=== PATIENT | female | born 1950 | race Caucasian/White ===

== ENCOUNTER 2017-06-21 08:05 | Inpatient (IN) | payer MEDICARE ==
[2017-06-21] VITALS (15 sets, daily range): BP systolic 113–186; BP diastolic 58–88; PULSE 77–160; RESP 17–24; TEMP 97.2–97.9; O2SAT 88–100
[~2017-06-21] VITALS: Ht 167.6 cm; Wt 83.3 kg
[~2017-06-21 08:05] MED LIST: CALTTAB2 PO; FISH1000 PO; PROC5TAB PO; TAB-TAB PO; VITA400C70 PO; VITA500T10 PO; [UNRECOGNIZED DRUG - CODE]; [UNRECOGNIZED DRUG - CODE] PO; [UNRECOGNIZED DRUG - CODE] PO
[2017-06-21] MEDS ORDERED: LIDOCAINE HCL 1% 10 ML VIAL SQ ONE (08:06)
[2017-06-21] MEDS ORDERED: SODIUM CHLORIDE 2 ML FLUSH PRN IV FLUSH (08:30)
[2017-06-21] MEDS ORDERED: SODIUM CHLOR 0.9% 1000 ML IV SCH (08:30)
[2017-06-21] MEDS ORDERED: ATOR20TA15 PO (08:32)
[2017-06-21] MEDS ORDERED: OMEG12002 PO (08:32)
[2017-06-21] MEDS ORDERED: GABA300C5 PO (08:32)
[2017-06-21] MEDS ORDERED: GLUC500T4 PO (08:32)
[2017-06-21] MEDS ORDERED: VENTAER INH (08:32)
[2017-06-21] MEDS ORDERED: MIRA3350 PO (08:32)
[2017-06-21] MEDS ORDERED: COQ-50CA2 PO (08:32)
[2017-06-21] MEDS ORDERED: MONT10TA4 PO (08:32)
[2017-06-21] MEDS ORDERED: OXYC1CAP PO (08:32)
[2017-06-21] MEDS ORDERED: MULTTAB67 PO (08:32)
[2017-06-21] MEDS ORDERED: IBUP200C PO (08:32)
[2017-06-21] MEDS ORDERED: VITA250C3 CHEW (08:32)
[2017-06-21] MEDS ORDERED: ALBU0.63 NEB (08:32)
[2017-06-21] MEDS ORDERED: DESO0.0560 TOPICAL (08:32)
[2017-06-21] MEDS ORDERED: CLOB0.055 TOPICAL (08:32)
[2017-06-21] MEDS ORDERED: SODIUM CHLORIDE 2 ML FLUSH BID IV FLUSH SCH (09:00)
[2017-06-21] MEDS ORDERED: MIDAZOLAM HCL 2 MG/2 ML VIAL ONE ×2 (09:32→13:14)
--- NOTE | 2017-06-21 11:04 | RADRPT ---
EXAM DATE/TIME: 06/21/2017 10:43 [facility] COMPARISON: No previous studies available for comparison. INDICATIONS : Post left side lung biopsy; evaluate for pneumothorax. MEDICAL HISTORY : Carcinoma, lung. SURGICAL HISTORY : None. ENCOUNTER: Initial ACUITY: 1 day PAIN SCORE: 3/10 LOCATION: Left chest FINDINGS: There is evidence of a moderate-sized left apical pneumothorax measuring 3.8 cm. Perihilar streakines s is stable. Left upper lung field nodule is also stable. The heart is mildly prominent. CONCLUSION: Moderate-sized left apical pneumothorax measuring 3.8 cm. The findings were called to special procedu res at 11 AM on 06/21/17 for chest tube placement. Damian Don MD on June 21, 2017 at 10:57 Board Certified Radiologist. This report was verified electronically.
[2017-06-21] MEDS: oxyCODONE/ACETAMINOPHEN 5 MG/325 MG TAB PO PRN ×3 (11:07→21:27)
--- NOTE | 2017-06-21 12:46 | RADRPT ---
EXAM DATE/TIME: 06/21/2017 12:25 [facility] COMPARISON: CHEST EXPIRATION ONLY, June 21, 2017, 10:43. INDICATIONS : Post left lung biopsy. MEDICAL HISTORY : Carcinoma, lung. SURGICAL HISTORY : None. ENCOUNTER: Subsequent ACUITY: 1 day PAIN SCORE: 0/10 LOCATION: Bilateral chest FINDINGS: Frontal views of the chest in inspiration and expiration were performed. Enlarging left-sided pneumot horax now measuring 3.9 cm and. CONCLUSION: Enlarging left-sided pneumothorax. Gerard Brown MD on June 21, 2017 at 12:41 Board Certified Radiologist. This report was verified electronically.
--- NOTE | 2017-06-21 13:04 | RADRPT ---
EXAM DATE/TIME: 06/21/2017 09:39 [facility] COMPARISON: No previous studies available for comparison. INDICATIONS : Left lung mass. SEDATION TIME: 30 minutes BIOPSY SITE: Left upper posterior chest. MEDICATION(S): 1.) 4 mg midazolam (Versed) IV 2.) 200 mcg fentanyl (Sublimaze) IV DEVICE(S): 1.) 20 gauge Temno core biopsy needle MEDICAL HISTORY : Carcinoma, lung. Chronic obstructive pulmonary disease. High grade neuroendocrine carcinoma, Eaton-L ambert Syndrome, Esophageal stricture. SURGICAL HISTORY : Tubal ligation. Radiation and chemotherapy for right lung cancer. ENCOUNTER: Initial ACUITY: 1 day PAIN SCORE: 0/10 LOCATION: Left upper chest A total of one core specimen(s) were obtained and sent to the laboratory for pathologic evaluation. PROCEDURE: 1. CT guided lung biopsy. Prior to the procedure informed consent was obtained. Any appropriate prior imaging studies were rev iewed. Using automated exposure control and adjustment of the mA and/or kV according to patient size, radiation dose was kept as low as reasonably achievable to obtain optimal diagnostic quality images. DICOM format image data is available electronically for review and comparison. The site was prepped in a sterile fashion. Full sterile technique was used, including cap, mask, igor rile gloves and gown and a large sterile sheet. Hand hygiene and 2% chlorhexidine and/or betadine/al cohol prep was utilized per protocol for cutaneous antisepsis. The skin and subcutaneous tissues wer e infiltrated with local anesthetic solution. With CT guidance the previously identified target was localized. Biopsy was performed using the presc ribed needle as above. Adequate hemostasis was obtained with compression at the puncture site. Follow-up CT scan reveals a small pneumothorax. Conscious sedation was performed with the prescribed dosages and duration as above in the presence of an independent trained radiology nurse to assist in the monitoring of the patient. EKG and oximetry remained stable throughout the procedure. The patient tolerated the procedure well and there were no complications. The patient was sent to Radiology Outpatient Unit in stable condition. CONCLUSION: Successful CT guided biopsy with small post-biopsy pneumothorax. Damian Don MD on June 21, 2017 at 13:00 Board Certified Radiologist. This report was verified electronically.
[2017-06-21] MEDS ORDERED: fentaNYL CITRATE 250 MCG/5 ML AMP ONE (13:14)
--- NOTE | 2017-06-21 13:33 | PD.RAD ---
Post Procedure Progress Note Pre Procedure Diagnosis: (1) Pneumothorax Post Procedure Diagnosis: (1) Pneumothorax Procedure Date: Jun 21, 2017 Supervising Radiologist: Toan Torres Proceduralist/Assist: RT Osvaldo(R) Anesthesia: Conscious Sedation Plan of Activity Patient to Unit: Nursing Unit Patient Condition: Good See PACS Report for procedural detail/treatment Drainage Procedure Procedure 1 Imaging Guidance: Fluoroscopy Side: Left Procedure Type: Chest Tube Non-Tunneled Marshallese: 10 Drainage: Pleurovac Toan Torres MD Jun 21, 2017 13:33
[2017-06-21] MEDS ORDERED: MAGNESIUM HYDROXIDE SUSP 30 ML CUP PO PRN (14:00)
[2017-06-21] MEDS ORDERED: NALOXONE HCL 0.4 MG/ML AMP IV PUSH PRN (14:00)
[2017-06-21] MEDS ORDERED: SODIUM CHLORIDE 0.9% FLUSH 10 ML FLUSH IV FLUSH PRN (14:00)
--- NOTE | 2017-06-21 14:03 | RADRPT ---
EXAM DATE/TIME: 06/21/2017 13:48 [facility] COMPARISON: CHEST EXPIRATION ONLY, June 21, 2017, 10:43. INDICATIONS : Evaluate for pneumothorax. Status post left chest tube. MEDICAL HISTORY : None. SURGICAL HISTORY : None. ENCOUNTER: Initial ACUITY: 1 day PAIN SCORE: 0/10 LOCATION: Bilateral chest FINDINGS: A small left apical chest tube has been placed. No residual pneumothorax is noted the heart is stable . Bilateral scarring and left upper lobe mass are stable. CONCLUSION: No residual pneumothorax is post placement of small left apical chest tube which is in good position. Damian Don MD on June 21, 2017 at 14:00 Board Certified Radiologist. This report was verified electronically.
--- NOTE | 2017-06-21 14:15 | HHI.HP ---
HPI Service [facility] Hospitalists Primary Care Physician Vidya Barrera Jr, MD Admission Diagnosis Pneumothorax status post lung biopsy Chief Complaint: pneumothorax status post lung biopsy Travel History International Travel<30 Days: No Contact w/Intl Traveler <30 Da: No Traveled to Known Affected Are: No History of Present Illness This is a 67-year-old female patient with past medical history which includes arthritis, COPD, epilepsy as a child not currently on medications, esophageal strictures, hypercholesterolemia, Lambert-Eaton syndrome, opioid dependence, history of tobaccoism quit smoking in 2008, recurrent bronchitis, small cell lung CA treated with chemo and radiation also status post prophylactic whole brain radiation 2008. Patient followed with Dr. Christy in the past now follows with Dr. Damon. Dr. Damon found a suspicion lesion and patient was seen in interventional radiology today for a lung biopsy subsequently had pneumothorax with chest tube placement. We are consulted to admit patient for close monitoring. Patient reports feeling much better now. Offers no complaints at this time. Denies SOB or chest pain. 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 not currently on medications, esophageal strictures, hypercholesterolemia, Lambert-Eaton syndrome, opioid dependence, history of tobaccoism quit smoking in 2008, recurrent bronchitis, small cell lung CA status post prophylactic whole brain radiation 2008 Past Surgical History Carpal tunnel repair right wrist Cervical spinal fusion 2008 Infusion port placement Tendon repair elbow and wrist in the Colonoscopy 2013 CT-guided biopsy mediastinal mass 2009 Right knee surgery 1987 Tubal ligation 1976 Reported Medications Leland 3 1200 mg (Leland-3 Fatty Acids) 684 Mg-1,200 Mg Cap 1 Cap PO DAILY Gabapentin 300 Mg Cap 300 Mg PO TID Desonide Topical (Desonide) 0.05% Cream 1 Applic TOPICAL BID Clobetasol Topical (Clobetasol Propionate) 0.05% Cream 1 Applic TOPICAL BID Albuterol Neb (Albuterol Sulfate) 0.63 Mg/3 Ml Neb 0.63 Mg NEB Q4HR NEB PRN Montelukast (Montelukast Sodium) 10 Mg Tab 10 Mg PO HS Ibuprofen 200 Mg Cap 200 Mg PO Q6H PRN Ventolin Hfa 18 GM Inh (Albuterol Sulfate) 90 Mcg/Act Aer 1 Puff INH Q4H PRN Coq-10 (Coenzyme Q10 (Ubidecarenone)) 50 Mg Cap 100 Cap PO DAILY Atorvastatin (Atorvastatin Calcium) 20 Mg Tab 40 Mg PO HS Glucosamine-Chondroitin 500-400 Mg Tab 1 Tab PO TID Miralax Powder (Polyethylene Glycol 3350 Powder) 17 Gm Powd 17 Gm PO HS Mix and dissolve one measuring cap-ful (17 grams) in water or juice. Vitamin C (Ascorbic Acid) 250 Mg Chew 1,000 Mg CHEW DAILY Multiple Vitamin 1 Tab 1 Tab PO DAILY Oxycodone (Oxycodone HCl) 5 Mg Cap 5 Mg PO HS PRN Allergies: Coded Allergies: latex (Unverified Allergy, Severe, Rash, 06/21/17) Family History Noncontributory Social History Former smoker quit smoking 2008 Physical Exam Vital Signs Vital Signs Date Time Temp Pulse Resp B/P (MAP) Pulse Ox O2 Delivery O2 Flow Rate FiO2 06/21/17 13:45 97.9 89 18 133/74 (93) 100 06/21/17 12:46 87 18 113/79 (90) 100 06/21/17 12:16 84 19 147/74 (98) 99 06/21/17 12:07 20 06/21/17 11:46 85 18 154/78 (103) 98 06/21/17 11:16 82 19 152/84 (106) 99 06/21/17 10:46 97.6 86 17 146/88 (107) 96 06/21/17 08:40 95 Room Air 06/21/17 08:25 97.8 105 20 143/85 (104) 95 Physical Exam GENERAL: This is a well-nourished, well-developed patient, in no apparent distress. SKIN: No rashes, ecchymoses or lesions. Cool and dry. HEAD: Atraumatic. Normocephalic. No temporal or scalp tenderness. EYES: Extraocular motions intact. No scleral icterus. No injection or drainage. CARDIOVASCULAR: Regular rate and rhythm RESPIRATORY: Chest tube in place GASTROINTESTINAL: Abdomen soft, non-tender, nondistended. MUSCULOSKELETAL: Extremities without clubbing, cyanosis, or edema. No joint tenderness, effusion, or edema noted. No calf tenderness. Negative Homans sign bilaterally. NEUROLOGICAL: Awake and alert. No focal deficits identified. Motor and sensory grossly within normal limits. Five out of 5 muscle strength in all muscle groups. Normal speech. Imaging Last Impressions Chest X-Ray 06/21/17 1230 Signed Impressions: Service Date/Time: Wednesday, June 21, 2017 12:25 - CONCLUSION: Enlarging left-sided pneumothorax. Gerard Brown MD Lung Biopsy CT 06/21/17 0000 Signed Impressions: Service Date/Time: Wednesday, June 21, 2017 09:39 - CONCLUSION: Successful CT guided biopsy with small post-biopsy pneumothorax. MD Jonatan Kline VTE Risk Assessment Caprini VTE Risk Assessment: No/Low Risk (score <= 1) Caprini Risk Assessment Model Point Value = 1 Point Value = 2 Point Value = 3 Point Value = 5 Age 41-60 Minor surgery BMI > 25 kg/m2 Swollen legs Varicose veins or History of unexplained or recurrent spontaneous Oral contraceptives or hormone replacement Sepsis (< 1 month) Serious lung disease, including pneumonia (< 1 month) Abnormal pulmonary function Acute myocardial infarction Congestive heart failure (< 1 month) History of inflammatory bowel disease Medical patient at bed rest Age 61-74 Arthroscopic surgery Major open surgery (> 45 min) Laparoscopic surgery (> 45 min) Malignancy Confined to bed (> 72 hours) Immobilizing plaster cast Central venous access Age >= 75 History of VTE Family history of VTE Factor V Leiden Prothrombin [id number] Lupus anticoagulant Anticardiolipin antibodies Elevated serum homocysteine Heparin-induced thrombocytopenia Other congenital or acquired thrombophilia Stroke (< 1 month) Elective arthroplasty Hip, pelvis, or leg fracture Acute spinal cord injury (< 1 month) Prophylaxis Regimen Total Risk Factor Score Risk Level Prophylaxis Regimen 0-1 Low Early ambulation 2 Moderate Order ONE of the following: *Sequential Compression Device (SCD) *Heparin 5000 units SQ BID 3-4 Higher Order ONE of the following medications: *Heparin 5000 units SQ TID *Enoxaparin/Lovenox 40 mg SQ daily (WT < 150 kg, CrCl > 30 mL/min) *Enoxaparin/Lovenox 30 mg SQ daily (WT < 150 kg, CrCl > 10-29 mL/min) *Enoxaparin/Lovenox 30 mg SQ BID (WT < 150 kg, CrCl > 30 mL/min) AND/OR *Sequential Compression Device (SCD) 5 or more Highest Order ONE of the following medications: *Heparin 5000 units SQ TID (Preferred with Epidurals) *Enoxaparin/Lovenox 40 mg SQ daily (WT < 150 kg, CrCl > 30 mL/min) *Enoxaparin/Lovenox 30 mg SQ daily (WT < 150 kg, CrCl > 10-29 mL/min) *Enoxaparin/Lovenox 30 mg SQ BID (WT < 150 kg, CrCl > 30 mL/min) AND *Sequential Compression Device (SCD) Assessment and Plan Problem List: (1) Pneumothorax ICD Codes: J93.9 - Pneumothorax, unspecified Status: Acute Plan: history of small cell lung CA status post prophylactic whole brain radiation 2008. Patient was in interventional radiology today for a lung biopsy subsequently had pneumothorax chest tube placed We are consulted to admit patient for close monitoring. CT to wall suction (2) Small cell lung cancer ICD Codes: C34.90 - Malignant neoplasm of unspecified part of unspecified bronchus or lung Status: Chronic Plan: see above (3) COPD (chronic obstructive pulmonary disease) ICD Codes: J44.9 - Chronic obstructive pulmonary disease, unspecified Status: Acute Plan: Does not appear to be in acute exacerbation Duonebs PRN (4) Hypercholesteremia ICD Codes: E78.00 - Pure hypercholesterolemia, unspecified Status: Chronic Plan: Continue home Atorvastatin Assessment and Plan Patient examined. Assessment and plan formulated with Goldie Ventura PA-C. I agree with the above. Problem Qualifiers (1) Pneumothorax: Qualified Codes: J95.811 - Postprocedural pneumothorax Goldie Ventura Jun 21, 2017 14:15 Elvis Carter DO Jun 23, 2017 21:25
--- NOTE | 2017-06-21 15:52 | RADRPT ---
EXAM DATE/TIME: 06/21/2017 13:25 [facility] COMPARISON: No previous studies available for comparison. INDICATIONS : Patient presents status post lung biopsy in need of left chest tube placement due to pneumothorax. MEDICAL HISTORY : Lung carcinoma SURGICAL HISTORY : n/a ENCOUNTER: Initial ACUITY: 1 day PAIN SCORE: 0/10 LOCATION: N/A FLUORO TIME: 1.30 minutes IMAGE SERIES: 2 SEDATION TIME: 30 minutes MEDICATION(S): 1.) 1.5 mg midazolam (Versed) IV 2.) 75 mcg fentanyl (Sublimaze) IV DEVICE(S): 1.) 10 Danish non-locking catheter 30cm luca PROCEDURE : 1. Fluoroscopically guided chest tube placement. 2. Conscious sedation with continuous EKG and oximetry monitoring. The risks, benefits and alternatives to the procedure were explained and verbal and written consent w as obtained. The site was prepped in sterile fashion. Full sterile technique was used, including ca p, mask, sterile gloves and gown and a large sterile sheet. Hand hygiene and 2% chlorhexidine and/or betadine/alcohol prep was utilized per protocol for cutaneous antisepsis. The skin and subcutaneous tissues were infiltrated with local anesthetic solution. With fluoroscopic guidance the chest was punctured between the first and second interspace and the pr escribed catheter was placed in the lung apex. Wall suction was applied. Post procedure images demon strate satisfactory position of the tube. The catheter was sutured in place and a Percu-Stay was mickey lied. Conscious sedation was performed with the prescribed dosages and duration as above in the presence of an independent trained radiology nurse to assist in the monitoring of the patient. EKG and oximetry remained stable throughout the procedure. The patient tolerated the procedure well and there were n o complications. The patient was sent to post anesthesia recovery in stable condition. CONCLUSION: Uncomplicated chest tube placement as above. Toan Torres MD on June 21, 2017 at 15:49 Board Certified Radiologist. This report was verified electronically.
[2017-06-21] MEDS ORDERED: RESP: ALBUTEROL 2.5 MG/IPRATROPIUM 0.5 MG NEB (PRN) NEB (16:00)
[2017-06-21] MEDS: GABAPENTIN 300 MG CAP PO SCH (17:51)
[2017-06-21] MEDS ORDERED: MENTHOL LOZENGE BUCCAL PRN (18:15)
[2017-06-21] MEDS ORDERED: MENTHOL LOZENGE BUCCAL ONE (18:15)
--- NOTE | 2017-06-21 19:40 | HHI.FPPN ---
Addendum to progress note ADDENDUM Reason for addendum: Additonal documentation Additional information Called to [facility] on pt regarding concern for worsening shortness of breath. Pt had just been admitted and a chest tube was placed. It had been removed and pt had worsening shortness of breath and the team heard a hiss from the lung site. Radiology was made aware as well as ICU for transfer and likely replacement of the chest tube. Transfer to ICU was placed and primary team took over care for further orders. Diony Parker MD R2 Jun 21, 2017 19:40
--- NOTE | 2017-06-21 20:35 | RADRPT ---
EXAM DATE/TIME: 06/21/2017 20:02 [facility] COMPARISON: CHEST EXPIRATION ONLY, June 21, 2017, 13:48. INDICATIONS : Short of breath. MEDICAL HISTORY : Carcinoma, lung. Chronic obstructive pulmonary disease. High grade neuroendocrine carcinoma, Eaton-La mbert Syndrome, Esophageal stricture. SURGICAL HISTORY : Tubal ligation. Radiation and chemotherapy for right lung cancer. ENCOUNTER: Subsequent ACUITY: 1 day PAIN SCORE: 4/10 LOCATION: Bilateral chest FINDINGS: Left chest tube has been pulled out. There is a large pneumothorax with rightward mediastinal shift. Patchy atelectasis right lung. CONCLUSION: Large left pneumothorax with tension. The chest tube has been pulled out. Abel Platt MD on June 21, 2017 at 20:25 Board Certified Radiologist. This report was verified electronically.
[2017-06-21] MEDS: POLYETHYLENE GLYCOL 17 GM PKG PO SCH (21:00)
[2017-06-21] MEDS: SODIUM CHLORIDE 0.9% FLUSH 10 ML FLUSH IV FLUSH SCH (21:00)
[2017-06-21] MEDS: MONTELUKAST SODIUM 10 MG TAB PO SCH (21:12)
[2017-06-21] MEDS: ATORVASTATIN 40 MG TAB PO SCH (21:13)
--- NOTE | 2017-06-21 22:07 | RADRPT ---
EXAM DATE/TIME: 06/21/2017 21:39 [facility] COMPARISON: No previous studies available for comparison. INDICATIONS : Post chest tube placement. MEDICAL HISTORY : None. SURGICAL HISTORY : None. ENCOUNTER: Initial ACUITY: 1 day PAIN SCORE: 0/10 LOCATION: Bilateral chest FINDINGS: A new left chest tube has been placed, projects over the midlung. The pneumothorax is much smaller, n ow [id number] in size. It measures approximately 3.6 cm in maximal thickness at the apex. No t ension.. Under that There is mild left base atelectasis. Mild patchy atelectasis/infiltrate of the right lung and with a small pleural effusion, not significa ntly changed. CONCLUSION: Small to moderate left pneumothorax present, much smaller after chest tube placement. Abel Platt MD on June 21, 2017 at 22:04 Board Certified Radiologist. This report was verified electronically.
--- NOTE | 2017-06-21 22:52 | PD.CONS ---
HPI Service Critical Care Medicine Consult Requested By Primary Care Physician Vidya Barrera Jr, MD History of Present Illness 67-year-old female patient with past medical history of arthritis, COPD, epilepsy as a child not currently on medications, esophageal strictures, hypercholesterolemia, Lambert-Eaton syndrome, opioid dependence, history of tobaccoism quit smoking in 2008, recurrent bronchitis, small cell lung CA treated with chemo and radiation also status post prophylactic whole brain radiation 2008. Patient followed with Dr. Christy in the past now follows with Dr. Damon. Dr. Damon found a suspicion lesion and patient was seen in interventional radiology today for a lung biopsy complicated by pneumothorax with a chest tube placement. Around 6:45 PM the [facility] was called on the patient regarding concern for worsening shortness of breath. The chest tube that was orally placed was removed and the patient had worsening shortness of breath. The patient was transferred to critical care unit and the emergency chest tube was placed immediately with significant improvement of symptoms. Review of Systems ROS Unobtainable due to severe respiratory distress Past Family Social History Allergies: Coded Allergies: latex (Unverified Allergy, Severe, Rash, 06/21/17) Past Medical History arthritis, COPD, epilepsy as a child not currently on medications, esophageal strictures, hypercholesterolemia, Lambert-Eaton syndrome, opioid dependence, history of tobaccoism quit smoking in 2008, recurrent bronchitis, small cell lung CA status post prophylactic whole brain radiation 2008 Past Surgical History Carpal tunnel repair right wrist Cervical spinal fusion 2008 Infusion port placement Tendon repair elbow and wrist in the Colonoscopy 2012 CT-guided biopsy mediastinal mass 2008 Right knee surgery 1986 Tubal ligation 1976 Reported Medications Reported Meds & Active Scripts Active Reported Gill 3 1200 mg (Gill-3 Fatty Acids) 684 Mg-1,200 Mg Cap 1 Cap PO DAILY Gabapentin 300 Mg Cap 300 Mg PO TID Desonide Topical (Desonide) 0.05% Cream 1 Applic TOPICAL BID Clobetasol Topical (Clobetasol Propionate) 0.05% Cream 1 Applic TOPICAL BID Albuterol Neb (Albuterol Sulfate) 0.63 Mg/3 Ml Neb 0.63 Mg NEB Q4HR NEB PRN Montelukast (Montelukast Sodium) 10 Mg Tab 10 Mg PO HS Ibuprofen 200 Mg Cap 200 Mg PO Q6H PRN Ventolin Hfa 18 GM Inh (Albuterol Sulfate) 90 Mcg/Act Aer 1 Puff INH Q4H PRN Coq-10 (Coenzyme Q10 (Ubidecarenone)) 50 Mg Cap 100 Cap PO DAILY Atorvastatin (Atorvastatin Calcium) 20 Mg Tab 40 Mg PO HS Glucosamine-Chondroitin 500-400 Mg Tab 1 Tab PO TID Miralax Powder (Polyethylene Glycol 3350 Powder) 17 Gm Powd 17 Gm PO HS Mix and dissolve one measuring cap-ful (17 grams) in water or juice. Vitamin C (Ascorbic Acid) 250 Mg Chew 1,000 Mg CHEW DAILY Multiple Vitamin 1 Tab 1 Tab PO DAILY Oxycodone (Oxycodone HCl) 5 Mg Cap 5 Mg PO HS PRN Active Ordered Medications Current Medications Medications (Trade) Dose Ordered Sig/Leeann Route PRN Reason Start Time Stop Time Status Last Admin Dose Admin Oxycodone/ Acetaminophen (Percocet 5-325 Mg) 1 tab Q4H PRN PO PAIN SCALE 1 TO 10 06/21/17 10:30 06/21/17 21:27 Sodium Chloride (NS Flush) 2 ml UNSCH PRN IV FLUSH FLUSH AFTER USING IV ACCESS 06/21/17 14:00 Sodium Chloride (NS Flush) 2 ml BID IV FLUSH 06/21/17 21:00 06/21/17 21:00 Acetaminophen (Tylenol) 650 mg Q4H PRN PO TEMP > 100.4 06/21/17 14:00 Ondansetron HCl (Zofran Inj) 4 mg Q6H PRN IVP NAUSEA OR VOMITING 06/21/17 14:00 Naloxone HCl (Narcan Inj) 0.4 mg UNSCH PRN IV PUSH SEE LABEL COMMENTS 06/21/17 14:00 Magnesium Hydroxide (Milk Of Magnreba Liq) 30 ml Q12H PRN PO Mild constipation 06/21/17 14:00 Atorvastatin Calcium (Lipitor) 40 mg HS PO 06/21/17 21:00 06/21/17 21:13 Gabapentin (Neurontin) 300 mg TID PO 06/21/17 18:00 06/21/17 17:51 Montelukast Sodium (Singulair) 10 mg HS PO 06/21/17 21:00 06/21/17 21:12 Polyethylene Glycol (Miralax) 17 gm HS PO 06/21/17 21:00 Albuterol/ Ipratropium (Duoneb Neb) 1 ampule Q4HR NEB PRN NEB SOB/WHEEZING 06/21/17 16:00 Menthol ([place] Melvina) 1 lozenge UNSCH PRN BUCCAL DRY MOUTH/SORE THROAT 06/21/17 18:15 Family History No family history significant for coronary artery disease, CVA, or malignancies Social History Former smoker quit smoking 2008 Physical Exam Vital Signs Vital Signs Date Time Temp Pulse Resp B/P (MAP) Pulse Ox O2 Delivery O2 Flow Rate FiO2 06/21/17 22:00 109 06/21/17 21:00 105 06/21/17 20:00 160 06/21/17 19:20 97 15.00 100 06/21/17 19:10 110 24 186/84 (118) 88 06/21/17 16:00 97.2 77 17 120/58 (78) 98 06/21/17 15:01 96 Nasal Cannula 2.00 06/21/17 14:45 87 19 130/74 (92) 99 06/21/17 14:15 82 19 124/66 (85) 99 06/21/17 13:45 97.9 89 18 133/74 (93) 100 06/21/17 12:46 87 18 113/79 (90) 100 06/21/17 12:16 84 19 147/74 (98) 99 06/21/17 12:07 20 06/21/17 11:46 85 18 154/78 (103) 98 06/21/17 11:16 82 19 152/84 (106) 99 06/21/17 10:46 97.6 86 17 146/88 (107) 96 06/21/17 08:40 95 Room Air 06/21/17 08:25 97.8 105 20 143/85 (104) 95 Physical Exam GENERAL: Well-nourished, well-developed patient. Severe respiratory distress, tachypneic and diaphoretic SKIN: Warm and dry. HEAD: Normocephalic. EYES: No scleral icterus. No injection or drainage. NECK: Supple, trachea midline. No JVD or lymphadenopathy. CARDIOVASCULAR: Regular rate and rhythm without murmurs, gallops, or rubs. RESPIRATORY: Breath sounds diminished on the left side, positive accessory muscle use. GASTROINTESTINAL: Abdomen soft, non-tender, nondistended. MUSCULOSKELETAL: No cyanosis, or edema. BACK: Nontender without obvious deformity. NEURO EXAM: Mental Status: The patient is alert and oriented to person, place, and time Imaging Last 24 hours Impressions Chest X-Ray 06/21/17 1230 Signed Impressions: Service Date/Time: Wednesday, June 21, 2017 12:25 - CONCLUSION: Enlarging left-sided pneumothorax. Gerard Brown MD Lung Biopsy CT 06/21/17 0000 Signed Impressions: Service Date/Time: Wednesday, June 21, 2017 09:39 - CONCLUSION: Successful CT guided biopsy with small post-biopsy pneumothorax. Damian Don MD Chest X-Ray 06/21/17 0000 Signed Impressions: Service Date/Time: Wednesday, June 21, 2017 21:39 - CONCLUSION: Small to moderate left pneumothorax present, much smaller after chest tube placement. Abel Platt MD Chest X-Ray 06/21/17 0000 Signed Impressions: Service Date/Time: Wednesday, June 21, 2017 20:02 - CONCLUSION: Large left pneumothorax with tension. The chest tube has been pulled out. Abel Platt MD Chest X-Ray 06/21/17 0000 Signed Impressions: Service Date/Time: Wednesday, June 21, 2017 13:48 - CONCLUSION: No residual pneumothorax is post placement of small left apical chest tube which is in good position. Damian Don MD Chest X-Ray 06/21/17 0000 Signed Impressions: Service Date/Time: Wednesday, June 21, 2017 10:43 - CONCLUSION: Moderate-sized left apical pneumothorax measuring 3.8 cm. The findings were called to special procedures at 11 AM on 06/21/17 for chest tube placement. Damian Don MD Chest Tube Insertion 06/21/17 0000 Signed Impressions: Service Date/Time: Wednesday, June 21, 2017 13:25 - CONCLUSION: Uncomplicated chest tube placement as above. Toan Torres MD Assessment and Plan Assessment and Plan Tension pneumothorax -Emergent chest tube placement -Continue low wall suction -CXR a.m. -O2 nasal cannula Small cell lung cancer -Management per oncology COPD -No exacerbation -No indication for steroid -DuoNeb scheduled and as needed Hypercholesteremia -Atorvastatin DVT GI prophylaxis -Papito's and SCDs -Lovenox -Regular diet Critical Care: The total critical care time was 35 minutes. Time to perform other separately billable procedures was not included in the critical care time. Abel Barahona MD Jun 21, 2017 10:52 pm
--- NOTE | 2017-06-21 22:52 | PD.PROCEDR ---
Procedure Note Procedure Left-sided chest tube for a large pneumothorax Procedure: CHEST TUBE Indication: Large pneumothorax Performed by: Abel Barahona A time out procedure was performed Initials Consent obtained JV Correct patient JV Correct procedure JV Correct site JV Correct positioning JV Correct supplies JV Patient was positioned, prepped and draped in usual sterile fashion. ccs 1% Lidocaine was used to anesthetize the area. An incision was made and blunt dissection was performed and curved forceps were used to enter the pleural space. A 10 fr chest tube was placed to 15cm. The tube was secured and taped. A chest xray was ordered to evaluate for placement of the chest tube. A pigtail catheter was placed using the seldinger technique. Initial Fluid Removed: 50 Patient tolerated the procedure well and there were no complications. Abel Barahona MD Jun 21, 2017 10:52 pm
[2017-06-22] VITALS (23 sets, daily range): PULSE 73–130; O2SAT 92–98
[2017-06-22] MEDS ORDERED: guaiFENesin E.R. 600 MG TAB PO PRN (00:15)
[2017-06-22] MEDS: ENOXAPARIN SODIUM 40 MG/0.4 ML SYRINGE SQ SCH ×2 (00:39→23:06)
[2017-06-22] MEDS: oxyCODONE/ACETAMINOPHEN 5 MG/325 MG TAB PO PRN ×2 (01:10→21:06)
[2017-06-22] MEDS ORDERED: MORPHINE SULFATE 2 MG/ML SYRINGE ONE (01:51)
[2017-06-22] MEDS ORDERED: LORazepam 2 MG/ML VIAL ONE (01:53)
[2017-06-22] MEDS: HYDROmorphone HCL PF 2 MG/ML VIAL IV PUSH PRN ×3 (02:15→23:05)
--- NOTE | 2017-06-22 02:32 | RADRPT ---
EXAM DATE/TIME: 06/22/2017 01:58 [facility] COMPARISON: CHEST SINGLE AP, June 21, 2017, 21:39. INDICATIONS : Short of breath. Pneumothorax. MEDICAL HISTORY : Carcinoma, lung. Chronic obstructive pulmonary disease. High grade neuroendocrine carcinoma, Eaton-La mbert Syndrome, Esophageal stricture. SURGICAL HISTORY : None. ENCOUNTER: Subsequent ACUITY: 2 days PAIN SCORE: 0/10 LOCATION: Bilateral chest FINDINGS: A single view of the chest demonstrates left apical pneumothorax measuring 2 cm. Bibasilar densities. Left-sided chest tube. Subcutaneous emphysema on the left.. Osseous structures are intact. CONCLUSION: Left-sided pneumothorax measuring 2 cm slightly smaller. Miguel Ochoa MD on June 22, 2017 at 2:30 Board Certified Radiologist. This report was verified electronically.
[2017-06-22] MEDS: ONDANSETRON HCL 4 MG/2 ML VIAL IVP PRN ×2 (06:07→21:07)
[2017-06-22] MEDS ORDERED: CHLORHEXIDINE GLUCONATE 2 % 1 PACK (2 CLOTHS)(extra cloths) TOPICAL PRN (06:15)
--- NOTE | 2017-06-22 06:29 | RADRPT ---
EXAM DATE/TIME: 06/22/2017 05:59 [facility] COMPARISON: CHEST SINGLE AP, June 22, 2017, 1:58. INDICATIONS : Shortness of breath, possible pulmonary disease. MEDICAL HISTORY : None. SURGICAL HISTORY : Needle biopsy ENCOUNTER: Subsequent ACUITY: 2 days PAIN SCORE: 5/10 LOCATION: Left chest FINDINGS: A single view of the chest demonstrates unchanged left apical pneumothorax. Small caliber left-sided chest tube again seen. Subcutaneous edema on the left. Bibasilar densities greater right lung. Cardio megaly. The cardiomediastinal contours are unremarkable. Osseous structures are intact. CONCLUSION: 1. Left-sided chest tube with unchanged left apical pneumothorax. 2. Bibasilar densities, stable. Miguel Ochoa MD on June 22, 2017 at 6:27 Board Certified Radiologist. This report was verified electronically.
[2017-06-22] MEDS ORDERED: LIDOCAINE 1%/EPINEPHrine 1:100,000 SOLN 20 ML VIAL INFIL ONE (07:00)
[2017-06-22] MEDS ORDERED: MIDAZOLAM HCL 5 MG/5 ML VIAL IV PUSH ONE (07:00)
[2017-06-22] MEDS ORDERED: DEXMEDETOMIDINE INJ 1,000 MCG in SODIUM CHLOR 0.9% 250 ML INJ 240 ML IV PRN (07:00)
[2017-06-22] MEDS ORDERED: MIDAZOLAM HCL 5 MG/ML VIAL (1 ML) ONE (07:02)
[2017-06-22] MEDS ORDERED: LIDOCAINE 1%/EPINEPHrine 1:100,000 SOLN 30 ML VIAL INFIL ONE (07:15)
--- NOTE | 2017-06-22 07:52 | HHI.CCPN ---
Subjective Remarks/Hospital Course 67-year-old female patient with past medical history of arthritis, COPD, epilepsy as a child not currently on medications, esophageal strictures, hypercholesterolemia, Lambert-Eaton syndrome, opioid dependence, history of tobaccoism quit smoking in 2008, recurrent bronchitis, small cell lung CA treated with chemo and radiation also status post prophylactic whole brain radiation 2008. Patient followed with Dr. Christy in the past now follows with Dr. Damon. Dr. Damon found a suspicion lesion and patient was seen in interventional radiology today for a lung biopsy complicated by pneumothorax with a chest tube placement. Around 6:45 PM the [facility] was called on the patient regarding concern for worsening shortness of breath. The chest tube that was orally placed was removed and the patient had worsening shortness of breath. The patient was transferred to critical care unit and the emergency chest tube was placed immediately with significant improvement of symptoms. Subjective: 06/22: Afebrile. Patient with complaints of recurrent nausea despite Zofran. Phenergan added to medication regimen. This a.m. while rounding on patient approximately 0640 this a.m. patient noted to have left pigtail chest tube inadvertently pulled out. Patient tachypneic, O2 saturation 97% heart rate 117. Left 28 Swedish chest tube placed, pleuravac placed on 40cm H20, tachypnea resolved. Patient normotensive currently resting comfortably, post chest tube placement. Chest x-ray pending. Objective Vital Signs Date Time Temp Pulse Resp B/P (MAP) Pulse Ox O2 Delivery O2 Flow Rate FiO2 06/22/17 06:00 112 06/22/17 05:32 10 06/22/17 01:12 98 Partial Rebreather 15.00 06/21/17 19:20 100 06/21/17 19:10 186/84 (118) 06/21/17 16:00 97.2 Intake and Output 06/22/17 06/22/17 06/23/17 08:00 16:00 00:00 Output Total 470 ml Balance -470 ml Imaging Last Impressions Chest X-Ray 06/22/17 0600 Signed Impressions: Service Date/Time: May 05:59 - CONCLUSION: 1. Left- sided chest tube with unchanged left apical pneumothorax. 2. Bibasilar densities, stable. Miguel Ochoa MD Lung Biopsy CT 06/21/17 0000 Signed Impressions: Service Date/Time: Wednesday, June 21, 2017 09:39 - CONCLUSION: Successful CT guided biopsy with small post-biopsy pneumothorax. Damian Don MD Chest Tube Insertion 06/21/17 0000 Signed Impressions: Service Date/Time: Wednesday, June 21, 2017 13:25 - CONCLUSION: Uncomplicated chest tube placement as above. Toan Torres MD Last 24 hours Impressions Chest X-Ray 06/21/17 1230 Signed Impressions: Service Date/Time: Wednesday, June 21, 2017 12:25 - CONCLUSION: Enlarging left-sided pneumothorax. Gerard Brown MD Lung Biopsy CT 06/21/17 0000 Signed Impressions: Service Date/Time: Wednesday, June 21, 2017 09:39 - CONCLUSION: Successful CT guided biopsy with small post-biopsy pneumothorax. Damian Don MD Chest X-Ray 06/21/17 0000 Signed Impressions: Service Date/Time: Wednesday, June 21, 2017 21:39 - CONCLUSION: Small to moderate left pneumothorax present, much smaller after chest tube placement. Abel Platt MD Chest X-Ray 06/21/17 0000 Signed Impressions: Service Date/Time: Wednesday, June 21, 2017 20:02 - CONCLUSION: Large left pneumothorax with tension. The chest tube has been pulled out. Abel Platt MD Chest X-Ray 06/21/17 0000 Signed Impressions: Service Date/Time: Wednesday, June 21, 2017 13:48 - CONCLUSION: No residual pneumothorax is post placement of small left apical chest tube which is in good position. Damian Don MD Chest X-Ray 06/21/17 0000 Signed Impressions: Service Date/Time: Wednesday, June 21, 2017 10:43 - CONCLUSION: Moderate-sized left apical pneumothorax measuring 3.8 cm. The findings were called to special procedures at 11 AM on 06/21/17 for chest tube placement. Damian Don MD Chest Tube Insertion 06/21/17 0000 Signed Impressions: Service Date/Time: Wednesday, June 21, 2017 13:25 - CONCLUSION: Uncomplicated chest tube placement as above. Toan Torres MD Procedures 06/21-left pigtail chest tube placement 4/26-left 26 Swedish chest tube placement Objective Remarks GENERAL: Well-nourished, well-developed patient. Moderate respiratory distress , tachypneic . Left chest tube pigtail pulled out lying in bed SKIN: Warm and dry. HEAD: Normocephalic. EYES: No scleral icterus. No injection or drainage. NECK: Supple, trachea midline. No JVD or lymphadenopathy. CARDIOVASCULAR: Regular rate and rhythm without murmurs, gallops, or rubs. RESPIRATORY: Breath sounds diminished on the left side, positive accessory muscle use. GASTROINTESTINAL: Abdomen soft, non-tender, nondistended. MUSCULOSKELETAL: No cyanosis, or edema. BACK: Nontender without obvious deformity. NEURO EXAM: Mental Status: GCS 15 .the patient is alert and oriented to person, place, and time . Movement of extremities 4 Urinary Catheter: Yes Date of Insertion: Jun 22, 2017 A/P Problem List: (1) Pneumothorax ICD Code: J93.9 - Pneumothorax, unspecified Status: Acute (2) Small cell lung cancer ICD Code: C34.90 - Malignant neoplasm of unspecified part of unspecified bronchus or lung Status: Chronic (3) Hypercholesteremia ICD Code: E78.00 - Pure hypercholesterolemia, unspecified Status: Chronic (4) COPD (chronic obstructive pulmonary disease) ICD Code: J44.9 - Chronic obstructive pulmonary disease, unspecified Status: Acute Assessment and Plan Tension pneumothorax -Emergent left pigtail chest tube placement 06/21 -Replacement of left chest tube 28 Swedish on 40 cm H20 06/22 - F/U CXR post placement of 28 Swedish chest tube -O2 nasal cannula Small cell lung cancer -Management per oncology COPD -No exacerbation -No indication for steroid -DuoNeb as needed every 4 hours Hypercholesteremia -Atorvastatin continued DVT GI prophylaxis -Papito's and SCDs -Lovenox -NPO for now , possible intubation Discussed withthe patient and JUNIOR ENGINEER at bedside (Thelma) my billing statement This patient remains critically ill with one or more organ systems which are or may become a threat to life. I have spent in excess of 37 minutes discontinuously in the care and management of this patient. This time is exclusive of procedures, and includes, but is not limited to, evaluation of the patient, review of the medical record, discussions with family, consultants, nursing staff, or respiratory therapy, and documentation in the medical record. Physician Luciana Snider Problem Qualifiers (1) Pneumothorax: Qualified Codes: J95.811 - Postprocedural pneumothorax Luciana Snider MD Jun 22, 2017 07:52
--- NOTE | 2017-06-22 07:56 | PD.PROCEDR ---
Procedure Note Procedure Procedure: Left chest tube placement Indication: Left pneumothorax, status post dislodgment of left pigtail chest tube Details of procedure: Informed consent in medical record. The patient was laid in slight semi- recumbent position. The lateral chest wall was cleaned with ChloraPrep twice. Regional sterile drapes were applied. 1% lidocaine with epinephrine 7 cc was used for local anesthesia and injected into the subcutaneous and deep muscle tissues. A 2 cm skin incision was made with a scalpel blade. A hemostat was used for blunt dissection. The hemostat was entered into the pleural space superior to the rib with release of air. I explored the wound with my finger. A size 28 Bulgarian chest tube was inserted with a Constanza clamp into the pleural cavity and directed toward the apex/anterior to a depth of 16. 0-0 silk was used to close the wound and to secure the chest tube. A sterile Vaseline gauze dressing was applied. The chest tube was connected to a Pleur-evac drainage system. There was noair leak . There was no output from the chest tube. Estimated blood loss: < 3cc Complications: None. Chest x-ray pending. Luciana Snider MD Jun 22, 2017 07:56
[2017-06-22] MEDS ORDERED: PROMETHAZINE HCL SYRUP 6.25 MG/5 ML CUP PO PRN (08:00)
--- NOTE | 2017-06-22 08:20 | RADRPT ---
EXAM DATE/TIME: 06/22/2017 07:32 [facility] COMPARISON: CHEST SINGLE AP, June 22, 2017, 5:59. INDICATIONS : Evaluate chest tube placement MEDICAL HISTORY : Left side pneumothorax SURGICAL HISTORY : Needle biopsy, left side chest tube ENCOUNTER: Subsequent ACUITY: 2 days PAIN SCORE: Non-responsive. LOCATION: chest FINDINGS: A left chest tube has been placed and is in good position. The previously noted left apical pneumotho rax has resolved. There is persistent subcutaneous emphysema with left chest wall. The heart is stabl e. Scarring and infiltrates are stable. CONCLUSION: Resolution of the left apical pneumothorax status post chest tube placement. Persistent subcutaneous emphysema within the left chest wall. Persistent scarring and infiltrates gary aterally. Damian Don MD on June 22, 2017 at 8:10 Board Certified Radiologist. This report was verified electronically.
[2017-06-22 08:22] LABS: BASOPHIL % 0.2 % (0.0-2.0); HEMATOCRIT 42.9 % (35.0-46.0); HEMOGLOBIN 13.9 GM/DL (11.6-15.3); LYMPH % 2.3 % (9.0-44.0); LYMPHOCYTE # 0.3 TH/MM3 (1.0-4.8); MEAN CELL VOLUME 92.5 FL (80.0-100.0); MEAN CORPUSCULAR HEMOGLOBIN 29.9 PG (27.0-34.0); MEAN CORPUSCULAR HGB CONC 32.3 % (32.0-36.0); MEAN PLATELET VOLUME 11.4 FL (7.0-11.0); MONO % 6.8 % (0.0-8.0); MONOCYTE # 0.9 TH/MM3 (0-0.9); NEUT % 90.7 % (16.0-70.0); PLATELET COUNT 146 TH/MM3 (150-450); RED BLOOD COUNT 4.63 MIL/MM3 (4.00-5.30); RED CELL DISTRIBUTION WIDTH 14.4 % (11.6-17.2); WHITE BLOOD COUNT 13.2 TH/MM3 (4.0-11.0)
[2017-06-22 08:32] LABS: BILIRUBIN, URINE NEG (NEG); BLOOD, URINE NEG (NEG); GLUCOSE,URINE NEG (NEG); HYALINE CAST, URINE 2 /lpf (RARE); KETONE, URINE NEG (NEG); MUCUS URINE FEW /lpf (OCC); NITRITE,URINE NEG (NEG); PH, URINE 5.5 (5.0-8.5); SQUAMOUS EPITHELIAL CELL URINE 1 /hpf (0-5); URINE COLOR YELLOW (YELLW/STRAW); URINE LEUKOCYTE ESTERASE NEG (NEG)
[2017-06-22] MEDS: RESP: ALBUTEROL 2.5 MG/IPRATROPIUM 0.5 MG NEB (SCH) NEB ×3 (08:37→20:58)
[2017-06-22 08:59] LABS: ALBUMIN 3.5 GM/DL (3.4-5.0); ALT (GPT) 23 U/L (10-53); AST (GOT) 26 U/L (15-37); BICARBONATE 28.4 MEQ/L (21.0-32.0); BLOOD UREA NITROGEN 25 MG/DL (7-18); CALCIUM 8.9 MG/DL (8.5-10.1); CHLORIDE 103 MEQ/L (98-107); CREATININE 1.36 MG/DL (0.50-1.00); GLOMERULAR FILTRATION RATE 39 ML/MIN (>89); GLUCOSE,RANDOM 135 MG/DL (74-106); MAGNESIUM 2.2 MG/DL (1.5-2.5); PHOSPHORUS 5.6 MG/DL (2.5-4.9); SODIUM (NA) 140 MEQ/L (136-145)
[2017-06-22 09:01] LABS: ALKALINE PHOSPHATASE 73 U/L (45-117); TOTAL BILIRUBIN ADULT 0.4 MG/DL (0.2-1.0); TOTAL PROTEIN 8.1 GM/DL (6.4-8.2)
[2017-06-22] MEDS: SODIUM CHLORIDE 0.9% FLUSH 10 ML FLUSH IV FLUSH SCH ×2 (09:32→21:05)
[2017-06-22] MEDS: GABAPENTIN 300 MG CAP PO SCH ×3 (09:32→18:00)
[2017-06-22] MEDS ORDERED: PHENYLEPHRINE HCL 10 MG/ML VIAL ONE (16:15)
--- NOTE | 2017-06-22 16:19 | EKG ---
Date Performed: 06/21/2017 Time Performed: 14:11:24 PTAGE: 67 years EKG: Sinus rhythm NORMAL ECG NO PREVIOUS TRACING DOCTOR: Francisco Rayo Interpretating Date/Time 06/22/2017 16:15:34
[2017-06-22] MEDS: MONTELUKAST SODIUM 10 MG TAB PO SCH (21:06)
[2017-06-22] MEDS: ATORVASTATIN 40 MG TAB PO SCH (21:07)
[2017-06-22] MEDS: POLYETHYLENE GLYCOL 17 GM PKG PO SCH (21:07)
[2017-06-23] VITALS (23 sets, daily range): BP systolic 104; BP diastolic 56; PULSE 107–119; RESP 18; TEMP 98.6; O2SAT 92–97
[2017-06-23] MEDS: CHLORHEXIDINE GLUCONATE 2 % 1 PACK (2 CLOTHS)(taper/protocol) TOPICAL SCH (04:00)
[2017-06-23] MEDS: RESP: ALBUTEROL 2.5 MG/IPRATROPIUM 0.5 MG NEB (SCH) NEB ×6 (04:18→23:33)
--- NOTE | 2017-06-23 05:46 | RADRPT ---
EXAM DATE/TIME: 06/23/2017 04:14 [facility] COMPARISON: CHEST SINGLE AP, June 22, 2017, 7:32. INDICATIONS : Shortness of breath. MEDICAL HISTORY : Left side pneumothorax. SURGICAL HISTORY : Needle biopsy, left side chest tube. ENCOUNTER: Subsequent ACUITY: 3 days PAIN SCORE: Non-responsive. LOCATION: chest FINDINGS: Left chest drainage tube tip remains projected at the left apex. No evidence of pneumothorax stop st able subcutaneous emphysema about the left upper and lower chest wall. There is persistent infiltrat es in the mid and lower lungs bilaterally, similar in size, but with less consolidation when compared to 06/22/17. CONCLUSION: 1. Left chest drainage tube in place with out pneumothorax. 2. Persistent bilateral mid and lower lung infiltrates, slightly improved. Mahin Boles MD on June 23, 2017 at 5:43 Board Certified Radiologist. This report was verified electronically.
[2017-06-23 05:58] LABS: AUTOMATED NEUTROPHIL # 9.2 TH/MM3 (1.8-7.7); BASOPHIL % 0.4 % (0.0-2.0); HEMOGLOBIN 14.1 GM/DL (11.6-15.3); LYMPH % 2.6 % (9.0-44.0); LYMPHOCYTE # 0.3 TH/MM3 (1.0-4.8); MEAN CELL VOLUME 92.1 FL (80.0-100.0); MEAN CORPUSCULAR HEMOGLOBIN 30.2 PG (27.0-34.0); MEAN CORPUSCULAR HGB CONC 32.8 % (32.0-36.0); MEAN PLATELET VOLUME 11.2 FL (7.0-11.0); MONO % 4.2 % (0.0-8.0); MONOCYTE # 0.4 TH/MM3 (0-0.9); NEUT % 92.8 % (16.0-70.0); PLATELET COUNT 124 TH/MM3 (150-450); RED BLOOD COUNT 4.67 MIL/MM3 (4.00-5.30); RED CELL DISTRIBUTION WIDTH 14.6 % (11.6-17.2); WHITE BLOOD COUNT 9.9 TH/MM3 (4.0-11.0)
[2017-06-23 06:33] LABS: BICARBONATE 26.7 MEQ/L (21.0-32.0); CALCIUM 9.1 MG/DL (8.5-10.1); CREATININE 1.77 MG/DL (0.50-1.00); MAGNESIUM 2.4 MG/DL (1.5-2.5); PHOSPHORUS 6.6 MG/DL (2.5-4.9)
[2017-06-23] MEDS: GABAPENTIN 300 MG CAP PO SCH ×3 (09:00→17:45)
[2017-06-23] MEDS ORDERED: RESP: ALBUTEROL 2.5 MG/IPRATROPIUM 0.5 MG NEB (PRN) NEB (10:15)
--- NOTE | 2017-06-23 10:27 | HHI.CCPN ---
Subjective Remarks/Hospital Course 67-year-old female patient with past medical history of arthritis, COPD, epilepsy as a child not currently on medications, esophageal strictures, hypercholesterolemia, Lambert-Eaton syndrome, opioid dependence, history of tobaccoism quit smoking in 2008, recurrent bronchitis, small cell lung CA treated with chemo and radiation also status post prophylactic whole brain radiation 2008. Patient followed with Dr. Christy in the past now follows with Dr. Damon. Dr. Damon found a suspicion lesion and patient was seen in interventional radiology today for a lung biopsy complicated by pneumothorax with a chest tube placement. Around 6:45 PM the [facility] was called on the patient regarding concern for worsening shortness of breath. The chest tube that was orally placed was removed and the patient had worsening shortness of breath. The patient was transferred to critical care unit and the emergency chest tube was placed immediately with significant improvement of symptoms. Subjective: 06/22: Afebrile. Patient with complaints of recurrent nausea despite Zofran. Phenergan added to medication regimen. This a.m. while rounding on patient approximately 0640 this a.m. patient noted to have left pigtail chest tube inadvertently pulled out. Patient tachypneic, O2 saturation 97% heart rate 117. Left 28 Ecuadorean chest tube placed, pleuravac placed on 40cm H20, tachypnea resolved. Patient normotensive currently resting comfortably, post chest tube placement. Chest x-ray pending. 06/23 Patient is on BIPAP 02/03 with 50% FIO2. Afebrile. Renal function is slightly worse today with Cr:1.77 from 1.36 Objective Vital Signs Date Time Temp Pulse Resp B/P (MAP) Pulse Ox O2 Delivery O2 Flow Rate FiO2 06/23/17 09:08 94 50 06/23/17 09:00 112 06/23/17 08:12 BiPAP 06/22/17 20:58 15.00 06/22/17 05:32 10 06/21/17 19:10 186/84 (118) 06/21/17 16:00 97.2 Intake and Output 06/23/17 06/23/17 06/24/17 08:00 16:00 00:00 Intake Total 0 ml Output Total 200 ml Balance -200 ml Result Diagram: 06/23/17 0432 06/23/17 0432 Other Results Laboratory Tests Test 06/22/17 21:39 06/23/17 04:32 06/23/17 08:44 Blood Gas Puncture Site RT RADIAL LT RADIAL Blood Gas Patient Temperature 98.6 98.6 Blood Gas HCO3 24 mmol/L 25 mmol/L Blood Gas Base Excess -2.2 mmol/L -1.6 mmol/L Blood Gas Oxygen Saturation 91 % 92 % Arterial Blood pH 7.25 7.25 Arterial Blood Partial Pressure CO2 56 mmHg 58 mmHg Arterial Blood Partial Pressure O2 71 mmHg 71 mmHg Arterial Blood Oxygen Content 18.3 Vol % 17.6 Vol % Arterial Blood Carboxyhemoglobin 0.6 % 0.7 % Arterial Blood Methemoglobin 1.3 % 1.4 % Blood Gas Hemoglobin 14.2 G/DL 13.5 G/DL Oxygen Delivery Device Partial Rebreather BiPAP Blood Gas Liter Flow 15 L/M Blood Gas Inspired Oxygen 80 % 50 % White Blood Count 9.9 TH/MM3 Red Blood Count 4.67 MIL/MM3 Hemoglobin 14.1 GM/DL Hematocrit 43.0 % Mean Corpuscular Volume 92.1 FL Mean Corpuscular Hemoglobin 30.2 PG Mean Corpuscular Hemoglobin Concent 32.8 % Red Cell Distribution Width 14.6 % Platelet Count 124 TH/MM3 Mean Platelet Volume 11.2 FL Neutrophils (%) (Auto) 92.8 % Lymphocytes (%) (Auto) 2.6 % Monocytes (%) (Auto) 4.2 % Eosinophils (%) (Auto) 0.0 % Basophils (%) (Auto) 0.4 % Neutrophils # (Auto) 9.2 TH/MM3 Lymphocytes # (Auto) 0.3 TH/MM3 Monocytes # (Auto) 0.4 TH/MM3 Eosinophils # (Auto) 0.0 TH/MM3 Basophils # (Auto) 0.0 TH/MM3 CBC Comment DIFF FINAL Differential Comment Blood Urea Nitrogen 46 MG/DL Creatinine 1.77 MG/DL Random Glucose 140 MG/DL Calcium Level 9.1 MG/DL Phosphorus Level 6.6 MG/DL Magnesium Level 2.4 MG/DL Sodium Level 140 MEQ/L Potassium Level 5.3 MEQ/L Chloride Level 104 MEQ/L Carbon Dioxide Level 26.7 MEQ/L Anion Gap 9 MEQ/L Estimat Glomerular Filtration Rate 29 ML/MIN Blood Gas Ventilator Setting IPAP16/EPAP8/PS8 Imaging Last Impressions Chest X-Ray 06/23/17 0600 Signed Impressions: Service Date/Time: Friday, June 23, 2017 04:14 - CONCLUSION: 1. Left chest drainage tube in place with out pneumothorax. 2. Persistent bilateral mid and lower lung infiltrates, slightly improved. Mahin Boles MD Lung Biopsy CT 06/21/17 0000 Signed Impressions: Service Date/Time: Wednesday, June 21, 2017 09:39 - CONCLUSION: Successful CT guided biopsy with small post-biopsy pneumothorax. Damian Don MD Chest Tube Insertion 06/21/17 0000 Signed Impressions: Service Date/Time: Wednesday, June 21, 2017 13:25 - CONCLUSION: Uncomplicated chest tube placement as above. Toan Torres MD Procedures 06/21-left pigtail chest tube placement 06/22-left 26 Ecuadorean chest tube placement Objective Remarks GENERAL: Well-nourished, well-developed patient lying in bed on BIPAP SKIN: Warm and dry. HEAD: Normocephalic. EYES: No scleral icterus. No injection or drainage. NECK: Supple, trachea midline. No JVD or lymphadenopathy. CARDIOVASCULAR: Regular rate and rhythm without murmurs, gallops, or rubs. RESPIRATORY: Breath sounds diminished on the left side, positive accessory muscle use. GASTROINTESTINAL: Abdomen soft, non-tender, nondistended. MUSCULOSKELETAL: No cyanosis, or edema. BACK: Nontender without obvious deformity. NEURO EXAM: Mental Status: Awake and alert Date of Insertion: Jun 22, 2017 A/P Problem List: (1) Pneumothorax ICD Code: J93.9 - Pneumothorax, unspecified Status: Acute (2) Small cell lung cancer ICD Code: C34.90 - Malignant neoplasm of unspecified part of unspecified bronchus or lung Status: Chronic (3) Hypercholesteremia ICD Code: E78.00 - Pure hypercholesterolemia, unspecified Status: Chronic (4) COPD (chronic obstructive pulmonary disease) ICD Code: J44.9 - Chronic obstructive pulmonary disease, unspecified Status: Acute Assessment and Plan 1)Acute hypoxemic and hypercapnic resp Insuff 2)COPD exac 3)s/p Tension pneumothorax s/p CT guided lung biopsy 4)Small cell lung cancer 5)Hypercholesteremia 6)JODY Plan Neuro: Monitor neuro status and avoid sedatives Pulm: Continue with oxygen keep sats >92% Bronchodilators ( Duoneb), add Pulmicort and IV steroids Continue with NIPPV if there is any worsening in clinical condition will proceed with intubation, s/p Emergent left pigtail chest tube placement 06/21 Replacement of left chest tube 28 Ecuadorean on 40 cm H20 06/[address] in place, b/l infiltrates On Singular 10mg qhs Follow up on Path results CV: Monitor HR and BP keep MAP>65mmHg Check 2D echo to eval LV function : Monitor renal function, electrolytes replacement per protocol Place on NS@75ml/hr. GI: NPO for now till resp status improves ID: Monitor for signs of infections ( Fever, WBC) Place on Zosyn empirically for COPD exac, check sputum cx Check Pneumonia and Legionella urinary Ag Heme: Monitor CBC Endo: Place on SSI for glycemic control DVT GI prophylaxis -Papito's and SCDs/Lovenox -Pepcid Level 3 Problem Qualifiers (1) Pneumothorax: Qualified Codes: J95.811 - Postprocedural pneumothorax Carla Stahl MD Jun 23, 2017 10:27
[2017-06-23] MEDS: SODIUM CHLORIDE 0.9% FLUSH 10 ML FLUSH IV FLUSH SCH ×2 (11:04→19:48)
[2017-06-23] MEDS: SODIUM CHLOR 0.9% 1000 ML INJ 1,000 ML IV SCH ×2 (11:04→23:14)
[2017-06-23] MEDS: methylPREDNISolone SOD SUCC 40 MG/1 ML VIAL IV PUSH SCH ×2 (11:49→21:19)
[2017-06-23] MEDS ORDERED: PIPERACIL-TAZO 4.5 GM PREMIX 100 ML IV SCH (12:00)
[2017-06-23] MEDS: RESP: BUDESONIDE 0.25 MG/2 ML NEB NEB SCH ×2 (13:00→19:55)
[2017-06-23] MEDS: PIPERACIL-TAZO 3.375 GM PREMIX 50 ML IV SCH ×2 (17:45→23:13)
[2017-06-23] MEDS: MONTELUKAST SODIUM 10 MG TAB PO SCH (19:48)
[2017-06-23] MEDS: FAMOTIDINE 20 MG TAB PO SCH (19:48)
[2017-06-23] MEDS: POLYETHYLENE GLYCOL 17 GM PKG PO SCH (19:48)
[2017-06-23] MEDS: ATORVASTATIN 40 MG TAB PO SCH (19:48)
--- NOTE | 2017-06-23 21:15 | RADRPT ---
EXAM DATE/TIME: 06/23/2017 20:56 [facility] COMPARISON: No previous studies available for comparison. INDICATIONS : Shortness of breath. MEDICAL HISTORY : Left side pneumothorax. SURGICAL HISTORY : Needle biopsy, left side chest tube. ENCOUNTER: Subsequent ACUITY: 3 days PAIN SCORE: Non-responsive. LOCATION: chest FINDINGS: Persistent bilateral mid and lower lung consolidation. Left chest tube remains in place. No pneumotho rax seen but there is chest wall emphysema again noted. Heart size stable, upper limits of normal. CONCLUSION: Bilateral infiltrates persist without significant change. Left chest tube remains in place. No pneumo thorax seen. Abel Platt MD on June 23, 2017 at 21:11 Board Certified Radiologist. This report was verified electronically.
[2017-06-23] MEDS: ENOXAPARIN SODIUM 40 MG/0.4 ML SYRINGE SQ SCH (23:14)
[2017-06-23] MEDS: HYDROmorphone HCL PF 2 MG/ML VIAL IV PUSH PRN (23:25)
[2017-06-24] VITALS (26 sets, daily range): BP systolic 111–155; BP diastolic 60–83; PULSE 97–157; RESP 14–56; TEMP 98.8–98.9; O2SAT 90–99
[2017-06-24] MEDS: AMIODARONE INJ 450 MG in SODIUM CHLOR 0.9% (EXCEL) INJ 241 ML IV PRN ×3 (00:12→08:25)
[2017-06-24] MEDS: RESP: ALBUTEROL 2.5 MG/IPRATROPIUM 0.5 MG NEB (SCH) NEB ×7 (03:52→23:54)
[2017-06-24] MEDS: CHLORHEXIDINE GLUCONATE 2 % 1 PACK (2 CLOTHS)(taper/protocol) TOPICAL SCH (04:00)
--- NOTE | 2017-06-24 04:47 | RADRPT ---
EXAM DATE/TIME: 06/24/2017 03:47 [facility] COMPARISON: CHEST SINGLE AP, June 23, 2017, 20:56. INDICATIONS : Shortness of breath, possible pneumothorax. MEDICAL HISTORY : None. SURGICAL HISTORY : Needle biopsy ENCOUNTER: Subsequent ACUITY: 4 - 6 days PAIN SCORE: 6/10 LOCATION: Left chest FINDINGS: Left chest tube tip projects at the upper medial chest, stable from prior. Slight decrease in subcut aneous emphysema about the lateral left chest wall. Increasing infiltrates in the left lateral and l ower lung, with interval development of consolidation with associated loss of delineation of the medi al left hemidiaphragm. Infiltrates in the medial and lower right lung are stable. CONCLUSION: Increasing consolidation left lower lung. Stable infiltrates right lung oh stopped no pneumothorax s een. Mahin Boles MD on June 24, 2017 at 4:43 Board Certified Radiologist. This report was verified electronically.
[2017-06-24] MEDS: PIPERACIL-TAZO 3.375 GM PREMIX 50 ML IV SCH ×3 (05:17→17:59)
[2017-06-24] MEDS: methylPREDNISolone SOD SUCC 40 MG/1 ML VIAL IV PUSH SCH ×3 (05:18→20:19)
[2017-06-24 07:18] LABS: AUTOMATED NEUTROPHIL # 7.6 TH/MM3 (1.8-7.7); HEMATOCRIT 35.7 % (35.0-46.0); HEMOGLOBIN 11.8 GM/DL (11.6-15.3); LYMPH % 1.1 % (9.0-44.0); LYMPHOCYTE # 0.1 TH/MM3 (1.0-4.8); MEAN CELL VOLUME 91.6 FL (80.0-100.0); MEAN CORPUSCULAR HEMOGLOBIN 30.3 PG (27.0-34.0); MEAN CORPUSCULAR HGB CONC 33.1 % (32.0-36.0); MEAN PLATELET VOLUME 11.1 FL (7.0-11.0); MONO % 4.3 % (0.0-8.0); MONOCYTE # 0.3 TH/MM3 (0-0.9); NEUT % 94.6 % (16.0-70.0); PLATELET COUNT 94 TH/MM3 (150-450); RED BLOOD COUNT 3.89 MIL/MM3 (4.00-5.30); RED CELL DISTRIBUTION WIDTH 14.7 % (11.6-17.2); WHITE BLOOD COUNT 8.1 TH/MM3 (4.0-11.0)
[2017-06-24] MEDS: RESP: BUDESONIDE 0.25 MG/2 ML NEB NEB SCH ×3 (07:42→20:24)
[2017-06-24 07:52] LABS: BICARBONATE 25.6 MEQ/L (21.0-32.0); CALCIUM 8.7 MG/DL (8.5-10.1); CREATININE 1.11 MG/DL (0.50-1.00); MAGNESIUM 2.6 MG/DL (1.5-2.5)
[2017-06-24] MEDS: FAMOTIDINE 20 MG TAB PO SCH ×2 (08:25→20:19)
[2017-06-24] MEDS: GABAPENTIN 300 MG CAP PO SCH ×3 (08:25→17:59)
[2017-06-24] MEDS: SODIUM CHLORIDE 0.9% FLUSH 10 ML FLUSH IV FLUSH SCH ×2 (08:32→20:20)
[2017-06-24] MEDS: SODIUM CHLOR 0.9% 1000 ML INJ 1,000 ML IV SCH (12:55)
[2017-06-24] MEDS: HYDROmorphone HCL PF 2 MG/ML VIAL IV PUSH PRN ×2 (14:59→21:08)
--- NOTE | 2017-06-24 16:26 | HHI.CCPN ---
Subjective Remarks/Hospital Course 67-year-old female patient with past medical history of arthritis, COPD, epilepsy as a child not currently on medications, esophageal strictures, hypercholesterolemia, Lambert-Eaton syndrome, opioid dependence, history of tobaccoism quit smoking in 2008, recurrent bronchitis, small cell lung CA treated with chemo and radiation also status post prophylactic whole brain radiation 2008. Patient followed with Dr. Christy in the past now follows with Dr. Damon. Dr. Damon found a suspicion lesion and patient was seen in interventional radiology today for a lung biopsy complicated by pneumothorax with a chest tube placement. Around 6:45 PM the [facility] was called on the patient regarding concern for worsening shortness of breath. The chest tube that was orally placed was removed and the patient had worsening shortness of breath. The patient was transferred to critical care unit and the emergency chest tube was placed immediately with significant improvement of symptoms. Subjective: 06/22: Afebrile. Patient with complaints of recurrent nausea despite Zofran. Phenergan added to medication regimen. This a.m. while rounding on patient approximately 0640 this a.m. patient noted to have left pigtail chest tube inadvertently pulled out. Patient tachypneic, O2 saturation 97% heart rate 117. Left 28 Botswanan chest tube placed, pleuravac placed on 40cm H20, tachypnea resolved. Patient normotensive currently resting comfortably, post chest tube placement. Chest x-ray pending. 06/23 Patient is on BIPAP 02/03 with 50% FIO2. Afebrile. Renal function is slightly worse today with Cr:1.77 from 1.36 06/24: Remains on partial rebreather. No air leak noted in chest tube. Suction decreased to -20 cm water pressure with underwater seal. Objective Vital Signs Date Time Temp Pulse Resp B/P (MAP) Pulse Ox O2 Delivery O2 Flow Rate FiO2 06/24/17 14:18 126 06/24/17 13:15 31 140/83 (102) 95 06/24/17 07:46 Partial Rebreather 06/24/17 04:00 98.9 06/24/17 03:53 60 06/23/17 19:52 15.00 Intake and Output 06/24/17 06/24/17 06/25/17 08:00 16:00 00:00 Intake Total 800 ml Output Total 570 ml Balance 230 ml Result Diagram: 06/24/17 0640 06/24/17 0640 Imaging Last Impressions Chest X-Ray 06/23/17 0600 Signed Impressions: Service Date/Time: Friday, June 23, 2017 04:14 - CONCLUSION: 1. Left chest drainage tube in place with out pneumothorax. 2. Persistent bilateral mid and lower lung infiltrates, slightly improved. Mahin Boles MD Lung Biopsy CT 06/21/17 0000 Signed Impressions: Service Date/Time: Wednesday, June 21, 2017 09:39 - CONCLUSION: Successful CT guided biopsy with small post-biopsy pneumothorax. Damian Don MD Chest Tube Insertion 06/21/17 0000 Signed Impressions: Service Date/Time: Wednesday, June 21, 2017 13:25 - CONCLUSION: Uncomplicated chest tube placement as above. Toan Torres MD Procedures 06/21-left pigtail chest tube placement 06/22-left 26 Botswanan chest tube placement Objective Remarks GENERAL: Well-nourished, well-developed patient lying in bed on BIPAP SKIN: Warm and dry. HEAD: Normocephalic. EYES: No scleral icterus. No injection or drainage. NECK: Supple, trachea midline. No JVD or lymphadenopathy. CARDIOVASCULAR: Regular rate and rhythm without murmurs, gallops, or rubs. RESPIRATORY: Breath sounds diminished on the left side, positive accessory muscle use. Left-sided chest tube with no air leak noted. -20 cm water pressure now with plan to respond to water seal only with no suction later today. GASTROINTESTINAL: Abdomen soft, non-tender, nondistended. MUSCULOSKELETAL: No cyanosis, or edema. BACK: Nontender without obvious deformity. NEURO EXAM: Mental Status: Awake and alert Date of Insertion: Jun 22, 2017 A/P Problem List: (1) Pneumothorax ICD Code: J93.9 - Pneumothorax, unspecified Status: Acute (2) Small cell lung cancer ICD Code: C34.90 - Malignant neoplasm of unspecified part of unspecified bronchus or lung Status: Chronic (3) Hypercholesteremia ICD Code: E78.00 - Pure hypercholesterolemia, unspecified Status: Chronic (4) COPD (chronic obstructive pulmonary disease) ICD Code: J44.9 - Chronic obstructive pulmonary disease, unspecified Status: Acute Assessment and Plan 1)Acute hypoxemic and hypercapnic resp Insuff 2)COPD exac 3)s/p Tension pneumothorax s/p CT guided lung biopsy 4)Small cell lung cancer 5)Hypercholesteremia 6)JODY Plan Neuro: Monitor neuro status and avoid sedatives Pulm: Continue with oxygen keep sats >92% Bronchodilators ( Duoneb), add Pulmicort and IV steroids Continue with NIPPV as needed, if there is any worsening in clinical condition will proceed with intubation, s/p Emergent left pigtail chest tube placement 06/21 Replacement of left chest tube 28 Botswanan on 40 cm H20 06/[address], b/l infiltrates On Singular 10mg qhs Follow up on Path results CV: Monitor HR and BP keep MAP>65mmHg Check 2D echo to eval LV function : Monitor renal function, electrolytes replacement per protocol Place on NS@75ml/hr. GI: Advance to soft mechanical diet. ID: Monitor for signs of infections ( Fever, WBC) Place on Zosyn empirically for COPD exac, check sputum cx Check Pneumonia and Legionella urinary Ag Heme: Monitor CBC Endo: Place on SSI for glycemic control DVT GI prophylaxis -Papito's and SCDs/Lovenox -Pepcid Level 3 Problem Qualifiers (1) Pneumothorax: Qualified Codes: J95.811 - Postprocedural pneumothorax Arvin Stone MD Jun 24, 2017 16:26
[2017-06-24] MEDS: MONTELUKAST SODIUM 10 MG TAB PO SCH (20:19)
[2017-06-24] MEDS: ATORVASTATIN 40 MG TAB PO SCH (20:20)
[2017-06-24] MEDS: POLYETHYLENE GLYCOL 17 GM PKG PO SCH (20:20)
[2017-06-24] MEDS ORDERED: METOPROLOL TARTRATE 50 MG TAB PO ONE (21:00)
[2017-06-25] VITALS (20 sets, daily range): BP systolic 104–162; BP diastolic 61–93; PULSE 95–118; RESP 5–40; TEMP 97.6–98.4; O2SAT 88–97
[2017-06-25] MEDS: PIPERACIL-TAZO 3.375 GM PREMIX 50 ML IV SCH ×5 (00:18→22:38)
[2017-06-25] MEDS: ENOXAPARIN SODIUM 40 MG/0.4 ML SYRINGE SQ SCH ×2 (00:18→22:38)
[2017-06-25] MEDS: RESP: ALBUTEROL 2.5 MG/IPRATROPIUM 0.5 MG NEB (SCH) NEB ×6 (03:28→23:53)
[2017-06-25] MEDS: CHLORHEXIDINE GLUCONATE 2 % 1 PACK (2 CLOTHS)(taper/protocol) TOPICAL SCH (04:00)
[2017-06-25] MEDS: METOPROLOL TARTRATE 50 MG TAB PO SCH ×3 (05:41→20:07)
[2017-06-25] MEDS: methylPREDNISolone SOD SUCC 40 MG/1 ML VIAL IV PUSH SCH ×3 (05:41→20:07)
[2017-06-25] MEDS: RESP: BUDESONIDE 0.25 MG/2 ML NEB NEB SCH ×2 (07:38→20:10)
--- NOTE | 2017-06-25 08:03 | RADRPT ---
EXAM DATE/TIME: 06/25/2017 07:46 [facility] COMPARISON: No previous studies available for comparison. INDICATIONS : Shortness of breath. MEDICAL HISTORY : None. SURGICAL HISTORY : None. ENCOUNTER: Subsequent ACUITY: 4 - 6 days PAIN SCORE: Non-responsive. LOCATION: Bilateral chest FINDINGS: Left-sided chest tube again seen without pneumothorax. There are diffuse bilateral parenchymal infilt rates increased in prominence from the previous study in the right lower lobe and right upper lobe. E KG leads overlie the chest. Cardiomegaly. CONCLUSION: Worsening appearance of the chest. Augusto Guthrie MD on June 25, 2017 at 7:59 Board Certified Radiologist. This report was verified electronically.
[2017-06-25] MEDS: GABAPENTIN 300 MG CAP PO SCH ×3 (09:00→18:00)
[2017-06-25] MEDS: SODIUM CHLORIDE 0.9% FLUSH 10 ML FLUSH IV FLUSH SCH ×2 (09:00→20:04)
[2017-06-25] MEDS: FAMOTIDINE 20 MG TAB PO SCH ×2 (09:00→20:04)
[2017-06-25] MEDS: HYDROmorphone HCL PF 2 MG/ML VIAL IV PUSH PRN (10:08)
[2017-06-25] MEDS: SODIUM CHLOR 0.9% 1000 ML INJ 1,000 ML IV SCH (10:55)
[2017-06-25] MEDS ORDERED: FUROSEMIDE 40 MG/4 ML VIAL IV PUSH ONE (11:45)
[2017-06-25] MEDS ORDERED: HALOPERIDOL LACTATE 5 MG/ML AMP IV PUSH ONE (11:45)
--- NOTE | 2017-06-25 12:15 | HHI.CCPN ---
Subjective Remarks/Hospital Course 67-year-old female patient with past medical history of arthritis, COPD, epilepsy as a child not currently on medications, esophageal strictures, hypercholesterolemia, Lambert-Eaton syndrome, opioid dependence, history of tobaccoism quit smoking in 2008, recurrent bronchitis, small cell lung CA treated with chemo and radiation also status post prophylactic whole brain radiation 2008. Patient followed with Dr. Christy in the past now follows with Dr. Damon. Dr. Damon found a suspicion lesion and patient was seen in interventional radiology today for a lung biopsy complicated by pneumothorax with a chest tube placement. Around 6:45 PM the [facility] was called on the patient regarding concern for worsening shortness of breath. The chest tube that was orally placed was removed and the patient had worsening shortness of breath. The patient was transferred to critical care unit and the emergency chest tube was placed immediately with significant improvement of symptoms. Subjective: 06/22: Afebrile. Patient with complaints of recurrent nausea despite Zofran. Phenergan added to medication regimen. This a.m. while rounding on patient approximately 0640 this a.m. patient noted to have left pigtail chest tube inadvertently pulled out. Patient tachypneic, O2 saturation 97% heart rate 117. Left 28 Lao chest tube placed, pleuravac placed on 40cm H20, tachypnea resolved. Patient normotensive currently resting comfortably, post chest tube placement. Chest x-ray pending. 06/23 Patient is on BIPAP 02/03 with 50% FIO2. Afebrile. Renal function is slightly worse today with Cr:1.77 from 1.36 06/24: Remains on partial rebreather. No air leak noted in chest tube. Suction decreased to -20 cm water pressure with underwater seal. 06/25: Worsening respiratory failure, currently on CPAP, adjustments made, FiO2 currently 0.60 with a PaO2 of 87. Serial ABGs being performed. stat chest x- ray performed early this a.m. showing worsening infiltrates. IV fluids discontinued, Lasix 40 mg x1 dose given. The patient continues to have altered mental status, and agitation. Concern for ICU delirium, ammonia level pending. Haldol 1 mg IV 1 dose given. Extensive discussion/family conference performed this a.m.. Family is aware that patient is at high risk for possible intubation. Objective Vital Signs Date Time Temp Pulse Resp B/P (MAP) Pulse Ox O2 Delivery O2 Flow Rate FiO2 06/25/17 10:00 98 06/25/17 08:00 97.6 28 153/76 (101) 96 06/25/17 07:40 70 06/25/17 04:55 BiPAP 06/23/17 19:52 15.00 Intake and Output 06/25/17 06/25/17 06/25/17 07:59 15:59 23:59 Output Total 350 ml Balance -350 ml Result Diagram: 06/24/17 0640 06/24/17 0640 Other Results Laboratory Tests Test 06/24/17 16:40 06/25/17 07:25 06/25/17 08:45 Blood Gas Puncture Site RT RADIAL RT RADIAL RT RADIAL Blood Gas Patient Temperature 98.6 98.6 98.6 Blood Gas HCO3 25 mmol/L (22-26) 24 mmol/L (22-26) 24 mmol/L (22-26) Blood Gas Base Excess -0.9 mmol/L (-2-2) -2.0 mmol/L (-2-2) -2.4 mmol/L (-2-2) Blood Gas Oxygen Saturation 95 % (90-100) 86 % (90-100) 97 % (90-100) Arterial Blood pH 7.29 (7.380-7.420) 7.26 (7.380-7.420) 7.26 (7.380-7.420) Arterial Blood Partial Pressure CO2 53 mmHg (38-42) 55 mmHg (38-42) 55 mmHg (38-42) Arterial Blood Partial Pressure O2 96 mmHg (61-120) 56 mmHg (61-120) 120 mmHg (61-120) Arterial Blood Oxygen Content 16.5 Vol % (12.0-20.0) 14.7 Vol % (12.0-20.0) 16.7 Vol % (12.0-20.0) Arterial Blood Carboxyhemoglobin 0.5 % (0-4) 0.7 % (0-4) 0.5 % (0-4) Arterial Blood Methemoglobin 1.1 % (0-2) 1.2 % (0-2) 1.2 % (0-2) Blood Gas Hemoglobin 12.2 G/DL (12.0-16.0) 12.1 G/DL (12.0-16.0) 12.2 G/DL (12.0-16.0) Oxygen Delivery Device PRM BIPAP 6EPAP/16IPAP BIPAP 20IPAP/6EPAP Blood Gas Liter Flow 12 L/M Blood Gas Inspired Oxygen 60 % 60 % Imaging Last Impressions Chest X-Ray 06/23/17 0600 Signed Impressions: Service Date/Time: Friday, June 23, 2017 04:14 - CONCLUSION: 1. Left chest drainage tube in place with out pneumothorax. 2. Persistent bilateral mid and lower lung infiltrates, slightly improved. Mahin Boles MD Lung Biopsy CT 06/21/17 0000 Signed Impressions: Service Date/Time: Wednesday, June 21, 2017 09:39 - CONCLUSION: Successful CT guided biopsy with small post-biopsy pneumothorax. Damian Don MD Chest Tube Insertion 06/21/17 0000 Signed Impressions: Service Date/Time: Wednesday, June 21, 2017 13:25 - CONCLUSION: Uncomplicated chest tube placement as above. Toan Torres MD Procedures 06/21-left pigtail chest tube placement 06/22-left 26 Lao chest tube placement Objective Remarks GENERAL: Well-nourished, well-developed patient lying in bed on BIPAP, agitated pulling at things noncommunicative SKIN: Warm and dry. HEAD: Normocephalic. EYES: No scleral icterus. No injection or drainage. NECK: Supple, trachea midline. No JVD or lymphadenopathy. CARDIOVASCULAR: Regular rate and rhythm without murmurs, gallops, or rubs. RESPIRATORY: Breath sounds diminished on the left side, positive accessory muscle use. Left-sided chest tube , leak 2+. -20 cm water pressure now with plan to respond to water seal only with no suction later today. GASTROINTESTINAL: Abdomen soft, non-tender, nondistended. MUSCULOSKELETAL: No cyanosis, or edema. BACK: Nontender without obvious deformity. NEURO EXAM: Mental Status: Confused , noncommunicative . Moving extremities 4 spontaneously . Attempting to get out of bed . Intermittent somnolence. Webb insert reason: ICU Pt Getting Diuretics Date of Insertion: Jun 22, 2017 A/P Problem List: (1) Pneumothorax ICD Code: J93.9 - Pneumothorax, unspecified Status: Acute (2) Small cell lung cancer ICD Code: C34.90 - Malignant neoplasm of unspecified part of unspecified bronchus or lung Status: Chronic (3) Hypercholesteremia ICD Code: E78.00 - Pure hypercholesterolemia, unspecified Status: Chronic (4) COPD (chronic obstructive pulmonary disease) ICD Code: J44.9 - Chronic obstructive pulmonary disease, unspecified Status: Acute Assessment and Plan 1)Acute hypoxemic and hypercapnic resp Insuff 2)COPD exac 3)s/p Tension pneumothorax s/p CT guided lung biopsy 4)Small cell lung cancer 5)Hypercholesteremia 6)JODY 7) acute encephalopathy-metabolic versus ICU delirium 8) Lambert Eaton -diagnosed 2008 Plan Neuro: Monitor neuro status and avoid sedatives Maintain sleep hygiene Obtain ammonia level Currently patient agitated noncommunicative, pulling on lines-Haldol 1 mg IV 1 dose Pulm: Continue with oxygen keep sats >92% Bronchodilators ( Duoneb), add Pulmicort and IV steroids Continue with NIPPV as needed, if there is any worsening in clinical condition will proceed with intubation, s/p Emergent left pigtail chest tube placement 06/21 Replacement of left chest tube 28 Lao on 40 cm H20 06/22 06/25 CXR -bilateral infiltrates worsening On Singular 10mg qhs Follow up on Path results 06/25 pulmonology consulted Pending Legionella strep pneumo and influenza results CV: Monitor HR and BP keep MAP>65mmHg F/U 2D echo to eval LV function : Monitor renal function, electrolytes replacement per protocol Discontinued, saline at 40 cc/hour. Start PPN at 42 cc/hr GI: N.p.o. except meds-patient at risk for intubation Bowel regimen ID: Monitor for signs of infections ( Fever, WBC) Place on Zosyn empirically for COPD exac, check sputum cx F/U results Pneumonia and Legionella urinary Ag, Influenza Heme: Monitor CBC Consult [id number] diagnosed with Lambpiper Eaton in 2008 Endo: Place on SSI for glycemic control Msk: Muscle weakness-progressive PT/OT evaluation and treat-patient has Lambert Eaton Daily functional maintenance DVT GI prophylaxis -Papito's and SCDs/Lovenox -Pepcid Level 3 Dispo: Intensive discussion/family conference with Mr. Arzola, and the patient's 2 sons. Medical status update provided. Patient is at risk for intubation. At this time family requests patient be intubated awaiting pathology results of lung mass. Discussed with them the possibility of tracheostomy as well as possible PEG placement in the future, if the patient has failure to wean. She has multiple comorbidities to include Lambert Eaton, lung mass, pulmonary infiltrates, possible infectious process, family made aware. At this time aggressive measures to be continued, patient continues to have respiratory decompensation plan for intubation. All questions answered. Physician Luciana Snider Problem Qualifiers (1) Pneumothorax: Qualified Codes: J95.811 - Postprocedural pneumothorax Luciana Snider MD Jun 25, 2017 12:15
[2017-06-25 12:56] LABS: BICARBONATE 23.8 MEQ/L (21.0-32.0); CALCIUM 8.5 MG/DL (8.5-10.1); CREATININE 1.8 MG/DL (0.50-1.00)
[2017-06-25] MEDS: METOPROLOL TARTRATE 5 MG/5 ML VIAL IV PUSH PRN ×2 (16:38→21:54)
--- NOTE | 2017-06-25 17:13 | MB ---
cc: Ida Cao MD DATE: 06/25/2017 CHIEF COMPLAINT: 1. History of small cell lung cancer. 2. Suspicious lesion status post biopsy. 3. Respiratory distress. HISTORY OF PRESENT ILLNESS: Ms. Arzola is a 67-year-old lady. She has a history of arthritis, COPD, hyperlipidemia, Lambert-Eaton syndrome, and tobacco abuse. She has a history of limited stage small cell lung cancer, which was diagnosed in 04/2008. She initially presented with a right subhilar mass with associated mediastinal lymphadenopathy. She underwent treatment with concurrent chemotherapy and radiation therapy with cisplatin and etoposide. She received a total of 6 cycles of chemotherapy and then underwent prophylactic whole brain radiation therapy upon conclusion of chemoradiation therapy to the chest. She received her treatment under the direction of Dr. Christy and she is now following with Dr. Augustina Damon. Dr. Damon noted a suspicious lesion on her chest and she was seen in interventional radiology today for a lung biopsy. Her biopsy was complicated by a pneumothorax with chest tube placement. She is currently in the intensive care unit with respiratory distress on CPAP. She has altered mental status and agitation. The majority of the interview and information was obtained from chart review as the patient is unable to converse due to CPAP mask as well as encephalopathy. PAST MEDICAL HISTORY: 1. Arthritis. 2. Chronic obstructive pulmonary disease. 3. Epilepsy as a child. 4. Hyperlipidemia. 5. Lambert-Eaton syndrome. 6. Tobacco abuse, quit smoking in 2008. 7. Small cell lung cancer, status post concurrent chemoradiation therapy and PCI. PAST SURGICAL HISTORY: 1. Carpal tunnel repair. 2. Cervical spinal fusion. 3. Tendon repair below the wrist in the . 4. CT-guided biopsy of mediastinal mass in 2008. FAMILY HISTORY: Unable to obtain due to the patient's mental status. REVIEW OF SYSTEMS: Unable to obtain due to the patient's mental status. HOME MEDICATIONS: Unable to obtain due to the patient's mental status. CURRENT HOSPITAL MEDICATIONS: 1. Include DuoNeb. 2. Atorvastatin. 3. Budesonide. 4. Lovenox. 5. Gabapentin. 6. Melatonin. 7. Solu-Medrol. 8. Metoprolol. 9. Multivitamin. 10. Zosyn. ROS: as above in HPI, all other ROS negative. IMAGING STUDIES: With CT-guided lung biopsy, which was a successful biopsy. Chest x-ray from 06/25/2017 with worsening appearance. Pathology report results from biopsy are pending. LABORATORY STUDIES: With white blood cell count 8.1; hemoglobin 11.8; platelet count is 94,000 with a differential with a low absolute lymphocyte count at 0.1. Hemoglobin at baseline is approximately 12. Platelet count at baseline appears to be approximately 100,000. Platelet count today is 94,000. Sputum is presumptive negative for a strep pneumo and legionella. PHYSICAL EXAMINATION: VITAL SIGNS: Temperature 98.3, pulse 98, respiratory rate 28, blood pressure 135/87. GENERAL: Elderly lady, in no distress. HEENT: Head is normocephalic, atraumatic. NECK: Supple. No lymphadenopathy. HEART: Tachycardic. LUNGS: With CPAP in place. ABDOMEN: Protuberant. EXTREMITIES: With no edema. NEUROLOGIC: Grossly nonfocal. PSYCHIATRIC: Agitation. ASSESSMENT AND PLAN: 1. History of small cell lung cancer, status post definitive treatment in 2008. 2. Suspicious lesion status post CT-guided biopsy with pathology results pending. 3. Thrombocytopenia. The patient's platelet count is currently at baseline. 4. Respiratory failure, on CPAP. The patient is being followed closely by the intensive team. Inpatient oncology team will continue to follow. MD VLAD Bone/FARHAN , 04:02 PM , 05:12 PM JERRELL
[2017-06-25] MEDS ORDERED: FAT EMULSION 20% INJ 250 ML (@10 mls/hr) IV SCH (20:00)
[2017-06-25] MEDS ORDERED: CLINIMIX E 4.25/5 1000 mL- </= 42 mls/hr IV SCH ×3 (20:00)
[2017-06-25] MEDS ORDERED: HYDROmorphone HCL PF 0.5 MG/0.5 ML SYRINGE IV PUSH ONE (20:00)
[2017-06-25] MEDS ORDERED: ACETAMINOPHEN 1000 MG/100 ML 100 ML IV ONE (20:00)
[2017-06-25] MEDS ORDERED: PILL SPLITTER OTHER PRN (20:00)
[2017-06-25] MEDS: POLYETHYLENE GLYCOL 17 GM PKG PO SCH (20:04)
[2017-06-25] MEDS: ATORVASTATIN 40 MG TAB PO SCH (20:04)
[2017-06-25] MEDS: MONTELUKAST SODIUM 10 MG TAB PO SCH (20:04)
[2017-06-26] VITALS (18 sets, daily range): BP systolic 94–140; BP diastolic 52–80; PULSE 69–118; RESP 14–23; TEMP 95.2–98.3; O2SAT 93–100
[2017-06-26] MEDS: METOPROLOL TARTRATE 5 MG/5 ML VIAL IV PUSH PRN (00:06)
[2017-06-26] MEDS ORDERED: HALOPERIDOL LACTATE 5 MG/ML AMP IV SCH (01:15)
[2017-06-26] MEDS ORDERED: HYDROmorphone HCL PF 0.5 MG/0.5 ML SYRINGE IV PUSH PRN (02:00)
[2017-06-26] MEDS ORDERED: DEXMEDETOMIDINE HCL 200 MCG/2 ML VIAL IV PUSH ONE (03:00)
[2017-06-26] MEDS: DEXMEDETOMIDINE INJ 200 MCG in SODIUM CHLORIDE 0.9% INJ 50 ML IV PRN ×7 (03:04→22:30)
[2017-06-26] MEDS: RESP: ALBUTEROL 2.5 MG/IPRATROPIUM 0.5 MG NEB (SCH) NEB ×5 (03:12→21:12)
[2017-06-26] MEDS: PIPERACIL-TAZO 3.375 GM PREMIX 50 ML IV SCH ×3 (03:40→17:45)
[2017-06-26] MEDS: CHLORHEXIDINE GLUCONATE 2 % 1 PACK (2 CLOTHS)(taper/protocol) TOPICAL SCH (03:41)
[2017-06-26] MEDS: methylPREDNISolone SOD SUCC 40 MG/1 ML VIAL IV PUSH SCH ×3 (03:41→21:57)
[2017-06-26] MEDS: METOPROLOL TARTRATE 50 MG TAB PO SCH ×3 (03:41→21:57)
--- NOTE | 2017-06-26 04:27 | RADRPT ---
EXAM DATE/TIME: 06/26/2017 03:19 [facility] COMPARISON: CHEST SINGLE AP, June 25, 2017, 7:46. INDICATIONS : Shortness of breath, possible pulmonary disease. MEDICAL HISTORY : None. SURGICAL HISTORY : Needle biopsy ENCOUNTER: Subsequent ACUITY: 1 week PAIN SCORE: Non-responsive. LOCATION: Bilateral chest FINDINGS: A single view of the chest demonstrates the lungs to be symmetrically aerated with improving aeration in both lungs, especially in the left base. Persistent right basilar consolidation/effusion but impr oving aeration in the upper lung natarajan. Left-sided thoracostomy tube without pneumothorax. Heart siz e is normal. Osseous structures are intact with anterior fixation of lower cervical spine. CONCLUSION: 1. Left-sided thoracostomy tube without pneumothorax. 2. Improving aeration in both lung bases, particularly on the left. Persistent right basilar consolid ation/effusion. Gerard Brown MD on June 26, 2017 at 4:23 Board Certified Radiologist. This report was verified electronically.
[2017-06-26 08:12] LABS: BICARBONATE 26.8 MEQ/L (21.0-32.0); CALCIUM 8.5 MG/DL (8.5-10.1); CREATININE 2.29 MG/DL (0.50-1.00); MAGNESIUM 2.9 MG/DL (1.5-2.5)
[2017-06-26 08:12] LABS: AUTOMATED NEUTROPHIL # 8.6 TH/MM3 (1.8-7.7); HEMATOCRIT 32.5 % (35.0-46.0); HEMOGLOBIN 10.8 GM/DL (11.6-15.3); LYMPH % 1.4 % (9.0-44.0); LYMPHOCYTE # 0.1 TH/MM3 (1.0-4.8); MEAN CELL VOLUME 90.5 FL (80.0-100.0); MEAN CORPUSCULAR HEMOGLOBIN 30.1 PG (27.0-34.0); MEAN CORPUSCULAR HGB CONC 33.2 % (32.0-36.0); MEAN PLATELET VOLUME 11.2 FL (7.0-11.0); MONO % 4.9 % (0.0-8.0); MONOCYTE # 0.4 TH/MM3 (0-0.9); NEUT % 93.7 % (16.0-70.0); PLATELET COUNT 87 TH/MM3 (150-450); RED BLOOD COUNT 3.59 MIL/MM3 (4.00-5.30); RED CELL DISTRIBUTION WIDTH 14.3 % (11.6-17.2); WHITE BLOOD COUNT 9.1 TH/MM3 (4.0-11.0)
[2017-06-26 08:15] LABS: PHOSPHORUS 2.4 MG/DL (2.5-4.9)
[2017-06-26] MEDS ORDERED: DEXTROSE 50% IN WATER 50 ML VIAL(D50) IV PUSH PRN (08:45)
[2017-06-26] MEDS ORDERED: GLUCAGON 1 MG/ML VIAL OTHER PRN (08:45)
--- NOTE | 2017-06-26 08:59 | HHI.CCPN ---
Subjective Remarks/Hospital Course 67-year-old female patient with past medical history of arthritis, COPD, epilepsy as a child not currently on medications, esophageal strictures, hypercholesterolemia, Lambert-Eaton syndrome, opioid dependence, history of tobaccoism quit smoking in 2008, recurrent bronchitis, small cell lung CA treated with chemo and radiation also status post prophylactic whole brain radiation 2008. Patient followed with Dr. Christy in the past now follows with Dr. Damon. Dr. Damon found a suspicion lesion and patient was seen in interventional radiology today for a lung biopsy complicated by pneumothorax with a chest tube placement. Around 6:45 PM the [facility] was called on the patient regarding concern for worsening shortness of breath. The chest tube that was orally placed was removed and the patient had worsening shortness of breath. The patient was transferred to critical care unit and the emergency chest tube was placed immediately with significant improvement of symptoms. Subjective: 06/22: Afebrile. Patient with complaints of recurrent nausea despite Zofran. Phenergan added to medication regimen. This a.m. while rounding on patient approximately 0640 this a.m. patient noted to have left pigtail chest tube inadvertently pulled out. Patient tachypneic, O2 saturation 97% heart rate 117. Left 28 [place] chest tube placed, pleuravac placed on 40cm H20, tachypnea resolved. Patient normotensive currently resting comfortably, post chest tube placement. Chest x-ray pending. 06/23 Patient is on BIPAP 12/8 with 50% FIO2. Afebrile. Renal function is slightly worse today with Cr:1.77 from 1.36 06/24: Remains on partial rebreather. No air leak noted in chest tube. Suction decreased to -20 cm water pressure with underwater seal. 06/25: Worsening respiratory failure, currently on CPAP, adjustments made, FiO2 currently 0.60 with a PaO2 of 87. Serial ABGs being performed. stat chest x- ray performed early this a.m. showing worsening infiltrates. IV fluids discontinued, Lasix 40 mg x1 dose given. The patient continues to have altered mental status, and agitation. Concern for ICU delirium, ammonia level pending. Haldol 1 mg IV 1 dose given. Extensive discussion/family conference performed this a.m.. Family is aware that patient is at high risk for possible intubation. 06/26 Patient is on BIPAP 18/6 with FIO2 55% placed on Precedex drip for agitation. Objective Vital Signs Date Time Temp Pulse Resp B/P (MAP) Pulse Ox O2 Delivery O2 Flow Rate FiO2 06/26/17 08:00 98.3 77 14 121/67 (85) 98 06/26/17 03:11 55 06/25/17 04:55 BiPAP 06/23/17 19:52 15.00 Intake and Output 06/26/17 06/26/17 06/27/17 08:00 16:00 00:00 Intake Total 102 ml Output Total 620 ml Balance -518 ml Result Diagram: 06/26/17 0508 06/26/17 0502 Other Results Laboratory Tests Test 06/25/17 08:45 06/25/17 12:04 06/26/17 05:02 06/26/17 05:08 Blood Gas Puncture Site RT RADIAL Blood Gas Patient Temperature 98.6 Blood Gas HCO3 24 mmol/L Blood Gas Base Excess -2.4 mmol/L Blood Gas Oxygen Saturation 97 % Arterial Blood pH 7.26 Arterial Blood Partial Pressure CO2 55 mmHg Arterial Blood Partial Pressure O2 120 mmHg Arterial Blood Oxygen Content 16.7 Vol % Arterial Blood Carboxyhemoglobin 0.5 % Arterial Blood Methemoglobin 1.2 % Blood Gas Hemoglobin 12.2 G/DL Oxygen Delivery Device BIPAP 20IPAP/6EPAP Blood Gas Inspired Oxygen 60 % Blood Urea Nitrogen 61 MG/DL 82 MG/DL Creatinine 1.80 MG/DL 2.29 MG/DL Random Glucose 171 MG/DL 209 MG/DL Calcium Level 8.5 MG/DL 8.5 MG/DL Sodium Level 144 MEQ/L 146 MEQ/L Potassium Level 4.1 MEQ/L 3.2 MEQ/L Chloride Level 109 MEQ/L 108 MEQ/L Carbon Dioxide Level 23.8 MEQ/L 26.8 MEQ/L Anion Gap 11 MEQ/L 11 MEQ/L Estimat Glomerular Filtration Rate 28 ML/MIN 21 ML/MIN Ammonia 37 MCMOL/L Phosphorus Level 2.4 MG/DL Magnesium Level 2.9 MG/DL White Blood Count 9.1 TH/MM3 Red Blood Count 3.59 MIL/MM3 Hemoglobin 10.8 GM/DL Hematocrit 32.5 % Mean Corpuscular Volume 90.5 FL Mean Corpuscular Hemoglobin 30.1 PG Mean Corpuscular Hemoglobin Concent 33.2 % Red Cell Distribution Width 14.3 % Platelet Count 87 TH/MM3 Mean Platelet Volume 11.2 FL Neutrophils (%) (Auto) 93.7 % Lymphocytes (%) (Auto) 1.4 % Monocytes (%) (Auto) 4.9 % Eosinophils (%) (Auto) 0.0 % Basophils (%) (Auto) 0.0 % Neutrophils # (Auto) 8.6 TH/MM3 Lymphocytes # (Auto) 0.1 TH/MM3 Monocytes # (Auto) 0.4 TH/MM3 Eosinophils # (Auto) 0.0 TH/MM3 Basophils # (Auto) 0.0 TH/MM3 CBC Comment AUTO DIFF Imaging Last Impressions Chest X-Ray 06/26/17 0600 Signed Impressions: Service Date/Time: Monday, June 26, 2017 03:19 - CONCLUSION: 1. Left-sided thoracostomy tube without pneumothorax. 2. Improving aeration in both lung bases, particularly on the left. Persistent right basilar consolidation/effusion. Gerard Brown MD Lung Biopsy CT 06/21/17 0000 Signed Impressions: Service Date/Time: Wednesday, June 21, 2017 09:39 - CONCLUSION: Successful CT guided biopsy with small post-biopsy pneumothorax. Damian Don MD Chest Tube Insertion 06/21/17 0000 Signed Impressions: Service Date/Time: Wednesday, June 21, 2017 13:25 - CONCLUSION: Uncomplicated chest tube placement as above. Toan Torres MD Procedures 06/21-left pigtail chest tube placement 06/22-left 26 [place] chest tube placement Objective Remarks GENERAL: Well-nourished, well-developed patient lying in bed on BIPAP, agitated pulling at things noncommunicative SKIN: Warm and dry. HEAD: Normocephalic. EYES: No scleral icterus. No injection or drainage. NECK: Supple, trachea midline. No JVD or lymphadenopathy. CARDIOVASCULAR: Regular rate and rhythm without murmurs, gallops, or rubs. RESPIRATORY: Breath sounds diminished on the left side, positive accessory muscle use. Left-sided chest tube , leak 2+. -20 cm water pressure now with plan to respond to water seal only with no suction later today. GASTROINTESTINAL: Abdomen soft, non-tender, nondistended. MUSCULOSKELETAL: No cyanosis, or edema. BACK: Nontender without obvious deformity. NEURO EXAM: Mental Status: Confused , noncommunicative . Moving extremities 4 spontaneously . Attempting to get out of bed . Intermittent somnolence. Date of Insertion: Jun 22, 2017 A/P Problem List: (1) Pneumothorax ICD Code: J93.9 - Pneumothorax, unspecified Status: Acute (2) Small cell lung cancer ICD Code: C34.90 - Malignant neoplasm of unspecified part of unspecified bronchus or lung Status: Chronic (3) Hypercholesteremia ICD Code: E78.00 - Pure hypercholesterolemia, unspecified Status: Chronic (4) COPD (chronic obstructive pulmonary disease) ICD Code: J44.9 - Chronic obstructive pulmonary disease, unspecified Status: Acute Assessment and Plan 1)Acute hypoxemic and hypercapnic resp Insuff 2)COPD exac 3)s/p Tension pneumothorax s/p CT guided lung biopsy 4)Small cell lung cancer 5)Hypercholesteremia 6)JODY 7) acute encephalopathy-metabolic versus ICU delirium 8) Lambert Eaton -diagnosed 2008 Plan Neuro: Monitor neuro status and avoid sedatives Maintain sleep hygiene Ammonia level 37 Started on Precedex drip overnight for agitation Check CT brain and EEG, neuro eval. Pulm: Continue with oxygen keep sats >92% Bronchodilators ( Duoneb. Pulmicort) Continue with NIPPV as needed, check ABG Decrease solumederol 40mg Q12 s/p Emergent left pigtail chest tube placement 06/21 Replacement of left chest tube 28 [place] on 40 cm H20 06/22 CXR today , CT in place improving aeration b/l, right basilar consolidation. On Singular 10mg qhs Path results showed squamous cell ca 06/25 pulmonology consulted- Dr. Wilkerson Legionella strep pneumo Ag negative CV: Monitor HR and BP keep MAP>65mmHg For 2D echo to eval LV function On Lopressor 50mg Q8 : Monitor renal function, electrolytes replacement as needed. Avoid nephrotoxins Renal function worse today with Cr: 2.29 from 1.80 Increase NS@84ml/hr, d/c PPN, start tube feeds ( Nepro) via NGT Check Renal US , Renal eval. GI: d/c PPN, start tube feeds ( Nepro) via NGT Bowel regimen ID: Monitor for signs of infections ( Fever, WBC) On Zosyn empirically for COPD exac, check sputum cx Pneumonia and Legionella urinary Ag negative Heme: Monitor CBC, hold Lovenox, check Hep PLT ab heme-onc is following -patient diagnosed with Lambpiper Eaton in 2008 Endo: Place on SSI for glycemic control Msk: Muscle weakness-progressive PT/OT evaluation and treat-patient has Lambert Eaton Daily functional maintenance DVT GI prophylaxis -Papito's and SCDs/ hold Lovenox -Pepcid Level 3 Problem Qualifiers (1) Pneumothorax: Qualified Codes: J95.811 - Postprocedural pneumothorax Carla Stahl MD Jun 26, 2017 08:59
--- NOTE | 2017-06-26 09:21 | MB ---
cc: Lakhwinder Wilkerson MD DATE: 06/24/2017 REQUESTING PHYSICIAN: Dr. Luciana Snider. REASON FOR CONSULTATION: Pulmonary management. HISTORY OF PRESENT ILLNESS: Ms. Arzola is a 67-year-old female with history of small cell carcinoma of the lung, status post chemotherapy and radiation treatment done in 2008. The patient was being followed by Dr. Christy originally, now with Dr. Augustina Damon. The patient was found to have left lung suspicious density. She underwent CT-guided biopsy. She developed a left pneumothorax. She had a chest catheter placed. The patient pulled out the chest catheter and had a worsening of the pneumothorax and had a large-bore chest tube placed. Currently, the patient is on BiPAP. She gets agitated. She was given Haldol and she is sleepy now. PAST MEDICAL HISTORY: History of small cell carcinoma of the lung, status post chemotherapy and radiation treatment; COPD, history of epilepsy at younger age, hypercholesteremia, esophageal stricture. MEDICATIONS: She is taking multivitamin, melatonin, Haldol, metoprolol p.r.n., famotidine 10 mg twice a day, Zosyn IV, Solu-Medrol 60 mg q. 8 hours, albuterol and Atrovent nebulizer treatment, Lipitor 40 mg a day, MiraLax 17 gram at nighttime, Neurontin 300 mg 3 times a day. ALLERGIES: SHE IS ALLERGIC TO LATEX. SOCIAL HISTORY: She is . History of smoking in the past. FAMILY HISTORY: She has grown children who live out of [facility]. REVIEW OF SYSTEMS: Cannot assess. PHYSICAL EXAMINATION: GENERAL: Elderly female, lethargic. She had a dose of Haldol. VITAL SIGNS: Blood pressure 135/87, heart rate 102, respiration 18, temperature 98.3. HEENT: Pupils are equal and reactive to light. Oral mucosa normal. NECK: JVP not raised. CHEST: She has left chest tube in place, no air leak. CARDIOVASCULAR: S1, S2 normal. ABDOMEN: Soft, nondistended. Bowel sounds are present. EXTREMITIES: No edema. IMPRESSION: 1. Left pneumothorax after lung biopsy. She has large-bore chest tube, no air leak. 2. Worsening left lung infiltrate. 3. Small pleural effusion. 4. H/O small cell carcinoma of the lung, status post chemotherapy and radiation treatment. 5. New cancer in the left lung. 6. History of nicotine. 7. History of chronic obstructive pulmonary disease. PLAN: We will maintain the chest tube to suction. Tomorrow, repeat a chest x-ray. If there is no pneumo we will clamp her chest tube. She is currently on BiPAP 20/50%. We will decrease the FiO2 and maintain her on the BiPAP. If she gets worse, she will need to be intubated. Oncologist consulted. Continue antibiotic, IV Solu-Medrol and aerosol treatments. Further treatment will depend on the course in the hospital. Thank you, Dr. Luciana Snider for this consult. Lakhwinder Wilkerson MD ADA/TL/ , 03:17 PM , 04:29 PM MTDColt
[2017-06-26] MEDS: INSULIN NovoLIN REGULAR SUPPLEMENTAL SCALE SQ SCH ×4 (09:46→22:00)
[2017-06-26] MEDS: FAMOTIDINE 20 MG TAB PO SCH ×2 (09:46→21:57)
[2017-06-26] MEDS: POTASSIUM CHLOR 20 MEQ PREMIX 100 ML IV SCH ×2 (09:47→11:41)
[2017-06-26] MEDS ORDERED: GABAPENTIN 300 MG CAP PO SCH (10:00)
[2017-06-26] MEDS: RESP: BUDESONIDE 0.25 MG/2 ML NEB NEB SCH ×2 (10:02→21:12)
[2017-06-26] MEDS: SODIUM CHLORIDE 0.9% FLUSH 10 ML FLUSH IV FLUSH SCH ×2 (11:41→21:57)
[2017-06-26] MEDS: SODIUM CHLOR 0.9% 1000 ML INJ 1,000 ML IV SCH (11:42)
[2017-06-26 12:15] LABS: INTERNATIONAL NORMALIZED RATIO 1.4 RATIO; PROTHROMBIN TIME - PATIENT 14.5 SEC (9.8-11.6)
--- NOTE | 2017-06-26 14:06 | RADRPT ---
EXAM DATE/TIME: 06/26/2017 13:35 [facility] COMPARISON: No previous studies available for comparison. INDICATIONS : Altered mental status. RADIATION DOSE: 38.26 CTDIvol (mGy) MEDICAL HISTORY : Carcinoma, lung. SURGICAL HISTORY : Tubal ligation. ENCOUNTER: Initial ACUITY: 1 day PAIN SCALE: Non-responsive LOCATION: cranial TECHNIQUE: Multiple contiguous axial images were obtained of the head. Using automated exposure control and adj ustment of the mA and/or kV according to patient size, radiation dose was kept as low as reasonably a chievable to obtain optimal diagnostic quality images. DICOM format image data is available electro nically for review and comparison. FINDINGS: CEREBRUM: There is mild generalized atrophy. Ventricles are normal in size. There is mild periventricular white matter low attenuation. No evidence of midline shift, mass lesion, hemorrhage or acute infarction. No extra-axial fluid collections are seen. POSTERIOR FOSSA: The cerebellum and brainstem demonstrate no acute finding. The 4th ventricle is midline. The cerebe llopontine angle is unremarkable. EXTRACRANIAL: Visualized sinuses are clear. SKULL: The calvaria is intact. No evidence of skull fracture. CONCLUSION: 1. No acute intracranial abnormality is identified. 2. Chronic findings include mild generalized atrophy and chronic periventricular white matter ischemi c change. Abel Diaz MD on June 26, 2017 at 14:01 Board Certified Radiologist. This report was verified electronically.
--- NOTE | 2017-06-26 14:31 | RADRPT ---
EXAM DATE/TIME: 06/26/2017 11:51 [facility] COMPARISON: No previous studies available for comparison. CT ABDOMEN AND PELVIS W/ CONTRAST, August 19, 2013 INDICATIONS : Abnormal labs. MEDICAL HISTORY : Arthritis. Lung cancer. SURGICAL HISTORY : Tubal ligation. Right knee arthroscopic sx. Neck surgery. ENCOUNTER: Initial ACUITY: 1 day PAIN SCORE: Nonresponsive. LOCATION: Bilateral flank MEASUREMENTS: RIGHT KIDNEY: 10.6 x 5.2 x 4.6 cm LEFT KIDNEY: 10.5 x 5.9 x 5.4 cm FINDINGS: RIGHT KIDNEY: Renal cortex is normal in thickness with slight increase in echotexture. No hydron ephrosis, stone, or mass. LEFT KIDNEY: Renal cortex is normal in thickness with slight increase in echotexture. No hydrone phrosis, stone, or mass. BLADDER: Within normal limits given the degree of distension. CONCLUSION: 1. Slightly increased renal cortical echogenicity which may reflect medical renal disease. 2. No evidence for obstructive uropathy. Sung Crawford MD on June 26, 2017 at 14:27 Board Certified Radiologist. This report was verified electronically.
--- NOTE | 2017-06-26 15:09 | MB ---
cc: Toan Shaw MD DATE: 06/26/2017 HISTORY OF PRESENT ILLNESS: A 67-year-old right-handed woman with history of lung cancer in 2010. Recently found another mass and she had it biopsied and evidently had a pneumothorax from that. Was admitted to the hospital and I am asked to see her for mental status change. She has been moving all extremities, but nonverbal, not particularly following commands. Now on Precedex so hard to say. She does have a history of COPD. Prior to admission she was independent up walking. No memory problems, according to the son. She has not been seen by neurology before. She does have a history of hyperlipidemia and Lambert-Eaton syndrome, tobacco use, arthritis, status post chemo and radiation for the lung cancer [address] Christy and now follows with Dr. Damon with recent suspicious lesion in her chest. She had a chest tube placed. She was agitated afterwards. PAST MEDICAL HISTORY: As above, also carpal tunnel repair, cervical spine fusion. SOCIAL HISTORY: Nonsmoker or drinker, currently lives with her . FAMILY HISTORY: Negative for cancer, seizure, stroke. MEDICATIONS: She has been on Lovenox recently, gabapentin 300 q. 24 hours, Dilaudid p.r.n., she got Haldol 5 mg at 1 o'clock this morning, melatonin. She is on the Precedex, Pepcid, Lopressor, piperacillin, Solu-Medrol 60 q. 8 hours, Lipitor, Mucinex, MiraLax. She was on gabapentin, but that has been discontinued. Percocet. PHYSICAL EXAMINATION: VITAL SIGNS: Afebrile, 122/71, 19, 78. NECK: There were no carotid bruits. HEART: Regular rate and rhythm. I do not detect a murmur. Respiratory rate is up a bit. She is on a facemask 100%. NEUROLOGIC: Pupils are equal. She is on Precedex. Nonresponsive, flaccid throughout. No ankle clonus. Toes are mute. Areflexic. Neck is supple. LABORATORY DATA: CBC: White count is 9.1, hematocrit is normal, platelet count is 87,000, down from 146 several days ago. She had a UA that was negative. Basic metabolic profile, creatinine is 2.29, it had been 1.14, BUN is 82, had been 41. Ammonia level 37. TSH normal. LFTs were normal. Coags were normal. ABG initially 7.25, 56, 71. Lowest PaO2 yesterday was 56. Chest x-ray shows chest tube, improving pneumothorax. CT was read as negative today. Review of those films, does appear to be normal. IMPRESSION: Change in mental status. We should check an MRI of the brain and EEG, some additional blood work. I would recommend holding any Haldol, any other sedating meds at this time. The steroids could also be causing some agitation, if not needed, they could be discontinued by the med team. I note, her renal function is worsening and renal could be consulted, although I defer to the med team on that. MD SAMEER Lozano/ROSHAN , 02:42 PM , 03:08 PM
[2017-06-26] MEDS: SENNOSIDES SYRUP 8.8 MG/5 ML CUP PO SCH (16:02)
[2017-06-26] MEDS: DOCUSATE SODIUM 100 MG/10 ML UDC PO SCH ×2 (16:02→21:57)
--- NOTE | 2017-06-26 17:44 | HHI.PR ---
Subjective Remarks 67 YOWF with AMS,Resp Failure,SSLC Has Left PTX Chest tube to suction No air leak CT brain no ac abnormality On PRB Objective Vital Signs Vital Signs Date Time Temp Pulse Resp B/P (MAP) Pulse Ox O2 Delivery O2 Flow Rate FiO2 06/26/17 16:00 95.3 70 20 140/80 (100) 98 06/26/17 16:00 98 Partial Non-Rebreather 15.00 65 06/26/17 16:00 70 06/26/17 14:00 80 06/26/17 12:00 78 06/26/17 12:00 95.9 78 19 122/71 (88) 99 06/26/17 11:52 96 50 06/26/17 11:35 97 Bi-Pap 60 06/26/17 11:31 93 Venturi Mask 6.00 40 06/26/17 11:30 79 Venturi Mask 6.00 40 06/26/17 11:20 90 Nasal Cannula 6.00 06/26/17 10:03 99 45 06/26/17 10:00 84 06/26/17 08:00 98.3 77 14 121/67 (85) 98 06/26/17 08:00 76 06/26/17 06:00 80 06/26/17 04:00 83 06/26/17 04:00 98.1 81 15 94/52 (66) 100 06/26/17 03:11 99 55 06/26/17 02:00 118 06/26/17 00:00 99 06/26/17 00:00 98.2 110 23 129/67 (87) 06/25/17 23:52 96 55 06/25/17 22:00 101 06/25/17 20:07 95 55 06/25/17 20:00 98.4 118 40 147/74 (98) 89 06/25/17 20:00 96 06/25/17 18:00 98 I/O 06/25/17 06/25/17 06/25/17 06/26/17 06/26/17 06/26/17 07:00 15:00 23:00 07:00 15:00 23:00 Intake Total 100 ml 102 ml 1756 ml 52 ml Output Total 350 ml 2260 ml 620 ml Balance -350 ml -2160 ml -518 ml 1756 ml 52 ml IV Total 100 ml 102 ml 1756 ml 52 ml Output Urine Total 200 ml 2200 ml 550 ml Chest Tube Drainage Total 150 ml 60 ml 70 ml # Bowel Movements 0 0 Result Diagram: 06/26/17 0508 06/26/17 0502 Objective Remarks GENERAL: Elderly female, poorly responsive SKIN: Warm and dry. HEAD: Normocephalic. EYES: No scleral icterus. No injection or drainage. NECK: Supple, trachea midline. No JVD or lymphadenopathy. CARDIOVASCULAR: Regular rate and rhythm without murmurs, gallops, or rubs. RESPIRATORY: Breath sounds equal bilaterally. No accessory muscle use. GASTROINTESTINAL: Abdomen soft, non-tender, nondistended. MUSCULOSKELETAL: No cyanosis, or edema. BACK: Nontender without obvious deformity. No CVA tenderness. A/P Assessment and Plan IMPRESSION: 1. Left pneumothorax after lung biopsy. She has large-bore chest tube, no air leak. 2. Worsening left lung infiltrate. 3. Small pleural effusion. 4. H/O small cell carcinoma of the lung, status post chemotherapy and radiation treatment. 5. New cancer in the left lung. 6. History of nicotine. 7. History of chronic obstructive pulmonary disease. PLAN: Cont PRB, keep sat >90% CPAP prn Chest tube to suction Cont Abx Precedex for sedation. Lakhwinder Wilkerson MD Jun 26, 2017 17:44
--- NOTE | 2017-06-26 19:20 | MG ---
cc: Toan Shaw MD TEST NUMBER: [id number] On Precedex. Pneumothorax. Lung mass. Dilaudid. Diffuse 4-5 Hz rhythms are noted to 60 microvolts. No hemisphere asymmetry is noted. No epileptiform or seizure activity is seen. Hyperventilation is not performed. Photic stimulation was performed without significant posterior driving. IMPRESSION: Diffuse slowing consistent with medication effect, but no focal abnormality was noted. No seizure activity was seen. MD SAMEER Lozano/ADÁN , 07:10 PM , 07:19 PM
[2017-06-26] MEDS ORDERED: FAT EMULSION 20% INJ 250 ML (@10 mls/hr) IV SCH (20:00)
--- NOTE | 2017-06-26 20:12 | PD.CONS ---
[facility] Service Nephrology Consult Requested By Favio Reason for Consult Acute Renal Failure Primary Care Physician Vidya Barrera Jr, MD History of Present Illness THis is a 67 y/o female who came in for planned biopsy of new suspicious lung lesion. She has a hx of lung cancer form 2008, was treated in entirely with 6 rounds of chemotherapy. At the end of 2016 her creatinine was less than one. This admission it was 1.1, increased gradually and is 2.2 today. She is making urine, is mildly hypokalemic, which has been replaced. The patient is mostly obtunded, her son and are at the bedside and provide most of the history. She unfortunately had a pneumothorax develop post biopsy, had a chest tube placed and later the patient dislodged it inadvertently. We were consulted to assist with renal management. She is a full code. (Nina Gaines) Review of Systems ROS Limitations: Clinical Condition, Unresponsive (Nina Gaines) Past Family Social History Allergies: Coded Allergies: latex (Unverified Allergy, Severe, Rash, 06/21/17) Past Medical History arthritis COPD esophageal strictures hypercholesterolemia Lambert-Eaton syndrome opioid dependence history of tobaccoism quit smoking in 2008 recurrent bronchitis small cell lung CA status post prophylactic whole brain radiation 2009 epilepsy as a child not currently on medications Past Surgical History Carpal tunnel repair right wrist Cervical spinal fusion 2009 Infusion port placement Tendon repair elbow and wrist in the Colonoscopy 2013 CT-guided biopsy mediastinal mass 2009 Right knee surgery 1986 Tubal ligation 1976 Reported Medications Armour 3 1200 mg (Armour-3 Fatty Acids) 684 Mg-1,200 Mg Cap 1 Cap PO DAILY Gabapentin 300 Mg Cap 300 Mg PO TID Desonide Topical (Desonide) 0.05% Cream 1 Applic TOPICAL BID Clobetasol Topical (Clobetasol Propionate) 0.05% Cream 1 Applic TOPICAL BID Albuterol Neb (Albuterol Sulfate) 0.63 Mg/3 Ml Neb 0.63 Mg NEB Q4HR NEB PRN Montelukast (Montelukast Sodium) 10 Mg Tab 10 Mg PO HS Ibuprofen 200 Mg Cap 200 Mg PO Q6H PRN Ventolin Hfa 18 GM Inh (Albuterol Sulfate) 90 Mcg/Act Aer 1 Puff INH Q4H PRN Coq-10 (Coenzyme Q10 (Ubidecarenone)) 50 Mg Cap 100 Cap PO DAILY Atorvastatin (Atorvastatin Calcium) 20 Mg Tab 40 Mg PO HS Glucosamine-Chondroitin 500-400 Mg Tab 1 Tab PO TID Miralax Powder (Polyethylene Glycol 3350 Powder) 17 Gm Powd 17 Gm PO HS Mix and dissolve one measuring cap-ful (17 grams) in water or juice. Vitamin C (Ascorbic Acid) 250 Mg Chew 1,000 Mg CHEW DAILY Multiple Vitamin 1 Tab 1 Tab PO DAILY Oxycodone (Oxycodone HCl) 5 Mg Cap 5 Mg PO HS PRN Active Ordered Medications Current Medications Medications (Trade) Dose Ordered Sig/Leeann Route Start Time Stop Time Status Last Admin (NS Flush) 2 ml UNSCH PRN IV FLUSH 06/21/17 14:00 (NS Flush) 2 ml BID IV FLUSH 06/21/17 21:00 06/26/17 11:41 (Tylenol) 650 mg Q4H PRN PO 06/21/17 14:00 (Zofran Inj) 4 mg Q6H PRN IVP 06/21/17 14:00 06/22/17 21:07 (Narcan Inj) 0.4 mg UNSCH PRN IV PUSH 06/21/17 14:00 (Milk Of Magnesia Liq) 30 ml Q12H PRN PO 06/21/17 14:00 (Lipitor) 40 mg HS PO 06/21/17 21:00 06/24/17 20:20 (Singulair) 10 mg HS PO 06/21/17 21:00 06/24/17 20:19 (Miralax) 17 gm HS PO 06/21/17 21:00 06/24/17 20:20 ([place] Melvina) 1 lozenge UNSCH PRN BUCCAL 06/21/17 18:15 (Mucinex Er) 600 mg Q12H PRN PO 06/22/17 00:15 06/22/17 00:39 Miscellaneous Information Patient in critical care unit? Ass... Q361D .XX 06/22/17 06:15 (Chlorhexidine 2% Cloth) 3 pack DAILY@04 TOPICAL 06/23/17 04:00 06/27/17 04:01 06/26/17 03:41 (Chlorhexidine 2% Cloth) 3 pack UNSCH PRN TOPICAL 06/22/17 06:15 06/27/17 06:05 (Duoneb Neb) 1 ampule Q2HR NEB PRN NEB 06/23/17 10:15 (Duoneb Neb) 1 ampule Q4HR NEB NEB 06/23/17 12:00 06/26/17 16:42 Sodium Chloride 1,000 ml @ 84 mls/hr [id number] IV 06/23/17 10:15 06/26/17 11:42 (Pulmicort Respule Neb) 0.25 mg Q12HR NEB NEB 06/23/17 13:00 06/26/17 10:02 (Pepcid) 10 mg BID PO 06/23/17 21:00 06/26/17 09:46 Piperacillin Sod/ Tazobactam Sod 50 ml @ 100 mls/hr Q6H IV 06/23/17 18:00 06/26/17 17:45 Amiodarone HCl 450 mg/Sodium Chloride 250 ml @ 33.33 mls/ hr Q7H31M PRN IV 06/23/17 20:56 Future Hold 06/24/17 08:25 (Lopressor) 50 mg Q8HR PO 06/25/17 06:00 06/26/17 14:13 (Lopressor Inj) 5 mg Q2H PRN IV PUSH 06/24/17 21:15 06/26/17 00:06 (Melatonin) 5 mg HS PRN PO 06/25/17 21:00 Acetaminophen 100 ml @ 400 mls/hr Q6H PRN IV 06/26/17 02:00 (Pill Splitter) 1 ea UNSCH PRN OTHER 06/25/17 20:00 Dexmedetomidine HCl 200 mcg/ Sodium Chloride 52 ml @ 4.87 mls/hr TITRATE PRN IV 06/26/17 03:00 06/26/17 17:45 (D50w (Vial) Inj) 50 ml UNSCH PRN IV PUSH 06/26/17 08:45 (Glucagon Inj) 1 mg UNSCH PRN OTHER 06/26/17 08:45 (NovoLIN R SUPPLEMENTAL SCALE) 1 Q4H SQ 06/26/17 10:00 06/26/17 17:54 (Colace Liq) 100 mg Q12HR PO 06/26/17 14:30 06/26/17 16:02 (Senna Liq) 8.8 mg DAILY PO 06/26/17 14:30 06/26/17 16:02 (SoluMEDROL INJ) 40 mg Q12HR IV PUSH 06/26/17 21:00 Family History Non contributory Social History , lives with Her son is local She was ambulatory No smoking Full code (Nina Gaines) Physical Exam Vital Signs Vital Signs Date Time Temp Pulse Resp B/P (MAP) Pulse Ox O2 Delivery O2 Flow Rate FiO2 06/26/17 18:00 74 06/26/17 17:30 95.2 06/26/17 16:00 95.3 70 20 140/80 (100) 98 06/26/17 16:00 98 Partial Non-Rebreather 15.00 65 06/26/17 16:00 70 06/26/17 14:00 80 06/26/17 12:00 78 06/26/17 12:00 95.9 78 19 122/71 (88) 99 06/26/17 11:52 96 50 06/26/17 11:35 97 Bi-Pap 60 06/26/17 11:31 93 Venturi Mask 6.00 40 06/26/17 11:30 79 Venturi Mask 6.00 40 06/26/17 11:20 90 Nasal Cannula 6.00 06/26/17 10:03 99 45 06/26/17 10:00 84 06/26/17 08:00 98.3 77 14 121/67 (85) 98 06/26/17 08:00 76 06/26/17 06:00 80 06/26/17 04:00 83 06/26/17 04:00 98.1 81 15 94/52 (66) 100 06/26/17 03:11 99 55 06/26/17 02:00 118 06/26/17 00:00 99 06/26/17 00:00 98.2 110 23 129/67 (87) 06/25/17 23:52 96 55 06/25/17 22:00 101 06/25/17 20:07 95 55 06/25/17 20:00 98.4 118 40 147/74 (98) 89 06/25/17 20:00 96 Physical Exam GENERAL: Well-nourished, well-developed eldely patient. Lying in bed, unresponsive. SKIN: Warm and dry. HEAD: Normocephalic. EYES: No scleral icterus. No injection or drainage. NECK: Supple, trachea midline. No JVD or lymphadenopathy. CARDIOVASCULAR: Regular rate and rhythm without murmurs, gallops, or rubs. Chest tube on right. RESPIRATORY: Breath sounds diminished on the left side, positive accessory muscle use. GASTROINTESTINAL: Abdomen soft, non-tender, nondistended. Webb in place MUSCULOSKELETAL: No cyanosis, or edema. BACK: Nontender without obvious deformity. NEURO EXAM: Mental Status: withdrawals to pain. On sedation Laboratory Laboratory Tests Test 06/26/17 05:02 06/26/17 05:08 06/26/17 09:38 06/26/17 11:40 Blood Urea Nitrogen 82 Creatinine 2.29 Random Glucose 209 Calcium Level 8.5 Phosphorus Level 2.4 Magnesium Level 2.9 Sodium Level 146 Potassium Level 3.2 Chloride Level 108 Carbon Dioxide Level 26.8 Anion Gap 11 Estimat Glomerular Filtration Rate 21 White Blood Count 9.1 Red Blood Count 3.59 Hemoglobin 10.8 Hematocrit 32.5 Mean Corpuscular Volume 90.5 Mean Corpuscular Hemoglobin 30.1 Mean Corpuscular Hemoglobin Concent 33.2 Red Cell Distribution Width 14.3 Platelet Count 87 Mean Platelet Volume 11.2 Neutrophils (%) (Auto) 93.7 Lymphocytes (%) (Auto) 1.4 Monocytes (%) (Auto) 4.9 Eosinophils (%) (Auto) 0.0 Basophils (%) (Auto) 0.0 Neutrophils # (Auto) 8.6 Lymphocytes # (Auto) 0.1 Monocytes # (Auto) 0.4 Eosinophils # (Auto) 0.0 Basophils # (Auto) 0.0 CBC Comment AUTO DIFF Differential Comment AUTO DIFF CONFIRMED Platelet Estimate LOW Platelet Morphology Comment ENLARGED Red Cell Morphology Comment NORMAL Blood Gas Puncture Site LT RADIAL Blood Gas Patient Temperature 98.6 Blood Gas HCO3 26 Blood Gas Base Excess 2.4 Blood Gas Oxygen Saturation 96 Arterial Blood pH 7.43 Arterial Blood Partial Pressure CO2 40 Arterial Blood Partial Pressure O2 108 Arterial Blood Oxygen Content 15.2 Arterial Blood Carboxyhemoglobin 0.8 Arterial Blood Methemoglobin 1.2 Blood Gas Hemoglobin 11.1 Oxygen Delivery Device BiPAP Blood Gas Ventilator Setting [id number] Blood Gas Inspired Oxygen 45 Prothrombin Time 14.5 Prothromb Time International Ratio 1.4 Thyroid Stimulating Hormone 3rd Gen 0.748 Date/Time Source Procedure Growth Status 06/25/17 11:00 Urine Catheterized Urine Legionella Antigen - Final PRESUMPTIVE NEGATIVE FOR LEGIONELLA P... Complete 06/25/17 11:00 Urine Catheterized Urine Streptococcus pneumoniae Antigen (M - Final PRESUMPTIVE NEGATIVE FOR STREPTOCOCCU... Complete (Nina Gaines) Result Diagram: 06/26/17 0508 06/26/17 0502 Imaging Last 72 hours Impressions Chest X-Ray 06/26/17 0600 Signed Impressions: Service Date/Time: Monday, June 26, 2017 03:19 - CONCLUSION: 1. Left-sided thoracostomy tube without pneumothorax. 2. Improving aeration in both lung bases, particularly on the left. Persistent right basilar consolidation/effusion. Gerard Brown MD Renal Ultrasound 06/26/17 0000 Signed Impressions: Service Date/Time: Monday, June 26, 2017 11:51 - CONCLUSION: 1. Slightly increased renal cortical echogenicity which may reflect medical renal disease. 2. No evidence for obstructive uropathy. Sung Crawford MD Head CT 06/26/17 0000 Signed Impressions: Service Date/Time: Monday, June 26, 2017 13:35 - CONCLUSION: 1. No acute intracranial abnormality is identified. 2. Chronic findings include mild generalized atrophy and chronic periventricular white matter ischemic change. Abel Diaz MD Chest X-Ray 06/25/17 0000 Signed Impressions: Service Date/Time: Sunday, June 25, 2017 07:46 - CONCLUSION: Worsening appearance of the chest. Augusto Guthrie MD Chest X-Ray 06/24/17 0000 Signed Impressions: Service Date/Time: Saturday, June 24, 2017 03:47 - CONCLUSION: Increasing consolidation left lower lung. Stable infiltrates right lung oh stopped no pneumothorax seen. Mahin Boles MD (Nina Gaines) Assessment and Plan Problem List: (1) Acute renal failure ICD Codes: N17.9 - Acute kidney failure, unspecified Plan: Her creatinine was less than one in 2016 Etiology of renal failure is unclear. She may have been hypotensive during biopsy or during subsequent pneumothorax. Her renal function continues to decline, may have suffered ATN She has a Webb catheter, is non oliguric Renal US suggesting medica renal disease, no obstruction Hypernatremic, is NPO, start free water with tube feeding; Replace potassium Repeat labs tomorrow UA showing microalbuminuria, quantify Avoid nephrotoxic agents (2) Small cell lung cancer ICD Codes: C34.90 - Malignant neoplasm of unspecified part of unspecified bronchus or lung Status: Chronic Plan: s/p treatment with 6 cycles of chemo and radiation had biopsy of new suspicious lesion, results pending had complication of pneumothorax post procedure appreciate further recommendations (3) Pneumothorax ICD Codes: J93.9 - Pneumothorax, unspecified Status: Acute Plan: Has had multiple chest tubes Pulmonary and CCM managing (4) Altered mental state ICD Codes: R41.82 - Altered mental status, unspecified Plan: Multiple etiologies including hypoxia, infection, and Renal failure Neurology following, EEG ordered Monitor neuro status (Nina Gaines) Problem List: (1) Acute renal failure ICD Codes: N17.9 - Acute kidney failure, unspecified Plan: Her creatinine was less than one in 2016 Etiology of renal failure is unclear. She may have been hypotensive during biopsy or during subsequent pneumothorax. Her renal function continues to decline, may have suffered ATN She has a Webb catheter, is non oliguric Renal US suggesting medica renal disease, no obstruction Hypernatremic, is NPO, start free water with tube feeding; Replace potassium Repeat labs tomorrow UA showing microalbuminuria, quantify Avoid nephrotoxic agents (2) Small cell lung cancer ICD Codes: C34.90 - Malignant neoplasm of unspecified part of unspecified bronchus or lung Status: Chronic Plan: s/p treatment with 6 cycles of chemo and radiation had biopsy of new suspicious lesion, results pending had complication of pneumothorax post procedure appreciate further recommendations (3) Pneumothorax ICD Codes: J93.9 - Pneumothorax, unspecified Status: Acute Plan: Has had multiple chest tubes Pulmonary and CCM managing (4) Altered mental state ICD Codes: R41.82 - Altered mental status, unspecified Plan: Multiple etiologies including hypoxia, infection, and Renal failure Neurology following, EEG ordered Monitor neuro status Assessment and Plan patient was seen and examined on 06/26/17. Agree with above assessment and plan. Discussed with patient's son. Continue to monitor urine output and renal function. Non oliguric. (Tobi Lin MD) Problem Qualifiers (1) Pneumothorax: Qualified Codes: J95.811 - Postprocedural pneumothorax Nina Gaines [facility] Jun 26, 2017 20:12 Tobi Lin MD June 27, 2017 11:36
--- NOTE | 2017-06-26 21:43 | RADRPT ---
EXAM DATE/TIME: 06/26/2017 20:21 [place] COMPARISON: No previous studies available for comparison. INDICATIONS : CVA. MEDICAL HISTORY : Carcinoma, lung. SURGICAL HISTORY : Tubal ligation. Knee sx, AVM sx. ENCOUNTER: Initial ACUITY: 1 day PAIN SCORE: Nonresponsive. LOCATION: Bilateral cranial TECHNIQUE: Multiplanar, multisequence MRI of the brain was performed without contrast. FINDINGS: CEREBRUM: The ventricles are normal for age. No evidence of midline shift, mass lesion, hemorrhage or acute in farction. No extraaxial fluid collections are seen. The pituitary gland and suprasellar cistern are normal in configuration. WHITE MATTER: No significant signal abnormalities are seen in the white matter. POSTERIOR FOSSA: The cerebellum and brainstem are intact. The 4th ventricle is midline. The cerebellopontine angle is unremarkable. The cerebellar tonsils are normal in position. DIFFUSION IMAGING: No focal areas of restricted diffusion are seen. No evidence of acute infarction. EXTRACRANIAL: The visualized portions of the orbits and paranasal sinuses are unremarkable. CONCLUSION: 1. No acute findings. Exam degraded by motion artifact. Kemal Luna MD on June 26, 2017 at 21:37 Board Certified Radiologist. This report was verified electronically.
[2017-06-26] MEDS: POLYETHYLENE GLYCOL 17 GM PKG PO SCH (21:57)
[2017-06-26] MEDS: ATORVASTATIN 40 MG TAB PO SCH (21:57)
[2017-06-26] MEDS: FREE WATER NG SCH (21:58)
[2017-06-26] MEDS: MONTELUKAST SODIUM 10 MG TAB PO SCH (21:59)
[2017-06-27] VITALS (27 sets, daily range): BP systolic 111–145; BP diastolic 55–87; PULSE 70–97; RESP 0–30; TEMP 97.7–98.6; O2SAT 93–100
[2017-06-27] MEDS: RESP: ALBUTEROL 2.5 MG/IPRATROPIUM 0.5 MG NEB (SCH) NEB ×3 (00:18→08:47)
[2017-06-27] MEDS: PIPERACIL-TAZO 3.375 GM PREMIX 50 ML IV SCH ×4 (00:35→18:48)
[2017-06-27] MEDS: DEXMEDETOMIDINE INJ 200 MCG in SODIUM CHLORIDE 0.9% INJ 50 ML IV PRN ×3 (00:35→03:41)
[2017-06-27] MEDS: FREE WATER NG SCH ×4 (00:36→18:00)
[2017-06-27] MEDS ORDERED: ENOXAPARIN SODIUM 30 MG/0.3 ML SYRINGE SQ SCH ×2 (01:00)
[2017-06-27] MEDS: INSULIN NovoLIN REGULAR SUPPLEMENTAL SCALE SQ SCH ×6 (02:00→21:53)
[2017-06-27] MEDS: CHLORHEXIDINE GLUCONATE 2 % 1 PACK (2 CLOTHS)(taper/protocol) TOPICAL SCH (03:41)
[2017-06-27] MEDS ORDERED: DEXMEDETOMIDINE INJ 400 MCG in SODIUM CHLORIDE 0.9% INJ 100 ML IV PRN (04:00)
[2017-06-27] MEDS: METOPROLOL TARTRATE 50 MG TAB PO SCH ×3 (05:39→21:53)
--- NOTE | 2017-06-27 07:31 | HHI.CCPN ---
Subjective Remarks/Hospital Course 67-year-old female patient with past medical history of arthritis, COPD, epilepsy as a child not currently on medications, esophageal strictures, hypercholesterolemia, Lambert-Eaton syndrome, opioid dependence, history of tobaccoism quit smoking in 2008, recurrent bronchitis, small cell lung CA treated with chemo and radiation also status post prophylactic whole brain radiation 2008. Patient followed with Dr. Christy in the past now follows with Dr. Damon. Dr. Damon found a suspicion lesion and patient was seen in interventional radiology today for a lung biopsy complicated by pneumothorax with a chest tube placement. Around 6:45 PM the [facility] was called on the patient regarding concern for worsening shortness of breath. The chest tube that was orally placed was removed and the patient had worsening shortness of breath. The patient was transferred to critical care unit and the emergency chest tube was placed immediately with significant improvement of symptoms. Subjective: 06/22: Afebrile. Patient with complaints of recurrent nausea despite Zofran. Phenergan added to medication regimen. This a.m. while rounding on patient approximately 0640 this a.m. patient noted to have left pigtail chest tube inadvertently pulled out. Patient tachypneic, O2 saturation 97% heart rate 117. Left 28 Mosotho chest tube placed, pleuravac placed on 40cm H20, tachypnea resolved. Patient normotensive currently resting comfortably, post chest tube placement. Chest x-ray pending. 06/23 Patient is on BIPAP 12/8 with 50% FIO2. Afebrile. Renal function is slightly worse today with Cr:1.77 from 1.36 06/24: Remains on partial rebreather. No air leak noted in chest tube. Suction decreased to -20 cm water pressure with underwater seal. 06/25: Worsening respiratory failure, currently on CPAP, adjustments made, FiO2 currently 0.60 with a PaO2 of 87. Serial ABGs being performed. stat chest x- ray performed early this a.m. showing worsening infiltrates. IV fluids discontinued, Lasix 40 mg x1 dose given. The patient continues to have altered mental status, and agitation. Concern for ICU delirium, ammonia level pending. Haldol 1 mg IV 1 dose given. Extensive discussion/family conference performed this a.m.. Family is aware that patient is at high risk for possible intubation. 06/26 Patient is on BIPAP 18/6 with FIO2 55% placed on Precedex drip for agitation. 06/27 Patient is maxed out on Precedex for agitation. MRI and CT brain yesterday showed no acute findings. Objective Vital Signs Date Time Temp Pulse Resp B/P (MAP) Pulse Ox O2 Delivery O2 Flow Rate FiO2 06/27/17 06:00 93 06/27/17 04:00 97.7 16 115/59 (77) 98 06/27/17 02:15 50 06/26/17 21:14 Partial Rebreather 15.00 Intake and Output 06/27/17 06/27/17 06/28/17 08:00 16:00 00:00 Intake Total 817 ml Output Total 580 ml Balance 237 ml Result Diagram: 06/26/17 0508 06/26/17 1953 Other Results Laboratory Tests Test 06/26/17 09:38 06/26/17 11:40 06/26/17 19:53 Blood Gas Puncture Site LT RADIAL Blood Gas Patient Temperature 98.6 Blood Gas HCO3 26 mmol/L Blood Gas Base Excess 2.4 mmol/L Blood Gas Oxygen Saturation 96 % Arterial Blood pH 7.43 Arterial Blood Partial Pressure CO2 40 mmHg Arterial Blood Partial Pressure O2 108 mmHg Arterial Blood Oxygen Content 15.2 Vol % Arterial Blood Carboxyhemoglobin 0.8 % Arterial Blood Methemoglobin 1.2 % Blood Gas Hemoglobin 11.1 G/DL Oxygen Delivery Device BiPAP Blood Gas Ventilator Setting [id number] Blood Gas Inspired Oxygen 45 % Prothrombin Time 14.5 SEC Prothromb Time International Ratio 1.4 RATIO Thyroid Stimulating Hormone 3rd Gen 0.748 uIU/ML Potassium Level 3.5 MEQ/L Vitamin B12 Level GREATER THAN 2000 PG/ML Imaging Last Impressions Chest X-Ray 06/26/17 0600 Signed Impressions: Service Date/Time: Monday, June 26, 2017 03:19 - CONCLUSION: 1. Left-sided thoracostomy tube without pneumothorax. 2. Improving aeration in both lung bases, particularly on the left. Persistent right basilar consolidation/effusion. Gerard Brown MD Renal Ultrasound 06/26/17 0000 Signed Impressions: Service Date/Time: Monday, June 26, 2017 11:51 - CONCLUSION: 1. Slightly increased renal cortical echogenicity which may reflect medical renal disease. 2. No evidence for obstructive uropathy. Sung Crawford MD Head CT 06/26/17 Signed Impressions: Service Date/Time: Monday, June 26, 2017 13:35 - CONCLUSION: 1. No acute intracranial abnormality is identified. 2. Chronic findings include mild generalized atrophy and chronic periventricular white matter ischemic change. Abel Diaz MD Brain MRI 06/26/17 Signed Impressions: Service Date/Time: Monday, June 26, 2017 20:21 - CONCLUSION: 1. No acute findings. Exam degraded by motion artifact. Kemal Luna MD Lung Biopsy CT 06/21/17 Signed Impressions: Service Date/Time: Wednesday, June 21, 2017 09:39 - CONCLUSION: Successful CT guided biopsy with small post-biopsy pneumothorax. Damian Don MD Chest Tube Insertion 06/21/17 Signed Impressions: Service Date/Time: Wednesday, June 21, 2017 13:25 - CONCLUSION: Uncomplicated chest tube placement as above. Toan Torres MD Procedures 06/21-left pigtail chest tube placement 06/22-left 26 Mosotho chest tube placement Objective Remarks GENERAL: Well-nourished, well-developed patient lying in bed on BIPAP, agitated pulling at things noncommunicative SKIN: Warm and dry. HEAD: Normocephalic. EYES: No scleral icterus. No injection or drainage. NECK: Supple, trachea midline. No JVD or lymphadenopathy. CARDIOVASCULAR: Regular rate and rhythm without murmurs, gallops, or rubs. RESPIRATORY: Breath sounds diminished on the left side, positive accessory muscle use. Left-sided chest tube , leak 2+. -20 cm water pressure now with plan to respond to water seal only with no suction later today. GASTROINTESTINAL: Abdomen soft, non-tender, nondistended. MUSCULOSKELETAL: No cyanosis, or edema. BACK: Nontender without obvious deformity. NEURO EXAM: Mental Status: Confused , noncommunicative . Moving extremities 4 spontaneously . Attempting to get out of bed . Intermittent somnolence. Date of Insertion: Jun 22, 2017 A/P Problem List: (1) Pneumothorax ICD Code: J93.9 - Pneumothorax, unspecified Status: Acute (2) Small cell lung cancer ICD Code: C34.90 - Malignant neoplasm of unspecified part of unspecified bronchus or lung Status: Chronic (3) Hypercholesteremia ICD Code: E78.00 - Pure hypercholesterolemia, unspecified Status: Chronic (4) COPD (chronic obstructive pulmonary disease) ICD Code: J44.9 - Chronic obstructive pulmonary disease, unspecified Status: Acute Assessment and Plan 1)Acute hypoxemic and hypercapnic resp Insuff 2)COPD exac 3)s/p Tension pneumothorax s/p CT guided lung biopsy 4)Lung cancer 5)Hypercholesteremia 6)JODY 7) Encephalopathy-metabolic versus ICU delirium 8) Lambert Eaton -diagnosed 2008 Plan Neuro: Monitor neuro status and avoid sedatives Maintain sleep hygiene Ammonia level 37 on Precedex drip for agitation MRI brain and CT chest - no acute findings EEG: Diffuse slowing, no focal abnormalities, no seizure activity. Pulm: Continue with oxygen keep sats >92% Bronchodilators ( Duoneb. Pulmicort) Continue with NIPPV as needed, Solumederol 40mg Q12 s/p Emergent left pigtail chest tube placement 06/21 Replacement of left chest tube 28 Mosotho on 40 cm H20 06/22 CXR 06/[address] improving aeration b/l, right basilar consolidation. On Singular 10mg qhs Path results showed squamous cell ca 06/25 pulmonology is following- Dr. Wilkerson Legionella strep pneumo Ag negative CXR today showed extensive sub Q emphysema will get CT chest for further evaluation. Discussed with Dr. Bienvenido Galdamez CV: Monitor HR and BP keep MAP>65mmHg. Check Lactic acid For 2D echo to eval LV function On Lopressor 50mg Q8 : Monitor renal function, electrolytes replacement as needed. Avoid nephrotoxins Free water 300ml Q6 monitor BMP, place on 1/2NS@84ml/hr Renal US: No hydro, renal is following GI: tube feeds ( Nepro) via NGT with goal rate 40ml/hr Bowel regimen ID: Monitor for signs of infections ( Fever, WBC) On Zosyn empirically for COPD exac, check sputum cx Pneumonia and Legionella urinary Ag negative Heme: Monitor CBC, Lovenox held for worsening thrombocytopenia, follow up on Hep PLT ab heme-onc is following -patient diagnosed with Lambert Eaton in 2008 Endo: on SSI for glycemic control. TSH:0.74 Msk: Muscle weakness-progressive PT/OT evaluation and treat-patient has Lambert Eaton Daily functional maintenance DVT GI prophylaxis -Papito's and SCDs/ Lovenox on hold -Pepcid Consult palliative care to asses with goals of care Level 3 Problem Qualifiers (1) Pneumothorax: Qualified Codes: J95.811 - Postprocedural pneumothorax Carla Stahl MD June 27, 2017 07:31
--- NOTE | 2017-06-27 07:37 | HHI.PR ---
Objective Vital Signs Date Time Temp Pulse Resp B/P (MAP) Pulse Ox O2 Delivery O2 Flow Rate FiO2 06/27/17 06:00 93 06/27/17 04:00 97.7 84 16 115/59 (77) 98 06/27/17 04:00 84 06/27/17 02:15 96 50 06/27/17 02:01 80 06/27/17 02:00 79 06/27/17 01:00 76 06/27/17 01:00 96.8 76 16 144/80 (101) 95 06/27/17 00:30 96 50 06/27/17 00:00 96.3 70 15 140/76 (97) 100 06/27/17 00:00 70 06/26/17 22:00 79 06/26/17 22:00 79 16 98 06/26/17 21:14 96 Partial Rebreather 15.00 06/26/17 20:00 95.5 69 15 131/71 (91) 100 06/26/17 20:00 69 06/26/17 18:00 74 06/26/17 17:30 95.2 06/26/17 16:00 95.3 70 20 140/80 (100) 98 06/26/17 16:00 98 Partial Non-Rebreather 15.00 65 06/26/17 16:00 70 06/26/17 14:00 80 06/26/17 12:00 78 06/26/17 12:00 95.9 78 19 122/71 (88) 99 06/26/17 11:52 96 50 06/26/17 11:35 97 Bi-Pap 60 06/26/17 11:31 93 Venturi Mask 6.00 40 06/26/17 11:30 79 Venturi Mask 6.00 40 06/26/17 11:20 90 Nasal Cannula 6.00 06/26/17 10:03 99 45 06/26/17 10:00 84 06/26/17 08:00 98.3 77 14 121/67 (85) 98 06/26/17 08:00 76 I/O 06/26/17 06/26/17 06/26/17 06/27/17 06/27/17 06/27/17 07:00 15:00 23:00 07:00 15:00 23:00 Intake Total 102 ml 1756 ml 320 ml 817 ml Output Total 620 ml 400 ml 580 ml Balance -518 ml 1756 ml -80 ml 237 ml Intake Oral 0 ml IV Total 102 ml 1756 ml 104 ml 204 ml Tube Feeding 96 ml 313 ml Other 120 ml 300 ml Output Urine Total 550 ml 300 ml 500 ml Stool Total 0 ml Chest Tube Drainage Total 70 ml 100 ml 80 ml # Bowel Movements 0 0 Result Diagram: 06/26/17 0508 06/26/17 1953 Objective Remarks on precedex moves all 4 Assessment and Plan Assessment and Plan imp mri eeg labs all nl dc precedex she should awaken Toan Saleh MD June 27, 2017 07:37
[2017-06-27 07:48] LABS: AUTOMATED NEUTROPHIL # 14.1 TH/MM3 (1.8-7.7); BASOPHIL % 0.3 % (0.0-2.0); HEMATOCRIT 36.4 % (35.0-46.0); LYMPH % 0.4 % (9.0-44.0); LYMPHOCYTE # 0.1 TH/MM3 (1.0-4.8); MEAN CELL VOLUME 89.5 FL (80.0-100.0); MEAN CORPUSCULAR HEMOGLOBIN 29.5 PG (27.0-34.0); MEAN PLATELET VOLUME 11.1 FL (7.0-11.0); MONO % 3.6 % (0.0-8.0); MONOCYTE # 0.5 TH/MM3 (0-0.9); NEUT % 95.7 % (16.0-70.0); PLATELET COUNT 97 TH/MM3 (150-450); RED BLOOD COUNT 4.06 MIL/MM3 (4.00-5.30); RED CELL DISTRIBUTION WIDTH 14.7 % (11.6-17.2); WHITE BLOOD COUNT 14.7 TH/MM3 (4.0-11.0)
[2017-06-27 08:08] LABS: BICARBONATE 24.6 MEQ/L (21.0-32.0); CALCIUM 8.6 MG/DL (8.5-10.1); CREATININE 1.93 MG/DL (0.50-1.00); PHOSPHORUS 2.5 MG/DL (2.5-4.9)
[2017-06-27] MEDS: RESP: BUDESONIDE 0.25 MG/2 ML NEB NEB SCH ×2 (08:46→20:45)
[2017-06-27 09:08] LABS: KERATOCYTES OCC (NORMAL); OVALOCYTES 1+ (NORMAL)
[2017-06-27] MEDS: ACETAMINOPHEN 1000 MG/100 ML 100 ML IV PRN ×2 (09:16→19:53)
[2017-06-27] MEDS: DOCUSATE SODIUM 100 MG/10 ML UDC PO SCH ×2 (09:24→19:54)
[2017-06-27] MEDS: SENNOSIDES SYRUP 8.8 MG/5 ML CUP PO SCH (09:24)
[2017-06-27] MEDS: FAMOTIDINE 20 MG TAB PO SCH ×2 (09:24→19:54)
[2017-06-27] MEDS: methylPREDNISolone SOD SUCC 40 MG/1 ML VIAL IV PUSH SCH ×2 (09:32→19:54)
[2017-06-27] MEDS: SODIUM CHLOR 0.45% 1000 ML INJ 1,000 ML IV SCH (09:32)
[2017-06-27] MEDS: SODIUM CHLORIDE 0.9% FLUSH 10 ML FLUSH IV FLUSH SCH ×2 (09:32→19:54)
--- NOTE | 2017-06-27 09:59 | HHI.NPPN ---
Subjective Interval History She is on Precedex. Still agitated, restless. Renal function has improved slightly. Non oliguric but urine output may have slowed. (Nina Gaines) Review of Systems General General Remarks unable to obtain (Nina Gaines) Objective Data Data Vital Signs Date Time Temp Pulse Resp B/P (MAP) Pulse Ox O2 Delivery O2 Flow Rate FiO2 06/27/17 08:47 98 Partial Rebreather 15.00 06/27/17 06:00 93 06/27/17 04:00 97.7 84 16 115/59 (77) 98 06/27/17 04:00 84 06/27/17 02:15 96 50 06/27/17 02:01 80 06/27/17 02:00 79 06/27/17 01:00 76 06/27/17 01:00 96.8 76 16 144/80 (101) 95 06/27/17 00:30 96 50 06/27/17 00:00 96.3 70 15 140/76 (97) 100 06/27/17 00:00 70 06/26/17 22:00 79 06/26/17 22:00 79 16 98 06/26/17 21:14 96 Partial Rebreather 15.00 06/26/17 20:00 95.5 69 15 131/71 (91) 100 06/26/17 20:00 69 06/26/17 18:00 74 06/26/17 17:30 95.2 06/26/17 16:00 95.3 70 20 140/80 (100) 98 06/26/17 16:00 98 Partial Non-Rebreather 15.00 65 06/26/17 16:00 70 06/26/17 14:00 80 06/26/17 12:00 78 06/26/17 12:00 95.9 78 19 122/71 (88) 99 06/26/17 11:52 96 50 06/26/17 11:35 97 Bi-Pap 60 06/26/17 11:31 93 Venturi Mask 6.00 40 06/26/17 11:30 79 Venturi Mask 6.00 40 06/26/17 11:20 90 Nasal Cannula 6.00 06/26/17 10:03 99 45 06/26/17 10:00 84 (Nina Gaines) -: 06/27/17 0707 06/27/17 0707 Imaging Last 72 hours Impressions Chest X-Ray 06/26/17 0600 Signed Impressions: Service Date/Time: Monday, June 26, 2017 03:19 - CONCLUSION: 1. Left-sided thoracostomy tube without pneumothorax. 2. Improving aeration in both lung bases, particularly on the left. Persistent right basilar consolidation/effusion. Gerard Brown MD Renal Ultrasound 06/26/17 0000 Signed Impressions: Service Date/Time: Monday, June 26, 2017 11:51 - CONCLUSION: 1. Slightly increased renal cortical echogenicity which may reflect medical renal disease. 2. No evidence for obstructive uropathy. Sung Crawford MD Head CT 06/26/17 0000 Signed Impressions: Service Date/Time: Monday, June 26, 2017 13:35 - CONCLUSION: 1. No acute intracranial abnormality is identified. 2. Chronic findings include mild generalized atrophy and chronic periventricular white matter ischemic change. Abel Diaz MD Brain MRI 06/26/17 0000 Signed Impressions: Service Date/Time: Monday, June 26, 2017 20:21 - CONCLUSION: 1. No acute findings. Exam degraded by motion artifact. Kemal Luna MD Chest X-Ray 06/25/17 0000 Signed Impressions: Service Date/Time: Sunday, June 25, 2017 07:46 - CONCLUSION: Worsening appearance of the chest. Augusto Guthrie MD Tubes & Lines: [facility] Tubes & Lines Comment chest tube (Nina Gaines) Physical Exam General Appearance: Well Developed, Comfortable, Anxious Appearance Remarks restless, on NRB. (Nina Gaines) Throat Throat Exam: Oral Mucosa [place] & Moist (Nina Gaines) Pulmonary Resp Exam: Crackles, Rhonchi, Sputum, Labored Resp Remarks chest tube L (Nina Gaines) Cardiology CV Exam: Regular, Normal Sinus Rhythm (Nina Gaines) Gastrointestinal/Abdomen GI Exam: Non-Tender, Bowel Sounds Present (Nina Gaines) Musculoskeletal MS Exam: Joints Intact, Normal Tone, Unable to Ambulate (Nina Gaines) Integumentary Skin Exam: Warm, Dry, Intact (Nina Gaines) Extremeties Extremities Exam: No Edema, Pedal Pulses Palpable (Nina Gaines) Neurologic Neuro Exam: Moving All Extremities (Nina Gaines) Psychiatric Psych Remarks unable to obtain (Nina Gaines) Assessment/Plan Assessment Summary: JODY/Acute Renal Failure Electrolyte Assessment: Hypernatremia, Hypokalemia Problem List: (1) Acute renal failure ICD Codes: N17.9 - Acute kidney failure, unspecified Plan: Her creatinine was less than one in 2016. Most likely suffered ATN. Her renal function improved slightly, is currently non oliguric Renal US negative Hypernatremic, on free water with tube feeding, IVF started (1/2 NS) K was replaced Avoid nephrotoxic agents Follow labs (2) Pneumothorax ICD Codes: J93.9 - Pneumothorax, unspecified Status: Acute Plan: Has a chest tube currently Pulmonary and [facility] managing (3) Small cell lung cancer ICD Codes: C34.90 - Malignant neoplasm of unspecified part of unspecified bronchus or lung Status: Chronic Plan: s/p treatment with 6 cycles of chemo and radiation had biopsy of new suspicious lesion, results pending had complication of pneumothorax post procedure appreciate further recommendations (4) Altered mental state ICD Codes: R41.82 - Altered mental status, unspecified Plan: Multiple etiologies including hypoxia, infection, and Renal failure Neurology following, EEG negative. Suggesting stopping precedex but she is very agitated and may inadvertently dislodge lines Monitor neuro status (5) Sepsis ICD Codes: A41.9 - Sepsis, unspecified organism Plan: Lactic acid elevated. Continue antibiotics (Zosyn) Lung sounds coarse, CXR reviewed. (Nina Gaines) Plan patient was seen and examined. Agree with above. Renal function has improved, monitor urine output and renal function. (Tobi Lin MD) Problem Qualifiers (1) Pneumothorax: Qualified Codes: J95.811 - Postprocedural pneumothorax Nina Gaines June 27, 2017 09:59 Tobi Lin MD June 28, 2017 21:23
--- NOTE | 2017-06-27 10:54 | RADRPT ---
EXAM DATE/TIME: 06/27/2017 10:10 [place] COMPARISON: CHEST SINGLE AP, June 23, 2017, 20:56. CHEST SINGLE AP, June 26, 2017, 3:19. INDICATIONS : Short of breath MEDICAL HISTORY : Carcinoma, lung. CVA SURGICAL HISTORY : None. ENCOUNTER: Subsequent ACUITY: 4 - 6 days PAIN SCORE: Non-responsive. LOCATION: Bilateral chest FINDINGS: Interval placement of gastric tube with side-port at the level of the hemidiaphragm. Left chest drai nage tube stable in position. There's been a significant increase in the amount of subcutaneous emph ysema along the left chest wall extending into the supraclavicular region persistent irregular areas of consolidation right upper and right lower lobe with loss of delineation of the entire right hemidi aphragm. No definite evidence of pneumothorax in the left hemithorax. CONCLUSION: 1. Significant increased amount subcutaneous emphysema about the left chest wall and supraclavicular region. No definite evidence of pneumothorax. 2. Persistent consolidation right lower lung and ill-defined opacities in the right upper lung. Mahin Boles MD on June 27, 2017 at 10:51 Board Certified Radiologist. This report was verified electronically.
--- NOTE | 2017-06-27 11:24 | PD.CONS ---
Consult Service Palliative Care . Consult Requested By Dr. Lopez . Primary Care Physician Vidya Barrera Jr, MD . Reason for Consultation a. To assist with evaluation and management of symptoms including: dyspnea, agitation b. To assist medical decision maker(s) with: better understanding of current medical conditions; weighing benefits/burdens of medical treatment options; making medical treatment decisions. . HPI History of Present Illness Ms. Galdamez is a 67 year old female with a known history of small cell lung cancer status post concurrent chemoradiation therapy with prophylactic whole brain radiation 2008, Henri-Eaton syndrome, hyperlipidemia, COPD, arthritis, pharyngeal strictures, recurrent bronchitis and a history of opioid dependency. Ms. Galdamez was diagnosed with small cell lung cancer in April, after presenting with a right subhilar mass and associated mediastinal lymphadenopathy. Patient underwent concurrent chemoradiation therapy with cisplatin and etoposide. She received a total of 6 cycles of chemotherapy and then underwent prophylactic whole brain radiation therapy after completing chemoradiation therapy to the chest. Patient had a lung biopsy on 06/21/2017 for a suspicious lesion on her chest which was complicated by a pneumothorax and subsequent chest tube placement. Patient was admitted for close monitoring and then had to be transferred to the ICU after a Halicat was called due to worsening respiratory distress. The chest tube that had been placed earlier was removed and a new chest tube was emergently placed with significant improvement in respiratory status. The following morning, the patient was noted to have left pigtail chest tube inadvertently pulled out. Patient was initially tachypneic and tachycardic, but this resolved after the chest tube was again placed. Follow-up chest x-ray showed worsening appearance of the chest with diffuse bilateral parenchymal infiltrates increased in prominence from the previous study and the right lower lobe and right upper lobe; cardiomegaly. Patient having worsening respiratory failure on 06/25/17 requiring CPAP. CXR showed worsening infiltrates. IVF were discontinued and the patient received 40 mg furosemide 1. Patient having altered mental status and agitation concerning for ICU delirium versus metabolic encephalopathy-received Haldol 1 mg IV 1 dose. Patient was placed on Precedex drip for agitation. =Ammonia level of 37 =MRI of the brain and CT of the head showed no acute findings. =EEG showed diffuse slowing, no focal abnormalities, no seizure activity. Labwork and imaging reviewed 06/27/2017: = WBC: 14.7, hemoglobin 12.0, hematocrit 36.4, platelets 97, neutrophils 95.7% = Sodium: 147, potassium 3.7, chloride 113, carbon dioxide 24.6, glucose 204, calcium 8.6, phosphorus 2.5 = BUN: 75, creatinine 1.93, GFR 26 = Lactic acid 2.1 = Urine culture presumptive negative for Strep pneumo and Legionella = Pathology from lung biopsy significant for invasive poorly differentiated squamous cell carcinoma Pulmonology, nephrology and oncology were consulted for recommendations. Palliative Care was consulted to assist with symptom management and to discuss with the family the benefits and burdens of her current illnesses and the options regarding future care. . Function/Cognitive Trajectory Patient was diagnosed with small cell lung cancer in 2009 status post concurrent chemoradiation therapy and prophylactic whole brain radiation. She was also diagnosed with Henri-Eaton syndrome around that time. Family reports other than fatigue and cough the patient had been completely functional and independent with all ADLs prior to this hospitalization. . Review of Systems ROS Limitations: Clinical Condition, Intubated, Altered Mental Status, Other ( ROS obtained through review of medical notes and family/staff report.) Constitutional: COMPLAINS OF: Fatigue, Generalized weakness Respiratory: COMPLAINS OF: Cough, Shortness of breath Hematologic/Lymphatics: COMPLAINS OF: Bruising Psychiatric: COMPLAINS OF: Agitation Past Family Social History Coded Allergies: latex (Unverified Allergy, Severe, Rash, 06/21/17) Past Medical History Small cell lung cancer status post concurrent chemoradiation therapy and PCI Lambert-Eaton syndrome Hyperlipidemia COPD Arthritis Epilepsy as a child - not on medications currently Pharyngeal structures History of opioid dependency . Past Surgical History Carpal tunnel repair right wrist Cervical spinal fusion 2008 Infusion port placement Tendon repair elbow and wrist in the Colonoscopy 2012 CT-guided biopsy mediastinal mass 2009 Right knee surgery 1986 Tubal ligation 1976 . Reported Medications Clarence 3 1200 mg (Clarence-3 Fatty Acids) 684 Mg-1,200 Mg Cap 1 Cap PO DAILY Gabapentin 300 Mg Cap 300 Mg PO TID Desonide Topical (Desonide) 0.05% Cream 1 Applic TOPICAL BID Clobetasol Topical (Clobetasol Propionate) 0.05% Cream 1 Applic TOPICAL BID Albuterol Neb (Albuterol Sulfate) 0.63 Mg/3 Ml Neb 0.63 Mg NEB Q4HR NEB PRN Montelukast (Montelukast Sodium) 10 Mg Tab 10 Mg PO HS Ibuprofen 200 Mg Cap 200 Mg PO Q6H PRN Ventolin Hfa 18 GM Inh (Albuterol Sulfate) 90 Mcg/Act Aer 1 Puff INH Q4H PRN Coq-10 (Coenzyme Q10 (Ubidecarenone)) 50 Mg Cap 100 Cap PO DAILY Atorvastatin (Atorvastatin Calcium) 20 Mg Tab 40 Mg PO HS Glucosamine-Chondroitin 500-400 Mg Tab 1 Tab PO TID Miralax Powder (Polyethylene Glycol 3350 Powder) 17 Gm Powd 17 Gm PO HS Mix and dissolve one measuring cap-ful (17 grams) in water or juice. Vitamin C (Ascorbic Acid) 250 Mg Chew 1,000 Mg CHEW DAILY Multiple Vitamin 1 Tab 1 Tab PO DAILY . Current Medications Medications (Trade) Dose Ordered Sig/Leeann Route Start Time Stop Time Status Last Admin (NS Flush) 2 ml UNSCH PRN IV FLUSH 06/21/17 14:00 (NS Flush) 2 ml BID IV FLUSH 06/21/17 21:00 06/27/17 09:32 (Tylenol) 650 mg Q4H PRN PO 06/21/17 14:00 (Zofran Inj) 4 mg Q6H PRN IVP 06/21/17 14:00 06/22/17 21:07 (Narcan Inj) 0.4 mg UNSCH PRN IV PUSH 06/21/17 14:00 (Milk Of Magnesia Liq) 30 ml Q12H PRN PO 06/21/17 14:00 (Lipitor) 40 mg HS PO 06/21/17 21:00 06/26/17 21:57 (Singulair) 10 mg HS PO 06/21/17 21:00 06/26/17 21:59 (Miralax) 17 gm HS PO 06/21/17 21:00 06/26/17 21:57 (Surprise Melvina) 1 lozenge UNSCH PRN BUCCAL 06/21/17 18:15 (Mucinex Er) 600 mg Q12H PRN PO 06/22/17 00:15 06/22/17 00:39 Miscellaneous Information Patient in critical care unit? Ass... [id number] .XX 06/22/17 06:15 (Duoneb Neb) 1 ampule Q2HR NEB PRN NEB 06/23/17 10:15 (Duoneb Neb) 1 ampule Q4HR NEB NEB 06/23/17 12:00 06/27/17 08:47 (Pulmicort Respule Neb) 0.25 mg Q12HR NEB NEB 06/23/17 13:00 06/27/17 08:46 (Pepcid) 10 mg BID PO 06/23/17 21:00 06/27/17 09:24 Piperacillin Sod/ Tazobactam Sod 50 ml @ 100 mls/hr Q6H IV 06/23/17 18:00 06/27/17 05:39 Amiodarone HCl 450 mg/Sodium Chloride 250 ml @ 33.33 mls/ hr Q7H31M PRN IV 06/23/17 20:56 Future Hold 06/24/17 08:25 (Lopressor) 50 mg Q8HR PO 06/25/17 06:00 06/27/17 05:39 (Lopressor Inj) 5 mg Q2H PRN IV PUSH 06/24/17 21:15 06/26/17 00:06 (Melatonin) 5 mg HS PRN PO 06/25/17 21:00 Acetaminophen 100 ml @ 400 mls/hr Q6H PRN IV 06/26/17 02:00 06/27/17 09:16 (Pill Splitter) 1 ea UNSCH PRN OTHER 06/25/17 20:00 (D50w (Vial) Inj) 50 ml UNSCH PRN IV PUSH 06/26/17 08:45 (Glucagon Inj) 1 mg UNSCH PRN OTHER 06/26/17 08:45 (NovoLIN R SUPPLEMENTAL SCALE) 1 Q4H SQ 06/26/17 10:00 06/27/17 05:40 (Colace Liq) 100 mg Q12HR PO 06/26/17 14:30 06/27/17 09:24 (Senna Liq) 8.8 mg DAILY PO 06/26/17 14:30 06/27/17 09:24 (SoluMEDROL INJ) 40 mg Q12HR IV PUSH 06/26/17 21:00 06/27/17 09:32 (Free Water) VOLUME: 300 ML Q6HR NG 06/26/17 20:15 06/27/17 05:40 Dexmedetomidine HCl 400 mcg/ Sodium Chloride 104 ml @ 4.87 mls/hr TITRATE PRN IV 06/27/17 04:00 06/27/17 05:09 Sodium Chloride 1,000 ml @ 84 mls/hr [id number] IV 06/27/17 09:00 06/27/17 09:32 . Family History Family history is not significant for cancer . Substance Use Tobacco: Former smoker, quit around 2008 Alcohol: None known Prescription med abuse: None known Illicits: None known . Psychosocial History Patient is originally from [place]. She stated her when she was 18 years old but later to someone else. She and her first had 2 sons (Prieto and Fernando). Prieto lives in [place]; Fernando is a nurse and lives in [place]. The patient has been to her current , Leoncio, for approximately 12 years. . Spiritual/Cultural Factors Yazidism aidan . Living Will: Never completed Health Care Surrogate: Never completed Durable Power of Airframe Technician: Never completed Documented care wishes: No documented care wishes have been completed. . Today's verbally stated goals: Given clinical condition, patient is unable to participate in establishing medical treatment goals. . Family/friends goals: Patient's and 2 adult sons verbalize aggressive goals up to the point of cardiopulmonary resuscitation. They are agreeable to intubating the patient if her respiratory status deteriorates. However they state they do not want compressions, ACLS medications or cardioversion if the patient goes into cardiopulmonary arrest. . Ethical and Legal Issues Per [place] statutes, in the absence of written advanced directives healthcare proxy decision making would fall to the patient's . However, patient's and 2 children have decided to make decisions together. . Physical Exam Vital Signs Date Time Temp Pulse Resp B/P (MAP) Pulse Ox O2 Delivery O2 Flow Rate FiO2 06/27/17 08:47 98 Partial Rebreather 15.00 06/27/17 06:00 93 06/27/17 04:00 97.7 84 16 115/59 (77) 98 06/27/17 04:00 84 06/27/17 02:15 96 50 06/27/17 02:01 80 06/27/17 02:00 79 06/27/17 01:00 76 06/27/17 01:00 96.8 76 16 144/80 (101) 95 06/27/17 00:30 96 50 06/27/17 00:00 96.3 70 15 140/76 (97) 100 06/27/17 00:00 70 06/26/17 22:00 79 06/26/17 22:00 79 16 98 06/26/17 21:14 96 Partial Rebreather 15.00 06/26/17 20:00 95.5 69 15 131/71 (91) 100 06/26/17 20:00 69 06/26/17 18:00 74 06/26/17 17:30 95.2 06/26/17 16:00 95.3 70 20 140/80 (100) 98 06/26/17 16:00 98 Partial Non-Rebreather 15.00 65 06/26/17 16:00 70 06/26/17 14:00 80 06/26/17 12:00 78 06/26/17 12:00 95.9 78 19 122/71 (88) 99 06/26/17 11:52 96 50 06/26/17 11:35 97 Bi-Pap 60 06/26/17 11:31 93 Venturi Mask 6.00 40 06/26/17 11:30 79 Venturi Mask 6.00 40 06/26/17 11:20 90 Nasal Cannula 6.00 . Exam CONSTITUTIONAL/GENERAL: This is an adequately nourished patient, in no apparent distress. TUBES/LINES/DRAINS: PIV, nonrebreather, OGT, chest tube, Webb catheter, soft restraints SKIN: No jaundice, rashes, or lesions. Ecchymoses on upper extremities. No wounds seen anteriorly. Skin temperature appropriate. Not diaphoretic. HEAD: Atraumatic. Normocephalic. EYES: Pupils equal and round and reactive. Extraocular motions intact. No scleral icterus. No injection or drainage. Fundi not examined. ENT: Unable to assess hearing given clinical condition. Nose without bleeding or purulent drainage. NECK: Trachea midline. Supple, nontender. No palpable thyroid enlargement or nodularity. CARDIOVASCULAR: Regular rate and rhythm without murmurs, gallops, or rubs. No JVD. Peripheral pulses symmetric. RESPIRATORY/CHEST: Respirations intermittently labored. Coarse rhonchi; inspiratory and expiratory wheezing. GASTROINTESTINAL: Abdomen soft, non-tender, nondistended. No guarding. Bowel sounds present. GENITOURINARY: Without palpable bladder distension. Webb catheter in place. MUSCULOSKELETAL: Extremities without clubbing, cyanosis, or edema. No mottling or clubbing. LYMPHATICS: No palpable cervical or supraclavicular adenopathy. NEUROLOGICAL: Sedated on Precedex. Unable to respond to questions or follow questions. PSYCHIATRIC: Intermittently agitated on sedation. No apparent hallucinations or other psychotic thought process. . Diagnostic Tests Laboratory Laboratory Tests Test 06/24/17 16:40 06/25/17 07:25 06/25/17 08:45 06/25/17 12:04 Blood Gas Puncture Site RT RADIAL RT RADIAL RT RADIAL Blood Gas Patient Temperature 98.6 98.6 98.6 Blood Gas HCO3 25 mmol/L (22-26) 24 mmol/L (22-26) 24 mmol/L (22-26) Blood Gas Base Excess -0.9 mmol/L (-2-2) -2.0 mmol/L (-2-2) -2.4 mmol/L (-2-2) Blood Gas Oxygen Saturation 95 % (90-100) 86 % (90-100) 97 % (90-100) Arterial Blood pH 7.29 (7.380-7.420) 7.26 (7.380-7.420) 7.26 (7.380-7.420) Arterial Blood Partial Pressure CO2 53 mmHg (38-42) 55 mmHg (38-42) 55 mmHg (38-42) Arterial Blood Partial Pressure O2 96 mmHg (61-120) 56 mmHg (61-120) 120 mmHg (61-120) Arterial Blood Oxygen Content 16.5 Vol % (12.0-20.0) 14.7 Vol % (12.0-20.0) 16.7 Vol % (12.0-20.0) Arterial Blood Carboxyhemoglobin 0.5 % (0-4) 0.7 % (0-4) 0.5 % (0-4) Arterial Blood Methemoglobin 1.1 % (0-2) 1.2 % (0-2) 1.2 % (0-2) Blood Gas Hemoglobin 12.2 G/DL (12.0-16.0) 12.1 G/DL (12.0-16.0) 12.2 G/DL (12.0-16.0) Oxygen Delivery Device PRM BIPAP 6EPAP/16IPAP BIPAP 20IPAP/6EPAP Blood Gas Liter Flow 12 L/M Blood Gas Inspired Oxygen 60 % 60 % Blood Urea Nitrogen 61 MG/DL (7-18) Creatinine 1.80 MG/DL (0.50-1.00) Random Glucose 171 MG/DL (74-106) Calcium Level 8.5 MG/DL (8.5-10.1) Sodium Level 144 MEQ/L (136-145) Potassium Level 4.1 MEQ/L (3.5-5.1) Chloride Level 109 MEQ/L (98-107) Carbon Dioxide Level 23.8 MEQ/L (21.0-32.0) Anion Gap 11 MEQ/L (5-15) Estimat Glomerular Filtration Rate 28 ML/MIN (>89) Ammonia 37 MCMOL/L (11-32) Test 06/26/17 05:02 06/26/17 05:08 06/26/17 09:38 06/26/17 11:40 Blood Urea Nitrogen 82 MG/DL (7-18) Creatinine 2.29 MG/DL (0.50-1.00) Random Glucose 209 MG/DL (74-106) Calcium Level 8.5 MG/DL (8.5-10.1) Phosphorus Level 2.4 MG/DL (2.5-4.9) Magnesium Level 2.9 MG/DL (1.5-2.5) Sodium Level 146 MEQ/L (136-145) Potassium Level 3.2 MEQ/L (3.5-5.1) Chloride Level 108 MEQ/L (98-107) Carbon Dioxide Level 26.8 MEQ/L (21.0-32.0) Anion Gap 11 MEQ/L (5-15) Estimat Glomerular Filtration Rate 21 ML/MIN (>89) White Blood Count 9.1 TH/MM3 (4.0-11.0) Red Blood Count 3.59 MIL/MM3 (4.00-5.30) Hemoglobin 10.8 GM/DL (11.6-15.3) Hematocrit 32.5 % (35.0-46.0) Mean Corpuscular Volume 90.5 FL (80.0-100.0) Mean Corpuscular Hemoglobin 30.1 PG (27.0-34.0) Mean Corpuscular Hemoglobin Concent 33.2 % (32.0-36.0) Red Cell Distribution Width 14.3 % (11.6-17.2) Platelet Count 87 TH/MM3 (150-450) Mean Platelet Volume 11.2 FL (7.0-11.0) Neutrophils (%) (Auto) 93.7 % (16.0-70.0) Lymphocytes (%) (Auto) 1.4 % (9.0-44.0) Monocytes (%) (Auto) 4.9 % (0.0-8.0) Eosinophils (%) (Auto) 0.0 % (0.0-4.0) Basophils (%) (Auto) 0.0 % (0.0-2.0) Neutrophils # (Auto) 8.6 TH/MM3 (1.8-7.7) Lymphocytes # (Auto) 0.1 TH/MM3 (1.0-4.8) Monocytes # (Auto) 0.4 TH/MM3 (0-0.9) Eosinophils # (Auto) 0.0 TH/MM3 (0-0.4) Basophils # (Auto) 0.0 TH/MM3 (0-0.2) CBC Comment AUTO DIFF Differential Comment AUTO DIFF CONFIRMED Platelet Estimate LOW (NORMAL) Platelet Morphology Comment ENLARGED (NORMAL) Red Cell Morphology Comment NORMAL (NORMAL) Blood Gas Puncture Site LT RADIAL Blood Gas Patient Temperature 98.6 Blood Gas HCO3 26 mmol/L (22-26) Blood Gas Base Excess 2.4 mmol/L (-2-2) Blood Gas Oxygen Saturation 96 % (90-100) Arterial Blood pH 7.43 (7.380-7.420) Arterial Blood Partial Pressure CO2 40 mmHg (38-42) Arterial Blood Partial Pressure O2 108 mmHg (61-120) Arterial Blood Oxygen Content 15.2 Vol % (12.0-20.0) Arterial Blood Carboxyhemoglobin 0.8 % (0-4) Arterial Blood Methemoglobin 1.2 % (0-2) Blood Gas Hemoglobin 11.1 G/DL (12.0-16.0) Oxygen Delivery Device BiPAP Blood Gas Ventilator Setting [id number] Blood Gas Inspired Oxygen 45 % Prothrombin Time 14.5 SEC (9.8-11.6) Prothromb Time International Ratio 1.4 RATIO Thyroid Stimulating Hormone 3rd Gen 0.748 uIU/ML (0.358-3.740) Test 06/26/17 19:53 06/27/17 07:07 5/1/18 09:10 Potassium Level 3.5 MEQ/L (3.5-5.1) 3.7 MEQ/L (3.5-5.1) Vitamin B12 Level GREATER THAN 2000 PG/ML White Blood Count 14.7 TH/MM3 (4.0-11.0) Red Blood Count 4.06 MIL/MM3 (4.00-5.30) Hemoglobin 12.0 GM/DL (11.6-15.3) Hematocrit 36.4 % (35.0-46.0) Mean Corpuscular Volume 89.5 FL (80.0-100.0) Mean Corpuscular Hemoglobin 29.5 PG (27.0-34.0) Mean Corpuscular Hemoglobin Concent 33.0 % (32.0-36.0) Red Cell Distribution Width 14.7 % (11.6-17.2) Platelet Count 97 TH/MM3 (150-450) Mean Platelet Volume 11.1 FL (7.0-11.0) Neutrophils (%) (Auto) 95.7 % (16.0-70.0) Lymphocytes (%) (Auto) 0.4 % (9.0-44.0) Monocytes (%) (Auto) 3.6 % (0.0-8.0) Eosinophils (%) (Auto) 0.0 % (0.0-4.0) Basophils (%) (Auto) 0.3 % (0.0-2.0) Neutrophils # (Auto) 14.1 TH/MM3 (1.8-7.7) Lymphocytes # (Auto) 0.1 TH/MM3 (1.0-4.8) Monocytes # (Auto) 0.5 TH/MM3 (0-0.9) Eosinophils # (Auto) 0.0 TH/MM3 (0-0.4) Basophils # (Auto) 0.0 TH/MM3 (0-0.2) CBC Comment AUTO DIFF Differential Comment AUTO DIFF CONFIRMED Platelet Estimate LOW (NORMAL) Platelet Morphology Comment ENLARGED (NORMAL) Ovalocytes 1+ (NORMAL) Keratocytes OCC (NORMAL) Blood Urea Nitrogen 75 MG/DL (7-18) Creatinine 1.93 MG/DL (0.50-1.00) Random Glucose 204 MG/DL (74-106) Calcium Level 8.6 MG/DL (8.5-10.1) Phosphorus Level 2.5 MG/DL (2.5-4.9) Sodium Level 147 MEQ/L (136-145) Chloride Level 113 MEQ/L (98-107) Carbon Dioxide Level 24.6 MEQ/L (21.0-32.0) Anion Gap 9 MEQ/L (5-15) Estimat Glomerular Filtration Rate 26 ML/MIN (>89) Lactic Acid Level 2.1 mmol/L (0.4-2.0) . Result Diagram: 06/27/17 0707 06/27/17 0707 Microbiology Microbiology Date/Time Source Procedure Growth Status 06/25/17 11:00 Urine Catheterized Urine Legionella Antigen - Final PRESUMPTIVE NEGATIVE FOR LEGIONELLA P... Complete 06/25/17 11:00 Urine Catheterized Urine Streptococcus pneumoniae Antigen (M - Final PRESUMPTIVE NEGATIVE FOR STREPTOCOCCU... Complete . Imaging Last 72 hours Impressions Chest X-Ray 06/27/17 0000 Signed Impressions: Service Date/Time: Tuesday, June 27, 2017 10:10 - CONCLUSION: 1. Significant increased amount subcutaneous emphysema about the left chest wall and supraclavicular region. No definite evidence of pneumothorax. 2. Persistent consolidation right lower lung and ill-defined opacities in the right upper lung. Mahin Boles MD Chest X-Ray 06/26/17 0600 Signed Impressions: Service Date/Time: Monday, June 26, 2017 03:19 - CONCLUSION: 1. Left-sided thoracostomy tube without pneumothorax. 2. Improving aeration in both lung bases, particularly on the left. Persistent right basilar consolidation/effusion. Gerard Brown MD Renal Ultrasound 06/26/17 0000 Signed Impressions: Service Date/Time: Monday, June 26, 2017 11:51 - CONCLUSION: 1. Slightly increased renal cortical echogenicity which may reflect medical renal disease. 2. No evidence for obstructive uropathy. Sung Crawford MD Head CT 06/26/17 0000 Signed Impressions: Service Date/Time: Monday, June 26, 2017 13:35 - CONCLUSION: 1. No acute intracranial abnormality is identified. 2. Chronic findings include mild generalized atrophy and chronic periventricular white matter ischemic change. Abel Daiz MD Brain MRI 06/26/17 0000 Signed Impressions: Service Date/Time: Monday, June 26, 2017 20:21 - CONCLUSION: 1. No acute findings. Exam degraded by motion artifact. Kemal Luna MD Chest X-Ray 06/25/17 0000 Signed Impressions: Service Date/Time: Sunday, June 25, 2017 07:46 - CONCLUSION: Worsening appearance of the chest. Augusto Guthrie MD . Procedures 06/21/2017: Left-sided chest tube placement 06/22/2017: Left-sided chest tube replaced . Patient/Family Conference Present at Family Conference: Met with patient's and 2 adult sons at bedside as well as privately in a family conference room. . Family Conference Location: Bedside, Consult Room Issues Discussed: * Palliative care role, purpose, approach * Additional medical, psychosocial, and spiritual history * Patients general health, functional status, and cognitive changes in the months leading up to the current hospitalization * Patient/family understanding of the current medical problems * Patient/family understanding of prognosis * Patients goals of care as best understood from advance directives and/or conversations and/or values * Current medical treatment options and benefits/burdens of those options * Likely scenarios comparing ongoing aggressive care with a transition to comfort measures only * Questions answered to the best of my ability * Palliative care contact information provided . Assessment and Plan Disease Oriented Problem List: (1) Pneumothorax (2) Small cell lung cancer (3) COPD (chronic obstructive pulmonary disease) (4) Hypercholesteremia (5) Pneumothorax (6) Acute renal failure Symptom Scale: (1) Dyspnea (2) Agitation Pertinent Non-Medical Issues Psychosocial: Patient is originally from [place]. She stated her when she was 18 years old but later to someone else. She and her first had 2 sons (Prieto and Fernando). Prieto lives in [place]; Fernanod is a nurse and lives in [place]. The patient has been to her current , Leoncio, for approximately 12 years. Spiritual: Yazidism aidan Legal: Per [place] statutes, in the absence of written advanced directives healthcare proxy decision making would fall to the patient's . However, patient's and 2 children have decided to make decisions together. Ethical issues impacting care: No known ethical issues impacting care at this time. . Important Contacts Leoncio Galdamez, spouse: [phone] Fernando, son: [phone] Prieto: son: [phone] . Prognosis Patient is a 67 yo old female with metastatic squamous cell carcinoma of the lung status post lung biopsy with subsequent pneumothorax and chest tube placement; now intubated secondary to worsening respiratory failure and agitation. If the patient survives this hospitalization, she will be high risk for ongoing complications and further decline. . Code Status: Alternative Code Plan * ALTERNATE CODE-intubation only * Decision making: Per [place] statutes, in the absence of written advanced directives healthcare proxy decision making would fall to the patient's . Patient's has appears to have limited insight related to his 's medical conditions, and the patient's and 2 children have decided to make decisions together. * Discussed current medical treatment goals with stonemason helper (Dr. Lopez), oncology (Dr. Cao) and RN (Merry) * Palliative care met with the patient's at bedside and again privately in a family conference room. We discussed patient past medical history as well as the current hospital course. Pathology from lung biopsy showing invasive poorly differentiated squamous cell carcinoma. Given patient's critical condition, it is unclear if the patient will be considered a candidate for further aggressive interventions. Aggressive versus comfort focus goals were introduced; the process of cardiopulmonary resuscitation was discussed in detail. The family is agreeable to intubation for a short period of time should the patient's respiratory status deteriorate, however they would not want compressions, ACLS medications or cardioversion in the event of cardiopulmonary arrest. CODE STATUS changed to ALTERNATE CODE-intubation only. * Requested and received medical records from Dr. Damon; copies placed in patient's paper chart. * Palliative care contact information was provided to the patient's family * Symptom management: == Dyspnea: Patient with a known history of small cell lung cancer status post concurrent chemoradiation therapy with prophylactic whole brain radiation 2008. Patient had a lung biopsy on 06/21/2017 for a suspicious lesion on her chest which was complicated by a pneumothorax and subsequent chest tube placement. Pathology significant for invasive poorly differentiated squamous cell carcinoma. == Agitation: Multifactoral. Patient having altered mental status and agitation concerning for ICU delirium versus metabolic encephalopathy versus hypoxemia. Received Haldol 1 mg IV 1 dose. Patient was placed on Precedex drip for agitation. Ammonia level of 37; MRI of the brain and CT of the head showed no acute findings; EEG showed diffuse slowing, no focal abnormalities, no seizure activity. * Palliative care will continue to follow this patient throughout her hospitalization to build rapport, assist with symptom management and goal clarification. . Thank you for the opportunity to participate in the care of Ms. Galdamez. . Attestation To help prompt me to consider important information that might be impacting today's encounter and assessment, information from prior notes written by myself or my colleagues may have been "brought forward" into today's note. My signature on this note, however, is an attestation that I personally performed the exam, history, and/or decision-making noted today, and, unless otherwise indicated, the interactions with patient, family, and staff as well as the review of records all occurred today. I also attest that the listed assessment and stated plan reflect my best clinical judgment today based on the combination of historical information, prior notes, and today's exam/ interactions. When time spent is documented, it refers only to time spent today by the signer, or if indicated, combined time spent today by collaborating physician/nurse practitioner. . Nay Croft June 27, 2017 11:24
[2017-06-27] MEDS: DEXMEDETOMIDINE INJ 1,000 MCG in SODIUM CHLOR 0.9% 250 ML INJ 240 ML IV PRN ×2 (11:49→18:50)
[2017-06-27] MEDS ORDERED: HALOPERIDOL LACTATE 5 MG/ML AMP IV PUSH ONE (13:15)
--- NOTE | 2017-06-27 14:30 | RADRPT ---
EXAM DATE/TIME: 06/27/2017 13:40 [facility] COMPARISON: CHEST SINGLE AP, June 27, 2017, 10:10. INDICATIONS : Abnormal chest x-ray. Sub Q emphesema. RADIATION DOSE: 8.07 CTDIvol (mGy) MEDICAL HISTORY : Carcinoma, lung. SURGICAL HISTORY : Tubal ligation. ENCOUNTER: Initial ACUITY: 1 day PAIN SCALE: Non-responsive LOCATION: chest TECHNIQUE: Volumetric scanning of the chest was performed. Using automated exposure control and adjustment of t he mA and/or kV according to patient size, radiation dose was kept as low as reasonably achievable to obtain optimal diagnostic quality images. DICOM format image data is available electronically for r eview and comparison. Follow-up recommendations for detected pulmonary nodules are based at a minimum on nodule size and pa tient risk factors according to Fleischner Society Guidelines. FINDINGS: Chest x-ray demonstrated a significant increase in subcutaneous emphysema about the left chest wall. There is a large bore left chest tube with the tip posteriorly in the upper chest. There is a tiny pneumothorax in the anterior medial left lung which measures 9 mm in size and a small amount of pneum othorax adjacent to the apex of the heart.. in the medial left upper lung, there is a spiculated mass like density measuring 1.8 cm.. Segmental infiltrates without consolidation are present in the left upper lobe and in the posterior segments of the left lower lobe. In the right chest, there is consolidation and volume loss in the right upper lung and right lower lo be presumably related to prior treatment for lung carcinoma. There is a large right pleural effusion which measures up to 4.4 cm in dimension. There is sclerotic destruction of the posterior right chest and 6th rib, possibly related to prior ra diation. There is a moderate amount of subcutaneous emphysema about the right chest wall inferiorly which appears to be a new finding compared to chest x-ray earlier today. CONCLUSION: 1. There is a subcentimeter left apical pneumothorax and a small amount of extrapleural gas adjacent to the apex of the heart. 2. 1.8 cm spiculated mass in the medial left upper lung without air bronchograms suspicious for a con tralateral metastatic recurrence of cancer. 3. Large right pleural effusion. 4. Extensive left-sided subcutaneous emphysema similar to prior chest x-ray and interval development of moderate subcutaneous emphysema about the right lateral chest wall. Mahin Boles MD on June 27, 2017 at 14:21 Board Certified Radiologist. This report was verified electronically.
[2017-06-27] MEDS ORDERED: LORazepam 2 MG/ML VIAL ONE (15:41)
--- NOTE | 2017-06-27 16:39 | PD.RAD ---
Post Procedure Progress Note Pre Procedure Diagnosis: (1) Pneumothorax Post Procedure Diagnosis: (1) Pneumothorax Procedure Date: June 27, 2017 Supervising Radiologist: Sung Crawford Proceduralist/Assist: Rahul Polo, RT(R), Jamila Cunha RT(R) Anesthesia: Conscious Sedation Plan of Activity Patient to Unit: Critical Care Patient Condition: Good See PACS Report for procedural detail/treatment Sung Crawford MD June 27, 2017 16:39
--- NOTE | 2017-06-27 17:03 | RADRPT ---
EXAM DATE/TIME: 06/27/2017 16:08 [facility] COMPARISON: CHEST TUBE PLACEMENT, LEFT, June 21, 2017, 13:25. INDICATIONS : History of pneumothorax with worsening serpiginous emphysema despite chest tube in place. The current chest tube is in the major fissure. Plan is for chest tube manipulation or replacement. MEDICAL HISTORY : Carcinoma, lung Arthritis COPD Epilepsy Esophageal strictures Hypercholesterolemia Lambert-Eaton syndrome Opiod dependence Tobacco use Recurrent bronchitis SURGICAL HISTORY : Carpal tunnel repair C-spine fusion Port placement Tendon repair elbow and wrist Biopsy mediastinal mast Right knee surgery Tuba ligation ENCOUNTER: Initial ACUITY: 1 week PAIN SCORE: 0/10 LOCATION: N/A FLUORO TIME: 8.3 minutes IMAGE SERIES: 2 SEDATION TIME: 30 minutes MEDICATION(S): 1.) 2 mg lorazepam (Ativan) IV DEVICE(S): 1.) non-locking catheter 24 Fr Expel MPD Non-Locking PROCEDURE : 1. Fluoroscopically guided chest tube placement. 2. Conscious sedation with continuous EKG and oximetry monitoring. The risks, benefits and alternatives to the procedure were explained and verbal and written consent w as obtained. The site was prepped in sterile fashion. Full sterile technique was used, including ca p, mask, sterile gloves and gown and a large sterile sheet. Hand hygiene and 2% chlorhexidine and/or betadine/alcohol prep was utilized per protocol for cutaneous antisepsis. The skin and subcutaneous tissues were infiltrated with local anesthetic solution. Existing chest tube was accessed with a Glidewire following multiple manipulations could not be repos itioned. Therefore, the immediate cephalad intercostal space was punctured with a 18 gauge sheath nee dle and a guidewire was advanced into the apex. Next, a 24 [place] chest tube was advanced over-the-wi re placed in the apex. Wall suction was applied. The old chest tube was then removed. Post procedure images demonstrate satisfactory position of the tube. The catheter was sutured in place and a Percu- Stay was applied. Conscious sedation was performed with the prescribed dosages and duration as above in the presence of an independent trained radiology nurse to assist in the monitoring of the patient. EKG and oximetry remained stable throughout the procedure. The patient tolerated the procedure well and there were n o complications. The patient was sent to post anesthesia recovery in stable condition. CONCLUSION: Uncomplicated chest tube placement as above. Sung Crawford MD on June 27, 2017 at 16:59 Board Certified Radiologist. This report was verified electronically.
--- NOTE | 2017-06-27 17:41 | RADRPT ---
EXAM DATE/TIME: 06/27/2017 17:10 [facility] COMPARISON: CHEST SINGLE AP, June 27, 2017, 10:10. CHEST SINGLE AP, June 23, 2017, 20:56 . CHEST EXPIRATION ONLY, June 21, 2017, 13:48. INDICATIONS : Post chest tube placement. MEDICAL HISTORY : Carcinoma, lung. CVA SURGICAL HISTORY : None. ENCOUNTER: Subsequent ACUITY: 1 week PAIN SCORE: 0/10 LOCATION: Bilateral chest FINDINGS: Stable NGT with tip beyond the GE junction. Interval replacement of the left sided chest tube for a n ew large bore left apical chest tube. Chest tube appears well-positioned without significant residual pneumothorax. Improved left chest wall emphysema, likely postprocedural. Diffuse interstitial and ai rspace opacities throughout the left lung and right lower lung zone. Cardiomediastinal are stable. Re mainder of the exam is unchanged. CONCLUSION: 1. New left apical chest tube in good position without significant residual pneumothorax. Improved valverde bcutaneous chest wall emphysema. 2. Worsening diffuse interstitial and airspace opacities in the left lung. Sung Crawford MD on June 27, 2017 at 17:36 Board Certified Radiologist. This report was verified electronically.
[2017-06-27] MEDS: POLYETHYLENE GLYCOL 17 GM PKG PO SCH (19:53)
[2017-06-27] MEDS: ATORVASTATIN 40 MG TAB PO SCH (19:54)
[2017-06-27] MEDS: MONTELUKAST SODIUM 10 MG TAB PO SCH (19:54)
--- NOTE | 2017-06-27 20:11 | HHI.PR ---
Subjective Remarks 67 YOWF with AMS,Resp Failure,SSLC Has Left PTX CT brain no ac abnormality On PRB Chest tube got pulled out IR placed chest cathetor had Ativan, sleeping. Objective Vital Signs Vital Signs Date Time Temp Pulse Resp B/P (MAP) Pulse Ox O2 Delivery O2 Flow Rate FiO2 06/27/17 18:00 74 06/27/17 18:00 98.0 74 28 121/56 (77) 98 06/27/17 17:00 98.4 77 29 114/63 (80) 96 06/27/17 17:00 77 06/27/17 16:54 75 06/27/17 16:54 75 15 123/58 (79) 99 06/27/17 15:29 85 06/27/17 15:29 98.0 85 25 142/67 (92) 97 06/27/17 15:00 86 06/27/17 15:00 98.6 86 29 128/60 (82) 94 06/27/17 14:29 95 06/27/17 14:29 98.4 95 27 135/78 (97) 96 06/27/17 14:00 98.4 84 30 130/70 (90) 96 06/27/17 14:00 84 06/27/17 13:42 82 06/27/17 13:42 98.2 82 27 122/87 (99) 97 06/27/17 13:00 97.9 88 29 131/65 (87) 95 06/27/17 13:00 88 06/27/17 12:00 98.0 80 0 111/55 (73) 96 06/27/17 12:00 80 06/27/17 11:00 83 06/27/17 11:00 98.2 83 16 121/57 (78) 95 06/27/17 10:00 98.6 93 28 122/60 (80) 93 06/27/17 10:00 93 06/27/17 09:00 98.8 97 25 145/67 (93) 96 06/27/17 09:00 97 06/27/17 08:47 98 Partial Rebreather 15.00 06/27/17 08:00 98.4 84 28 129/61 (83) 96 06/27/17 08:00 84 06/27/17 07:00 98.0 84 29 119/60 (79) 96 06/27/17 07:00 84 06/27/17 06:00 93 06/27/17 04:00 97.7 84 16 115/59 (77) 98 06/27/17 04:00 84 06/27/17 02:15 96 50 06/27/17 02:01 80 06/27/17 02:00 79 06/27/17 01:00 76 06/27/17 01:00 96.8 76 16 144/80 (101) 95 06/27/17 00:30 96 50 06/27/17 00:00 96.3 70 15 140/76 (97) 100 06/27/17 00:00 70 06/26/17 22:00 79 06/26/17 22:00 79 16 98 06/26/17 21:14 96 Partial Rebreather 15.00 I/O 06/26/17 06/26/17 06/26/17 06/27/17 06/27/17 06/27/17 07:00 15:00 23:00 07:00 15:00 23:00 Intake Total 102 ml 1756 ml 320 ml 817 ml Output Total 620 ml 400 ml 580 ml Balance -518 ml 1756 ml -80 ml 237 ml Intake Oral 0 ml IV Total 102 ml 1756 ml 104 ml 204 ml Tube Feeding 96 ml 313 ml Other 120 ml 300 ml Output Urine Total 550 ml 300 ml 500 ml Stool Total 0 ml Chest Tube Drainage Total 70 ml 100 ml 80 ml # Bowel Movements 0 0 Result Diagram: 06/27/17 0706/27/17706 Objective Remarks GENERAL: Elderly female, poorly responsive SKIN: Warm and dry. HEAD: Normocephalic. EYES: No scleral icterus. No injection or drainage. NECK: Supple, trachea midline. No JVD or lymphadenopathy. CARDIOVASCULAR: Regular rate and rhythm without murmurs, gallops, or rubs. RESPIRATORY: Breath sounds equal bilaterally. No accessory muscle use. GASTROINTESTINAL: Abdomen soft, non-tender, nondistended. MUSCULOSKELETAL: No cyanosis, or edema. BACK: Nontender without obvious deformity. No CVA tenderness. A/P Assessment and Plan IMPRESSION: 1. Left pneumothorax after lung biopsy. She has large-bore chest tube, no air leak. 2. Worsening left lung infiltrate. 3. Small pleural effusion. 4. H/O small cell carcinoma of the lung, status post chemotherapy and radiation treatment. 5. New cancer in the left lung. 6. History of nicotine. 7. History of chronic obstructive pulmonary disease. PLAN: Cont PRB, keep sat >90% CPAP prn Chest tube to suction Cont Abx Precedex for sedation. Lakhwinder Wilkerson MD June 27, 2017 20:11
[2017-06-28] VITALS (18 sets, daily range): BP systolic 78–155; BP diastolic 47–70; PULSE 67–92; RESP 18–32; TEMP 99.4–99.9; O2SAT 97–100
[2017-06-28] MEDS: PIPERACIL-TAZO 3.375 GM PREMIX 50 ML IV SCH ×5 (00:23→23:27)
[2017-06-28] MEDS: SODIUM CHLOR 0.45% 1000 ML INJ 1,000 ML IV SCH (01:45)
[2017-06-28] MEDS: ACETAMINOPHEN 1000 MG/100 ML 100 ML IV PRN (01:46)
[2017-06-28] MEDS: INSULIN NovoLIN REGULAR SUPPLEMENTAL SCALE SQ SCH ×6 (01:46→21:05)
[2017-06-28] MEDS: DEXMEDETOMIDINE INJ 1,000 MCG in SODIUM CHLOR 0.9% 250 ML INJ 240 ML IV PRN (03:44)
--- NOTE | 2017-06-28 04:07 | RADRPT ---
EXAM DATE/TIME: 06/28/2017 02:44 [facility] COMPARISON: CHEST EXPIRATION ONLY, June 27, 2017, 17:10. INDICATIONS : Rule out pneumothorax. MEDICAL HISTORY : Carcinoma, lung. CVA SURGICAL HISTORY : None. ENCOUNTER: Subsequent ACUITY: 1 week PAIN SCORE: 0/10 LOCATION: Bilateral chest FINDINGS: A single frontal expiratory view of the chest was performed. Lateral half of the left chest is not i ncluded on this exam. Stable position of the large bore [place] loop thoracostomy tube in the left hemit horax the tip near the apex. No pneumothorax. Extensive bilateral airspace disease, left worse than r ight is unchanged. Possible associated right-sided effusion. Heart size is grossly normal. Endotrache al tube enters the stomach and extends off the inferior aspect of the image. Osseous structures are i ntact. Deep tissue emphysematous changes about the left hemithorax. Anterior fixation of the lower ce rvical spine CONCLUSION: 1. No pneumothorax. Stable position of left-sided thoracostomy tube. 2. Stable bilateral airspace disease with probable associated right-sided effusion. Gerard Brown MD on June 28, 2017 at 4:03 Board Certified Radiologist. This report was verified electronically.
[2017-06-28] MEDS: FREE WATER NG SCH ×5 (05:19→23:27)
[2017-06-28] MEDS: METOPROLOL TARTRATE 50 MG TAB PO SCH ×3 (05:19→21:04)
[2017-06-28 06:50] LABS: AUTOMATED NEUTROPHIL # 9.5 TH/MM3 (1.8-7.7); BASOPHIL % 0.3 % (0.0-2.0); HEMATOCRIT 33.9 % (35.0-46.0); HEMOGLOBIN 11.4 GM/DL (11.6-15.3); LYMPH % 0.7 % (9.0-44.0); LYMPHOCYTE # 0.1 TH/MM3 (1.0-4.8); MEAN CELL VOLUME 89.3 FL (80.0-100.0); MEAN CORPUSCULAR HEMOGLOBIN 29.9 PG (27.0-34.0); MEAN CORPUSCULAR HGB CONC 33.5 % (32.0-36.0); MEAN PLATELET VOLUME 11.2 FL (7.0-11.0); MONO % 4.5 % (0.0-8.0); MONOCYTE # 0.5 TH/MM3 (0-0.9); NEUT % 94.5 % (16.0-70.0); PLATELET COUNT 85 TH/MM3 (150-450); RED CELL DISTRIBUTION WIDTH 14.8 % (11.6-17.2)
[2017-06-28 07:12] LABS: BICARBONATE 26.5 MEQ/L (21.0-32.0); CALCIUM 7.9 MG/DL (8.5-10.1); CREATININE 1.68 MG/DL (0.50-1.00)
[2017-06-28] MEDS ORDERED: FUROSEMIDE 40 MG/4 ML VIAL ONE (07:19)
[2017-06-28] MEDS ORDERED: ETOMIDATE 40 MG/20 ML VIAL ONE (07:26)
--- NOTE | 2017-06-28 07:28 | HHI.CCPN ---
Subjective Remarks/Hospital Course 67-year-old female patient with past medical history of arthritis, COPD, epilepsy as a child not currently on medications, esophageal strictures, hypercholesterolemia, Lambert-Eaton syndrome, opioid dependence, history of tobaccoism quit smoking in 2008, recurrent bronchitis, small cell lung CA treated with chemo and radiation also status post prophylactic whole brain radiation 2008. Patient followed with Dr. Christy in the past now follows with Dr. Damon. Dr. Damon found a suspicion lesion and patient was seen in interventional radiology today for a lung biopsy complicated by pneumothorax with a chest tube placement. Around 6:45 PM the [facility] was called on the patient regarding concern for worsening shortness of breath. The chest tube that was orally placed was removed and the patient had worsening shortness of breath. The patient was transferred to critical care unit and the emergency chest tube was placed immediately with significant improvement of symptoms. Subjective: 06/22: Afebrile. Patient with complaints of recurrent nausea despite Zofran. Phenergan added to medication regimen. This a.m. while rounding on patient approximately 0640 this a.m. patient noted to have left pigtail chest tube inadvertently pulled out. Patient tachypneic, O2 saturation 97% heart rate 117. Left 28 [place] chest tube placed, pleuravac placed on 40cm H20, tachypnea resolved. Patient normotensive currently resting comfortably, post chest tube placement. Chest x-ray pending. 06/23 Patient is on BIPAP 12/8 with 50% FIO2. Afebrile. Renal function is slightly worse today with Cr:1.77 from 1.36 06/24: Remains on partial rebreather. No air leak noted in chest tube. Suction decreased to -20 cm water pressure with underwater seal. 06/25: Worsening respiratory failure, currently on CPAP, adjustments made, FiO2 currently 0.60 with a PaO2 of 87. Serial ABGs being performed. stat chest x- ray performed early this a.m. showing worsening infiltrates. IV fluids discontinued, Lasix 40 mg x1 dose given. The patient continues to have altered mental status, and agitation. Concern for ICU delirium, ammonia level pending. Haldol 1 mg IV 1 dose given. Extensive discussion/family conference performed this a.m.. Family is aware that patient is at high risk for possible intubation. 06/26 Patient is on BIPAP 18/6 with FIO2 55% placed on Precedex drip for agitation. 06/27 Patient is maxed out on Precedex for agitation. MRI and CT brain yesterday showed no acute findings. 06/28 Patient was on non rebreather overnight, CXR overnight showed b/l airspace disease, tachypneic she was subsequently intubated and placed on mechanical ventilation. CT chest yesterday showed subQ emphysema, b/l airspace disease, CT was in major fissure and new left sided CT was placed by IR. Objective Vital Signs Date Time Temp Pulse Resp B/P (MAP) Pulse Ox O2 Delivery O2 Flow Rate FiO2 06/28/17 06:00 89 06/28/17 04:42 100 50 06/28/17 04:00 100.0 28 115/57 (76) 06/27/17 20:45 Partial Rebreather 15.00 Intake and Output 06/28/17 06/28/17 06/28/17 07:59 15:59 23:59 Intake Total 2423 ml Output Total 630 ml Balance 1793 ml Result Diagram: 06/28/17 0447 06/28/17 0447 Other Results Laboratory Tests Test 06/27/17 09:10 06/28/17 04:47 Lactic Acid Level 2.1 mmol/L White Blood Count 10.0 TH/MM3 Red Blood Count 3.80 MIL/MM3 Hemoglobin 11.4 GM/DL Hematocrit 33.9 % Mean Corpuscular Volume 89.3 FL Mean Corpuscular Hemoglobin 29.9 PG Mean Corpuscular Hemoglobin Concent 33.5 % Red Cell Distribution Width 14.8 % Platelet Count 85 TH/MM3 Mean Platelet Volume 11.2 FL Neutrophils (%) (Auto) 94.5 % Lymphocytes (%) (Auto) 0.7 % Monocytes (%) (Auto) 4.5 % Eosinophils (%) (Auto) 0.0 % Basophils (%) (Auto) 0.3 % Neutrophils # (Auto) 9.5 TH/MM3 Lymphocytes # (Auto) 0.1 TH/MM3 Monocytes # (Auto) 0.5 TH/MM3 Eosinophils # (Auto) 0.0 TH/MM3 Basophils # (Auto) 0.0 TH/MM3 CBC Comment AUTO DIFF Blood Urea Nitrogen 71 MG/DL Creatinine 1.68 MG/DL Random Glucose 134 MG/DL Calcium Level 7.9 MG/DL Sodium Level 149 MEQ/L Potassium Level 3.9 MEQ/L Chloride Level 115 MEQ/L Carbon Dioxide Level 26.5 MEQ/L Anion Gap 8 MEQ/L Estimat Glomerular Filtration Rate 30 ML/MIN Imaging Last Impressions Chest X-Ray 06/28/17 0000 Signed Impressions: Service Date/Time: Wednesday, June 28, 2017 02:44 - CONCLUSION: 1. No pneumothorax. Stable position of left-sided thoracostomy tube. 2. Stable bilateral airspace disease with probable associated right-sided effusion. Gerard Brown MD Chest Tube Insertion 06/27/17 0000 Signed Impressions: Service Date/Time: Tuesday, June 27, 2017 16:08 - CONCLUSION: Uncomplicated chest tube placement as above. Sung Crawford MD Chest CT 06/27/17 0000 Signed Impressions: Service Date/Time: Tuesday, June 27, 2017 13:40 - CONCLUSION: 1. There is a subcentimeter left apical pneumothorax and a small amount of extrapleural gas adjacent to the apex of the heart. 2. 1.8 cm spiculated mass in the medial left upper lung without air bronchograms suspicious for a contralateral metastatic recurrence of cancer. 3. Large right pleural effusion. 4. Extensive left-sided subcutaneous emphysema similar to prior chest x-ray and interval development of moderate subcutaneous emphysema about the right lateral chest wall. Mahin Boles MD Renal Ultrasound 06/26/17 Signed Impressions: Service Date/Time: Monday, June 26, 2017 11:51 - CONCLUSION: 1. Slightly increased renal cortical echogenicity which may reflect medical renal disease. 2. No evidence for obstructive uropathy. Sung Crawford MD Head CT 06/26/17 0000 Signed Impressions: Service Date/Time: Monday, June 26, 2017 13:35 - CONCLUSION: 1. No acute intracranial abnormality is identified. 2. Chronic findings include mild generalized atrophy and chronic periventricular white matter ischemic change. Abel Diaz MD Brain MRI 06/26/17 0000 Signed Impressions: Service Date/Time: Monday, June 26, 2017 20:21 - CONCLUSION: 1. No acute findings. Exam degraded by motion artifact. Kemal Luna MD Lung Biopsy CT 06/21/17 0000 Signed Impressions: Service Date/Time: Wednesday, June 21, 2017 09:39 - CONCLUSION: Successful CT guided biopsy with small post-biopsy pneumothorax. Damian Don MD Procedures 06/21-left pigtail chest tube placement 06/22-left 26 [place] chest tube placement Objective Remarks GENERAL: Patient is 67 yo intubated SKIN: Warm and dry. HEAD: Normocephalic. EYES: No scleral icterus. No injection or drainage. NECK: Supple, trachea midline. No JVD or lymphadenopathy. Orally intubated CARDIOVASCULAR: Regular rate and rhythm without murmurs, gallops, or rubs. RESPIRATORY: Breath sounds equal bilaterally. Coarse BS, rhonchus GASTROINTESTINAL: Abdomen soft, non-tender, nondistended. MUSCULOSKELETAL: No cyanosis, or edema. Neuro: Sedated, intubated Date of Insertion: Jun 22, 2017 A/P Problem List: (1) Pneumothorax ICD Code: J93.9 - Pneumothorax, unspecified Status: Acute (2) Small cell lung cancer ICD Code: C34.90 - Malignant neoplasm of unspecified part of unspecified bronchus or lung Status: Chronic (3) Hypercholesteremia ICD Code: E78.00 - Pure hypercholesterolemia, unspecified Status: Chronic (4) COPD (chronic obstructive pulmonary disease) ICD Code: J44.9 - Chronic obstructive pulmonary disease, unspecified Status: Acute Assessment and Plan 1)VDRF intubated 06/28 2)COPD exac 3)s/p Tension pneumothorax s/p CT guided lung biopsy 4)Lung cancer 5)Hypercholesteremia 6)JODY 7) Encephalopathy-metabolic versus ICU delirium 8)Hypernatremia 9)Anemia, thrombocytopenia 10) Lambert Eaton -diagnosed 2008 Plan Neuro: Diprivan infusion for sedation and vent synchrony. Monitor neuro status Wean off Precedex drip. Daily sedation vacation when appropriate MRI brain and CT chest - no acute findings EEG: Diffuse slowing, no focal abnormalities, no seizure activity. Neuro is following- Dr. Shaw Pulm: Continue with vent support keep sats >92% Bronchodilators ( Duoneb. Pulmicort) Solumederol 40mg Q12 ICU vent bundle, check CXR and ABG post intubation. s/p Emergent left pigtail chest tube placement 06/21 Replacement of left chest tube 28 [place] on 40 cm H20 06/22 CT chest yesterday showed sub Q emphysema, subcentimeter left apical PTX, CT appeared in major fissure s/p new CT placement by IR 06/27, monitor CT drainage On Singular 10mg qhs Path results showed squamous cell ca 06/25 pulmonology is following- Dr. Wilkerson Legionella strep pneumo Ag negative CV: Monitor HR and BP keep MAP>65mmHg. Check Lactic acid For 2D echo to eval LV function On Lopressor 50mg Q8 : Monitor renal function, electrolytes replacement as needed. Avoid nephrotoxins Free water 300ml Q6, diurese with Lasix 40mg x1, d/c IVF Renal US: No hydro, renal is following Renal function is improving with Cr: 1.68 from 1.93 GI: Change tube feeds ( Glucerna 1.5) via NGT with goal rate 45ml/hr Bowel regimen with colace, Senna, add Reglan. Check KUB abd r/o ileus ID: Monitor for signs of infections ( Fever, WBC) On Zosyn add vanco empirically for COPD exac, check sputum cx, BC x 2 sets Pneumonia and Legionella urinary Ag negative Heme: Monitor CBC, Lovenox held for worsening thrombocytopenia, follow up on Hep PLT ab heme-onc is following -patient diagnosed with Lambert Eaton in 2008 Endo: on SSI for glycemic control. TSH:0.74 Msk: Muscle weakness-progressive PT/OT evaluation and treat-patient has Lambert Eaton Daily functional maintenance DVT GI prophylaxis -Papito's and SCDs/ Lovenox on hold -Pepcid Consult palliative care is following Code status: Alternative code ( intubation only) Level 3 Problem Qualifiers (1) Pneumothorax: Qualified Codes: J95.811 - Postprocedural pneumothorax Carla Stahl MD June 28, 2017 07:27
[2017-06-28] MEDS ORDERED: FUROSEMIDE 40 MG/4 ML VIAL IV PUSH ONE ×2 (07:30→07:45)
[2017-06-28] MEDS ORDERED: Vancomycin Consult Pharmacy 1 EA OTHER SCH (07:30)
[2017-06-28] MEDS ORDERED: VANCOMYCIN INJ 1,000 MG in SODIUM CHLOR 0.9% 250 ML INJ 250 ML IV SCH (07:30)
[2017-06-28] MEDS ORDERED: ETOMIDATE 20 MG/10 ML VIAL IV PUSH ONE (07:30)
[2017-06-28] MEDS ORDERED: PROPOFOL 500 MG/50 ML INJ 50 ML ONE (07:36)
--- NOTE | 2017-06-28 07:55 | HHI.PR ---
Objective Vital Signs Date Time Temp Pulse Resp B/P (MAP) Pulse Ox O2 Delivery O2 Flow Rate FiO2 06/28/17 06:00 89 06/28/17 04:42 100 50 06/28/17 04:00 100.0 80 28 115/57 (76) 100 06/28/17 04:00 82 06/28/17 02:00 79 06/28/17 02:00 100 50 06/28/17 00:00 99.3 82 32 155/70 (98) 97 06/28/17 00:00 83 06/27/17 22:00 80 06/27/17 20:45 99 Partial Rebreather 15.00 06/27/17 20:00 75 06/27/17 20:00 97.5 75 23 122/60 (80) 97 06/27/17 18:00 74 06/27/17 18:00 98.0 74 28 121/56 (77) 98 06/27/17 17:00 98.4 77 29 114/63 (80) 96 06/27/17 17:00 77 06/27/17 16:54 75 06/27/17 16:54 75 15 123/58 (79) 99 06/27/17 15:29 85 06/27/17 15:29 98.0 85 25 142/67 (92) 97 06/27/17 15:00 86 06/27/17 15:00 98.6 86 29 128/60 (82) 94 06/27/17 14:29 95 06/27/17 14:29 98.4 95 27 135/78 (97) 96 06/27/17 14:00 98.4 84 30 130/70 (90) 96 06/27/17 14:00 84 06/27/17 13:42 82 06/27/17 13:42 98.2 82 27 122/87 (99) 97 06/27/17 13:00 97.9 88 29 131/65 (87) 95 06/27/17 13:00 88 06/27/17 12:00 98.0 80 0 111/55 (73) 96 06/27/17 12:00 80 06/27/17 11:00 83 06/27/17 11:00 98.2 83 16 121/57 (78) 95 06/27/17 10:00 98.6 93 28 122/60 (80) 93 5/1/18 10:00 93 06/27/17 09:00 98.8 97 25 145/67 (93) 96 06/27/17 09:00 97 06/27/17 08:47 98 Partial Rebreather 15.00 06/27/17 08:00 98.4 84 28 129/61 (83) 96 06/27/17 08:00 84 I/O 06/27/17 06/27/17 06/27/17 06/28/17 06/28/17 06/28/17 07:00 15:00 23:00 07:00 15:00 23:00 Intake Total 817 ml 150 ml 2423 ml Output Total 580 ml 630 ml Balance 237 ml 150 ml 1793 ml IV Total 204 ml 150 ml 1200 ml Tube Feeding 313 ml 623 ml Other 300 ml 600 ml Output Urine Total 500 ml 500 ml Chest Tube Drainage Total 80 ml 130 ml # Bowel Movements 0 0 Result Diagram: 06/28/17 0447 06/28/17 0447 Objective Remarks on precedex moves all 4 stridor Assessment and Plan Assessment and Plan imp mri eeg labs all nl dc precedex she should awaken fine going on vent now Toan Shaw MD June 28, 2017 07:55
[2017-06-28 08:17] LABS: HEPARIN INDUCED PLATELET AB NEGATIVE (NEGATIVE)
[2017-06-28] MEDS ORDERED: BISACODYL 10 MG SUPP RECTAL ONE (08:30)
[2017-06-28] MEDS ORDERED: RASS Change Order XX ONE (08:30)
[2017-06-28] MEDS ORDERED: DEXMEDETOMIDINE INJ 1,000 MCG in SODIUM CHLOR 0.9% 250 ML INJ 240 ML IV PRN (08:30)
[2017-06-28 08:43] LABS: BANDS 10 % (0-6); CORRECTED NUCLEATED RBC 2 /100 WBC (0-0); LYMPHOCYTES 1 % (9-44); MONOCYTES 4 % (0-8); NEUTROPHIL # MANUAL DIFF 9.4 TH/MM3 (1.8-7.7); NUCLEATED RED BLOOD CELL 2 (0-0); POLYS (SEG NEUTROPHILS) 84 % (16-70)
[2017-06-28] MEDS: RESP: ALBUTEROL 2.5 MG/IPRATROPIUM 0.5 MG NEB (SCH) NEB ×4 (08:56→20:49)
[2017-06-28] MEDS: RESP: BUDESONIDE 0.25 MG/2 ML NEB NEB SCH ×2 (08:56→20:49)
[2017-06-28] MEDS: methylPREDNISolone SOD SUCC 40 MG/1 ML VIAL IV PUSH SCH ×2 (09:16→21:03)
[2017-06-28] MEDS: SODIUM CHLORIDE 0.9% FLUSH 10 ML FLUSH IV FLUSH SCH ×2 (09:18→21:03)
[2017-06-28] MEDS: SENNOSIDES SYRUP 8.8 MG/5 ML CUP PO SCH (09:18)
[2017-06-28] MEDS: FAMOTIDINE 20 MG TAB PO SCH ×2 (09:18→21:04)
[2017-06-28] MEDS: DOCUSATE SODIUM 100 MG/10 ML UDC PO SCH ×2 (09:18→21:00)
--- NOTE | 2017-06-28 09:18 | RADRPT ---
EXAM DATE/TIME: 06/28/2017 08:08 [facility] COMPARISON: CHEST SINGLE AP, June 27, 2017, 10:10. INDICATIONS : Evaluate intubation. MEDICAL HISTORY : Carcinoma, lung. SURGICAL HISTORY : Tubal ligation. ENCOUNTER: Subsequent ACUITY: 4 - 6 days PAIN SCORE: Non-responsive. LOCATION: Bilateral chest FINDINGS: There is a left chest tube in place with no definite pneumothorax. The endotracheal tube appears to b e in good position overlying the tracheal air shadow. There is an NG tube in the stomach. There bruno nue to be bilateral pulmonary infiltrates without significant change. There is stable focal parenchym al consolidation the right lung base along with a small right effusion. The heart size is stable. The bony structures are stable. CONCLUSION: 1. The ET tube is in good position. No pneumothorax. 2. No change in the bilateral pulmonary infiltrates. Cole Hays MD on June 28, 2017 at 9:10 Board Certified Radiologist. This report was verified electronically.
--- NOTE | 2017-06-28 09:20 | RADRPT ---
EXAM DATE/TIME: 06/28/2017 08:12 [facility] COMPARISON: No previous studies available for comparison. INDICATIONS : Evaluate for ileus. MEDICAL HISTORY : Carcinoma, lung. SURGICAL HISTORY : Tubal ligation. ENCOUNTER: Subsequent ACUITY: 1 week PAIN SCORE: Non-responsive. LOCATION: Abdomen FINDINGS: Supine view of the abdomen was performed. The abdominal bowel gas pattern is nonspecific. There is N G tube in the stomach. There are a few non-dilated air-filled loops of small and large bowel. There i s subcutaneous emphysema throughout the soft tissues. The bony structures are grossly intact. There i s no significant dilatation of large or small bowel.. CONCLUSION: 1. Nonspecific bowel gas pattern but no definite evidence of obstruction. 2. NG tube in the stomach. 3. Subcutaneous emphysema throughout the body wall. Cole Hays MD on June 28, 2017 at 9:16 Board Certified Radiologist. This report was verified electronically.
[2017-06-28] MEDS: METOCLOPRAMIDE HCL 10 MG/2 ML VIAL IV PUSH SCH ×3 (09:21→23:27)
[2017-06-28] MEDS: PROPOFOL 1000 MG/100 ML INJ 100 ML IV PRN ×3 (09:24→22:27)
[2017-06-28] MEDS ORDERED: DEXTROSE 5% IN WATE 1000ML INJ 1,000 ML IV SCH (10:30)
[2017-06-28] MEDS ORDERED: VANCOMYCIN INJ 1,500 MG in SODIUM CHLORID 0.9% 500 ML INJ 500 ML IV ONE (11:00)
--- NOTE | 2017-06-28 11:24 | HHI.NPPN ---
Subjective Renal Failure: Acute Interval History She had chest tube replaced yesterday. Intubated, on 100% FiO2. Family at bedside. Renal function improved. (Nina Gaines) Review of Systems General General Remarks unable to obtain (Nina Gaines) Objective Data Data 06/28/17 06/29/17 19:00 07:00 Intake Total 50 ml Balance 50 ml IV Total 50 ml Vital Signs Date Time Temp Pulse Resp B/P (MAP) Pulse Ox O2 Delivery O2 Flow Rate FiO2 06/28/17 08:44 100 100 06/28/17 07:35 100 15.00 06/28/17 06:00 89 06/28/17 04:42 100 50 06/28/17 04:00 100.0 80 28 115/57 (76) 100 06/28/17 04:00 82 06/28/17 02:00 79 06/28/17 02:00 100 50 06/28/17 00:00 99.3 82 32 155/70 (98) 97 06/28/17 00:00 83 06/27/17 22:00 80 06/27/17 20:45 99 Partial Rebreather 15.00 06/27/17 20:00 75 06/27/17 20:00 97.5 75 23 122/60 (80) 97 06/27/17 18:00 74 06/27/17 18:00 98.0 74 28 121/56 (77) 98 06/27/17 17:00 98.4 77 29 114/63 (80) 96 06/27/17 17:00 77 06/27/17 16:54 75 06/27/17 16:54 75 15 123/58 (79) 99 06/27/17 15:29 85 06/27/17 15:29 98.0 85 25 142/67 (92) 97 06/27/17 15:00 86 06/27/17 15:00 98.6 86 29 128/60 (82) 94 06/27/17 14:29 95 06/27/17 14:29 98.4 95 27 135/78 (97) 96 06/27/17 14:00 98.4 84 30 130/70 (90) 96 06/27/17 14:00 84 06/27/17 13:42 82 06/27/17 13:42 98.2 82 27 122/87 (99) 97 06/27/17 13:00 97.9 88 29 131/65 (87) 95 06/27/17 13:00 88 06/27/17 12:00 98.0 80 0 111/55 (73) 96 06/27/17 12:00 80 (Nina Gaines) -: 06/28/17 0447 06/28/17 0447 Imaging Last 72 hours Impressions Chest X-Ray 06/28/17 0000 Signed Impressions: Service Date/Time: Wednesday, June 28, 2017 08:08 - CONCLUSION: 1. The ET tube is in good position. No pneumothorax. 2. No change in the bilateral pulmonary infiltrates. Cole Hays MD Chest X-Ray 06/28/17 0000 Signed Impressions: Service Date/Time: Wednesday, June 28, 2017 02:44 - CONCLUSION: 1. No pneumothorax. Stable position of left-sided thoracostomy tube. 2. Stable bilateral airspace disease with probable associated right-sided effusion. Gerard Brown MD Abdomen X-Ray 06/28/17 Signed Impressions: Service Date/Time: Wednesday, June 28, 2017 08:12 - CONCLUSION: 1. Nonspecific bowel gas pattern but no definite evidence of obstruction. 2. NG tube in the stomach. 3. Subcutaneous emphysema throughout the body wall. Cole Hays MD Chest X-Ray 06/27/17 0000 Signed Impressions: Service Date/Time: Tuesday, June 27, 2017 17:10 - CONCLUSION: 1. New left apical chest tube in good position without significant residual pneumothorax. Improved subcutaneous chest wall emphysema. 2. Worsening diffuse interstitial and airspace opacities in the left lung. Sung Crawford MD Chest X-Ray 06/27/17 0000 Signed Impressions: Service Date/Time: Tuesday, June 27, 2017 10:10 - CONCLUSION: 1. Significant increased amount subcutaneous emphysema about the left chest wall and supraclavicular region. No definite evidence of pneumothorax. 2. Persistent consolidation right lower lung and ill-defined opacities in the right upper lung. Mahin Boles MD Chest Tube Insertion 06/27/17 0000 Signed Impressions: Service Date/Time: Tuesday, June 27, 2017 16:08 - CONCLUSION: Uncomplicated chest tube placement as above. Sung Crawford MD Chest CT 06/27/17 0000 Signed Impressions: Service Date/Time: Tuesday, June 27, 2017 13:40 - CONCLUSION: 1. There is a subcentimeter left apical pneumothorax and a small amount of extrapleural gas adjacent to the apex of the heart. 2. 1.8 cm spiculated mass in the medial left upper lung without air bronchograms suspicious for a contralateral metastatic recurrence of cancer. 3. Large right pleural effusion. 4. Extensive left-sided subcutaneous emphysema similar to prior chest x-ray and interval development of moderate subcutaneous emphysema about the right lateral chest wall. Mahin Boles MD Chest X-Ray 06/26/17 0600 Signed Impressions: Service Date/Time: Monday, June 26, 2017 03:19 - CONCLUSION: 1. Left-sided thoracostomy tube without pneumothorax. 2. Improving aeration in both lung bases, particularly on the left. Persistent right basilar consolidation/effusion. Gerard Brown MD Renal Ultrasound 06/26/17 0000 Signed Impressions: Service Date/Time: Monday, June 26, 2017 11:51 - CONCLUSION: 1. Slightly increased renal cortical echogenicity which may reflect medical renal disease. 2. No evidence for obstructive uropathy. Sung Crawford MD Head CT 06/26/17 0000 Signed Impressions: Service Date/Time: Monday, June 26, 2017 13:35 - CONCLUSION: 1. No acute intracranial abnormality is identified. 2. Chronic findings include mild generalized atrophy and chronic periventricular white matter ischemic change. Abel Diaz MD Brain MRI 06/26/17 0000 Signed Impressions: Service Date/Time: Monday, June 26, 2017 20:21 - CONCLUSION: 1. No acute findings. Exam degraded by motion artifact. Kemal Luna MD Tubes & Lines: [facility] Tubes & Lines Comment chest tube (Nina Gaines) Physical Exam General Appearance: Well Developed, Comfortable, Anxious Appearance Remarks intubated (Nina Gaines) Throat Throat Exam: Oral Mucosa [place] & Moist (Nina Gaines) Pulmonary Resp Exam: Crackles, Rhonchi, Sputum, Labored Resp Remarks chest tube L (Nina Gaines) Cardiology CV Exam: Regular, Normal Sinus Rhythm (Nina Gaines) Gastrointestinal/Abdomen GI Exam: Non-Tender, Bowel Sounds Present (Nina Gaines) Musculoskeletal MS Exam: Joints Intact, Normal Tone, Unable to Ambulate (Nina Gaines) Integumentary Skin Exam: Warm, Dry, Intact (Nina Gaines) Extremeties Extremities Exam: No Edema, Pedal Pulses Palpable (Nina Gaines) Neurologic Neuro Exam: Moving All Extremities (Nina Gaines) Psychiatric Psych Remarks unable to obtain (Nina Gaines) Assessment/Plan Assessment Summary: JODY/Acute Renal Failure Electrolyte Assessment: Hypernatremia, Hypokalemia Problem List: (1) Acute renal failure ICD Codes: N17.9 - Acute kidney failure, unspecified Plan: Her creatinine was less than one in 2016. Most likely suffered ATN. Her renal function has improved. She is non oliguric Given Lasix today Hypernatremic, on free water with tube feeding; Use Diuril if needed for diuresis. Avoid nephrotoxic agents Follow labs (2) Pneumothorax ICD Codes: J93.9 - Pneumothorax, unspecified Status: Acute Plan: Has a chest tube currently (#4 since admission) Pulmonary and CCM managing (3) Small cell lung cancer ICD Codes: C34.90 - Malignant neoplasm of unspecified part of unspecified bronchus or lung Status: Chronic Plan: s/p treatment with 6 cycles of chemo and radiation had biopsy of new suspicious lesion, results pending had complication of pneumothorax post procedure appreciate further recommendations (4) Altered mental state ICD Codes: R41.82 - Altered mental status, unspecified Plan: Multiple etiologies including hypoxia, infection, and Renal failure Neurology evaluated, EEG negative. Now sedated on vent. (5) Sepsis ICD Codes: A41.9 - Sepsis, unspecified organism Plan: Lactic acid elevated. Continue antibiotics (Zosyn) Lung sounds coarse, CXR reviewed. (Nina Gaines) Plan patient was seen and examined. Improvement in renal function. Hypernatremia is noted, use Diuril for diuresis, free water administration. Prognosis is poor. (Tobi Lin MD) Problem Qualifiers (1) Pneumothorax: Qualified Codes: J95.811 - Postprocedural pneumothorax Nina Gaines [facility] June 28, 2017 11:24 Tobi Lin MD June 28, 2017 21:29
--- NOTE | 2017-06-28 14:46 | HHI.HCPN ---
Reason for visit a. To assist with evaluation and management of symptoms including: dyspnea, agitation b. To assist medical decision maker(s) with: better understanding of current medical conditions; weighing benefits/burdens of medical treatment options; making medical treatment decisions. . Subjective/Interval History Follow-up visit for symptom management of dyspnea and agitation as well as clarification of medical treatment goals. Patient was seen in the intensive care unit, room 510. Patient's and 2 adult children were at bedside. CT chest yesterday showed subQ emphysema and bilateral airspace disease; chest tube was in major fissure and new left sided CT was placed by IR. Patient was on a nonrebreather overnight. Patient became tachypneic this morning with worsening agitation and was subsequently intubated and placed on mechanical ventilation. Oxygen saturations stable on 80% FiO2; PEEP 5. T-max 100.8 Blood and sputum cultures sent 06/28/17-results pending. = WBC: 10.0, hemoglobin 11.4, hematocrit 33.9, platelets 85, neutrophils 94.5% = Sodium: 149, potassium 3.9, chloride 115, carbon dioxide 26.5, glucose 134, calcium 7.9 = BUN: 71, creatinine 1.68, GFR 30 CT-guided lung biopsy-pathology significant for squamous cell carcinoma. Patient on propofol for sedation and vent synchrony. MRI brain and CT head-no acute findings. EEG showed diffuse slowing, no focal abnormalities and no seizure activity. Neurology continues to follow. . Family/friend interactions Palliative care spoke with patient family at bedside and in the hallway. Updated provided on patient's clinical condition. Questions answered to the best of my ability. Family understands patient is critically ill; they support decision to intubate for a short time but they would not consent to tracheostomy if the patient is unable to wean off mechanical ventilation. Hospice was introduced. Family wants to give the patient time to improve but state they are open to transitioning to comfort measures when appropriate. . Advance Directives Living Will: Never completed Health Care Surrogate: Never completed Durable Power of [place] Wirer: Never completed Advance Directive Specifics Documented care wishes: No documented care wishes have been completed. . Objective Vital Signs Date Time Temp Pulse Resp B/P (MAP) Pulse Ox O2 Delivery O2 Flow Rate FiO2 06/28/17 12:00 67 06/28/17 12:00 99.7 87 18 118/63 (81) 100 06/28/17 11:00 86 06/28/17 10:00 99.9 84 21 117/61 (79) 100 06/28/17 10:00 84 06/28/17 08:44 100 100 06/28/17 08:00 100.8 79 27 78/47 (57) 100 06/28/17 08:00 79 06/28/17 07:35 100 15.00 06/28/17 06:00 89 06/28/17 04:42 100 50 06/28/17 04:00 100.0 80 28 115/57 (76) 100 06/28/17 04:00 82 06/28/17 02:00 79 06/28/17 02:00 100 50 06/28/17 00:00 99.3 82 32 155/70 (98) 97 06/28/17 00:00 83 06/27/17 22:00 80 06/27/17 20:45 99 Partial Rebreather 15.00 06/27/17 20:00 75 06/27/17 20:00 97.5 75 23 122/60 (80) 97 06/27/17 18:00 74 06/27/17 18:00 98.0 74 28 121/56 (77) 98 06/27/17 17:00 98.4 77 29 114/63 (80) 96 06/27/17 17:00 77 06/27/17 16:54 75 06/27/17 16:54 75 15 123/58 (79) 99 06/27/17 15:29 85 06/27/17 15:29 98.0 85 25 142/67 (92) 97 06/27/17 15:00 86 06/27/17 15:00 98.6 86 29 128/60 (82) 94 06/27/17 14:29 95 06/27/17 14:29 98.4 95 27 135/78 (97) 96 Intake & Output 06/28/17 06/28/17 07:00 19:00 Intake Total 2523 ml 50 ml Output Total 630 ml Balance 1893 ml 50 ml IV Total 1300 ml 50 ml Tube Feeding 623 ml Other 600 ml Output Urine Total 500 ml Chest Tube Drainage Total 130 ml # Bowel Movements 0 . Physical Exam CONSTITUTIONAL/GENERAL: This is an adequately nourished patient, intubated on mechanical ventilation TUBES/LINES/DRAINS: PIV x 2, ETT OGT, chest tube, Webb catheter, soft restraints SKIN: No jaundice, rashes, or lesions. Ecchymoses on upper extremities. No wounds seen anteriorly. Skin temperature appropriate. Not diaphoretic. HEAD: Atraumatic. Normocephalic. EYES: Pupils equal and round and reactive. Extraocular motions intact. No scleral icterus. No injection or drainage. Fundi not examined. ENT: Unable to assess hearing given clinical condition. Nose without bleeding or purulent drainage. NECK: Trachea midline. Supple, nontender. No palpable thyroid enlargement or nodularity. CARDIOVASCULAR: Regular rate and rhythm without murmurs, gallops, or rubs. No JVD. Peripheral pulses symmetric. RESPIRATORY/CHEST: Intubated on mechanical ventilator. Breath sounds diminished in bases bilaterally. Coarse rhonchi; expiratory wheezing. GASTROINTESTINAL: Abdomen soft, non-tender, nondistended. No guarding. Bowel sounds present. GENITOURINARY: Without palpable bladder distension. Webb catheter in place draining straw-colored urine. MUSCULOSKELETAL: Extremities without clubbing, cyanosis, or edema. No mottling or clubbing. LYMPHATICS: No palpable cervical or supraclavicular adenopathy. NEUROLOGICAL: Sedated on propofol. Did respond to questions or follow commands on exam. PSYCHIATRIC: No anxiety/agitation on exam. No apparent hallucinations or other psychotic thought process. . Diagnostic Tests Laboratory Laboratory Tests Test 06/26/17 05:02 06/26/17 05:08 06/26/17 09:38 06/26/17 11:40 Blood Urea Nitrogen 82 MG/DL (7-18) Creatinine 2.29 MG/DL (0.50-1.00) Random Glucose 209 MG/DL (74-106) Calcium Level 8.5 MG/DL (8.5-10.1) Phosphorus Level 2.4 MG/DL (2.5-4.9) Magnesium Level 2.9 MG/DL (1.5-2.5) Sodium Level 146 MEQ/L (136-145) Potassium Level 3.2 MEQ/L (3.5-5.1) Chloride Level 108 MEQ/L (98-107) Carbon Dioxide Level 26.8 MEQ/L (21.0-32.0) Anion Gap 11 MEQ/L (5-15) Estimat Glomerular Filtration Rate 21 ML/MIN (>89) White Blood Count 9.1 TH/MM3 (4.0-11.0) Red Blood Count 3.59 MIL/MM3 (4.00-5.30) Hemoglobin 10.8 GM/DL (11.6-15.3) Hematocrit 32.5 % (35.0-46.0) Mean Corpuscular Volume 90.5 FL (80.0-100.0) Mean Corpuscular Hemoglobin 30.1 PG (27.0-34.0) Mean Corpuscular Hemoglobin Concent 33.2 % (32.0-36.0) Red Cell Distribution Width 14.3 % (11.6-17.2) Platelet Count 87 TH/MM3 (150-450) Mean Platelet Volume 11.2 FL (7.0-11.0) Neutrophils (%) (Auto) 93.7 % (16.0-70.0) Lymphocytes (%) (Auto) 1.4 % (9.0-44.0) Monocytes (%) (Auto) 4.9 % (0.0-8.0) Eosinophils (%) (Auto) 0.0 % (0.0-4.0) Basophils (%) (Auto) 0.0 % (0.0-2.0) Neutrophils # (Auto) 8.6 TH/MM3 (1.8-7.7) Lymphocytes # (Auto) 0.1 TH/MM3 (1.0-4.8) Monocytes # (Auto) 0.4 TH/MM3 (0-0.9) Eosinophils # (Auto) 0.0 TH/MM3 (0-0.4) Basophils # (Auto) 0.0 TH/MM3 (0-0.2) CBC Comment AUTO DIFF Differential Comment AUTO DIFF CONFIRMED Platelet Estimate LOW (NORMAL) Platelet Morphology Comment ENLARGED (NORMAL) Red Cell Morphology Comment NORMAL (NORMAL) Blood Gas Puncture Site LT RADIAL Blood Gas Patient Temperature 98.6 Blood Gas HCO3 26 mmol/L (22-26) Blood Gas Base Excess 2.4 mmol/L (-2-2) Blood Gas Oxygen Saturation 96 % (90-100) Arterial Blood pH 7.43 (7.380-7.420) Arterial Blood Partial Pressure CO2 40 mmHg (38-42) Arterial Blood Partial Pressure O2 108 mmHg (61-120) Arterial Blood Oxygen Content 15.2 Vol % (12.0-20.0) Arterial Blood Carboxyhemoglobin 0.8 % (0-4) Arterial Blood Methemoglobin 1.2 % (0-2) Blood Gas Hemoglobin 11.1 G/DL (12.0-16.0) Oxygen Delivery Device BiPAP Blood Gas Ventilator Setting [id number] Blood Gas Inspired Oxygen 45 % Prothrombin Time 14.5 SEC (9.8-11.6) Prothromb Time International Ratio 1.4 RATIO Thyroid Stimulating Hormone 3rd Gen 0.748 uIU/ML (0.358-3.740) Heparin-Induced Platelet Ab (Miley) NEGATIVE (NEGATIVE) HIPA Patient Optical Density 0.063 O.D. (0.000-0.300) Test 06/26/17 19:53 06/27/17 07:07 06/27/17 09:10 06/28/17 04:47 Potassium Level 3.5 MEQ/L (3.5-5.1) 3.7 MEQ/L (3.5-5.1) 3.9 MEQ/L (3.5-5.1) Vitamin B12 Level GREATER THAN 2000 PG/ML White Blood Count 14.7 TH/MM3 (4.0-11.0) 10.0 TH/MM3 (4.0-11.0) Red Blood Count 4.06 MIL/MM3 (4.00-5.30) 3.80 MIL/MM3 (4.00-5.30) Hemoglobin 12.0 GM/DL (11.6-15.3) 11.4 GM/DL (11.6-15.3) Hematocrit 36.4 % (35.0-46.0) 33.9 % (35.0-46.0) Mean Corpuscular Volume 89.5 FL (80.0-100.0) 89.3 FL (80.0-100.0) Mean Corpuscular Hemoglobin 29.5 PG (27.0-34.0) 29.9 PG (27.0-34.0) Mean Corpuscular Hemoglobin Concent 33.0 % (32.0-36.0) 33.5 % (32.0-36.0) Red Cell Distribution Width 14.7 % (11.6-17.2) 14.8 % (11.6-17.2) Platelet Count 97 TH/MM3 (150-450) 85 TH/MM3 (150-450) Mean Platelet Volume 11.1 FL (7.0-11.0) 11.2 FL (7.0-11.0) Neutrophils (%) (Auto) 95.7 % (16.0-70.0) 94.5 % (16.0-70.0) Lymphocytes (%) (Auto) 0.4 % (9.0-44.0) 0.7 % (9.0-44.0) Monocytes (%) (Auto) 3.6 % (0.0-8.0) 4.5 % (0.0-8.0) Eosinophils (%) (Auto) 0.0 % (0.0-4.0) 0.0 % (0.0-4.0) Basophils (%) (Auto) 0.3 % (0.0-2.0) 0.3 % (0.0-2.0) Neutrophils # (Auto) 14.1 TH/MM3 (1.8-7.7) 9.5 TH/MM3 (1.8-7.7) Lymphocytes # (Auto) 0.1 TH/MM3 (1.0-4.8) 0.1 TH/MM3 (1.0-4.8) Monocytes # (Auto) 0.5 TH/MM3 (0-0.9) 0.5 TH/MM3 (0-0.9) Eosinophils # (Auto) 0.0 TH/MM3 (0-0.4) 0.0 TH/MM3 (0-0.4) Basophils # (Auto) 0.0 TH/MM3 (0-0.2) 0.0 TH/MM3 (0-0.2) CBC Comment AUTO DIFF AUTO DIFF Differential Comment AUTO DIFF CONFIRMED FINAL DIFF MANUAL Platelet Estimate LOW (NORMAL) LOW (NORMAL) Platelet Morphology Comment ENLARGED (NORMAL) NORMAL (NORMAL) Ovalocytes 1+ (NORMAL) Keratocytes OCC (NORMAL) Blood Urea Nitrogen 75 MG/DL (7-18) 71 MG/DL (7-18) Creatinine 1.93 MG/DL (0.50-1.00) 1.68 MG/DL (0.50-1.00) Random Glucose 204 MG/DL (74-106) 134 MG/DL (74-106) Calcium Level 8.6 MG/DL (8.5-10.1) 7.9 MG/DL (8.5-10.1) Phosphorus Level 2.5 MG/DL (2.5-4.9) Sodium Level 147 MEQ/L (136-145) 149 MEQ/L (136-145) Chloride Level 113 MEQ/L (98-107) 115 MEQ/L (98-107) Carbon Dioxide Level 24.6 MEQ/L (21.0-32.0) 26.5 MEQ/L (21.0-32.0) Anion Gap 9 MEQ/L (5-15) 8 MEQ/L (5-15) Estimat Glomerular Filtration Rate 26 ML/MIN (>89) 30 ML/MIN (>89) Lactic Acid Level 2.1 mmol/L (0.4-2.0) Differential Total Cells Counted 100 Neutrophils % (Manual) 84 % (16-70) Band Neutrophils % 10 % (0-6) Lymphocytes % 1 % (9-44) Monocytes % 4 % (0-8) Eosinophils % 1 % (0-4) Neutrophils # (Manual) 9.4 TH/MM3 (1.8-7.7) Nucleated Red Blood Cells 2 /100 WBC (0-0) Red Cell Morphology Comment NORMAL (NORMAL) Test 06/28/17 11:52 Blood Gas Puncture Site RT RADIAL Blood Gas Patient Temperature 98.6 Blood Gas HCO3 29 mmol/L (22-26) Blood Gas Base Excess 5.6 mmol/L (-2-2) Blood Gas Oxygen Saturation 98 % (90-100) Arterial Blood pH 7.47 (7.380-7.420) Arterial Blood Partial Pressure CO2 41 mmHg (38-42) Arterial Blood Partial Pressure O2 383 mmHg (61-120) Arterial Blood Oxygen Content 16.9 Vol % (12.0-20.0) Arterial Blood Carboxyhemoglobin 0.7 % (0-4) Arterial Blood Methemoglobin 1.5 % (0-2) Blood Gas Hemoglobin 11.6 G/DL (12.0-16.0) Oxygen Delivery Device VENTILATOR Blood Gas Ventilator Setting PRVC/AC Blood Gas Inspired Oxygen 100 % . Result Diagram: 06/28/17 0447 06/28/17 0447 Microbiology Microbiology Date/Time Source Procedure Growth Status 06/28/17 12:15 Blood Peripheral Aerobic Blood Culture Pending Received 06/28/17 12:15 Blood Peripheral Anaerobic Blood Culture Pending Received 06/28/17 12:08 Blood Peripheral Aerobic Blood Culture Pending Received 06/28/17 12:08 Blood Peripheral Anaerobic Blood Culture Pending Received 06/28/17 11:40 Sputum Endotracheal Gram Stain Pending Received 06/28/17 11:40 Sputum Endotracheal Sputum Culture Pending Received . Imaging Last 72 hours Impressions Chest X-Ray 06/28/17 0000 Signed Impressions: Service Date/Time: Wednesday, June 28, 2017 08:08 - CONCLUSION: 1. The ET tube is in good position. No pneumothorax. 2. No change in the bilateral pulmonary infiltrates. Cole Hays MD Chest X-Ray 06/28/17 0000 Signed Impressions: Service Date/Time: Wednesday, June 28, 2017 02:44 - CONCLUSION: 1. No pneumothorax. Stable position of left-sided thoracostomy tube. 2. Stable bilateral airspace disease with probable associated right-sided effusion. Gerard Brown MD Abdomen X-Ray 06/28/17 Signed Impressions: Service Date/Time: Wednesday, June 28, 2017 08:12 - CONCLUSION: 1. Nonspecific bowel gas pattern but no definite evidence of obstruction. 2. NG tube in the stomach. 3. Subcutaneous emphysema throughout the body wall. Cole Hays MD Chest X-Ray 06/27/17 Signed Impressions: Service Date/Time: Tuesday, June 27, 2017 17:10 - CONCLUSION: 1. New left apical chest tube in good position without significant residual pneumothorax. Improved subcutaneous chest wall emphysema. 2. Worsening diffuse interstitial and airspace opacities in the left lung. Sung Crawford MD Chest X-Ray 06/27/17 0000 Signed Impressions: Service Date/Time: Tuesday, June 27, 2017 10:10 - CONCLUSION: 1. Significant increased amount subcutaneous emphysema about the left chest wall and supraclavicular region. No definite evidence of pneumothorax. 2. Persistent consolidation right lower lung and ill-defined opacities in the right upper lung. Mahin Boles MD Chest Tube Insertion 06/27/17 0000 Signed Impressions: Service Date/Time: Tuesday, June 27, 2017 16:08 - CONCLUSION: Uncomplicated chest tube placement as above. Sung Crawford MD Chest CT 06/27/17 0000 Signed Impressions: Service Date/Time: Tuesday, June 27, 2017 13:40 - CONCLUSION: 1. There is a subcentimeter left apical pneumothorax and a small amount of extrapleural gas adjacent to the apex of the heart. 2. 1.8 cm spiculated mass in the medial left upper lung without air bronchograms suspicious for a contralateral metastatic recurrence of cancer. 3. Large right pleural effusion. 4. Extensive left-sided subcutaneous emphysema similar to prior chest x-ray and interval development of moderate subcutaneous emphysema about the right lateral chest wall. Mahin Boles MD Chest X-Ray 06/26/17 0600 Signed Impressions: Service Date/Time: Monday, June 26, 2017 03:19 - CONCLUSION: 1. Left-sided thoracostomy tube without pneumothorax. 2. Improving aeration in both lung bases, particularly on the left. Persistent right basilar consolidation/effusion. Gerard Brown MD Renal Ultrasound 06/26/17 0000 Signed Impressions: Service Date/Time: Monday, June 26, 2017 11:51 - CONCLUSION: 1. Slightly increased renal cortical echogenicity which may reflect medical renal disease. 2. No evidence for obstructive uropathy. Sung Crawford MD Head CT 06/26/17 0000 Signed Impressions: Service Date/Time: Monday, June 26, 2017 13:35 - CONCLUSION: 1. No acute intracranial abnormality is identified. 2. Chronic findings include mild generalized atrophy and chronic periventricular white matter ischemic change. Abel Diaz MD Brain MRI 06/26/17 0000 Signed Impressions: Service Date/Time: Monday, June 26, 2017 20:21 - CONCLUSION: 1. No acute findings. Exam degraded by motion artifact. Kemal Luna MD . Procedures 06/21/2017: Left-sided chest tube placement 06/22/2017: Left-sided chest tube replaced 06/27/2017: Left-sided chest tube replaced . Assessment and Plan Disease Oriented Problem List: (1) Pneumothorax (2) Small cell lung cancer (3) COPD (chronic obstructive pulmonary disease) (4) Hypercholesteremia (5) Pneumothorax (6) Acute renal failure Symptom Scale: (1) Dyspnea 0-10 Scale: Unable to quantify (2) Agitation 0-10 Scale: Unable to quantify Pertinent Non-Medical Issues Psychosocial: Patient is originally from [place]. She stated her when she was 18 years old but later to someone else. She and her first had 2 sons (Prieto and Fernando). Prieto lives in [place]; Fernando is a nurse and lives in [place]. The patient has been to her current , Leoncio, for approximately 12 years. Spiritual: Buddhist aidan Legal: Per [place] statutes, in the absence of written advanced directives healthcare proxy decision making would fall to the patient's . However, patient's and 2 children have decided to make decisions together. Ethical issues impacting care: No known ethical issues impacting care at this time. . Important Contacts Leoncio Arzola, spouse: [phone] Fernando, son: [phone] Prieto: son: [phone] . Prognosis Patient is a 67 yo old female with metastatic squamous cell carcinoma of the lung status post lung biopsy with subsequent pneumothorax and chest tube placement; now intubated secondary to worsening respiratory failure and agitation. If the patient survives this hospitalization, she will be high risk for ongoing complications and further decline. . Code Status: Alternative Code Plan * ALTERNATE CODE-intubation only * Decision making: Per [place] statutes, in the absence of written advanced directives healthcare proxy decision making would fall to the patient's . Patient's has appears to have limited insight related to his 's medical conditions, and the patient's and 2 children have decided to make decisions together. * Discussed current medical treatment goals with recreational therapist (Dr. Lopez) and RN (Jovita) * Palliative care spoke with patient family at bedside and in the hallway. Updated provided on patient's clinical condition. Questions answered to the best of my ability. Family understands patient is critically ill; they support decision to intubate for a short time but they would not consent to tracheostomy if the patient is unable to wean off mechanical ventilation. Hospice was introduced. Family wants to give the patient time to improve but state they are open to transitioning to comfort measures when appropriate. * Palliative care contact information including fax number was provided to the patient's family * Symptom management: == Dyspnea: Patient with a known history of small cell lung cancer status post concurrent chemoradiation therapy with prophylactic whole brain radiation 2008. Patient had a lung biopsy on 06/21/2017 for a suspicious lesion on her chest which was complicated by a pneumothorax and subsequent chest tube placement- pathology significant for invasive poorly differentiated squamous cell carcinoma. CT chest yesterday 06/27/2017 showed subQ emphysema and bilateral airspace disease; chest tube was in major fissure and new left sided CT was placed by IR. Patient intubated this morning 06/28/2017 secondary to worsening respiratory status and agitation. == Agitation: Multifactoral. Patient having altered mental status and agitation concerning for ICU delirium versus metabolic encephalopathy versus hypoxemia. Received Haldol 1 mg IV 1 dose. Patient was placed on Precedex drip for agitation. Ammonia level of 37; MRI of the brain and CT of the head showed no acute findings; EEG showed diffuse slowing, no focal abnormalities, no seizure activity. * Palliative care will continue to follow this patient throughout her hospitalization to build rapport, assist with symptom management and goal clarification. . Attestation To help prompt me to consider important information that might be impacting today's encounter and assessment, information from prior notes written by myself or my colleagues may have been "brought forward" into today's note. My signature on this note, however, is an attestation that I personally performed the exam, history, and/or decision-making noted today, and, unless otherwise indicated, the interactions with patient, family, and staff as well as the review of records all occurred today. I also attest that the listed assessment and stated plan reflect my best clinical judgment today based on the combination of historical information, prior notes, and today's exam/ interactions. When time spent is documented, it refers only to time spent today by the signer, or if indicated, combined time spent today by collaborating physician/nurse practitioner. . Nay Croft June 28, 2017 14:46
--- NOTE | 2017-06-28 17:03 | ECHRPT ---
Indication: CHRONIC PULMONARY HEART DIS CONCLUSIONS Normal left ventricular size. EF=35-40%, severe hk ant-ap Mild concentric left ventricular hypertrophy. The left atrial size is mildly dilated. The right atrial size is mildly dilated. Aortic valve sclerosis is present. Mild aortic valve regurgitation. There is trace tricuspid valve regurgitation. The estimated pulmonary arterial pressure is 31 mmHg. A right sided pleural effusion is present. BP: 115 / 59 HR: 84 Rhythm: Sinus MEASUREMENTS (Male / Female) Normal Values Technical Quality:Fair 2D ECHO LV Diastolic Diameter PLAX 4.3 cm 4.2 - 5.9 / 3.9 - 5.3 cm LV Systolic Diameter PLAX 3.1 cm IVS Diastolic Thickness 1.2 cm 0.6 - 1.0 / 0.6 - 0.9 cm LVPW Diastolic Thickness 1.2 cm 0.6 - 1.0 / 0.6 - 0.9 cm LV Relative Wall Thickness 0.6 RV Internal Dim ED PLAX 1.7 cm LVOT Diameter 1.5 cm Aortic Root Diameter 2.9 cm DOPPLER AV Peak Velocity 130.0 cm/s AV Peak Gradient 6.8 mmHg AV Mean Gradient 4.0 mmHg AV Velocity Time Integral 21.3 cm LVOT Peak Velocity 76.7 cm/s LVOT Peak Gradient 2.4 mmHg LVOT Velocity Time Integral 10.7 cm AV Area Cont Eq vti 0.9 cm AV Area Cont Eq pk 1.0 cm TR Peak Velocity 229.0 cm/s TR Peak Gradient 21.0 mmHg Right Atrial Pressure 10.0 mmHg Pulmonary Artery Systolic Pressu 31.0 mmHg Right Ventricular Systolic Press 31.0 mmHg PV Peak Velocity 70.7 cm/s PV Peak Gradient 2.0 mmHg FINDINGS LEFT VENTRICLE Normal left ventricular size. Mild concentric left ventricular hypertrophy. The left ventricular systolic function is normal with an estimated ejection fraction in the range of 60-65%. RIGHT VENTRICLE Normal right ventricular size and systolic function. LEFT ATRIUM The left atrial size is mildly dilated. RIGHT ATRIUM The right atrial size is mildly dilated. ATRIAL SEPTUM The interatrial septum not well visualized. AORTA The aortic root and proximal ascending aorta are not well visualized. MITRAL VALVE Structurally normal mitral valve. No mitral valve stenosis or regurgitation. AORTIC VALVE Aortic valve sclerosis is present. Mild aortic valve regurgitation. TRICUSPID VALVE There is trace tricuspid valve regurgitation. The estimated pulmonary arterial pressure is 31 mmHg. PULMONARY VALVE The pulmonary valve is not well visualized. VESSELS The inferior vena cava is normal in size. PERICARDIUM A right sided pleural effusion is present. Francisco Rayo MD, FACC, [facility] (Electronically Signed) Final Date:28 Jun 2017 17:03
--- NOTE | 2017-06-28 20:27 | HHI.PR ---
Subjective Remarks 67 YOWF with AMS,Resp Failure,SSLC Has Left PTX CT brain no ac abnormality Developed resp failure Intubated, sedated Sons at [facility] Chest tube no air leak Objective Vital Signs Vital Signs Date Time Temp Pulse Resp B/P (MAP) Pulse Ox O2 Delivery O2 Flow Rate FiO2 06/28/17 18:00 91 06/28/17 16:10 99 40 06/28/17 16:00 40 06/28/17 16:00 99.4 85 20 111/59 (76) 99 06/28/17 16:00 85 06/28/17 14:00 92 06/28/17 12:00 67 06/28/17 12:00 80 06/28/17 12:00 99.7 87 18 118/63 (81) 100 06/28/17 11:00 86 06/28/17 10:00 99.9 84 21 117/61 (79) 100 06/28/17 10:00 84 06/28/17 08:44 100 100 06/28/17 08:00 100.8 79 27 78/47 (57) 100 06/28/17 08:00 79 06/28/17 08:00 80 06/28/17 07:35 100 15.00 06/28/17 06:00 89 06/28/17 04:42 100 50 06/28/17 04:00 100.0 80 28 115/57 (76) 100 06/28/17 04:00 82 06/28/17 02:00 79 06/28/17 02:00 100 50 06/28/17 00:00 99.3 82 32 155/70 (98) 97 06/28/17 00:00 83 06/27/17 22:00 80 06/27/17 20:45 99 Partial Rebreather 15.00 I/O 06/27/17 06/27/17 06/27/17 06/28/17 06/28/17 06/28/17 07:00 15:00 23:00 07:00 15:00 23:00 Intake Total 817 ml 150 ml 2423 ml 615 ml 875 ml Output Total 580 ml 630 ml 3385 ml Balance 237 ml 150 ml 1793 ml 615 ml -2510 ml IV Total 204 ml 150 ml 1200 ml 615 ml 50 ml Tube Feeding 313 ml 623 ml 225 ml Other 300 ml 600 ml 600 ml Output Urine Total 500 ml 500 ml 3275 ml Chest Tube Drainage Total 80 ml 130 ml 110 ml # Bowel Movements 0 0 1 Result Diagram: 06/28/1744606/28/17446 Objective Remarks GENERAL: Elderly female, intubated, sedated SKIN: Warm and dry. HEAD: Normocephalic. EYES: No scleral icterus. No injection or drainage. NECK: Supple, trachea midline. No JVD or lymphadenopathy. CARDIOVASCULAR: Regular rate and rhythm without murmurs, gallops, or rubs. RESPIRATORY: Breath sounds equal bilaterally. No accessory muscle use. left chest tube emliy suction GASTROINTESTINAL: Abdomen soft, non-tender, nondistended. MUSCULOSKELETAL: No cyanosis, or edema. BACK: Nontender without obvious deformity. No CVA tenderness. A/P Assessment and Plan IMPRESSION: 1. Left pneumothorax after lung biopsy. She has large-bore chest tube, no air leak. 2. Worsening left lung infiltrate. 3. Small pleural effusion. 4. H/O small cell carcinoma of the lung, status post chemotherapy and radiation treatment. 5. New cancer in the left lung. 6. History of nicotine. 7. History of chronic obstructive pulmonary disease. 8. VDRF PLAN: Vent support Sedation for vent synchrony Chest tube to suction Cont Abx Precedex for sedation. DW Sons at Lakhwinder Wilkerson MD June 28, 2017 20:27
[2017-06-28] MEDS: POLYETHYLENE GLYCOL 17 GM PKG PO SCH (21:00)
[2017-06-28] MEDS: ATORVASTATIN 40 MG TAB PO SCH (21:04)
[2017-06-28] MEDS: MONTELUKAST SODIUM 10 MG TAB PO SCH (21:04)
[2017-06-28] MEDS: ACETAMINOPHEN 325 MG TAB PO PRN (21:04)
[2017-06-29] VITALS (17 sets, daily range): BP systolic 98–130; BP diastolic 54–62; PULSE 66–90; RESP 17–20; TEMP 98.3–99.6; O2SAT 97–100
[2017-06-29] MEDS: RESP: ALBUTEROL 2.5 MG/IPRATROPIUM 0.5 MG NEB (SCH) NEB ×6 (00:31→20:29)
[2017-06-29] MEDS: INSULIN NovoLIN REGULAR SUPPLEMENTAL SCALE SQ SCH ×6 (02:32→20:53)
[2017-06-29] MEDS: PROPOFOL 1000 MG/100 ML INJ 100 ML IV PRN ×4 (03:46→18:48)
[2017-06-29] MEDS: ACETAMINOPHEN 325 MG TAB PO PRN (03:46)
[2017-06-29] MEDS: PIPERACIL-TAZO 3.375 GM PREMIX 50 ML IV SCH ×3 (05:11→17:04)
[2017-06-29] MEDS: FREE WATER NG SCH ×3 (05:11→17:05)
[2017-06-29] MEDS: METOPROLOL TARTRATE 50 MG TAB PO SCH ×3 (05:11→20:52)
[2017-06-29 07:08] LABS: AUTOMATED NEUTROPHIL # 12.4 TH/MM3 (1.8-7.7); BASOPHIL % 0.2 % (0.0-2.0); EOSINOPHIL % 0.1 % (0.0-4.0); HEMATOCRIT 37.1 % (35.0-46.0); HEMOGLOBIN 12.2 GM/DL (11.6-15.3); LYMPH % 1.2 % (9.0-44.0); LYMPHOCYTE # 0.2 TH/MM3 (1.0-4.8); MEAN CELL VOLUME 89.9 FL (80.0-100.0); MEAN CORPUSCULAR HEMOGLOBIN 29.6 PG (27.0-34.0); MEAN CORPUSCULAR HGB CONC 32.9 % (32.0-36.0); MEAN PLATELET VOLUME 11.3 FL (7.0-11.0); MONO % 5.5 % (0.0-8.0); MONOCYTE # 0.7 TH/MM3 (0-0.9); PLATELET COUNT 107 TH/MM3 (150-450); RED BLOOD COUNT 4.13 MIL/MM3 (4.00-5.30); RED CELL DISTRIBUTION WIDTH 15.2 % (11.6-17.2); WHITE BLOOD COUNT 13.3 TH/MM3 (4.0-11.0)
[2017-06-29 07:35] LABS: ALBUMIN 2.2 GM/DL (3.4-5.0); ALKALINE PHOSPHATASE 84 U/L (45-117); ALT (GPT) 541 U/L (10-53); AST (GOT) 172 U/L (15-37); BICARBONATE 30.6 MEQ/L (21.0-32.0); BLOOD UREA NITROGEN 55 MG/DL (7-18); CALCIUM 7.7 MG/DL (8.5-10.1); CHLORIDE 109 MEQ/L (98-107); CREATININE 1.53 MG/DL (0.50-1.00); GLOMERULAR FILTRATION RATE 34 ML/MIN (>89); GLUCOSE,RANDOM 149 MG/DL (74-106); MAGNESIUM 2.6 MG/DL (1.5-2.5); PHOSPHORUS 1.5 MG/DL (2.5-4.9); RANDOM VANCOMYCIN 11.4 COMMENT; SODIUM (NA) 147 MEQ/L (136-145); TOTAL BILIRUBIN ADULT 0.6 MG/DL (0.2-1.0); TOTAL PROTEIN 5.9 GM/DL (6.4-8.2)
--- NOTE | 2017-06-29 07:40 | PD.ONC.PN ---
Subjective Subjective Remarks Intubated and sedated. Objective Data Date Time Temp Pulse Resp B/P (MAP) Pulse Ox O2 Delivery O2 Flow Rate FiO2 06/29/17 06:00 70 06/29/17 04:00 40 06/29/17 04:00 87 06/29/17 04:00 99.6 90 19 123/57 (79) 100 06/29/17 03:30 100 40 06/29/17 02:00 89 06/29/17 00:32 99 40 06/29/17 00:00 40 06/29/17 00:00 81 06/29/17 00:00 99.3 82 20 104/58 (73) 97 06/28/17 22:00 79 06/28/17 20:50 97 40 06/28/17 20:00 92 06/28/17 20:00 99.9 92 20 106/57 (73) 98 06/28/17 20:00 40 06/28/17 18:00 91 06/28/17 16:10 99 40 06/28/17 16:00 40 06/28/17 16:00 99.4 85 20 111/59 (76) 99 06/28/17 16:00 85 06/28/17 14:00 92 06/28/17 12:00 67 06/28/17 12:00 80 06/28/17 12:00 99.7 87 18 118/63 (81) 100 06/28/17 11:00 86 06/28/17 10:00 99.9 84 21 117/61 (79) 100 06/28/17 10:00 84 06/28/17 08:44 100 100 06/28/17 08:00 100.8 79 27 78/47 (57) 100 06/28/17 08:00 79 06/28/17 08:00 80 06/29/17 06/29/17 06/29/17 07:00 15:00 23:00 Intake Total 1271 ml Output Total 925 ml Balance 346 ml Result Diagram: 06/29/17 0431 06/29/17 0431 Laboratory Results Laboratory Tests Test 06/28/17 11:52 06/29/17 04:31 Blood Gas Puncture Site RT RADIAL Blood Gas Patient Temperature 98.6 Blood Gas HCO3 29 mmol/L Blood Gas Base Excess 5.6 mmol/L Blood Gas Oxygen Saturation 98 % Arterial Blood pH 7.47 Arterial Blood Partial Pressure CO2 41 mmHg Arterial Blood Partial Pressure O2 383 mmHg Arterial Blood Oxygen Content 16.9 Vol % Arterial Blood Carboxyhemoglobin 0.7 % Arterial Blood Methemoglobin 1.5 % Blood Gas Hemoglobin 11.6 G/DL Oxygen Delivery Device VENTILATOR Blood Gas Ventilator Setting PRVC/AC Blood Gas Inspired Oxygen 100 % White Blood Count 13.3 TH/MM3 Red Blood Count 4.13 MIL/MM3 Hemoglobin 12.2 GM/DL Hematocrit 37.1 % Mean Corpuscular Volume 89.9 FL Mean Corpuscular Hemoglobin 29.6 PG Mean Corpuscular Hemoglobin Concent 32.9 % Red Cell Distribution Width 15.2 % Platelet Count 107 TH/MM3 Mean Platelet Volume 11.3 FL Neutrophils (%) (Auto) 93.0 % Lymphocytes (%) (Auto) 1.2 % Monocytes (%) (Auto) 5.5 % Eosinophils (%) (Auto) 0.1 % Basophils (%) (Auto) 0.2 % Neutrophils # (Auto) 12.4 TH/MM3 Lymphocytes # (Auto) 0.2 TH/MM3 Monocytes # (Auto) 0.7 TH/MM3 Eosinophils # (Auto) 0.0 TH/MM3 Basophils # (Auto) 0.0 TH/MM3 CBC Comment AUTO DIFF Blood Urea Nitrogen 55 MG/DL Creatinine 1.53 MG/DL Random Glucose 149 MG/DL Total Protein 5.9 GM/DL Albumin 2.2 GM/DL Calcium Level 7.7 MG/DL Phosphorus Level 1.5 MG/DL Magnesium Level 2.6 MG/DL Alkaline Phosphatase 84 U/L Aspartate Amino Transf (AST/SGOT) 172 U/L Alanine Aminotransferase (ALT/SGPT) 541 U/L Total Bilirubin 0.6 MG/DL Sodium Level 147 MEQ/L Potassium Level 4.2 MEQ/L Chloride Level 109 MEQ/L Carbon Dioxide Level 30.6 MEQ/L Anion Gap 7 MEQ/L Estimat Glomerular Filtration Rate 34 ML/MIN Random Vancomycin Level 11.4 COMMENT Culture Results Microbiology Date/Time Source Procedure Growth Status 06/28/17 12:15 Blood Peripheral Aerobic Blood Culture Pending Received 06/28/17 12:15 Blood Peripheral Anaerobic Blood Culture Pending Received 06/28/17 12:08 Blood Peripheral Aerobic Blood Culture Pending Received 06/28/17 12:08 Blood Peripheral Anaerobic Blood Culture Pending Received 06/28/17 11:40 Sputum Endotracheal Gram Stain - Final Resulted 06/28/17 11:40 Sputum Endotracheal Sputum Culture Pending Resulted Administered Medications Medications (Trade) Dose Ordered Sig/Leeann Route PRN Reason Start Time Stop Time Status Last Admin Dose Admin Sodium Chloride (NS Flush) 2 ml BID IV FLUSH 06/21/17 21:00 06/28/17 21:03 Acetaminophen (Tylenol) 650 mg Q4H PRN PO TEMP > 100.4 06/21/17 14:00 06/29/17 03:46 Ondansetron HCl (Zofran Inj) 4 mg Q6H PRN IVP NAUSEA OR VOMITING 06/21/17 14:00 06/22/17 21:07 Atorvastatin Calcium (Lipitor) 40 mg HS PO 06/21/17 21:00 06/28/17 21:04 Montelukast Sodium (Singulair) 10 mg HS PO 06/21/17 21:00 06/28/17 21:04 Polyethylene Glycol (Miralax) 17 gm HS PO 06/21/17 21:00 06/27/17 19:53 Guaifenesin (Mucinex Er) 600 mg Q12H PRN PO COUGH 06/22/17 00:15 06/22/17 00:39 Budesonide (Pulmicort Respule Neb) 0.25 mg Q12HR NEB NEB 06/23/17 13:00 06/28/17 20:49 Famotidine (Pepcid) 10 mg BID PO 06/23/17 21:00 06/28/17 21:04 Piperacillin Sod/ Tazobactam Sod 50 ml @ 100 mls/hr Q6H IV 06/23/17 18:00 06/29/17 05:11 Amiodarone HCl 450 mg/Sodium Chloride 250 ml @ 33.33 mls/ hr Q7H31M PRN IV Per Protocol 06/23/17 20:56 Future Hold 06/24/17 08:25 Metoprolol Tartrate (Lopressor) 50 mg Q8HR PO 06/25/17 06:00 06/29/17 05:11 Metoprolol Tartrate (Lopressor Inj) 5 mg Q2H PRN IV PUSH FOR HR GREATER THAN 130 06/24/17 21:15 06/26/17 00:06 Acetaminophen 100 ml @ 400 mls/hr Q6H PRN IV PAIN 3 TO 5 IF NOT KAL PO 06/26/17 02:00 06/28/17 01:46 Insulin Human Regular (NovoLIN R SUPPLEMENTAL SCALE) 1 Q4H SQ 06/26/17 10:00 06/29/17 05:11 Docusate Sodium (Colace Liq) 100 mg Q12HR PO 06/26/17 14:30 06/28/17 09:18 Sennosides (Senna Liq) 8.8 mg DAILY PO 06/26/17 14:30 06/28/17 09:18 Methylprednisolone Sodium Succinate (SoluMEDROL INJ) 40 mg Q12HR IV PUSH 06/26/17 21:00 06/28/17 21:03 Water (Free Water) VOLUME: 300 ML Q6HR NG 06/26/17 20:15 06/29/17 05:11 Propofol 100 ml @ 2.802 mls/ hr TITRATE PRN IV SEDATION 06/28/17 09:00 06/29/17 03:46 Albuterol/ Ipratropium (Duoneb Neb) 1 ampule Q4HR NEB NEB 06/28/17 08:00 06/29/17 03:30 Metoclopramide HCl (Reglan Inj) 5 mg Q8H IV PUSH 06/28/17 08:00 06/28/17 23:27 Objective Remarks GENERAL: elderly lady in no distress, intubated and sedated SKIN: Warm and dry. HEAD: Normocephalic. EYES: No scleral icterus. No injection or drainage. NECK: Supple LYMPHATIC: No adenopathy. CARDIOVASCULAR: Regular rate and rhythm without murmurs. RESPIRATORY: Breath sounds equal bilaterally. GASTROINTESTINAL: Abdomen soft, protuberent EXTREMITIES: No edema. NEUROLOGICAL: No obvious focal deficit. Assessment/Plan Assessment 1. Newly diagnosed NSCLC, SCC: s/p biopsy. If patient is able to recover from her acute medical illness this would be able to be treated under the direction of her primary oncologist Dr. Damon. 2. History of SCLC s/p chemotherapy and radiation therapy. 3. Critical illness with respiratory failure requiring intubation, ptx after lung biopsy, encephalopathy. Continue supportive care. Ida Cao MD June 29, 2017 07:40
[2017-06-29] MEDS: RESP: BUDESONIDE 0.25 MG/2 ML NEB NEB SCH ×2 (07:44→20:29)
[2017-06-29] MEDS ORDERED: SODIUM PHOSPHATE INJ 30 MMOL in SODIUM CHLOR 0.9% 250 ML INJ 240 ML IV PRN (07:45)
[2017-06-29] MEDS ORDERED: POTASSIUM PHOSPHATE MONOBASIC 500 MG TAB PO/TUBE PRN (07:45)
[2017-06-29] MEDS ORDERED: POTASSIUM CHLOR 40 MEQ PREMIX 100 ML IV PRN ×2 (07:45)
[2017-06-29] MEDS ORDERED: MAGNESIUM OXIDE 400 MG TAB PO PRN (07:45)
[2017-06-29] MEDS ORDERED: POTASSIUM CHLOR 20 MEQ PREMIX 100 ML IV PRN ×2 (07:45)
[2017-06-29] MEDS ORDERED: MAGNESIUM SULFATE INJ 4 GM in SODIUM CHLORIDE 0.9% INJ 92 ML IV PRN (07:45)
[2017-06-29] MEDS ORDERED: POTASSIUM CHLORIDE 25 MEQ EFFERVESCENT TAB PO PRN (07:45)
[2017-06-29] MEDS ORDERED: POTASSIUM PHOSPHATE INJ 30 MMOL in SODIUM CHLOR 0.9% 250 ML INJ 250 ML IV PRN (07:45)
[2017-06-29] MEDS: SODIUM CHLORIDE 0.9% FLUSH 10 ML FLUSH IV FLUSH SCH ×2 (07:50→20:52)
[2017-06-29] MEDS: DOCUSATE SODIUM 100 MG/10 ML UDC PO SCH ×2 (07:51→19:36)
[2017-06-29] MEDS: FAMOTIDINE 20 MG TAB PO SCH ×2 (07:51→20:53)
[2017-06-29] MEDS: METOCLOPRAMIDE HCL 10 MG/2 ML VIAL IV PUSH SCH ×2 (07:51→14:49)
[2017-06-29] MEDS: methylPREDNISolone SOD SUCC 40 MG/1 ML VIAL IV PUSH SCH ×2 (07:51→20:52)
[2017-06-29] MEDS: SENNOSIDES SYRUP 8.8 MG/5 ML CUP PO SCH (07:51)
--- NOTE | 2017-06-29 07:53 | HHI.CCPN ---
Subjective Remarks/Hospital Course 67-year-old female patient with past medical history of arthritis, COPD, epilepsy as a child not currently on medications, esophageal strictures, hypercholesterolemia, Lambert-Eaton syndrome, opioid dependence, history of tobaccoism quit smoking in 2008, recurrent bronchitis, small cell lung CA treated with chemo and radiation also status post prophylactic whole brain radiation 2008. Patient followed with Dr. Christy in the past now follows with Dr. Damon. Dr. Damon found a suspicion lesion and patient was seen in interventional radiology today for a lung biopsy complicated by pneumothorax with a chest tube placement. Around 6:45 PM the [facility] was called on the patient regarding concern for worsening shortness of breath. The chest tube that was orally placed was removed and the patient had worsening shortness of breath. The patient was transferred to critical care unit and the emergency chest tube was placed immediately with significant improvement of symptoms. Subjective: 06/22: Afebrile. Patient with complaints of recurrent nausea despite Zofran. Phenergan added to medication regimen. This a.m. while rounding on patient approximately 0640 this a.m. patient noted to have left pigtail chest tube inadvertently pulled out. Patient tachypneic, O2 saturation 97% heart rate 117. Left 28 Guatemalan chest tube placed, pleuravac placed on 40cm H20, tachypnea resolved. Patient normotensive currently resting comfortably, post chest tube placement. Chest x-ray pending. 06/23 Patient is on BIPAP 12/8 with 50% FIO2. Afebrile. Renal function is slightly worse today with Cr:1.77 from 1.36 06/24: Remains on partial rebreather. No air leak noted in chest tube. Suction decreased to -20 cm water pressure with underwater seal. 06/25: Worsening respiratory failure, currently on CPAP, adjustments made, FiO2 currently 0.60 with a PaO2 of 87. Serial ABGs being performed. stat chest x- ray performed early this a.m. showing worsening infiltrates. IV fluids discontinued, Lasix 40 mg x1 dose given. The patient continues to have altered mental status, and agitation. Concern for ICU delirium, ammonia level pending. Haldol 1 mg IV 1 dose given. Extensive discussion/family conference performed this a.m.. Family is aware that patient is at high risk for possible intubation. 06/26 Patient is on BIPAP 18/6 with FIO2 55% placed on Precedex drip for agitation. 06/27 Patient is maxed out on Precedex for agitation. MRI and CT brain yesterday showed no acute findings. 06/28 Patient was on non rebreather overnight, CXR overnight showed b/l airspace disease, tachypneic she was subsequently intubated and placed on mechanical ventilation. CT chest yesterday showed subQ emphysema, b/l airspace disease, CT was in major fissure and new left sided CT was placed by IR. 06/29 Patient is intubated and sedated with Diprivan. T:99.9 last night. Objective Vital Signs Date Time Temp Pulse Resp B/P (MAP) Pulse Ox O2 Delivery O2 Flow Rate FiO2 06/29/17 06:00 70 06/29/17 04:00 40 06/29/17 04:00 99.6 19 123/57 (79) 100 06/28/17 07:35 15.00 06/27/17 20:45 Partial Rebreather Intake and Output 06/29/17 06/29/17 06/30/17 08:00 16:00 00:00 Intake Total 1221 ml Output Total 925 ml Balance 296 ml Result Diagram: 06/29/17 0431 06/29/17 0431 Other Results Laboratory Tests Test 06/28/17 11:52 06/29/17 04:31 Blood Gas Puncture Site RT RADIAL Blood Gas Patient Temperature 98.6 Blood Gas HCO3 29 mmol/L Blood Gas Base Excess 5.6 mmol/L Blood Gas Oxygen Saturation 98 % Arterial Blood pH 7.47 Arterial Blood Partial Pressure CO2 41 mmHg Arterial Blood Partial Pressure O2 383 mmHg Arterial Blood Oxygen Content 16.9 Vol % Arterial Blood Carboxyhemoglobin 0.7 % Arterial Blood Methemoglobin 1.5 % Blood Gas Hemoglobin 11.6 G/DL Oxygen Delivery Device VENTILATOR Blood Gas Ventilator Setting PRVC/AC Blood Gas Inspired Oxygen 100 % White Blood Count 13.3 TH/MM3 Red Blood Count 4.13 MIL/MM3 Hemoglobin 12.2 GM/DL Hematocrit 37.1 % Mean Corpuscular Volume 89.9 FL Mean Corpuscular Hemoglobin 29.6 PG Mean Corpuscular Hemoglobin Concent 32.9 % Red Cell Distribution Width 15.2 % Platelet Count 107 TH/MM3 Mean Platelet Volume 11.3 FL Neutrophils (%) (Auto) 93.0 % Lymphocytes (%) (Auto) 1.2 % Monocytes (%) (Auto) 5.5 % Eosinophils (%) (Auto) 0.1 % Basophils (%) (Auto) 0.2 % Neutrophils # (Auto) 12.4 TH/MM3 Lymphocytes # (Auto) 0.2 TH/MM3 Monocytes # (Auto) 0.7 TH/MM3 Eosinophils # (Auto) 0.0 TH/MM3 Basophils # (Auto) 0.0 TH/MM3 CBC Comment AUTO DIFF Blood Urea Nitrogen 55 MG/DL Creatinine 1.53 MG/DL Random Glucose 149 MG/DL Total Protein 5.9 GM/DL Albumin 2.2 GM/DL Calcium Level 7.7 MG/DL Phosphorus Level 1.5 MG/DL Magnesium Level 2.6 MG/DL Alkaline Phosphatase 84 U/L Aspartate Amino Transf (AST/SGOT) 172 U/L Alanine Aminotransferase (ALT/SGPT) 541 U/L Total Bilirubin 0.6 MG/DL Sodium Level 147 MEQ/L Potassium Level 4.2 MEQ/L Chloride Level 109 MEQ/L Carbon Dioxide Level 30.6 MEQ/L Anion Gap 7 MEQ/L Estimat Glomerular Filtration Rate 34 ML/MIN Random Vancomycin Level 11.4 COMMENT Imaging Last Impressions Chest X-Ray 06/28/17 0000 Signed Impressions: Service Date/Time: Wednesday, June 28, 2017 08:08 - CONCLUSION: 1. The ET tube is in good position. No pneumothorax. 2. No change in the bilateral pulmonary infiltrates. Cole Hays MD Abdomen X-Ray 06/28/17 Signed Impressions: Service Date/Time: Wednesday, June 28, 2017 08:12 - CONCLUSION: 1. Nonspecific bowel gas pattern but no definite evidence of obstruction. 2. NG tube in the stomach. 3. Subcutaneous emphysema throughout the body wall. Cole Hays MD Chest Tube Insertion 06/27/17 0000 Signed Impressions: Service Date/Time: Tuesday, June 27, 2017 16:08 - CONCLUSION: Uncomplicated chest tube placement as above. Sung Crawford MD Chest CT 06/27/17 0000 Signed Impressions: Service Date/Time: Tuesday, June 27, 2017 13:40 - CONCLUSION: 1. There is a subcentimeter left apical pneumothorax and a small amount of extrapleural gas adjacent to the apex of the heart. 2. 1.8 cm spiculated mass in the medial left upper lung without air bronchograms suspicious for a contralateral metastatic recurrence of cancer. 3. Large right pleural effusion. 4. Extensive left-sided subcutaneous emphysema similar to prior chest x-ray and interval development of moderate subcutaneous emphysema about the right lateral chest wall. Mahin Boles MD Renal Ultrasound 06/26/17 0000 Signed Impressions: Service Date/Time: Monday, June 26, 2017 11:51 - CONCLUSION: 1. Slightly increased renal cortical echogenicity which may reflect medical renal disease. 2. No evidence for obstructive uropathy. Sung Crawford MD Head CT 06/26/17 0000 Signed Impressions: Service Date/Time: Monday, June 26, 2017 13:35 - CONCLUSION: 1. No acute intracranial abnormality is identified. 2. Chronic findings include mild generalized atrophy and chronic periventricular white matter ischemic change. Abel Diaz MD Brain MRI 06/26/17 0000 Signed Impressions: Service Date/Time: Monday, June 26, 2017 20:21 - CONCLUSION: 1. No acute findings. Exam degraded by motion artifact. Kemal Luna MD Lung Biopsy CT 06/21/17 0000 Signed Impressions: Service Date/Time: Wednesday, June 21, 2017 09:39 - CONCLUSION: Successful CT guided biopsy with small post-biopsy pneumothorax. Damian Don MD Procedures 06/21-left pigtail chest tube placement 06/22-left 26 Guatemalan chest tube placement Objective Remarks GENERAL: Patient is 67 yo intubated SKIN: Warm and dry. HEAD: Normocephalic. EYES: No scleral icterus. No injection or drainage. NECK: Supple, trachea midline. No JVD or lymphadenopathy. Orally intubated CARDIOVASCULAR: Regular rate and rhythm without murmurs, gallops, or rubs. RESPIRATORY: Breath sounds equal bilaterally. Coarse BS, rhonchus GASTROINTESTINAL: Abdomen soft, non-tender, nondistended. MUSCULOSKELETAL: No cyanosis, or edema. Neuro: Sedated, intubated Date of Insertion: Jun 22, 2017 A/P Problem List: (1) Pneumothorax ICD Code: J93.9 - Pneumothorax, unspecified Status: Acute (2) Small cell lung cancer ICD Code: C34.90 - Malignant neoplasm of unspecified part of unspecified bronchus or lung Status: Chronic (3) Hypercholesteremia ICD Code: E78.00 - Pure hypercholesterolemia, unspecified Status: Chronic (4) COPD (chronic obstructive pulmonary disease) ICD Code: J44.9 - Chronic obstructive pulmonary disease, unspecified Status: Acute Assessment and Plan 1)VDRF intubated 06/28 2)COPD exac 3)s/p Tension pneumothorax s/p CT guided lung biopsy 4)Lung cancer 5)Hypercholesteremia 6)JODY 7) Encephalopathy-metabolic versus ICU delirium 8)Hypernatremia 9)Anemia, thrombocytopenia 10) Lambert Eaton -diagnosed 2008 11) Elevated LFT's Plan Neuro: Diprivan infusion for sedation and vent synchrony. Monitor neuro status Daily sedation vacation MRI brain and CT chest - no acute findings EEG: Diffuse slowing, no focal abnormalities, no seizure activity. Neuro is following- Dr. Shaw Pulm: Continue with vent support keep sats >92% On PRVC RR 16, TV 450, PEEP:5, IT: 1.0 FIO2: 40% Bronchodilators ( Duoneb. Pulmicort) Solumederol 40mg Q12 ICU vent bundle, check CXR today s/p Emergent left pigtail chest tube placement 06/21 Replacement of left chest tube 28 Guatemalan on 40 cm H20 06/22 CT chest yesterday showed sub Q emphysema, subcentimeter left apical PTX, CT appeared in major fissure s/p new CT placement by IR 06/27, monitor CT drainage On Singular 10mg qhs Path results showed squamous cell ca 06/25 pulmonology is following- Dr. Wilkerson Legionella strep pneumo Ag negative CV: Monitor HR and BP keep MAP>65mmHg. Check Lactic acid echo showed EF 35-40% On Lopressor 50mg Q8 : Monitor renal function, electrolytes replacement as needed. Avoid nephrotoxins Free water 300ml Q6, s/p Lasix 40mg x1 Renal US: No hydro, renal is following Renal function is improving with Cr: 1.53 from 1.68 GI: Monitor LFT's, check US liver, Hepatitis profile. On tube feeds ( Glucerna 1.5) via NGT with goal rate 45ml/hr. ..keep NPO for US Liver Bowel regimen with colace, Senna, add Reglan. KUB abd: No obstruction, non specific bowel gas pattern ID: Monitor for signs of infections ( Fever, WBC) On Zosyn , vanco, follow up on sputum cx, and blood cultures Pneumonia and Legionella urinary Ag negative Heme: Monitor CBC, Lovenox held for thrombocytopenia, Hep PLT ab is negative heme-onc is following -patient diagnosed with Lambpiper Eaton in 2008 Endo: on SSI for glycemic control. TSH:0.74 Msk: Muscle weakness-progressive PT/OT evaluation and treat-patient has Lambert Eaton Daily functional maintenance DVT GI prophylaxis -Papito's and SCDs/ Lovenox on hold -Pepcid Consult palliative care is following Code status: Alternative code ( intubation only) Level 3 Problem Qualifiers (1) Pneumothorax: Qualified Codes: J95.811 - Postprocedural pneumothorax Carla Stahl MD June 29, 2017 07:53
--- NOTE | 2017-06-29 08:26 | RADRPT ---
EXAM DATE/TIME: 06/29/2017 07:59 [facility] COMPARISON: CHEST TUBE PLACEMENT, LEFT, June 27, 2017, 16:08. CHEST SINGLE AP, June 28, 2017, 8:08. INDICATIONS : Evaluate intubation MEDICAL HISTORY : Carcinoma, lung. SURGICAL HISTORY : Tubal ligation. ENCOUNTER: Subsequent ACUITY: 1 week PAIN SCORE: Non-responsive. LOCATION: Bilateral chest FINDINGS: Rotated AP view of the chest demonstrates a normal-sized cardiac silhouette. Endotracheal tube distal tip measures approximately 5.2 cm from the melvin and nasogastric tube course beyond the GE junction . Multiple EKG lines overlie the patient. The left chest tube remains present at the superior aspect of the left hemithorax. Airspace consolidation is present throughout most of the right lung but impro iram at the right lung base. There is left lower lung zone airspace consolidation without significant change. Stable blunting of the right costophrenic sulcus is present and there is left chest wall subc utaneous emphysema that has mildly decreased. CONCLUSION: 1. Endotracheal tube appears to be in appropriate position on this rotated examination with tip measu ring approximately 5.2 cm from the melvin. 2. Stable bilateral airspace consolidation with improvement in the right lung base. There is also a s table small right pleural effusion. 3. The left chest wall subcutaneous emphysema is mildly improved. Abel Diaz MD on June 29, 2017 at 8:21 Board Certified Radiologist. This report was verified electronically.
--- NOTE | 2017-06-29 09:28 | HHI.NPPN ---
Subjective Renal Failure: Acute Interval History She remains intubated. Renal function is slightly better. Sodium also improved somewhat. (Nina Gaines) Review of Systems General General Remarks unable to obtain (Nina Gaines) Objective Data Data Vital Signs Date Time Temp Pulse Resp B/P (MAP) Pulse Ox O2 Delivery O2 Flow Rate FiO2 06/29/17 06:00 70 06/29/17 04:00 40 06/29/17 04:00 87 06/29/17 04:00 99.6 90 19 123/57 (79) 100 06/29/17 03:30 100 40 06/29/17 02:00 89 06/29/17 00:32 99 40 06/29/17 00:00 40 06/29/17 00:00 81 06/29/17 00:00 99.3 82 20 104/58 (73) 97 06/28/17 22:00 79 06/28/17 20:50 97 40 06/28/17 20:00 92 06/28/17 20:00 99.9 92 20 106/57 (73) 98 06/28/17 20:00 40 06/28/17 18:00 91 06/28/17 16:10 99 40 06/28/17 16:00 40 06/28/17 16:00 99.4 85 20 111/59 (76) 99 06/28/17 16:00 85 06/28/17 14:00 92 06/28/17 12:00 67 06/28/17 12:00 80 06/28/17 12:00 99.7 87 18 118/63 (81) 100 06/28/17 11:00 86 06/28/17 10:00 99.9 84 21 117/61 (79) 100 06/28/17 10:00 84 (Nina Gaines) -: 06/29/17 0431 06/29/17 0431 Microbiology 06/28/17 Aerobic Blood Culture, Received Pending 06/28/17 Anaerobic Blood Culture, Received Pending 06/28/17 Aerobic Blood Culture, Received Pending 06/28/17 Anaerobic Blood Culture, Received Pending 06/28/17 Gram Stain - Final, Resulted 06/28/17 Sputum Culture, Resulted Pending Imaging Last 72 hours Impressions Chest X-Ray 06/29/17 Signed Impressions: Service Date/Time: June 07:59 - CONCLUSION: 1. Endotracheal tube appears to be in appropriate position on this rotated examination with tip measuring approximately 5.2 cm from the melvin. 2. Stable bilateral airspace consolidation with improvement in the right lung base. There is also a stable small right pleural effusion. 3. The left chest wall subcutaneous emphysema is mildly improved. Abel Diaz MD Chest X-Ray 06/28/17 Signed Impressions: Service Date/Time: Wednesday, June 28, 2017 08:08 - CONCLUSION: 1. The ET tube is in good position. No pneumothorax. 2. No change in the bilateral pulmonary infiltrates. Cole Hays MD Chest X-Ray 06/28/17 Signed Impressions: Service Date/Time: Wednesday, June 28, 2017 02:44 - CONCLUSION: 1. No pneumothorax. Stable position of left-sided thoracostomy tube. 2. Stable bilateral airspace disease with probable associated right-sided effusion. Gerard Brown MD Abdomen X-Ray 06/28/17 Signed Impressions: Service Date/Time: Wednesday, June 28, 2017 08:12 - CONCLUSION: 1. Nonspecific bowel gas pattern but no definite evidence of obstruction. 2. NG tube in the stomach. 3. Subcutaneous emphysema throughout the body wall. Cole Hays MD Chest X-Ray 06/27/17 Signed Impressions: Service Date/Time: Tuesday, June 27, 2017 17:10 - CONCLUSION: 1. New left apical chest tube in good position without significant residual pneumothorax. Improved subcutaneous chest wall emphysema. 2. Worsening diffuse interstitial and airspace opacities in the left lung. Sung Crawford MD Chest X-Ray 06/27/17 Signed Impressions: Service Date/Time: Tuesday, June 27, 2017 10:10 - CONCLUSION: 1. Significant increased amount subcutaneous emphysema about the left chest wall and supraclavicular region. No definite evidence of pneumothorax. 2. Persistent consolidation right lower lung and ill-defined opacities in the right upper lung. Mahin Boles MD Chest Tube Insertion 06/27/17 Signed Impressions: Service Date/Time: Tuesday, June 27, 2017 16:08 - CONCLUSION: Uncomplicated chest tube placement as above. Sung Crawford MD Chest CT 06/27/17 0000 Signed Impressions: Service Date/Time: Tuesday, June 27, 2017 13:40 - CONCLUSION: 1. There is a subcentimeter left apical pneumothorax and a small amount of extrapleural gas adjacent to the apex of the heart. 2. 1.8 cm spiculated mass in the medial left upper lung without air bronchograms suspicious for a contralateral metastatic recurrence of cancer. 3. Large right pleural effusion. 4. Extensive left-sided subcutaneous emphysema similar to prior chest x-ray and interval development of moderate subcutaneous emphysema about the right lateral chest wall. Mahin Boles MD Tubes & Lines: Webb Tubes & Lines Comment chest tube (Nina Gaines) Physical Exam General Appearance: Well Developed, Comfortable, Pale Appearance Remarks intubated (Nina Gaines) Throat Throat Exam: Oral Mucosa So-Hi & Moist (Nina Gaines) Pulmonary Resp Exam: Crackles, Rhonchi, Sputum, Labored Resp Remarks chest tube L Left sided subQ emphysema (Nina Gaines) Cardiology CV Exam: Regular, Normal Sinus Rhythm (Nina Gaines) Gastrointestinal/Abdomen GI Exam: Non-Tender, Bowel Sounds Present (Nina Gaines) Musculoskeletal MS Exam: Joints Intact, Normal Tone, Unable to Ambulate (Nina Gaines) Integumentary Skin Exam: Warm, Dry, Intact (Nina Gaines) Extremeties Extremities Exam: No Edema, Pedal Pulses Palpable (Nina Gaines) Neurologic Neuro Exam: Moving All Extremities (Nina Gaines) Psychiatric Psych Remarks unable to obtain (Nina Gaines) Assessment/Plan Assessment Summary: JODY/Acute Renal Failure Electrolyte Assessment: Hypernatremia, Hypokalemia Problem List: (1) Acute renal failure ICD Codes: N17.9 - Acute kidney failure, unspecified Plan: Her creatinine was less than one in 2016. Most likely suffered ATN. Her renal function has been improving. She is non oliguric, excellent urine output Continue to monitor renal function Hypernatremia, improving, on free water with tube feeding; (Use Diuril if needed for diuresis) Avoid nephrotoxic agents (2) Pneumothorax ICD Codes: J93.9 - Pneumothorax, unspecified Status: Acute Plan: Has a chest tube currently (#4 since admission) Pulmonary and CCM managing (3) Small cell lung cancer ICD Codes: C34.90 - Malignant neoplasm of unspecified part of unspecified bronchus or lung Status: Chronic Plan: s/p treatment with 6 cycles of chemo and radiation had biopsy of new suspicious lesion, results pending had complication of pneumothorax post procedure appreciate further recommendations (4) Altered mental state ICD Codes: R41.82 - Altered mental status, unspecified Plan: Multiple etiologies including hypoxia, infection, and Renal failure Neurology evaluated, EEG negative. Now sedated on vent. (5) Sepsis ICD Codes: A41.9 - Sepsis, unspecified organism Plan: Lactic acid elevated. Continue antibiotics (Zosyn) Lung sounds coarse, CXR reviewed. Plan We will sign off at this time. Please call us if needed. (Nina Gaines) Plan patient was seen and examined on 06/29/17. Agree with above assessment and plan. (Tobi Lin MD) Problem Qualifiers (1) Pneumothorax: Qualified Codes: J95.811 - Postprocedural pneumothorax Nina Gaines June 29, 2017 09:28 Tobi Lin MD June 30, 2017 15:21
[2017-06-29 14:11] LABS: INTERNATIONAL NORMALIZED RATIO 1.1 RATIO; PROTHROMBIN TIME - PATIENT 11.3 SEC (9.8-11.6)
[2017-06-29] MEDS: VANCOMYCIN INJ 1,500 MG in SODIUM CHLORID 0.9% 500 ML INJ 500 ML IV SCH (14:49)
--- NOTE | 2017-06-29 15:39 | HHI.PR ---
Subjective Remarks 67 YOWF with AMS,Resp Failure,SSLC Has Left PTX CT brain no ac abnormality Developed resp failure Intubated, sedated Sons and at Chest tube no air leak Sedated with Diprivan Objective Vital Signs Vital Signs Date Time Temp Pulse Resp B/P (MAP) Pulse Ox O2 Delivery O2 Flow Rate FiO2 06/29/17 14:55 40 06/29/17 14:00 81 06/29/17 12:00 77 06/29/17 12:00 98.4 78 17 126/62 (83) 100 06/29/17 12:00 40 06/29/17 10:23 100 40 06/29/17 10:00 66 06/29/17 08:00 76 06/29/17 08:00 40 06/29/17 08:00 98.3 76 17 98/54 (69) 100 06/29/17 06:00 70 06/29/17 04:00 40 06/29/17 04:00 87 06/29/17 04:00 99.6 90 19 123/57 (79) 100 06/29/17 03:30 100 40 06/29/17 02:00 89 06/29/17 00:32 99 40 06/29/17 00:00 40 06/29/17 00:00 81 06/29/17 00:00 99.3 82 20 104/58 (73) 97 06/28/17 22:00 79 06/28/17 20:50 97 40 06/28/17 20:00 92 06/28/17 20:00 99.9 92 20 106/57 (73) 98 06/28/17 20:00 40 06/28/17 18:00 91 06/28/17 16:10 99 40 06/28/17 16:00 40 06/28/17 16:00 99.4 85 20 111/59 (76) 99 06/28/17 16:00 85 I/O 06/28/17 06/28/17 06/28/17 06/29/17 06/29/17 06/29/17 07:00 15:00 23:00 07:00 15:00 23:00 Intake Total 2423 ml 615 ml 975 ml 1271 ml Output Total 630 ml 3385 ml 925 ml Balance 1793 ml 615 ml -2410 ml 346 ml IV Total 1200 ml 615 ml 150 ml 200 ml Tube Feeding 623 ml 225 ml 471 ml Other 600 ml 600 ml 600 ml Output Urine Total 500 ml 3275 ml 875 ml Chest Tube Drainage Total 130 ml 110 ml 50 ml # Bowel Movements 0 1 5 Result Diagram: 06/29/1743006/29/17430 Objective Remarks GENERAL: Elderly female, intubated, sedated SKIN: Warm and dry. HEAD: Normocephalic. EYES: No scleral icterus. No injection or drainage. NECK: Supple, trachea midline. No JVD or lymphadenopathy. CARDIOVASCULAR: Regular rate and rhythm without murmurs, gallops, or rubs. RESPIRATORY: Breath sounds equal bilaterally. No accessory muscle use. left chest tube emily suction GASTROINTESTINAL: Abdomen soft, non-tender, nondistended. MUSCULOSKELETAL: No cyanosis, or edema. BACK: Nontender without obvious deformity. No CVA tenderness. A/P Assessment and Plan IMPRESSION: 1. Left pneumothorax after lung biopsy. She has large-bore chest tube, no air leak. 2. Worsening left lung infiltrate. 3. Small pleural effusion. 4. H/O small cell carcinoma of the lung, status post chemotherapy and radiation treatment. 5. New cancer in the left lung. 6. History of nicotine. 7. History of chronic obstructive pulmonary disease. 8. VDRF PLAN: Vent support Sedation for vent synchrony Chest tube to suction Cont Abx Precedex for sedation. DW Sons at BS Will try CPAP LIZZY RN and RT Lakhwinder Wilkerson MD June 29, 2017 15:39
--- NOTE | 2017-06-29 18:03 | RADRPT ---
EXAM DATE/TIME: 06/29/2017 16:37 [facility] COMPARISON: CT THORAX W/O CONTRAST, June 27, 2017, 13:40. INDICATIONS : Increased lab values. MEDICAL HISTORY : Arthritis. Lung cancer. SURGICAL HISTORY : Tubal ligation. Right knee arthroscopic sx. Neck surgery. ENCOUNTER: Subsequent ACUITY: 1 day PAIN SCORE: Nonresponsive. LOCATION: Bilateral upper quadrant MEASUREMENTS: LIVER: 12.8 cm length COMMON DUCT: 5 mm RIGHT KIDNEY: Not visualized. SPLEEN: Not visualized. FINDINGS: Very limited exam due to extensive soft tissue emphysema. LIVER: Normal echotexture without focal lesion or ductal dilatation. Hepatopedal portable flow. COMMON DUCT: No intraluminal mass or stone visualized. GALLBLADDER: Contains no stones, demonstrates no wall thickening or pericholecystic fluid. PANCREAS: The visualized portions are within normal limits. RIGHT KIDNEY: Obscured. SPLEEN: Obscured. CONCLUSION: 1. Very limited exam due to extensive soft tissue emphysema. 2. Grossly normal sonographic appearance of the liver without evidence for biliary obstruction. Sung Crawford MD on June 29, 2017 at 17:58 Board Certified Radiologist. This report was verified electronically.
[2017-06-29] MEDS: POLYETHYLENE GLYCOL 17 GM PKG PO SCH (19:36)
[2017-06-29] MEDS: ATORVASTATIN 40 MG TAB PO SCH (20:52)
[2017-06-29] MEDS: MONTELUKAST SODIUM 10 MG TAB PO SCH (20:52)
[2017-06-30] VITALS (18 sets, daily range): BP systolic 93–122; BP diastolic 50–59; PULSE 75–91; RESP 13–21; TEMP 98.5–100.2; O2SAT 91–100
[2017-06-30] MEDS: METOCLOPRAMIDE HCL 10 MG/2 ML VIAL IV PUSH SCH ×4 (00:02→23:34)
[2017-06-30] MEDS: PIPERACIL-TAZO 3.375 GM PREMIX 50 ML IV SCH ×5 (00:02→23:34)
[2017-06-30] MEDS: PROPOFOL 1000 MG/100 ML INJ 100 ML IV PRN ×5 (00:03→20:18)
[2017-06-30] MEDS: RESP: ALBUTEROL 2.5 MG/IPRATROPIUM 0.5 MG NEB (SCH) NEB ×6 (00:45→20:07)
[2017-06-30] MEDS: INSULIN NovoLIN REGULAR SUPPLEMENTAL SCALE SQ SCH ×6 (01:36→21:38)
[2017-06-30] MEDS: FREE WATER NG SCH ×5 (05:21→23:34)
[2017-06-30] MEDS: METOPROLOL TARTRATE 50 MG TAB PO SCH ×3 (05:21→21:39)
[2017-06-30 05:51] LABS: AUTOMATED NEUTROPHIL # 11.1 TH/MM3 (1.8-7.7); BASOPHIL % 0.1 % (0.0-2.0); HEMATOCRIT 34.5 % (35.0-46.0); HEMOGLOBIN 11.4 GM/DL (11.6-15.3); LYMPH % 1.6 % (9.0-44.0); LYMPHOCYTE # 0.2 TH/MM3 (1.0-4.8); MEAN CORPUSCULAR HEMOGLOBIN 29.3 PG (27.0-34.0); MEAN CORPUSCULAR HGB CONC 32.9 % (32.0-36.0); MEAN PLATELET VOLUME 11.6 FL (7.0-11.0); MONO % 5.8 % (0.0-8.0); MONOCYTE # 0.7 TH/MM3 (0-0.9); NEUT % 92.5 % (16.0-70.0); PLATELET COUNT 98 TH/MM3 (150-450); RED BLOOD COUNT 3.88 MIL/MM3 (4.00-5.30); RED CELL DISTRIBUTION WIDTH 14.8 % (11.6-17.2)
[2017-06-30 06:21] LABS: AST (GOT) 72 U/L (15-37); BICARBONATE 30.1 MEQ/L (21.0-32.0); BLOOD UREA NITROGEN 46 MG/DL (7-18); CALCIUM 7.6 MG/DL (8.5-10.1); CHLORIDE 108 MEQ/L (98-107); CREATININE 1.28 MG/DL (0.50-1.00); GLOMERULAR FILTRATION RATE 41 ML/MIN (>89); GLUCOSE,RANDOM 193 MG/DL (74-106); SODIUM (NA) 147 MEQ/L (136-145)
[2017-06-30 06:23] LABS: ALT (GPT) 333 U/L (10-53)
[2017-06-30 06:25] LABS: ALKALINE PHOSPHATASE 73 U/L (45-117); TOTAL BILIRUBIN ADULT 0.4 MG/DL (0.2-1.0); TOTAL PROTEIN 5.2 GM/DL (6.4-8.2)
[2017-06-30] MEDS: RESP: BUDESONIDE 0.25 MG/2 ML NEB NEB SCH ×2 (07:28→20:07)
[2017-06-30 07:42] LABS: KERATOCYTES OCC (NORMAL); OVALOCYTES 1+ (NORMAL)
--- NOTE | 2017-06-30 07:52 | HHI.CCPN ---
Subjective Remarks/Hospital Course 67-year-old female patient with past medical history of arthritis, COPD, epilepsy as a child not currently on medications, esophageal strictures, hypercholesterolemia, Lambert-Eaton syndrome, opioid dependence, history of tobaccoism quit smoking in 2008, recurrent bronchitis, small cell lung CA treated with chemo and radiation also status post prophylactic whole brain radiation 2008. Patient followed with Dr. Christy in the past now follows with Dr. Damon. Dr. Damon found a suspicion lesion and patient was seen in interventional radiology today for a lung biopsy complicated by pneumothorax with a chest tube placement. Around 6:45 PM the [facility] was called on the patient regarding concern for worsening shortness of breath. The chest tube that was orally placed was removed and the patient had worsening shortness of breath. The patient was transferred to critical care unit and the emergency chest tube was placed immediately with significant improvement of symptoms. Subjective: 06/22: Afebrile. Patient with complaints of recurrent nausea despite Zofran. Phenergan added to medication regimen. This a.m. while rounding on patient approximately 0640 this a.m. patient noted to have left pigtail chest tube inadvertently pulled out. Patient tachypneic, O2 saturation 97% heart rate 117. Left 28 [place] chest tube placed, pleuravac placed on 40cm H20, tachypnea resolved. Patient normotensive currently resting comfortably, post chest tube placement. Chest x-ray pending. 06/23 Patient is on BIPAP 12/8 with 50% FIO2. Afebrile. Renal function is slightly worse today with Cr:1.77 from 1.36 06/24: Remains on partial rebreather. No air leak noted in chest tube. Suction decreased to -20 cm water pressure with underwater seal. 06/25: Worsening respiratory failure, currently on CPAP, adjustments made, FiO2 currently 0.60 with a PaO2 of 87. Serial ABGs being performed. stat chest x- ray performed early this a.m. showing worsening infiltrates. IV fluids discontinued, Lasix 40 mg x1 dose given. The patient continues to have altered mental status, and agitation. Concern for ICU delirium, ammonia level pending. Haldol 1 mg IV 1 dose given. Extensive discussion/family conference performed this a.m.. Family is aware that patient is at high risk for possible intubation. 06/26 Patient is on BIPAP 18/6 with FIO2 55% placed on Precedex drip for agitation. 06/27 Patient is maxed out on Precedex for agitation. MRI and CT brain yesterday showed no acute findings. 06/28 Patient was on non rebreather overnight, CXR overnight showed b/l airspace disease, tachypneic she was subsequently intubated and placed on mechanical ventilation. CT chest yesterday showed subQ emphysema, b/l airspace disease, CT was in major fissure and new left sided CT was placed by IR. 06/29 Patient is intubated and sedated with Diprivan. T:99.9 last night. 06/30 Patient is sedated with Diprivan and intubated. Afebrile. Objective Vital Signs Date Time Temp Pulse Resp B/P (MAP) Pulse Ox O2 Delivery O2 Flow Rate FiO2 06/30/17 07:30 100 40 06/30/17 06:00 83 06/30/17 04:00 98.5 19 105/56 (72) 06/28/17 07:35 15.00 06/27/17 20:45 Partial Rebreather Intake and Output 06/30/17 06/30/17 07/01/17 08:00 16:00 00:00 Intake Total 1286 ml Output Total 570 ml Balance 716 ml Result Diagram: 06/30/17 0449 06/30/17 0449 Other Results Laboratory Tests Test 06/29/17 11:12 06/29/17 12:47 06/30/17 04:49 Phosphorus Level 2.4 MG/DL Hepatitis A IgM Antibody NONREACTIVE Hepatitis B Surface Antigen NONREACTIVE Hepatitis B Core IgM Antibody NONREACTIVE Hepatitis C IgG Antibody NONREACTIVE Haptoglobin 393 MG/DL Prothrombin Time 11.3 SEC Prothromb Time International Ratio 1.1 RATIO Activated Partial Thromboplast Time 22.9 SEC Fibrinogen 361 mg/dL Lactate Dehydrogenase 533 U/L White Blood Count 12.0 TH/MM3 Red Blood Count 3.88 MIL/MM3 Hemoglobin 11.4 GM/DL Hematocrit 34.5 % Mean Corpuscular Volume 89.0 FL Mean Corpuscular Hemoglobin 29.3 PG Mean Corpuscular Hemoglobin Concent 32.9 % Red Cell Distribution Width 14.8 % Platelet Count 98 TH/MM3 Mean Platelet Volume 11.6 FL Neutrophils (%) (Auto) 92.5 % Lymphocytes (%) (Auto) 1.6 % Monocytes (%) (Auto) 5.8 % Eosinophils (%) (Auto) 0.0 % Basophils (%) (Auto) 0.1 % Neutrophils # (Auto) 11.1 TH/MM3 Lymphocytes # (Auto) 0.2 TH/MM3 Monocytes # (Auto) 0.7 TH/MM3 Eosinophils # (Auto) 0.0 TH/MM3 Basophils # (Auto) 0.0 TH/MM3 CBC Comment AUTO DIFF Differential Comment AUTO DIFF CONFIRMED Platelet Estimate LOW Platelet Morphology Comment ENLARGED Ovalocytes 1+ Keratocytes OCC Blood Urea Nitrogen 46 MG/DL Creatinine 1.28 MG/DL Random Glucose 193 MG/DL Total Protein 5.2 GM/DL Albumin 2.0 GM/DL Calcium Level 7.6 MG/DL Alkaline Phosphatase 73 U/L Aspartate Amino Transf (AST/SGOT) 72 U/L Alanine Aminotransferase (ALT/SGPT) 333 U/L Total Bilirubin 0.4 MG/DL Sodium Level 147 MEQ/L Potassium Level 3.9 MEQ/L Chloride Level 108 MEQ/L Carbon Dioxide Level 30.1 MEQ/L Anion Gap 9 MEQ/L Estimat Glomerular Filtration Rate 41 ML/MIN Imaging Last Impressions Liver Ultrasound 06/29/17 Signed Impressions: Service Date/Time: June 16:37 - CONCLUSION: 1. Very limited exam due to extensive soft tissue emphysema. 2. Grossly normal sonographic appearance of the liver without evidence for biliary obstruction. Sung Crawford MD Chest X-Ray 06/29/17 0000 Signed Impressions: Service Date/Time: June 07:59 - CONCLUSION: 1. Endotracheal tube appears to be in appropriate position on this rotated examination with tip measuring approximately 5.2 cm from the melvin. 2. Stable bilateral airspace consolidation with improvement in the right lung base. There is also a stable small right pleural effusion. 3. The left chest wall subcutaneous emphysema is mildly improved. Abel Diaz MD Abdomen X-Ray 06/28/17 0000 Signed Impressions: Service Date/Time: Wednesday, June 28, 2017 08:12 - CONCLUSION: 1. Nonspecific bowel gas pattern but no definite evidence of obstruction. 2. NG tube in the stomach. 3. Subcutaneous emphysema throughout the body wall. Cole Hays MD Chest Tube Insertion 5/1/18 0000 Signed Impressions: Service Date/Time: Tuesday, June 27, 2017 16:08 - CONCLUSION: Uncomplicated chest tube placement as above. Sung Crawford MD Chest CT 06/27/17 Signed Impressions: Service Date/Time: Tuesday, June 27, 2017 13:40 - CONCLUSION: 1. There is a subcentimeter left apical pneumothorax and a small amount of extrapleural gas adjacent to the apex of the heart. 2. 1.8 cm spiculated mass in the medial left upper lung without air bronchograms suspicious for a contralateral metastatic recurrence of cancer. 3. Large right pleural effusion. 4. Extensive left-sided subcutaneous emphysema similar to prior chest x-ray and interval development of moderate subcutaneous emphysema about the right lateral chest wall. Mahin Boles MD Renal Ultrasound 06/26/17 Signed Impressions: Service Date/Time: Monday, June 26, 2017 11:51 - CONCLUSION: 1. Slightly increased renal cortical echogenicity which may reflect medical renal disease. 2. No evidence for obstructive uropathy. Sung Crawford MD Head CT 06/26/17 Signed Impressions: Service Date/Time: Monday, June 26, 2017 13:35 - CONCLUSION: 1. No acute intracranial abnormality is identified. 2. Chronic findings include mild generalized atrophy and chronic periventricular white matter ischemic change. Abel Diaz MD Brain MRI 06/26/17 Signed Impressions: Service Date/Time: Monday, June 26, 2017 20:21 - CONCLUSION: 1. No acute findings. Exam degraded by motion artifact. Kemal Luna MD Lung Biopsy CT 06/21/17 Signed Impressions: Service Date/Time: Wednesday, June 21, 2017 09:39 - CONCLUSION: Successful CT guided biopsy with small post-biopsy pneumothorax. Damian Don MD Procedures 06/21-left pigtail chest tube placement 06/22-left 26 [place] chest tube placement Objective Remarks GENERAL: Patient is 67 yo intubated SKIN: Warm and dry. HEAD: Normocephalic. EYES: No scleral icterus. No injection or drainage. NECK: Supple, trachea midline. No JVD or lymphadenopathy. Orally intubated CARDIOVASCULAR: Regular rate and rhythm without murmurs, gallops, or rubs. RESPIRATORY: Breath sounds equal bilaterally. Coarse BS, rhonchus GASTROINTESTINAL: Abdomen soft, non-tender, nondistended. MUSCULOSKELETAL: No cyanosis, or edema. Neuro: Sedated, intubated Date of Insertion: Jun 22, 2017 A/P Problem List: (1) Pneumothorax ICD Code: J93.9 - Pneumothorax, unspecified Status: Acute (2) Small cell lung cancer ICD Code: C34.90 - Malignant neoplasm of unspecified part of unspecified bronchus or lung Status: Chronic (3) Hypercholesteremia ICD Code: E78.00 - Pure hypercholesterolemia, unspecified Status: Chronic (4) COPD (chronic obstructive pulmonary disease) ICD Code: J44.9 - Chronic obstructive pulmonary disease, unspecified Status: Acute Assessment and Plan 1)VDRF intubated 06/28 2)COPD exac 3)s/p Tension pneumothorax s/p CT guided lung biopsy 4)Lung cancer 5)Hypercholesteremia 6)JODY 7) Encephalopathy-metabolic versus ICU delirium 8)Hypernatremia 9)Anemia, thrombocytopenia 10) Lambert Eaton -diagnosed 2008 11) Elevated LFT's Plan Neuro: Diprivan infusion for sedation and vent synchrony. Monitor neuro status Daily sedation vacation MRI brain and CT chest - no acute findings EEG: Diffuse slowing, no focal abnormalities, no seizure activity. Neuro is following- Dr. Shaw Pulm: Continue with vent support keep sats >92% On PRVC RR 16, TV 450, PEEP:5, IT: 1.0 FIO2: 40% Bronchodilators ( Duoneb. Pulmicort) Solumederol 40mg Q12 ICU vent bundle, check CXR today Start SBT daily as jj. s/p Emergent left pigtail chest tube placement 06/21 Replacement of left chest tube 28 [place] on 40 cm H20 06/22 CT chest yesterday showed sub Q emphysema, subcentimeter left apical PTX, CT appeared in major fissure s/p new CT placement by IR 06/27, monitor CT drainage On Singular 10mg qhs Path results showed squamous cell ca 06/25 pulmonology is following- Dr. Wilkerson Legionella strep pneumo Ag negative CV: Monitor HR and BP keep MAP>65mmHg. echo showed EF 35-40% On Lopressor 50mg Q8, hold Lipitor for elevated LFT's : Monitor renal function, electrolytes replacement as needed. Avoid nephrotoxins Free water 300ml Q6, Renal US: No hydro, renal is following Renal function is improving with Cr: 1.28 today from 1.53 GI: Monitor LFT's, Hepatitis profile negative US Liver 06/29: No biliary obstruction On tube feeds ( Glucerna 1.5) via NGT with goal rate 45ml/hr. .. Bowel regimen with colace, Senna, add Reglan. KUB abd: No obstruction, non specific bowel gas pattern ID: Monitor for signs of infections ( Fever, WBC) On Zosyn , vanco, follow up on sputum cx, and blood cultures- 06/28 NGTD Pneumonia and Legionella urinary Ag negative Heme: Monitor CBC, Lovenox held for thrombocytopenia, Hep PLT ab is negative heme-onc is following -patient diagnosed with Lambert Eaton in 2008 Endo: on SSI for glycemic control. TSH:0.74 Msk: Muscle weakness-progressive PT/OT evaluation and treat-patient has Lambert Eaton Daily functional maintenance DVT GI prophylaxis -Papito's and SCDs/ Lovenox on hold -Pepcid Consult palliative care is following Code status: Alternative code ( intubation only) Level 3 Problem Qualifiers (1) Pneumothorax: Qualified Codes: J95.811 - Postprocedural pneumothorax Carla Stahl MD June 30, 2017 07:52
[2017-06-30] MEDS: FAMOTIDINE 20 MG TAB PO SCH ×2 (08:00→19:44)
[2017-06-30] MEDS: SENNOSIDES SYRUP 8.8 MG/5 ML CUP PO SCH (08:01)
[2017-06-30] MEDS: DOCUSATE SODIUM 100 MG/10 ML UDC PO SCH ×2 (08:01→19:44)
[2017-06-30] MEDS: methylPREDNISolone SOD SUCC 40 MG/1 ML VIAL IV PUSH SCH ×2 (08:01→19:43)
[2017-06-30] MEDS: SODIUM CHLORIDE 0.9% FLUSH 10 ML FLUSH IV FLUSH SCH ×2 (08:01→19:44)
--- NOTE | 2017-06-30 08:27 | RADRPT ---
EXAM DATE/TIME: 06/30/2017 07:57 [facility] COMPARISON: CT THORAX W/O CONTRAST, June 27, 2017, 13:40. CHEST SINGLE AP, June 28, 2017, 8:08. CHEST SINGLE AP, June 29, 2017, 7:59. INDICATIONS : Evaluate intubation. MEDICAL HISTORY : Carcinoma, lung. SURGICAL HISTORY : Tubal ligation. ENCOUNTER: Subsequent ACUITY: 1 week PAIN SCORE: Non-responsive. LOCATION: Bilateral chest FINDINGS: Portable AP view of the chest demonstrates a normal-sized cardiac silhouette. Patient is slightly rot ated. Endotracheal tube tip measures 5.8 cm from the melvin and nasogastric tube courses beyond the G E junction. Multiple EKG lines overlie the patient. Left chest tube overlies the apex the left hemith orax. There is a stable right pleural-parenchymal opacity. Mild airspace opacity in the mid and lower lung zones has improved. There is mild left chest wall subcutaneous emphysema that has also mildly i mproved. CONCLUSION: 1. Endotracheal tube in appropriate position with tip measuring 5.8 cm from the melvin. 2. Stable small to moderate size right pleural effusion with airspace consolidation and likely volume loss at the right base. 3. Mild airspace consolidation in the left mid and lower lung zone, overall improved from the prior s tudy from 2 days ago. Abel Diaz MD on June 30, 2017 at 8:15 Board Certified Radiologist. This report was verified electronically.
--- NOTE | 2017-06-30 10:06 | HHI.PR ---
Objective Vital Signs Date Time Temp Pulse Resp B/P (MAP) Pulse Ox O2 Delivery O2 Flow Rate FiO2 06/30/17 08:16 40 06/30/17 07:30 100 40 06/30/17 06:00 83 06/30/17 04:18 96 40 06/30/17 04:00 98.5 87 19 105/56 (72) 91 06/30/17 04:00 86 06/30/17 04:00 40 06/30/17 02:00 85 06/30/17 00:45 97 40 06/30/17 00:00 76 06/30/17 00:00 40 06/30/17 00:00 99.0 75 16 93/50 (64) 97 06/29/17 22:00 70 06/29/17 20:30 100 40 06/29/17 20:00 76 06/29/17 20:00 40 06/29/17 20:00 99.1 76 18 103/57 (72) 100 06/29/17 18:00 76 06/29/17 16:30 99 40 06/29/17 16:00 70 06/29/17 16:00 40 06/29/17 16:00 98.4 70 19 130/62 (84) 99 06/29/17 14:55 40 06/29/17 14:50 40 06/29/17 14:00 81 06/29/17 12:00 77 06/29/17 12:00 98.4 78 17 126/62 (83) 100 06/29/17 12:00 40 06/29/17 10:23 100 40 I/O 06/29/17 06/29/17 06/29/17 06/30/17 06/30/17 06/30/17 07:00 15:00 23:00 07:00 15:00 23:00 Intake Total 1271 ml 50 ml 1396 ml 1286 ml Output Total 925 ml 850 ml 570 ml Balance 346 ml 50 ml 546 ml 716 ml IV Total 200 ml 50 ml 665 ml 300 ml Tube Feeding 471 ml 131 ml 386 ml Other 600 ml 600 ml 600 ml Output Urine Total 875 ml 850 ml 550 ml Chest Tube Drainage Total 50 ml 0 ml 20 ml # Bowel Movements 5 1 3 Result Diagram: 06/30/17 0449 06/30/17 0449 Objective Remarks ON VENT SEDATED PUPIL= Assessment and Plan Assessment and Plan imp mri eeg labs all nl dc precedex she should awaken fine going on vent now 06/30/17 will fu when off sedatives Toan Shaw MD June 30, 2017 10:06
[2017-06-30] MEDS: VANCOMYCIN INJ 1,500 MG in SODIUM CHLORID 0.9% 500 ML INJ 500 ML IV SCH (13:30)
--- NOTE | 2017-06-30 17:20 | HHI.HCPN ---
Reason for visit a. To assist with evaluation and management of symptoms including: dyspnea, agitation b. To assist medical decision maker(s) with: better understanding of current medical conditions; weighing benefits/burdens of medical treatment options; making medical treatment decisions. . Subjective/Interval History Patient seen today to follow-up on dyspnea and agitation , as well as review treatment goals with family/decision-makers. She remains in ICU on mechanical vent. She tolerated CPAP trials yesterday, as well as 8 hours today. CXR stable with slight improvement over the last couple of days. On 40% FiO2 via vent. CBC stable, WBC 12. BUN and creatinine downtrending 46/1.28. Urine output adequate. Having bowel movements. Tolerating tube feeding. Chest tube with decreasing output. Neurology continues to follow we will continue assessment when patient off sedation. Patient LFTs elevated, now downtrending her repeat labs. Ultrasound liver completed no acute findings. Discussed with critical care-plan for continued ventilator weaning if patient condition continues to remain stable/slightly improved Discussed with nursing Patient examined in room with son at bedside. She is lightly sedated on mechanical vent appears comfortable. She does not stir to my exam. Spoke at length with son review of current clinical assessment, recent diagnostics, as well as discussion with critical care regarding ongoing monitoring and possible medical extubation in the coming days. Further explore that she does remain at risk for potential complications including reintubation and other medical issues and that reintubation status would need to be addressed if she is medically extubated. Son shares he is an RN, he appears to have a reasonable understanding of conditions, prognosis and options going forward. All questions answered to the best of my ability. Family remains hopeful that she may medically extubate in the coming days, and she may continue to pursue treatment for her cancer from an oncology standpoint. They remain open to ongoing discussions as clinical course evolves. . Family/friend interactions *See above . Advance Directives Living Will: Never completed Health Care Surrogate: Never completed Durable Power of Gang Drill Operator: Never completed Advance Directive Specifics Documented care wishes: No documented care wishes have been completed. . Objective Vital Signs Date Time Temp Pulse Resp B/P (MAP) Pulse Ox O2 Delivery O2 Flow Rate FiO2 06/30/17 16:00 100.2 84 21 118/59 (78) 95 06/30/17 15:42 40 06/30/17 14:39 96 40 06/30/17 14:00 90 06/30/17 12:00 86 06/30/17 12:00 98.9 86 13 122/59 (80) 99 06/30/17 12:00 40 06/30/17 11:18 99 40 06/30/17 10:00 79 06/30/17 08:16 40 06/30/17 08:15 40 06/30/17 08:00 85 06/30/17 08:00 40 06/30/17 08:00 99.3 85 20 113/59 (77) 100 06/30/17 07:30 100 40 06/30/17 06:00 83 06/30/17 04:18 96 40 06/30/17 04:00 98.5 87 19 105/56 (72) 91 06/30/17 04:00 86 06/30/17 04:00 40 06/30/17 02:00 85 06/30/17 00:45 97 40 06/30/17 00:00 76 06/30/17 00:00 40 06/30/17 00:00 99.0 75 16 93/50 (64) 97 06/29/17 22:00 70 06/29/17 20:30 100 40 06/29/17 20:00 76 06/29/17 20:00 40 06/29/17 20:00 99.1 76 18 103/57 (72) 100 06/29/17 18:00 76 Intake & Output 06/30/17 06/30/17 06:59 18:59 Intake Total 1336 ml Output Total 570 ml 0 ml Balance 766 ml 0 ml IV Total 350 ml Tube Feeding 386 ml Other 600 ml Output Urine Total 550 ml Tube Feeding Residual Discard 0 ml Chest Tube Drainage Total 20 ml # Bowel Movements 3 Physical Exam CONSTITUTIONAL/GENERAL: This is an adequately nourished patient, intubated on mechanical ventilation TUBES/LINES/DRAINS: PIV x 2, ETT OGT, chest tube, Webb catheter, soft restraints SKIN: No jaundice, rashes, or lesions. Ecchymoses on upper extremities. No wounds seen anteriorly. Skin temperature appropriate. Not diaphoretic. CARDIOVASCULAR: Regular rate and rhythm without murmur. No JVD. Peripheral pulses symmetric. Trace peripheral edema. RESPIRATORY/CHEST: Intubated on mechanical ventilator. Breath sounds diminished in bases bilaterally. A few wheezes to right. GASTROINTESTINAL: Abdomen soft, no apparent tenderness, nondistended. No guarding. Bowel sounds normoactive. Tube feeding infusing via OG tube GENITOURINARY: Without palpable bladder distension. Webb catheter in place draining dark yellow urine. MUSCULOSKELETAL: Extremities without clubbing, cyanosis. Trace peripheral edema. No mottling or clubbing. NEUROLOGICAL: Sedated on propofol. Does not stir or respond to my exam. Appears comfortable.+ Spontaneous respirations over ventilator rate. PSYCHIATRIC: No anxiety/agitation on exam. Limited assessment secondary to clinical condition. . . Diagnostic Tests Laboratory Laboratory Tests Test 06/28/17 04:47 06/28/17 11:52 06/29/17 04:31 06/29/17 11:12 White Blood Count 10.0 TH/MM3 (4.0-11.0) 13.3 TH/MM3 (4.0-11.0) Red Blood Count 3.80 MIL/MM3 (4.00-5.30) 4.13 MIL/MM3 (4.00-5.30) Hemoglobin 11.4 GM/DL (11.6-15.3) 12.2 GM/DL (11.6-15.3) Hematocrit 33.9 % (35.0-46.0) 37.1 % (35.0-46.0) Mean Corpuscular Volume 89.3 FL (80.0-100.0) 89.9 FL (80.0-100.0) Mean Corpuscular Hemoglobin 29.9 PG (27.0-34.0) 29.6 PG (27.0-34.0) Mean Corpuscular Hemoglobin Concent 33.5 % (32.0-36.0) 32.9 % (32.0-36.0) Red Cell Distribution Width 14.8 % (11.6-17.2) 15.2 % (11.6-17.2) Platelet Count 85 TH/MM3 (150-450) 107 TH/MM3 (150-450) Mean Platelet Volume 11.2 FL (7.0-11.0) 11.3 FL (7.0-11.0) Neutrophils (%) (Auto) 94.5 % (16.0-70.0) 93.0 % (16.0-70.0) Lymphocytes (%) (Auto) 0.7 % (9.0-44.0) 1.2 % (9.0-44.0) Monocytes (%) (Auto) 4.5 % (0.0-8.0) 5.5 % (0.0-8.0) Eosinophils (%) (Auto) 0.0 % (0.0-4.0) 0.1 % (0.0-4.0) Basophils (%) (Auto) 0.3 % (0.0-2.0) 0.2 % (0.0-2.0) Neutrophils # (Auto) 9.5 TH/MM3 (1.8-7.7) 12.4 TH/MM3 (1.8-7.7) Lymphocytes # (Auto) 0.1 TH/MM3 (1.0-4.8) 0.2 TH/MM3 (1.0-4.8) Monocytes # (Auto) 0.5 TH/MM3 (0-0.9) 0.7 TH/MM3 (0-0.9) Eosinophils # (Auto) 0.0 TH/MM3 (0-0.4) 0.0 TH/MM3 (0-0.4) Basophils # (Auto) 0.0 TH/MM3 (0-0.2) 0.0 TH/MM3 (0-0.2) CBC Comment AUTO DIFF AUTO DIFF Differential Total Cells Counted 100 Neutrophils % (Manual) 84 % (16-70) Band Neutrophils % 10 % (0-6) Lymphocytes % 1 % (9-44) Monocytes % 4 % (0-8) Eosinophils % 1 % (0-4) Neutrophils # (Manual) 9.4 TH/MM3 (1.8-7.7) Nucleated Red Blood Cells 2 /100 WBC (0-0) Differential Comment FINAL DIFF MANUAL AUTO DIFF CONFIRMED Platelet Estimate LOW (NORMAL) Platelet Morphology Comment NORMAL (NORMAL) Red Cell Morphology Comment NORMAL (NORMAL) Blood Urea Nitrogen 71 MG/DL (7-18) 55 MG/DL (7-18) Creatinine 1.68 MG/DL (0.50-1.00) 1.53 MG/DL (0.50-1.00) Random Glucose 134 MG/DL (74-106) 149 MG/DL (74-106) Calcium Level 7.9 MG/DL (8.5-10.1) 7.7 MG/DL (8.5-10.1) Sodium Level 149 MEQ/L (136-145) 147 MEQ/L (136-145) Potassium Level 3.9 MEQ/L (3.5-5.1) 4.2 MEQ/L (3.5-5.1) Chloride Level 115 MEQ/L (98-107) 109 MEQ/L (98-107) Carbon Dioxide Level 26.5 MEQ/L (21.0-32.0) 30.6 MEQ/L (21.0-32.0) Anion Gap 8 MEQ/L (5-15) 7 MEQ/L (5-15) Estimat Glomerular Filtration Rate 30 ML/MIN (>89) 34 ML/MIN (>89) Blood Gas Puncture Site RT RADIAL Blood Gas Patient Temperature 98.6 Blood Gas HCO3 29 mmol/L (22-26) Blood Gas Base Excess 5.6 mmol/L (-2-2) Blood Gas Oxygen Saturation 98 % (90-100) Arterial Blood pH 7.47 (7.380-7.420) Arterial Blood Partial Pressure CO2 41 mmHg (38-42) Arterial Blood Partial Pressure O2 383 mmHg (61-120) Arterial Blood Oxygen Content 16.9 Vol % (12.0-20.0) Arterial Blood Carboxyhemoglobin 0.7 % (0-4) Arterial Blood Methemoglobin 1.5 % (0-2) Blood Gas Hemoglobin 11.6 G/DL (12.0-16.0) Oxygen Delivery Device VENTILATOR Blood Gas Ventilator Setting PRVC/AC Blood Gas Inspired Oxygen 100 % Blood Smear Pathologist Review Total Protein 5.9 GM/DL (6.4-8.2) Albumin 2.2 GM/DL (3.4-5.0) Phosphorus Level 1.5 MG/DL (2.5-4.9) 2.4 MG/DL (2.5-4.9) Magnesium Level 2.6 MG/DL (1.5-2.5) Alkaline Phosphatase 84 U/L (45-117) Aspartate Amino Transf (AST/SGOT) 172 U/L (15-37) Alanine Aminotransferase (ALT/SGPT) 541 U/L (10-53) Total Bilirubin 0.6 MG/DL (0.2-1.0) Random Vancomycin Level 11.4 COMMENT Hepatitis A IgM Antibody NONREACTIVE (NONREACTIVE) Hepatitis B Surface Antigen NONREACTIVE (NONREACTIVE) Hepatitis B Core IgM Antibody NONREACTIVE (NONREACTIVE) Hepatitis C IgG Antibody NONREACTIVE (NONREACTIVE) Test 06/29/17 12:47 06/30/17 04:49 Haptoglobin 393 MG/DL (30-200) Prothrombin Time 11.3 SEC (9.8-11.6) Prothromb Time International Ratio 1.1 RATIO Activated Partial Thromboplast Time 22.9 SEC (24.3-30.1) Fibrinogen 361 mg/dL (227-377) Lactate Dehydrogenase 533 U/L (84-246) White Blood Count 12.0 TH/MM3 (4.0-11.0) Red Blood Count 3.88 MIL/MM3 (4.00-5.30) Hemoglobin 11.4 GM/DL (11.6-15.3) Hematocrit 34.5 % (35.0-46.0) Mean Corpuscular Volume 89.0 FL (80.0-100.0) Mean Corpuscular Hemoglobin 29.3 PG (27.0-34.0) Mean Corpuscular Hemoglobin Concent 32.9 % (32.0-36.0) Red Cell Distribution Width 14.8 % (11.6-17.2) Platelet Count 98 TH/MM3 (150-450) Mean Platelet Volume 11.6 FL (7.0-11.0) Neutrophils (%) (Auto) 92.5 % (16.0-70.0) Lymphocytes (%) (Auto) 1.6 % (9.0-44.0) Monocytes (%) (Auto) 5.8 % (0.0-8.0) Eosinophils (%) (Auto) 0.0 % (0.0-4.0) Basophils (%) (Auto) 0.1 % (0.0-2.0) Neutrophils # (Auto) 11.1 TH/MM3 (1.8-7.7) Lymphocytes # (Auto) 0.2 TH/MM3 (1.0-4.8) Monocytes # (Auto) 0.7 TH/MM3 (0-0.9) Eosinophils # (Auto) 0.0 TH/MM3 (0-0.4) Basophils # (Auto) 0.0 TH/MM3 (0-0.2) CBC Comment AUTO DIFF Differential Comment AUTO DIFF CONFIRMED Platelet Estimate LOW (NORMAL) Platelet Morphology Comment ENLARGED (NORMAL) Ovalocytes 1+ (NORMAL) Keratocytes OCC (NORMAL) Blood Urea Nitrogen 46 MG/DL (7-18) Creatinine 1.28 MG/DL (0.50-1.00) Random Glucose 193 MG/DL (74-106) Total Protein 5.2 GM/DL (6.4-8.2) Albumin 2.0 GM/DL (3.4-5.0) Calcium Level 7.6 MG/DL (8.5-10.1) Alkaline Phosphatase 73 U/L (45-117) Aspartate Amino Transf (AST/SGOT) 72 U/L (15-37) Alanine Aminotransferase (ALT/SGPT) 333 U/L (10-53) Total Bilirubin 0.4 MG/DL (0.2-1.0) Sodium Level 147 MEQ/L (136-145) Potassium Level 3.9 MEQ/L (3.5-5.1) Chloride Level 108 MEQ/L (98-107) Carbon Dioxide Level 30.1 MEQ/L (21.0-32.0) Anion Gap 9 MEQ/L (5-15) Estimat Glomerular Filtration Rate 41 ML/MIN (>89) Result Diagram: 06/30/17 0449 06/30/17 0449 Microbiology Microbiology Date/Time Source Procedure Growth Status 06/28/17 12:15 Blood Peripheral Aerobic Blood Culture - Preliminary NO GROWTH IN 2 DAYS Resulted 06/28/17 12:15 Blood Peripheral Anaerobic Blood Culture - Preliminary NO GROWTH IN 2 DAYS Resulted 06/28/17 12:08 Blood Peripheral Aerobic Blood Culture - Preliminary NO GROWTH IN 2 DAYS Resulted 06/28/17 12:08 Blood Peripheral Anaerobic Blood Culture - Preliminary NO GROWTH IN 2 DAYS Resulted 06/28/17 11:40 Sputum Endotracheal Gram Stain - Final Complete 06/28/17 11:40 Sputum Endotracheal Sputum Culture - Final MODERATE GROWTH NORMAL RESPIRATORY KHURRAM Complete Imaging Last Impressions Chest X-Ray 06/30/17 0000 Signed Impressions: Service Date/Time: Friday, June 30, 2017 07:57 - CONCLUSION: 1. Endotracheal tube in appropriate position with tip measuring 5.8 cm from the melvin. 2. Stable small to moderate size right pleural effusion with airspace consolidation and likely volume loss at the right base. 3. Mild airspace consolidation in the left mid and lower lung zone, overall improved from the prior study from 2 days ago. Abel Diaz MD Liver Ultrasound 06/29/17 Signed Impressions: Service Date/Time: June 16:37 - CONCLUSION: 1. Very limited exam due to extensive soft tissue emphysema. 2. Grossly normal sonographic appearance of the liver without evidence for biliary obstruction. Sung Crawford MD Abdomen X-Ray 06/28/17 Signed Impressions: Service Date/Time: Wednesday, June 28, 2017 08:12 - CONCLUSION: 1. Nonspecific bowel gas pattern but no definite evidence of obstruction. 2. NG tube in the stomach. 3. Subcutaneous emphysema throughout the body wall. Cole Hays MD Chest Tube Insertion 06/27/17 Signed Impressions: Service Date/Time: Tuesday, June 27, 2017 16:08 - CONCLUSION: Uncomplicated chest tube placement as above. Sung Crawford MD Chest CT 06/27/17 Signed Impressions: Service Date/Time: Tuesday, June 27, 2017 13:40 - CONCLUSION: 1. There is a subcentimeter left apical pneumothorax and a small amount of extrapleural gas adjacent to the apex of the heart. 2. 1.8 cm spiculated mass in the medial left upper lung without air bronchograms suspicious for a contralateral metastatic recurrence of cancer. 3. Large right pleural effusion. 4. Extensive left-sided subcutaneous emphysema similar to prior chest x-ray and interval development of moderate subcutaneous emphysema about the right lateral chest wall. Mahin Boles MD Renal Ultrasound 06/26/17 Signed Impressions: Service Date/Time: Monday, June 26, 2017 11:51 - CONCLUSION: 1. Slightly increased renal cortical echogenicity which may reflect medical renal disease. 2. No evidence for obstructive uropathy. Sung Crawford MD Head CT 06/26/17 Signed Impressions: Service Date/Time: Monday, June 26, 2017 13:35 - CONCLUSION: 1. No acute intracranial abnormality is identified. 2. Chronic findings include mild generalized atrophy and chronic periventricular white matter ischemic change. Abel Diaz MD Brain MRI 06/26/17 Signed Impressions: Service Date/Time: Monday, June 26, 2017 20:21 - CONCLUSION: 1. No acute findings. Exam degraded by motion artifact. Kemal Luna MD Lung Biopsy CT 06/21/17 0000 Signed Impressions: Service Date/Time: Wednesday, June 21, 2017 09:39 - CONCLUSION: Successful CT guided biopsy with small post-biopsy pneumothorax. Damian Don MD Procedures 06/21/2017: Left-sided chest tube placement 06/22/2017: Left-sided chest tube replaced 06/27/2017: Left-sided chest tube replaced . Assessment and Plan Disease Oriented Problem List: (1) Pneumothorax (2) Small cell lung cancer (3) COPD (chronic obstructive pulmonary disease) (4) Hypercholesteremia (5) Pneumothorax (6) Acute renal failure Symptom Scale: (1) Dyspnea 0-10 Scale: Unable to quantify (2) Agitation 0-10 Scale: Unable to quantify Pertinent Non-Medical Issues Psychosocial: Patient is originally from [place]. She stated her when she was 18 years old but later to someone else. She and her first had 2 sons (Prieto and Fernando). Prieto lives in [place]; Fernando is a nurse and lives in [place]. The patient has been to her current , Leoncio, for approximately 12 years. Spiritual: Yazdanism aidan Legal: Per [place] statutes, in the absence of written advanced directives healthcare proxy decision making would fall to the patient's . However, patient's and 2 children have decided to make decisions together. Ethical issues impacting care: No known ethical issues impacting care at this time. . Important Contacts Leoncio Arzola, spouse: [phone] Fernando, son: [phone] Prieto: son: [phone] . Prognosis Patient is a 67 yo old female with metastatic squamous cell carcinoma of the lung status post lung biopsy with subsequent pneumothorax and chest tube placement; now intubated secondary to worsening respiratory failure and agitation. If the patient survives this hospitalization, she will be high risk for ongoing complications and further decline. . Code Status: Alternative Code Plan * ALTERNATE CODE-intubation only * Decision making: Per [place] statutes, in the absence of written advanced directives healthcare proxy decision making would fall to the patient's . Patient's has appears to have limited insight related to his 's medical conditions, and the patient's and 2 children have decided to make decisions together. * Discussed current medical treatment goals with traffic officer (Dr. Lopez) and RN (Jovita) * Per initial palliative conversations with family: Family understands patient is critically ill; they support decision to intubate for a short time but they would not consent to tracheostomy if the patient is unable to wean off mechanical ventilation. Hospice was introduced. Family wants to give the patient time to improve but state they are open to transitioning to comfort measures when appropriate. 06/30/17 follow-up family remains hopeful patient may continue improvement enough to pursue cancer treatment. They remain open to ongoing conversations as clinical course evolves. They are open to revisiting CODE STATUS/intubation status if patient is able to medically extubate in the coming days . * Symptom management: == Dyspnea: Patient with a known history of small cell lung cancer status post concurrent chemoradiation therapy with prophylactic whole brain radiation 2008. Patient had a lung biopsy on 06/21/2017 for a suspicious lesion on her chest which was complicated by a pneumothorax and subsequent chest tube placement- pathology significant for invasive poorly differentiated squamous cell carcinoma. CT chest yesterday 06/27/2017 showed subQ emphysema and bilateral airspace disease; chest tube was in major fissure and new left sided CT was placed by IR. Patient intubated this morning 06/28/2017 secondary to worsening respiratory status and agitation. She has been tolerating CPAP the past couple of days, breathing comfortably today on a low-dose of propofol. Planned for ongoing weaning of ventilator and sedation for possible medical extubation in the coming day == Agitation: Multifactoral. Patient having altered mental status and agitation concerning for ICU delirium versus metabolic encephalopathy versus hypoxemia. Received Haldol 1 mg IV 1 dose. Patient was placed on Precedex drip for agitation. This is been discontinued patient now on propofol appears comfortable today. Ammonia level of 37; MRI of the brain and CT of the head showed no acute findings; EEG showed diffuse slowing, no focal abnormalities, no seizure activity. Plan for continued weaning of sedation as patient tolerates towards possible medical extubation * Palliative care will continue to follow this patient throughout her hospitalization to build rapport, assist with symptom management and goal clarification. . Time Spent Total Floor Time (mins): 30 (Chart review, PE, discussion with family, discussion with critical care and nurse) Constanza Saunders June 30, 2017 17:20
--- NOTE | 2017-06-30 17:50 | HHI.PR ---
Subjective Remarks Tolerates CPAP68 YOWF with AMS,Resp Failure,SSLC Has Left PTX CT brain no ac abnormality Developed resp failure Intubated, sedated Sons and at BS Chest tube no air leak Sedated with Diprivan Tolerates CPAP Objective Vital Signs Vital Signs Date Time Temp Pulse Resp B/P (MAP) Pulse Ox O2 Delivery O2 Flow Rate FiO2 06/30/17 16:00 100.2 84 21 118/59 (78) 95 06/30/17 16:00 84 06/30/17 16:00 40 06/30/17 15:42 40 06/30/17 14:39 96 40 06/30/17 14:00 90 06/30/17 12:00 86 06/30/17 12:00 98.9 86 13 122/59 (80) 99 06/30/17 12:00 40 06/30/17 11:18 99 40 06/30/17 10:00 79 06/30/17 08:16 40 06/30/17 08:15 40 06/30/17 08:00 85 06/30/17 08:00 40 06/30/17 08:00 99.3 85 20 113/59 (77) 100 06/30/17 07:30 100 40 06/30/17 06:00 83 06/30/17 04:18 96 40 06/30/17 04:00 98.5 87 19 105/56 (72) 91 06/30/17 04:00 86 06/30/17 04:00 40 06/30/17 02:00 85 06/30/17 00:45 97 40 06/30/17 00:00 76 06/30/17 00:00 40 06/30/17 00:00 99.0 75 16 93/50 (64) 97 06/29/17 22:00 70 06/29/17 20:30 100 40 06/29/17 20:00 76 06/29/17 20:00 40 06/29/17 20:00 99.1 76 18 103/57 (72) 100 06/29/17 18:00 76 I/O 06/29/17 06/29/17 06/29/17 06/30/17 06/30/17 06/30/17 07:00 15:00 23:00 07:00 15:00 23:00 Intake Total 1271 ml 50 ml 1396 ml 1286 ml 100 ml Output Total 925 ml 850 ml 570 ml 0 ml Balance 346 ml 50 ml 546 ml 716 ml 100 ml IV Total 200 ml 50 ml 665 ml 300 ml 100 ml Tube Feeding 471 ml 131 ml 386 ml Other 600 ml 600 ml 600 ml Output Urine Total 875 ml 850 ml 550 ml Tube Feeding Residual Discard 0 ml Chest Tube Drainage Total 50 ml 0 ml 20 ml # Bowel Movements 5 1 3 Result Diagram: 06/30/1744806/30/17448 Objective Remarks GENERAL: Elderly female, intubated, sedated SKIN: Warm and dry. HEAD: Normocephalic. EYES: No scleral icterus. No injection or drainage. NECK: Supple, trachea midline. No JVD or lymphadenopathy. CARDIOVASCULAR: Regular rate and rhythm without murmurs, gallops, or rubs. RESPIRATORY: Breath sounds equal bilaterally. No accessory muscle use. left chest tube emily suction GASTROINTESTINAL: Abdomen soft, non-tender, nondistended. MUSCULOSKELETAL: No cyanosis, or edema. BACK: Nontender without obvious deformity. No CVA tenderness. A/P Assessment and Plan IMPRESSION: 1. Left pneumothorax after lung biopsy. She has large-bore chest tube, no air leak. 2. Worsening left lung infiltrate. 3. Small pleural effusion. 4. H/O small cell carcinoma of the lung, status post chemotherapy and radiation treatment. 5. New cancer in the left lung. 6. History of nicotine. 7. History of chronic obstructive pulmonary disease. 8. VDRF PLAN: Vent support Sedation for vent synchrony Chest tube to suction Cont Abx Precedex for sedation. LIZZY Sons at Daily CPAP trial. LIZZY RN and RT Lakhwinder Wilkerson MD June 30, 2017 17:50
[2017-06-30] MEDS: MONTELUKAST SODIUM 10 MG TAB PO SCH (19:43)
[2017-06-30] MEDS: POLYETHYLENE GLYCOL 17 GM PKG PO SCH (19:44)
[2017-07-01] VITALS (24 sets, daily range): BP systolic 104–164; BP diastolic 52–70; PULSE 73–139; RESP 13–24; TEMP 98.2–99; O2SAT 96–100
[2017-07-01] MEDS: RESP: ALBUTEROL 2.5 MG/IPRATROPIUM 0.5 MG NEB (SCH) NEB ×6 (00:07→19:53)
[2017-07-01] MEDS: INSULIN NovoLIN REGULAR SUPPLEMENTAL SCALE SQ SCH ×6 (01:39→22:00)
[2017-07-01] MEDS: FREE WATER NG SCH (05:10)
[2017-07-01] MEDS: METOPROLOL TARTRATE 50 MG TAB PO SCH ×2 (05:11→14:00)
[2017-07-01] MEDS: PIPERACIL-TAZO 3.375 GM PREMIX 50 ML IV SCH ×3 (05:11→17:15)
[2017-07-01 05:24] LABS: AUTOMATED NEUTROPHIL # 10.4 TH/MM3 (1.8-7.7); BASOPHIL % 0.1 % (0.0-2.0); HEMATOCRIT 31.9 % (35.0-46.0); HEMOGLOBIN 10.5 GM/DL (11.6-15.3); LYMPH % 1.3 % (9.0-44.0); LYMPHOCYTE # 0.1 TH/MM3 (1.0-4.8); MEAN CELL VOLUME 89.3 FL (80.0-100.0); MEAN CORPUSCULAR HEMOGLOBIN 29.5 PG (27.0-34.0); MEAN PLATELET VOLUME 11.2 FL (7.0-11.0); MONO % 6.1 % (0.0-8.0); MONOCYTE # 0.7 TH/MM3 (0-0.9); NEUT % 92.5 % (16.0-70.0); PLATELET COUNT 90 TH/MM3 (150-450); RED BLOOD COUNT 3.57 MIL/MM3 (4.00-5.30); RED CELL DISTRIBUTION WIDTH 14.9 % (11.6-17.2); WHITE BLOOD COUNT 11.2 TH/MM3 (4.0-11.0)
[2017-07-01 05:57] LABS: BICARBONATE 28.5 MEQ/L (21.0-32.0); CALCIUM 7.3 MG/DL (8.5-10.1); CALCIUM-PROTEIN CORRECTED 8.5 MG/DL (8.5-10.1); CREATININE 1.15 MG/DL (0.50-1.00); MAGNESIUM 2.4 MG/DL (1.5-2.5); PHOSPHORUS 3.7 MG/DL (2.5-4.9); TOTAL BILIRUBIN ADULT 0.4 MG/DL (0.2-1.0); TOTAL PROTEIN 4.9 GM/DL (6.4-8.2)
[2017-07-01] MEDS: RESP: BUDESONIDE 0.25 MG/2 ML NEB NEB SCH ×2 (07:44→19:53)
--- NOTE | 2017-07-01 07:55 | HHI.CCPN ---
Subjective Remarks/Hospital Course 67-year-old female patient with past medical history of arthritis, COPD, epilepsy as a child not currently on medications, esophageal strictures, hypercholesterolemia, Lambert-Eaton syndrome, opioid dependence, history of tobaccoism quit smoking in 2008, recurrent bronchitis, small cell lung CA treated with chemo and radiation also status post prophylactic whole brain radiation 2008. Patient followed with Dr. Christy in the past now follows with Dr. Damon. Dr. Damon found a suspicion lesion and patient was seen in interventional radiology today for a lung biopsy complicated by pneumothorax with a chest tube placement. Around 6:45 PM the [facility] was called on the patient regarding concern for worsening shortness of breath. The chest tube that was orally placed was removed and the patient had worsening shortness of breath. The patient was transferred to critical care unit and the emergency chest tube was placed immediately with significant improvement of symptoms. Subjective: 06/22: Afebrile. Patient with complaints of recurrent nausea despite Zofran. Phenergan added to medication regimen. This a.m. while rounding on patient approximately 0640 this a.m. patient noted to have left pigtail chest tube inadvertently pulled out. Patient tachypneic, O2 saturation 97% heart rate 117. Left 28 Niuean chest tube placed, pleuravac placed on 40cm H20, tachypnea resolved. Patient normotensive currently resting comfortably, post chest tube placement. Chest x-ray pending. 06/23 Patient is on BIPAP 12/8 with 50% FIO2. Afebrile. Renal function is slightly worse today with Cr:1.77 from 1.36 06/24: Remains on partial rebreather. No air leak noted in chest tube. Suction decreased to -20 cm water pressure with underwater seal. 06/25: Worsening respiratory failure, currently on CPAP, adjustments made, FiO2 currently 0.60 with a PaO2 of 87. Serial ABGs being performed. stat chest x- ray performed early this a.m. showing worsening infiltrates. IV fluids discontinued, Lasix 40 mg x1 dose given. The patient continues to have altered mental status, and agitation. Concern for ICU delirium, ammonia level pending. Haldol 1 mg IV 1 dose given. Extensive discussion/family conference performed this a.m.. Family is aware that patient is at high risk for possible intubation. 06/26 Patient is on BIPAP 18/6 with FIO2 55% placed on Precedex drip for agitation. 06/27 Patient is maxed out on Precedex for agitation. MRI and CT brain yesterday showed no acute findings. 06/28 Patient was on non rebreather overnight, CXR overnight showed b/l airspace disease, tachypneic she was subsequently intubated and placed on mechanical ventilation. CT chest yesterday showed subQ emphysema, b/l airspace disease, CT was in major fissure and new left sided CT was placed by IR. 06/29 Patient is intubated and sedated with Diprivan. T:99.9 last night. 06/30 Patient is sedated with Diprivan and intubated. Afebrile. 07/01 No events overnight. Tolerated CPAP for most of day yesterday. Tmax 100.4. sedated with Diprivan and intubated. Objective Vital Signs Date Time Temp Pulse Resp B/P (MAP) Pulse Ox O2 Delivery O2 Flow Rate FiO2 07/01/17 07:44 100 35 07/01/17 06:00 74 07/01/17 04:00 98.6 16 104/52 (69) 06/28/17 07:35 15.00 06/27/17 20:45 Partial Rebreather Intake and Output 07/01/17 07/01/17 07/02/17 08:00 16:00 00:00 Intake Total 536 ml Output Total 700 ml Balance -164 ml Result Diagram: 07/01/17 0418 07/01/17 0418 Other Results Laboratory Tests Test 07/01/17 04:18 White Blood Count 11.2 TH/MM3 Red Blood Count 3.57 MIL/MM3 Hemoglobin 10.5 GM/DL Hematocrit 31.9 % Mean Corpuscular Volume 89.3 FL Mean Corpuscular Hemoglobin 29.5 PG Mean Corpuscular Hemoglobin Concent 33.0 % Red Cell Distribution Width 14.9 % Platelet Count 90 TH/MM3 Mean Platelet Volume 11.2 FL Neutrophils (%) (Auto) 92.5 % Lymphocytes (%) (Auto) 1.3 % Monocytes (%) (Auto) 6.1 % Eosinophils (%) (Auto) 0.0 % Basophils (%) (Auto) 0.1 % Neutrophils # (Auto) 10.4 TH/MM3 Lymphocytes # (Auto) 0.1 TH/MM3 Monocytes # (Auto) 0.7 TH/MM3 Eosinophils # (Auto) 0.0 TH/MM3 Basophils # (Auto) 0.0 TH/MM3 CBC Comment AUTO DIFF Differential Comment AUTO DIFF CONFIRMED Platelet Estimate LOW Platelet Morphology Comment ENLARGED Red Cell Morphology Comment NORMAL Blood Urea Nitrogen 41 MG/DL Creatinine 1.15 MG/DL Random Glucose 188 MG/DL Total Protein 4.9 GM/DL Albumin 2.0 GM/DL Calcium Level 7.3 MG/DL Phosphorus Level 3.7 MG/DL Magnesium Level 2.4 MG/DL Alkaline Phosphatase 70 U/L Aspartate Amino Transf (AST/SGOT) 45 U/L Alanine Aminotransferase (ALT/SGPT) 234 U/L Total Bilirubin 0.4 MG/DL Sodium Level 142 MEQ/L Potassium Level 3.9 MEQ/L Chloride Level 104 MEQ/L Carbon Dioxide Level 28.5 MEQ/L Anion Gap 10 MEQ/L Estimat Glomerular Filtration Rate 47 ML/MIN Protein Corrected Calcium 8.5 MG/DL Imaging Last Impressions Chest X-Ray 06/30/17 0000 Signed Impressions: Service Date/Time: Friday, June 30, 2017 07:57 - CONCLUSION: 1. Endotracheal tube in appropriate position with tip measuring 5.8 cm from the melvin. 2. Stable small to moderate size right pleural effusion with airspace consolidation and likely volume loss at the right base. 3. Mild airspace consolidation in the left mid and lower lung zone, overall improved from the prior study from 2 days ago. Abel Diaz MD Liver Ultrasound 06/29/17 0000 Signed Impressions: Service Date/Time: June 16:37 - CONCLUSION: 1. Very limited exam due to extensive soft tissue emphysema. 2. Grossly normal sonographic appearance of the liver without evidence for biliary obstruction. Sung Crawford MD Abdomen X-Ray 06/28/17 0000 Signed Impressions: Service Date/Time: Wednesday, June 28, 2017 08:12 - CONCLUSION: 1. Nonspecific bowel gas pattern but no definite evidence of obstruction. 2. NG tube in the stomach. 3. Subcutaneous emphysema throughout the body wall. Cole Hays MD Chest Tube Insertion 06/27/17 0000 Signed Impressions: Service Date/Time: Tuesday, June 27, 2017 16:08 - CONCLUSION: Uncomplicated chest tube placement as above. Sung Crawford MD Chest CT 06/27/17 0000 Signed Impressions: Service Date/Time: Tuesday, June 27, 2017 13:40 - CONCLUSION: 1. There is a subcentimeter left apical pneumothorax and a small amount of extrapleural gas adjacent to the apex of the heart. 2. 1.8 cm spiculated mass in the medial left upper lung without air bronchograms suspicious for a contralateral metastatic recurrence of cancer. 3. Large right pleural effusion. 4. Extensive left-sided subcutaneous emphysema similar to prior chest x-ray and interval development of moderate subcutaneous emphysema about the right lateral chest wall. Mahin Boles MD Renal Ultrasound 06/26/17 0000 Signed Impressions: Service Date/Time: Monday, June 26, 2017 11:51 - CONCLUSION: 1. Slightly increased renal cortical echogenicity which may reflect medical renal disease. 2. No evidence for obstructive uropathy. Sung Crawford MD Head CT 06/26/17 0000 Signed Impressions: Service Date/Time: Monday, June 26, 2017 13:35 - CONCLUSION: 1. No acute intracranial abnormality is identified. 2. Chronic findings include mild generalized atrophy and chronic periventricular white matter ischemic change. Abel Diaz MD Brain MRI 06/26/17 0000 Signed Impressions: Service Date/Time: Monday, June 26, 2017 20:21 - CONCLUSION: 1. No acute findings. Exam degraded by motion artifact. Kemal Luna MD Lung Biopsy CT 06/21/17 0000 Signed Impressions: Service Date/Time: Wednesday, June 21, 2017 09:39 - CONCLUSION: Successful CT guided biopsy with small post-biopsy pneumothorax. Damian Don MD Procedures 06/21-left pigtail chest tube placement 06/22-left 26 Niuean chest tube placement Objective Remarks GENERAL: Patient is 67 yo intubated SKIN: Warm and dry. HEAD: Normocephalic. EYES: No scleral icterus. No injection or drainage. NECK: Supple, trachea midline. No JVD or lymphadenopathy. Orally intubated CARDIOVASCULAR: Regular rate and rhythm without murmurs, gallops, or rubs. RESPIRATORY: Breath sounds equal bilaterally. Coarse BS, rhonchus GASTROINTESTINAL: Abdomen soft, non-tender, nondistended. MUSCULOSKELETAL: No cyanosis, or edema. Neuro: Sedated, intubated Date of Insertion: Jun 22, 2017 A/P Problem List: (1) Pneumothorax ICD Code: J93.9 - Pneumothorax, unspecified Status: Acute (2) Small cell lung cancer ICD Code: C34.90 - Malignant neoplasm of unspecified part of unspecified bronchus or lung Status: Chronic (3) Hypercholesteremia ICD Code: E78.00 - Pure hypercholesterolemia, unspecified Status: Chronic (4) COPD (chronic obstructive pulmonary disease) ICD Code: J44.9 - Chronic obstructive pulmonary disease, unspecified Status: Acute Assessment and Plan 1)VDRF intubated 06/28 2)COPD exac 3)s/p Tension pneumothorax s/p CT guided lung biopsy 4)Lung cancer 5)Hypercholesteremia 6)JODY 7) Encephalopathy-metabolic versus ICU delirium 8)Hypernatremia 9)Anemia, thrombocytopenia 10) Lambert Eaton -diagnosed 2008 11) Elevated LFT's Plan Neuro: Diprivan infusion for sedation and vent synchrony. Monitor neuro status Daily sedation vacation MRI brain and CT chest - no acute findings EEG: Diffuse slowing, no focal abnormalities, no seizure activity. Neuro is following- Dr. Shaw Pulm: Continue with vent support keep sats >92% On PRVC RR 16, TV 450, PEEP:5, IT: 1.0 FIO2: 40% Bronchodilators ( Duoneb. Pulmicort) Solumederol 40mg Q12 ICU vent bundle, SBT daily as jj. s/p Emergent left pigtail chest tube placement 06/21 Replacement of left chest tube 28 Niuean on 40 cm H20 06/22 CT chest yesterday showed sub Q emphysema, subcentimeter left apical PTX, CT appeared in major fissure s/p new CT placement by IR 06/27, monitor CT drainage On Singular 10mg qhs Path results showed squamous cell ca 06/25 pulmonology is following- Dr. Wilkerson Legionella strep pneumo Ag negative CV: Monitor HR and BP keep MAP>65mmHg. echo showed EF 35-40% On Lopressor 50mg Q8, Lipitor held for elevated LFT's : Monitor renal function, electrolytes replacement as needed. Avoid nephrotoxins Renal US: No hydro, renal is following Renal function continue to improve with Cr: 1.1 GI: Monitor LFT's, Hepatitis profile negative US Liver 06/29: No biliary obstruction On tube feeds ( Glucerna 1.5) via NGT with goal rate 45ml/hr. .. Bowel regimen with colace, Senna, add Reglan. KUB abd: No obstruction, non specific bowel gas pattern ID: Monitor for signs of infections ( Fever, WBC) On Zosyn , vanco, follow up on sputum cx, and blood cultures- 06/28 NGTD Pneumonia and Legionella urinary Ag negative Heme: Monitor CBC, Lovenox held for thrombocytopenia, Hep PLT ab is negative heme-onc is following -patient diagnosed with Lambert Eaton in 2008 Endo: on SSI for glycemic control. TSH:0.74 Msk: Muscle weakness-progressive PT/OT evaluation and treat-patient has Lambert Eaton Daily functional maintenance DVT GI prophylaxis -Papito's and SCDs/ Lovenox on hold -Pepcid Consult palliative care is following Code status: Alternative code ( intubation only) Level 3 Problem Qualifiers (1) Pneumothorax: Qualified Codes: J95.811 - Postprocedural pneumothorax Carla Stahl MD July 01, 2017 07:55
[2017-07-01] MEDS: FAMOTIDINE 20 MG TAB PO SCH ×2 (10:04→21:00)
[2017-07-01] MEDS: DOCUSATE SODIUM 100 MG/10 ML UDC PO SCH ×2 (10:04→20:15)
[2017-07-01] MEDS: METOCLOPRAMIDE HCL 10 MG/2 ML VIAL IV PUSH SCH ×2 (10:04→16:00)
[2017-07-01] MEDS: SENNOSIDES SYRUP 8.8 MG/5 ML CUP PO SCH (10:04)
[2017-07-01] MEDS: methylPREDNISolone SOD SUCC 40 MG/1 ML VIAL IV PUSH SCH ×2 (10:04→20:15)
[2017-07-01] MEDS: SODIUM CHLORIDE 0.9% FLUSH 10 ML FLUSH IV FLUSH SCH ×2 (10:04→20:15)
--- NOTE | 2017-07-01 12:32 | RADRPT ---
EXAM DATE/TIME: 07/01/2017 11:54 [facility] COMPARISON: CHEST SINGLE AP, June 30, 2017, 7:57. INDICATIONS : Evaluate left chest tube placement. Possible air leak. MEDICAL HISTORY : Carcinoma, lung. SURGICAL HISTORY : Tubal ligation. Cervical fusion. ENCOUNTER: Subsequent ACUITY: 1 week PAIN SCORE: Non-responsive. LOCATION: Bilateral chest FINDINGS: Single AP view of the chest. Endotracheal tube, left-sided chest tube, and nasogastric tube remain in place. Small right-sided pleural effusion. Mild right lung base consolidation versus atelectasis unc hanged. Bilateral subcutaneous emphysema unchanged. No evidence of pneumothorax. CONCLUSION: No significant interval change. Left-sided chest tube remains in place. Bilateral sub cutaneous emphysema but no evidence of pneumothorax. Small right pleural effusion. Quinton Sandoval MD on July 01, 2017 at 12:27 Board Certified Radiologist. This report was verified electronically.
[2017-07-01] MEDS ORDERED: PHARMACY ORDERED LAB ONE (12:45)
[2017-07-01] MEDS: VANCOMYCIN INJ 1,500 MG in SODIUM CHLORID 0.9% 500 ML INJ 500 ML IV SCH (14:43)
[2017-07-01] MEDS ORDERED: DILTIAZEM HCL 25 MG/5 ML VIAL IV ONE (16:15)
[2017-07-01] MEDS ORDERED: METOPROLOL TARTRATE 5 MG/5 ML VIAL IV PUSH ONE (16:15)
[2017-07-01] MEDS: METOPROLOL TARTRATE 5 MG/5 ML VIAL IV PUSH SCH (17:16)
[2017-07-01] MEDS: ACETAMINOPHEN 1000 MG/100 ML 100 ML IV PRN (20:14)
[2017-07-01] MEDS: MONTELUKAST SODIUM 10 MG TAB PO SCH (21:00)
[2017-07-01] MEDS: POLYETHYLENE GLYCOL 17 GM PKG PO SCH (21:00)
[2017-07-02] VITALS (19 sets, daily range): BP systolic 122–153; BP diastolic 59–70; PULSE 92–101; RESP 19–39; TEMP 98.1–98.5; O2SAT 95–98
[2017-07-02] MEDS: RESP: ALBUTEROL 2.5 MG/IPRATROPIUM 0.5 MG NEB (SCH) NEB ×4 (00:18→19:57)
[2017-07-02] MEDS: METOPROLOL TARTRATE 5 MG/5 ML VIAL IV PUSH SCH ×5 (00:58→23:24)
[2017-07-02] MEDS: INSULIN NovoLIN REGULAR SUPPLEMENTAL SCALE SQ SCH ×6 (00:58→23:23)
[2017-07-02] MEDS: PIPERACIL-TAZO 3.375 GM PREMIX 50 ML IV SCH ×5 (00:58→23:24)
[2017-07-02] MEDS: ACETAMINOPHEN 1000 MG/100 ML 100 ML IV PRN ×3 (05:37→20:58)
[2017-07-02 06:03] LABS: AUTOMATED NEUTROPHIL # 11.2 TH/MM3 (1.8-7.7); BASOPHIL % 0.3 % (0.0-2.0); HEMOGLOBIN 11.4 GM/DL (11.6-15.3); LYMPH % 1.3 % (9.0-44.0); LYMPHOCYTE # 0.2 TH/MM3 (1.0-4.8); MEAN CELL VOLUME 90.4 FL (80.0-100.0); MEAN CORPUSCULAR HEMOGLOBIN 29.4 PG (27.0-34.0); MEAN CORPUSCULAR HGB CONC 32.5 % (32.0-36.0); MEAN PLATELET VOLUME 11.3 FL (7.0-11.0); MONOCYTE # 0.6 TH/MM3 (0-0.9); NEUT % 93.4 % (16.0-70.0); PLATELET COUNT 94 TH/MM3 (150-450); RED BLOOD COUNT 3.87 MIL/MM3 (4.00-5.30); RED CELL DISTRIBUTION WIDTH 14.7 % (11.6-17.2)
[2017-07-02 06:20] LABS: ALBUMIN 2.1 GM/DL (3.4-5.0); ALT (GPT) 224 U/L (10-53); AST (GOT) 83 U/L (15-37); BICARBONATE 28.4 MEQ/L (21.0-32.0); BLOOD UREA NITROGEN 36 MG/DL (7-18); CALCIUM 8.1 MG/DL (8.5-10.1); CHLORIDE 109 MEQ/L (98-107); CREATININE 0.98 MG/DL (0.50-1.00); GLOMERULAR FILTRATION RATE 56 ML/MIN (>89); GLUCOSE,RANDOM 137 MG/DL (74-106); SODIUM (NA) 146 MEQ/L (136-145)
[2017-07-02 06:22] LABS: ALKALINE PHOSPHATASE 67 U/L (45-117); TOTAL BILIRUBIN ADULT 0.6 MG/DL (0.2-1.0); TOTAL PROTEIN 5.6 GM/DL (6.4-8.2)
[2017-07-02] MEDS: RESP: BUDESONIDE 0.25 MG/2 ML NEB NEB SCH ×2 (07:46→19:57)
[2017-07-02] MEDS: METOCLOPRAMIDE HCL 10 MG/2 ML VIAL IV PUSH SCH ×4 (07:56→23:24)
--- NOTE | 2017-07-02 08:29 | HHI.CCPN ---
Subjective Remarks/Hospital Course 67-year-old female patient with past medical history of arthritis, COPD, epilepsy as a child not currently on medications, esophageal strictures, hypercholesterolemia, Lambert-Eaton syndrome, opioid dependence, history of tobaccoism quit smoking in 2008, recurrent bronchitis, small cell lung CA treated with chemo and radiation also status post prophylactic whole brain radiation 2008. Patient followed with Dr. Christy in the past now follows with Dr. Damon. Dr. Damon found a suspicion lesion and patient was seen in interventional radiology today for a lung biopsy complicated by pneumothorax with a chest tube placement. Around 6:45 PM the [facility] was called on the patient regarding concern for worsening shortness of breath. The chest tube that was orally placed was removed and the patient had worsening shortness of breath. The patient was transferred to critical care unit and the emergency chest tube was placed immediately with significant improvement of symptoms. Subjective: 06/22: Afebrile. Patient with complaints of recurrent nausea despite Zofran. Phenergan added to medication regimen. This a.m. while rounding on patient approximately 0640 this a.m. patient noted to have left pigtail chest tube inadvertently pulled out. Patient tachypneic, O2 saturation 97% heart rate 117. Left 28 Liberian chest tube placed, pleuravac placed on 40cm H20, tachypnea resolved. Patient normotensive currently resting comfortably, post chest tube placement. Chest x-ray pending. 06/23 Patient is on BIPAP 12/8 with 50% FIO2. Afebrile. Renal function is slightly worse today with Cr:1.77 from 1.36 06/24: Remains on partial rebreather. No air leak noted in chest tube. Suction decreased to -20 cm water pressure with underwater seal. 06/25: Worsening respiratory failure, currently on CPAP, adjustments made, FiO2 currently 0.60 with a PaO2 of 87. Serial ABGs being performed. stat chest x- ray performed early this a.m. showing worsening infiltrates. IV fluids discontinued, Lasix 40 mg x1 dose given. The patient continues to have altered mental status, and agitation. Concern for ICU delirium, ammonia level pending. Haldol 1 mg IV 1 dose given. Extensive discussion/family conference performed this a.m.. Family is aware that patient is at high risk for possible intubation. 06/26 Patient is on BIPAP 18/6 with FIO2 55% placed on Precedex drip for agitation. 06/27 Patient is maxed out on Precedex for agitation. MRI and CT brain yesterday showed no acute findings. 06/28 Patient was on non rebreather overnight, CXR overnight showed b/l airspace disease, tachypneic she was subsequently intubated and placed on mechanical ventilation. CT chest yesterday showed subQ emphysema, b/l airspace disease, CT was in major fissure and new left sided CT was placed by IR. 06/29 Patient is intubated and sedated with Diprivan. T:99.9 last night. 06/30 Patient is sedated with Diprivan and intubated. Afebrile. 07/01 No events overnight. Tolerated CPAP for most of day yesterday. Tmax 100.4. sedated with Diprivan and intubated. 07/02 Patient was extubated yesterday. Awake and alert on room air oxygen when seen. afebrile. Objective Vital Signs Date Time Temp Pulse Resp B/P (MAP) Pulse Ox O2 Delivery O2 Flow Rate FiO2 07/02/17 07:48 95 21 07/02/17 06:00 96 07/02/17 04:00 98.2 19 122/59 (80) 07/01/17 19:56 Nasal Cannula 3.00 Intake and Output 07/02/17 07/02/17 07/02/17 07:59 15:59 23:59 Intake Total 200 ml Output Total 500 ml Balance -300 ml Result Diagram: 07/02/17 0426 07/02/17 0426 Other Results Laboratory Tests Test 07/01/17 13:00 07/01/17 14:30 07/02/17 04:26 Blood Gas Puncture Site RT RADIAL Blood Gas Patient Temperature 98.6 Blood Gas HCO3 30 mmol/L Blood Gas Base Excess 6.3 mmol/L Blood Gas Oxygen Saturation 95 % Arterial Blood pH 7.51 Arterial Blood Partial Pressure CO2 38 mmHg Arterial Blood Partial Pressure O2 89 mmHg Arterial Blood Oxygen Content 17.0 Vol % Arterial Blood Carboxyhemoglobin 0.9 % Arterial Blood Methemoglobin 1.4 % Blood Gas Hemoglobin 12.7 G/DL Oxygen Delivery Device VENTILATOR Blood Gas Ventilator Setting CPAP,PEEP5,PS10 Blood Gas Inspired Oxygen 35 % Vancomycin Level Trough 12.5 MCG/ML White Blood Count 12.0 TH/MM3 Red Blood Count 3.87 MIL/MM3 Hemoglobin 11.4 GM/DL Hematocrit 35.0 % Mean Corpuscular Volume 90.4 FL Mean Corpuscular Hemoglobin 29.4 PG Mean Corpuscular Hemoglobin Concent 32.5 % Red Cell Distribution Width 14.7 % Platelet Count 94 TH/MM3 Mean Platelet Volume 11.3 FL Neutrophils (%) (Auto) 93.4 % Lymphocytes (%) (Auto) 1.3 % Monocytes (%) (Auto) 5.0 % Eosinophils (%) (Auto) 0.0 % Basophils (%) (Auto) 0.3 % Neutrophils # (Auto) 11.2 TH/MM3 Lymphocytes # (Auto) 0.2 TH/MM3 Monocytes # (Auto) 0.6 TH/MM3 Eosinophils # (Auto) 0.0 TH/MM3 Basophils # (Auto) 0.0 TH/MM3 CBC Comment AUTO DIFF Differential Comment AUTO DIFF CONFIRMED Platelet Estimate LOW Platelet Morphology Comment ENLARGED Blood Urea Nitrogen 36 MG/DL Creatinine 0.98 MG/DL Random Glucose 137 MG/DL Total Protein 5.6 GM/DL Albumin 2.1 GM/DL Calcium Level 8.1 MG/DL Alkaline Phosphatase 67 U/L Aspartate Amino Transf (AST/SGOT) 83 U/L Alanine Aminotransferase (ALT/SGPT) 224 U/L Total Bilirubin 0.6 MG/DL Sodium Level 146 MEQ/L Potassium Level 3.8 MEQ/L Chloride Level 109 MEQ/L Carbon Dioxide Level 28.4 MEQ/L Anion Gap 9 MEQ/L Estimat Glomerular Filtration Rate 56 ML/MIN Imaging Last Impressions Chest X-Ray 07/01/17 0000 Signed Impressions: Service Date/Time: Saturday, July 01, 2017 11:54 - CONCLUSION: No significant interval change. Left-sided chest tube remains in place. Bilateral subcutaneous emphysema but no evidence of pneumothorax. Small right pleural effusion. Quinton Sandoval MD Liver Ultrasound 06/29/17 0000 Signed Impressions: Service Date/Time: June 16:37 - CONCLUSION: 1. Very limited exam due to extensive soft tissue emphysema. 2. Grossly normal sonographic appearance of the liver without evidence for biliary obstruction. Sung Crawford MD Abdomen X-Ray 06/28/17 0000 Signed Impressions: Service Date/Time: Wednesday, June 28, 2017 08:12 - CONCLUSION: 1. Nonspecific bowel gas pattern but no definite evidence of obstruction. 2. NG tube in the stomach. 3. Subcutaneous emphysema throughout the body wall. Cole Hays MD Chest Tube Insertion 06/27/17 0000 Signed Impressions: Service Date/Time: Tuesday, June 27, 2017 16:08 - CONCLUSION: Uncomplicated chest tube placement as above. Sung Crawford MD Chest CT 06/27/17 0000 Signed Impressions: Service Date/Time: Tuesday, June 27, 2017 13:40 - CONCLUSION: 1. There is a subcentimeter left apical pneumothorax and a small amount of extrapleural gas adjacent to the apex of the heart. 2. 1.8 cm spiculated mass in the medial left upper lung without air bronchograms suspicious for a contralateral metastatic recurrence of cancer. 3. Large right pleural effusion. 4. Extensive left-sided subcutaneous emphysema similar to prior chest x-ray and interval development of moderate subcutaneous emphysema about the right lateral chest wall. Mahin Boles MD Renal Ultrasound 06/26/17 Signed Impressions: Service Date/Time: Monday, June 26, 2017 11:51 - CONCLUSION: 1. Slightly increased renal cortical echogenicity which may reflect medical renal disease. 2. No evidence for obstructive uropathy. Sung Crawford MD Head CT 06/26/17 0000 Signed Impressions: Service Date/Time: Monday, June 26, 2017 13:35 - CONCLUSION: 1. No acute intracranial abnormality is identified. 2. Chronic findings include mild generalized atrophy and chronic periventricular white matter ischemic change. Abel Diaz MD Brain MRI 06/26/17 0000 Signed Impressions: Service Date/Time: Monday, June 26, 2017 20:21 - CONCLUSION: 1. No acute findings. Exam degraded by motion artifact. Kemal Luna MD Lung Biopsy CT 06/21/17 0000 Signed Impressions: Service Date/Time: Wednesday, June 21, 2017 09:39 - CONCLUSION: Successful CT guided biopsy with small post-biopsy pneumothorax. Damian Don MD Procedures 06/21-left pigtail chest tube placement 06/22-left 26 Liberian chest tube placement Objective Remarks GENERAL: Patient is 67 yo lying in bed in NAD SKIN: Warm and dry. HEAD: Normocephalic. EYES: No scleral icterus. No injection or drainage. NECK: Supple, trachea midline. No JVD or lymphadenopathy. CARDIOVASCULAR: Regular rate and rhythm without murmurs, gallops, or rubs. RESPIRATORY: Breath sounds equal bilaterally. GASTROINTESTINAL: Abdomen soft, non-tender, nondistended. MUSCULOSKELETAL: No cyanosis, or edema. Neuro: awake and alert Date of Insertion: Jun 22, 2017 A/P Problem List: (1) Pneumothorax ICD Code: J93.9 - Pneumothorax, unspecified Status: Acute (2) Small cell lung cancer ICD Code: C34.90 - Malignant neoplasm of unspecified part of unspecified bronchus or lung Status: Chronic (3) Hypercholesteremia ICD Code: E78.00 - Pure hypercholesterolemia, unspecified Status: Chronic (4) COPD (chronic obstructive pulmonary disease) ICD Code: J44.9 - Chronic obstructive pulmonary disease, unspecified Status: Acute Assessment and Plan 1)VDRF intubated 06/28, extubated 07/01 2)COPD exac 3)s/p Tension pneumothorax s/p CT guided lung biopsy 4)Lung cancer 5)Hypercholesteremia 6)JODY 7) Encephalopathy-metabolic versus ICU delirium 8)Hypernatremia 9)Anemia, thrombocytopenia 10) Lambert Eaton -diagnosed 2008 11) Elevated LFT's Plan Neuro: awake and alert, avoid sedatives, Monitor neuro status MRI brain and CT chest - no acute findings EEG: Diffuse slowing, no focal abnormalities, no seizure activity. Neuro is following- Dr. Shaw Pulm: Oxygen PRN keep sats >92% Bronchodilators ( Duoneb. Pulmicort) Solumederol 40mg Q12 s/p Emergent left pigtail chest tube placement 06/21 Replacement of left chest tube 28 Liberian on 40 cm H20 06/22 CT chest yesterday showed sub Q emphysema, subcentimeter left apical PTX, CT appeared in major fissure s/p new CT placement by IR 06/27, monitor CT drainage On Singular 10mg qhs Path results showed squamous cell ca 06/25 pulmonology is following- Dr. Wilkerson Legionella strep pneumo Ag negative CV: Monitor HR and BP keep MAP>65mmHg. echo showed EF 35-40% On Lopressor 50mg Q8, Lipitor held for elevated LFT's : Monitor renal function, electrolytes replacement as needed. Avoid nephrotoxins Renal US: No hydro, renal is following GI: Monitor LFT's, Hepatitis profile negative US Liver 06/29: No biliary obstruction Speech eval, diet per speech Bowel regimen with colace, Senna, Reglan. KUB abd: No obstruction, non specific bowel gas pattern ID: Monitor for signs of infections ( Fever, WBC) Continue Zosyn ,d/c vanco, follow up on sputum cx, and blood cultures- 06/28 NGTD Pneumonia and Legionella urinary Ag negative Heme: Monitor CBC, Lovenox held for thrombocytopenia, Hep PLT ab is negative heme-onc is following -patient diagnosed with Lambert Eaton in 2008 Endo: on SSI for glycemic control. TSH:0.74 Msk: Muscle weakness-progressive PT/OT evaluation and treat-patient has Lambert Eaton Daily functional maintenance DVT GI prophylaxis -Papito's and SCDs/ Lovenox on hold -Pepcid Consult palliative care is following Code status: Alternative code ( intubation only) Level 3 Problem Qualifiers (1) Pneumothorax: Qualified Codes: J95.811 - Postprocedural pneumothorax Carla Stahl MD July 02, 2017 08:29
[2017-07-02] MEDS: DOCUSATE SODIUM 100 MG/10 ML UDC PO SCH ×2 (09:00→20:58)
[2017-07-02] MEDS: SENNOSIDES SYRUP 8.8 MG/5 ML CUP PO SCH (09:00)
[2017-07-02] MEDS: FAMOTIDINE 20 MG TAB PO SCH ×2 (09:00→20:58)
[2017-07-02] MEDS: methylPREDNISolone SOD SUCC 40 MG/1 ML VIAL IV PUSH SCH (09:52)
[2017-07-02] MEDS: SODIUM CHLORIDE 0.9% FLUSH 10 ML FLUSH IV FLUSH SCH ×2 (09:55→20:59)
--- NOTE | 2017-07-02 12:48 | HHI.PR ---
Objective Vital Signs Date Time Temp Pulse Resp B/P (MAP) Pulse Ox O2 Delivery O2 Flow Rate FiO2 07/02/17 12:00 98.1 100 24 153/70 (97) 98 07/02/17 12:00 100 07/02/17 11:00 100 07/02/17 10:00 98 07/02/17 09:00 101 07/02/17 08:00 97 07/02/17 08:00 98.3 97 24 135/63 (87) 96 07/02/17 07:48 95 21 07/02/17 07:00 92 07/02/17 06:00 96 07/02/17 04:00 97 07/02/17 04:00 98.2 97 19 122/59 (80) 97 07/02/17 02:00 93 07/02/17 00:00 98.1 96 28 127/63 (84) 98 07/02/17 00:00 96 07/01/17 22:00 94 07/01/17 20:00 91 07/01/17 20:00 98.2 91 13 108/56 (73) 98 07/01/17 19:56 97 Nasal Cannula 3.00 07/01/17 18:00 139 07/01/17 17:00 127 07/01/17 16:00 98.7 132 21 108/68 (81) 98 07/01/17 16:00 132 07/01/17 15:00 91 07/01/17 14:00 94 07/01/17 13:19 98 Nasal Cannula 5.00 07/01/17 13:19 98 Nasal Cannula 5 07/01/17 13:00 95 I/O 07/01/17 07/01/17 07/01/17 07/02/17 07/02/17 07/02/17 07:00 15:00 23:00 07:00 15:00 23:00 Intake Total 536 ml 50 ml 963 ml 200 ml Output Total 700 ml 0 ml 1640 ml 500 ml Balance -164 ml 50 ml -677 ml -300 ml IV Total 50 ml 50 ml 715 ml 200 ml Tube Feeding 486 ml 128 ml Other 120 ml Output Urine Total 700 ml 1600 ml 500 ml Tube Feeding Residual Discard 0 ml Chest Tube Drainage Total 0 ml 40 ml 0 ml # Bowel Movements 1 3 1 Result Diagram: 07/02/17 0426 07/02/17425 Objective Remarks off vent moves all well speech clear Assessment and Plan Assessment and Plan imp mri eeg labs all nl dc precedex she should awaken fine going on vent now 06/30/17 will fu when off sedatives 07/02/17 looks well neurowise will sign ogToan Lares MD July 02, 2017 12:48
[2017-07-02] MEDS ORDERED: VANCOMYCIN INJ 1,750 MG in SODIUM CHLORID 0.9% 500 ML INJ 500 ML IV SCH (13:00)
--- NOTE | 2017-07-02 13:56 | EKG ---
Date Performed: 07/01/2017 Time Performed: 15:59:54 PTAGE: 67 years EKG: Atrial fibrillation with rapid ventricular response. Poor R wave progression - probable nor mal variant Inferior/lateral ST-T changes are nonspecific Abnormal ECG PREVIOUS TRACING : 06/21/2017 14.11 Since prior tracing, atrial fibrillation with rapid ventric ular reseponse has replaced Sinus rhythm . Lateral ST changs are new, consider ischemia. DOCTOR: Shashank Ledezma Interpretating Date/Time 07/02/2017 13:55:23
--- NOTE | 2017-07-02 16:34 | RADRPT ---
EXAM DATE/TIME: 07/02/2017 16:05 [facility] COMPARISON: CHEST SINGLE AP, July 01, 2017, 11:54. INDICATIONS : Post extubation. Cough. MEDICAL HISTORY : Carcinoma, lung. SURGICAL HISTORY : Tubal ligation. Cervical fusion. ENCOUNTER: Subsequent ACUITY: 1 week PAIN SCORE: 0/10 LOCATION: Bilateral chest FINDINGS: The left chest tube is again noted in good position. No pneumothorax is noted. Some subcutaneous emph ysema is noted within the left chest wall. A small right pleural effusion is stable. Perihilar streak iness is noted consistent with atelectasis and/or scarring. The heart is stable. The endotracheal tub e and nasogastric tube have been removed. CONCLUSION: No pneumothorax is noted. Right perihilar streakiness consistent with atelectasis and /or scarring. Stable small right pleural effusion. Damian Don MD on July 02, 2017 at 16:29 Board Certified Radiologist. This report was verified electronically.
[2017-07-02] MEDS: POLYETHYLENE GLYCOL 17 GM PKG PO SCH (20:57)
[2017-07-02] MEDS: MELATONIN 5 MG TAB PO PRN (20:58)
[2017-07-02] MEDS: MONTELUKAST SODIUM 10 MG TAB PO SCH (20:58)
[2017-07-03] VITALS (21 sets, daily range): BP systolic 127–163; BP diastolic 61–74; PULSE 80–109; RESP 18–27; TEMP 97.9–98.6; O2SAT 94–100
[2017-07-03] MEDS: INSULIN NovoLIN REGULAR SUPPLEMENTAL SCALE SQ SCH ×6 (02:00→20:46)
[2017-07-03] MEDS: ACETAMINOPHEN 1000 MG/100 ML 100 ML IV PRN ×2 (02:30→10:09)
[2017-07-03] MEDS: PIPERACIL-TAZO 3.375 GM PREMIX 50 ML IV SCH ×2 (05:15→15:38)
[2017-07-03] MEDS: METOPROLOL TARTRATE 5 MG/5 ML VIAL IV PUSH SCH ×2 (05:16→15:38)
[2017-07-03 06:56] LABS: AUTOMATED NEUTROPHIL # 14.5 TH/MM3 (1.8-7.7); BASOPHIL % 0.2 % (0.0-2.0); EOSINOPHIL # 0.3 TH/MM3 (0-0.4); EOSINOPHIL % 1.9 % (0.0-4.0); HEMATOCRIT 37.2 % (35.0-46.0); HEMOGLOBIN 12.3 GM/DL (11.6-15.3); LYMPH % 2.1 % (9.0-44.0); LYMPHOCYTE # 0.3 TH/MM3 (1.0-4.8); MEAN CELL VOLUME 88.7 FL (80.0-100.0); MEAN CORPUSCULAR HEMOGLOBIN 29.4 PG (27.0-34.0); MEAN CORPUSCULAR HGB CONC 33.1 % (32.0-36.0); MEAN PLATELET VOLUME 11.5 FL (7.0-11.0); MONO % 6.4 % (0.0-8.0); NEUT % 89.4 % (16.0-70.0); PLATELET COUNT 130 TH/MM3 (150-450); RED BLOOD COUNT 4.19 MIL/MM3 (4.00-5.30); RED CELL DISTRIBUTION WIDTH 14.5 % (11.6-17.2); WHITE BLOOD COUNT 16.2 TH/MM3 (4.0-11.0)
[2017-07-03 07:14] LABS: ALBUMIN 2.2 GM/DL (3.4-5.0); AST (GOT) 81 U/L (15-37); BICARBONATE 27.2 MEQ/L (21.0-32.0); BLOOD UREA NITROGEN 30 MG/DL (7-18); CALCIUM 8.1 MG/DL (8.5-10.1); CHLORIDE 107 MEQ/L (98-107); CREATININE 0.85 MG/DL (0.50-1.00); GLOMERULAR FILTRATION RATE 67 ML/MIN (>89); GLUCOSE,RANDOM 118 MG/DL (74-106); SODIUM (NA) 142 MEQ/L (136-145)
[2017-07-03 07:17] LABS: ALKALINE PHOSPHATASE 71 U/L (45-117); ALT (GPT) 215 U/L (10-53); TOTAL BILIRUBIN ADULT 0.6 MG/DL (0.2-1.0); TOTAL PROTEIN 5.9 GM/DL (6.4-8.2)
[2017-07-03] MEDS: METOCLOPRAMIDE HCL 10 MG/2 ML VIAL IV PUSH SCH ×2 (08:00→15:38)
[2017-07-03] MEDS: RESP: BUDESONIDE 0.25 MG/2 ML NEB NEB SCH ×2 (08:00→20:00)
[2017-07-03] MEDS: RESP: ALBUTEROL 2.5 MG/IPRATROPIUM 0.5 MG NEB (SCH) NEB ×2 (08:00→20:00)
[2017-07-03] MEDS: SENNOSIDES SYRUP 8.8 MG/5 ML CUP PO SCH (09:00)
[2017-07-03] MEDS: DOCUSATE SODIUM 100 MG/10 ML UDC PO SCH ×2 (09:00→20:47)
[2017-07-03] MEDS: FAMOTIDINE 20 MG TAB PO SCH ×2 (10:08→20:45)
[2017-07-03] MEDS: methylPREDNISolone SOD SUCC 40 MG/1 ML VIAL IV PUSH SCH (10:08)
[2017-07-03] MEDS: SODIUM CHLORIDE 0.9% FLUSH 10 ML FLUSH IV FLUSH SCH ×2 (10:09→20:47)
--- NOTE | 2017-07-03 13:11 | HHI.HCPN ---
Reason for visit a. To assist with evaluation and management of symptoms including: dyspnea, agitation b. To assist medical decision maker(s) with: better understanding of current medical conditions; weighing benefits/burdens of medical treatment options; making medical treatment decisions. . Subjective/Interval History Patient seen today to follow-up on dyspnea , as well as review treatment goals with family/decision-makers. remains in ICU, s/p medical extubation 07/01. Tolerating Room air. critical care has signed off to hospitalist. ST following, pt cleared initially for mech soft w thin liquids, eval again today, ok for regular however pt reports easier to take soft food. +Having bowel movements. WBC up slightly 162. BUN 30, creatinine 0.85. AST , ALT still elevated, though down from initial. AST 81, ALT 215. Pt seen in room, son Fernando at bedside. She is alert, mostly oriented. Forgetful, limited insight into hospital course during ventilator period. Endorses feeling ok today except for pain at chest tube site with movement. Denies shortness of breath. No GI complaints, had a bowel movement just before my visit. No nausea taking in adequate oral since extubation, tells me that she prefers the pure/soft foods because of her chronic esophageal stricture it is easier to eat these foods. She is looking forward to working with physical therapy, occupational therapy to continue improving her strength to get out of the hospital. She requests physical therapy and occupational therapy to assist with rehabilitation. Review with patient and son recent diagnostics, current assessment, clinically stable and possible transfer out of the ICU in the coming days. Gently explored with them reintubation status, patient indicates in the past she has elected DNR, advised that she still may remain at risk for respiratory complications and she and the family will be discussing further reintubation status versus full DNR and no reintubation. They are also going to be discussing further advanced directives and possible healthcare surrogate designation. Son indicates to me ( aside ) that patient has NOT spoken with oncologist yet regarding pathology findings,as she has been on the ventilator during pathology resulted. Family has not discussed with patient pathology findings. I will update oncology, who saw patient on 06/29. --*later d/w Dr Cao, request oncology f/up w pt + family ,she will follow. . Advance Directives Living Will: Never completed Health Care Surrogate: Never completed Durable Power of Machine Operator Slitter Technician: Never completed Advance Directive Specifics Documented care wishes: No documented care wishes have been completed. . Objective Vital Signs Date Time Temp Pulse Resp B/P (MAP) Pulse Ox O2 Delivery O2 Flow Rate FiO2 07/03/17 12:00 98 07/03/17 12:00 98.1 98 22 132/64 (86) 98 07/03/17 11:00 97 07/03/17 10:52 99 07/03/17 10:00 101 07/03/17 09:00 97 07/03/17 08:00 98.3 96 27 133/66 (88) 100 07/03/17 08:00 96 07/03/17 07:00 89 07/03/17 06:00 80 07/03/17 04:00 86 07/03/17 04:00 98.2 86 22 163/74 (103) 99 07/03/17 02:00 89 07/03/17 00:00 80 07/03/17 00:00 97.9 80 18 127/61 (83) 96 07/02/17 22:00 92 07/02/17 20:00 94 07/02/17 20:00 98.2 94 25 139/65 (89) 98 07/02/17 19:58 98 21 07/02/17 18:00 100 07/02/17 17:00 96 07/02/17 16:00 98.5 97 39 147/64 (91) 96 07/02/17 16:00 97 07/02/17 15:00 96 07/02/17 14:00 93 Intake & Output 07/03/17 07/03/17 07:00 19:00 Intake Total 370 ml Output Total 610 ml Balance -240 ml Intake Oral 120 ml IV Total 250 ml Output Urine Total 600 ml Chest Tube Drainage Total 10 ml # Bowel Movements 5 Physical Exam CONSTITUTIONAL/GENERAL: This is an adequately nourished patient, alert, pleasant mostly oriented on room TUBES/LINES/DRAINS: PIV upper extremity, left lateral chest tube, Webb catheter SKIN: No jaundice, rashes, or lesions. Left chest tube dressing clean and dry. No wounds seen anteriorly. Skin temperature appropriate. Not diaphoretic. CARDIOVASCULAR: Regular rate and rhythm without murmur. No JVD. Peripheral pulses symmetric. Trace peripheral edema. RESPIRATORY/CHEST: Medically extubated. Tolerating room air. Respirations even , unlabored. Breath sounds clear, diminished bilaterally. GASTROINTESTINAL: Abdomen soft, no tenderness, nondistended. No guarding. Bowel sounds normoactive. Eating soft diet during my exam GENITOURINARY: Without palpable bladder distension. Webb catheter in place draining dark yellow urine. MUSCULOSKELETAL: Extremities without clubbing, cyanosis. Trace peripheral edema. No mottling or clubbing. NEUROLOGICAL: Alert and mostly oriented to person, place, hospital, month. Some confusion to date and details of hospitalization. Limited insight during clinical course while on ventilator. Moving all 4 extremities with generalized weakness. PSYCHIATRIC: No evident anxiety or depression . . Diagnostic Tests Laboratory Laboratory Tests Test 07/01/17 04:18 07/01/17 13:00 07/01/17 14:30 07/02/17 04:26 White Blood Count 11.2 TH/MM3 (4.0-11.0) 12.0 TH/MM3 (4.0-11.0) Red Blood Count 3.57 MIL/MM3 (4.00-5.30) 3.87 MIL/MM3 (4.00-5.30) Hemoglobin 10.5 GM/DL (11.6-15.3) 11.4 GM/DL (11.6-15.3) Hematocrit 31.9 % (35.0-46.0) 35.0 % (35.0-46.0) Mean Corpuscular Volume 89.3 FL (80.0-100.0) 90.4 FL (80.0-100.0) Mean Corpuscular Hemoglobin 29.5 PG (27.0-34.0) 29.4 PG (27.0-34.0) Mean Corpuscular Hemoglobin Concent 33.0 % (32.0-36.0) 32.5 % (32.0-36.0) Red Cell Distribution Width 14.9 % (11.6-17.2) 14.7 % (11.6-17.2) Platelet Count 90 TH/MM3 (150-450) 94 TH/MM3 (150-450) Mean Platelet Volume 11.2 FL (7.0-11.0) 11.3 FL (7.0-11.0) Neutrophils (%) (Auto) 92.5 % (16.0-70.0) 93.4 % (16.0-70.0) Lymphocytes (%) (Auto) 1.3 % (9.0-44.0) 1.3 % (9.0-44.0) Monocytes (%) (Auto) 6.1 % (0.0-8.0) 5.0 % (0.0-8.0) Eosinophils (%) (Auto) 0.0 % (0.0-4.0) 0.0 % (0.0-4.0) Basophils (%) (Auto) 0.1 % (0.0-2.0) 0.3 % (0.0-2.0) Neutrophils # (Auto) 10.4 TH/MM3 (1.8-7.7) 11.2 TH/MM3 (1.8-7.7) Lymphocytes # (Auto) 0.1 TH/MM3 (1.0-4.8) 0.2 TH/MM3 (1.0-4.8) Monocytes # (Auto) 0.7 TH/MM3 (0-0.9) 0.6 TH/MM3 (0-0.9) Eosinophils # (Auto) 0.0 TH/MM3 (0-0.4) 0.0 TH/MM3 (0-0.4) Basophils # (Auto) 0.0 TH/MM3 (0-0.2) 0.0 TH/MM3 (0-0.2) CBC Comment AUTO DIFF AUTO DIFF Differential Comment AUTO DIFF CONFIRMED AUTO DIFF CONFIRMED Platelet Estimate LOW (NORMAL) LOW (NORMAL) Platelet Morphology Comment ENLARGED (NORMAL) ENLARGED (NORMAL) Red Cell Morphology Comment NORMAL (NORMAL) Blood Urea Nitrogen 41 MG/DL (7-18) 36 MG/DL (7-18) Creatinine 1.15 MG/DL (0.50-1.00) 0.98 MG/DL (0.50-1.00) Random Glucose 188 MG/DL (74-106) 137 MG/DL (74-106) Total Protein 4.9 GM/DL (6.4-8.2) 5.6 GM/DL (6.4-8.2) Albumin 2.0 GM/DL (3.4-5.0) 2.1 GM/DL (3.4-5.0) Calcium Level 7.3 MG/DL (8.5-10.1) 8.1 MG/DL (8.5-10.1) Phosphorus Level 3.7 MG/DL (2.5-4.9) Magnesium Level 2.4 MG/DL (1.5-2.5) Alkaline Phosphatase 70 U/L (45-117) 67 U/L (45-117) Aspartate Amino Transf (AST/SGOT) 45 U/L (15-37) 83 U/L (15-37) Alanine Aminotransferase (ALT/SGPT) 234 U/L (10-53) 224 U/L (10-53) Total Bilirubin 0.4 MG/DL (0.2-1.0) 0.6 MG/DL (0.2-1.0) Sodium Level 142 MEQ/L (136-145) 146 MEQ/L (136-145) Potassium Level 3.9 MEQ/L (3.5-5.1) 3.8 MEQ/L (3.5-5.1) Chloride Level 104 MEQ/L (98-107) 109 MEQ/L (98-107) Carbon Dioxide Level 28.5 MEQ/L (21.0-32.0) 28.4 MEQ/L (21.0-32.0) Anion Gap 10 MEQ/L (5-15) 9 MEQ/L (5-15) Estimat Glomerular Filtration Rate 47 ML/MIN (>89) 56 ML/MIN (>89) Protein Corrected Calcium 8.5 MG/DL (8.5-10.1) Blood Gas Puncture Site RT RADIAL Blood Gas Patient Temperature 98.6 Blood Gas HCO3 30 mmol/L (22-26) Blood Gas Base Excess 6.3 mmol/L (-2-2) Blood Gas Oxygen Saturation 95 % (90-100) Arterial Blood pH 7.51 (7.380-7.420) Arterial Blood Partial Pressure CO2 38 mmHg (38-42) Arterial Blood Partial Pressure O2 89 mmHg (61-120) Arterial Blood Oxygen Content 17.0 Vol % (12.0-20.0) Arterial Blood Carboxyhemoglobin 0.9 % (0-4) Arterial Blood Methemoglobin 1.4 % (0-2) Blood Gas Hemoglobin 12.7 G/DL (12.0-16.0) Oxygen Delivery Device VENTILATOR Blood Gas Ventilator Setting CPAP,PEEP5,PS10 Blood Gas Inspired Oxygen 35 % Vancomycin Level Trough 12.5 MCG/ML (5.0-10.0) Test 07/03/17 06:35 White Blood Count 16.2 TH/MM3 (4.0-11.0) Red Blood Count 4.19 MIL/MM3 (4.00-5.30) Hemoglobin 12.3 GM/DL (11.6-15.3) Hematocrit 37.2 % (35.0-46.0) Mean Corpuscular Volume 88.7 FL (80.0-100.0) Mean Corpuscular Hemoglobin 29.4 PG (27.0-34.0) Mean Corpuscular Hemoglobin Concent 33.1 % (32.0-36.0) Red Cell Distribution Width 14.5 % (11.6-17.2) Platelet Count 130 TH/MM3 (150-450) Mean Platelet Volume 11.5 FL (7.0-11.0) Neutrophils (%) (Auto) 89.4 % (16.0-70.0) Lymphocytes (%) (Auto) 2.1 % (9.0-44.0) Monocytes (%) (Auto) 6.4 % (0.0-8.0) Eosinophils (%) (Auto) 1.9 % (0.0-4.0) Basophils (%) (Auto) 0.2 % (0.0-2.0) Neutrophils # (Auto) 14.5 TH/MM3 (1.8-7.7) Lymphocytes # (Auto) 0.3 TH/MM3 (1.0-4.8) Monocytes # (Auto) 1.0 TH/MM3 (0-0.9) Eosinophils # (Auto) 0.3 TH/MM3 (0-0.4) Basophils # (Auto) 0.0 TH/MM3 (0-0.2) CBC Comment DIFF FINAL Differential Comment Blood Urea Nitrogen 30 MG/DL (7-18) Creatinine 0.85 MG/DL (0.50-1.00) Random Glucose 118 MG/DL (74-106) Total Protein 5.9 GM/DL (6.4-8.2) Albumin 2.2 GM/DL (3.4-5.0) Calcium Level 8.1 MG/DL (8.5-10.1) Alkaline Phosphatase 71 U/L (45-117) Aspartate Amino Transf (AST/SGOT) 81 U/L (15-37) Alanine Aminotransferase (ALT/SGPT) 215 U/L (10-53) Total Bilirubin 0.6 MG/DL (0.2-1.0) Sodium Level 142 MEQ/L (136-145) Potassium Level 3.4 MEQ/L (3.5-5.1) Chloride Level 107 MEQ/L (98-107) Carbon Dioxide Level 27.2 MEQ/L (21.0-32.0) Anion Gap 8 MEQ/L (5-15) Estimat Glomerular Filtration Rate 67 ML/MIN (>89) Result Diagram: 07/03/17 0635 07/03/17 0635 Imaging Last Impressions Chest X-Ray 07/02/17 0000 Signed Impressions: Service Date/Time: Sunday, July 02, 2017 16:05 - CONCLUSION: No pneumothorax is noted. Right perihilar streakiness consistent with atelectasis and/or scarring. Stable small right pleural effusion. Damian Don MD Liver Ultrasound 06/29/17 0000 Signed Impressions: Service Date/Time: June 16:37 - CONCLUSION: 1. Very limited exam due to extensive soft tissue emphysema. 2. Grossly normal sonographic appearance of the liver without evidence for biliary obstruction. Sung Crawford MD Abdomen X-Ray 06/28/17 0000 Signed Impressions: Service Date/Time: Wednesday, June 28, 2017 08:12 - CONCLUSION: 1. Nonspecific bowel gas pattern but no definite evidence of obstruction. 2. NG tube in the stomach. 3. Subcutaneous emphysema throughout the body wall. Cole Hays MD Chest Tube Insertion 06/27/17 0000 Signed Impressions: Service Date/Time: Tuesday, June 27, 2017 16:08 - CONCLUSION: Uncomplicated chest tube placement as above. Sung Crawford MD Chest CT 06/27/17 0000 Signed Impressions: Service Date/Time: Tuesday, June 27, 2017 13:40 - CONCLUSION: 1. There is a subcentimeter left apical pneumothorax and a small amount of extrapleural gas adjacent to the apex of the heart. 2. 1.8 cm spiculated mass in the medial left upper lung without air bronchograms suspicious for a contralateral metastatic recurrence of cancer. 3. Large right pleural effusion. 4. Extensive left-sided subcutaneous emphysema similar to prior chest x-ray and interval development of moderate subcutaneous emphysema about the right lateral chest wall. Mahin Boles MD Renal Ultrasound 06/26/17 0000 Signed Impressions: Service Date/Time: Monday, June 26, 2017 11:51 - CONCLUSION: 1. Slightly increased renal cortical echogenicity which may reflect medical renal disease. 2. No evidence for obstructive uropathy. Sung Crawford MD Head CT 06/26/17 0000 Signed Impressions: Service Date/Time: Monday, June 26, 2017 13:35 - CONCLUSION: 1. No acute intracranial abnormality is identified. 2. Chronic findings include mild generalized atrophy and chronic periventricular white matter ischemic change. Abel Diaz MD Brain MRI 06/26/17 0000 Signed Impressions: Service Date/Time: Monday, June 26, 2017 20:21 - CONCLUSION: 1. No acute findings. Exam degraded by motion artifact. Kemal Luna MD Lung Biopsy CT 06/21/17 0000 Signed Impressions: Service Date/Time: Wednesday, June 21, 2017 09:39 - CONCLUSION: Successful CT guided biopsy with small post-biopsy pneumothorax. Damian Don MD Procedures 06/21/2017: Left-sided chest tube placement 06/22/2017: Left-sided chest tube replaced 06/27/2017: Left-sided chest tube replaced . Assessment and Plan Disease Oriented Problem List: (1) Pneumothorax (2) Small cell lung cancer (3) COPD (chronic obstructive pulmonary disease) (4) Hypercholesteremia (5) Pneumothorax (6) Acute renal failure Symptom Scale: (1) Dyspnea 0-10 Scale: Unable to quantify (2) Agitation 0-10 Scale: Unable to quantify (3) Weakness Pertinent Non-Medical Issues Psychosocial: Patient is originally from [place]. She stated her when she was 18 years old but later to someone else. She and her first had 2 sons (Prieto and Fernando). Prieto lives in [place]; Fernando is a nurse and lives in [place]. The patient has been to her current , Leoncio, for approximately 12 years. Spiritual: Yarsanism aidan Legal: Per [place] statutes, in the absence of written advanced directives healthcare proxy decision making would fall to the patient's . However, patient's and 2 children have decided to make decisions together. Ethical issues impacting care: No known ethical issues impacting care at this time. . Important Contacts Leoncio Arzola, spouse: [phone] Fernando, son: [phone] Prieto: son: [phone] . Prognosis Patient is a 67 yo old female with metastatic squamous cell carcinoma of the lung status post lung biopsy with subsequent pneumothorax and chest tube placement; now intubated secondary to worsening respiratory failure and agitation. If the patient survives this hospitalization, she will be high risk for ongoing complications and further decline. . Code Status: Alternative Code Plan * ALTERNATE CODE-intubation only * Decision making: Per [place] statutes, in the absence of written advanced directives healthcare proxy decision making would fall to the patient's . Patient's has appears to have limited insight related to his 's medical conditions, and the patient's and 2 children have decided to make decisions together. 07/03 patient extubated, alert mostly oriented able to participate in decision-making. Palliative will provide with healthcare surrogate, advanced directive documents, she may elect to complete healthcare surrogate designation. * Per initial palliative conversations with family: Family understands patient is critically ill; they support decision to intubate for a short time but they would not consent to tracheostomy if the patient is unable to wean off mechanical ventilation. Hospice was introduced. Family wants to give the patient time to improve but state they are open to transitioning to comfort measures when appropriate. 06/30/17 follow-up family remains hopeful patient may continue improvement enough to pursue cancer treatment. They remain open to ongoing conversations as clinical course evolves. They are open to revisiting CODE STATUS/intubation status if patient is able to medically extubate in the coming days . 07/03/17-patient extubated, alert and mostly oriented. Able to participate in decision-making. Patient and family going to discuss further reintubation status as well as goals going forward. Patient has not discussed pathology findings with oncology yet, family has not discussed with her either, may request oncology follow-up; I will notify oncology of patient's ability to participate at this time. * Symptom management: == Dyspnea: Patient with a known history of small cell lung cancer status post concurrent chemoradiation therapy with prophylactic whole brain radiation 2008. Patient had a lung biopsy on 06/21/2017 for a suspicious lesion on her chest which was complicated by a pneumothorax and subsequent chest tube placement- pathology significant for invasive poorly differentiated squamous cell carcinoma. CT chest yesterday 06/27/2017 showed subQ emphysema and bilateral airspace disease; chest tube was in major fissure and new left sided CT was placed by IR. Patient intubated 06/28/2017 secondary to worsening respiratory status and agitation. Medically extubated 07/01. Now tolerating room air. Chest tube remains in place. == Agitation: Multifactoral. Patient having altered mental status and agitation concerning for ICU delirium versus metabolic encephalopathy versus hypoxemia. Received Haldol 1 mg IV 1 dose. Patient was placed on Precedex drip for agitation. This is been discontinued patient now on propofol appears comfortable today. Ammonia level of 37; MRI of the brain and CT of the head showed no acute findings; EEG showed diffuse slowing, no focal abnormalities, no seizure activity. Neurology was following the patient condition has stabilized, improved ; neurology has signed off. Patient today alert, calm, cooperative and mostly oriented. == Weakness/deconditioning: Patient now extubated. PT, OT consulted to assist with strengthening, reconditioning * Palliative care will continue to follow this patient throughout her hospitalization to build rapport, assist with symptom management and goal clarification. . Time Spent Total Floor Time (mins): 25 (Chart review, physical exam, discussion with family at bedside, discussion with primary nurse) Attestation To help prompt me to consider important information that might be impacting today's encounter and assessment, information from prior notes written by myself or my colleagues may have been "brought forward" into today's note. My signature on this note, however, is an attestation that I personally performed the exam, history, and/or decision-making noted today, and, unless otherwise indicated, the interactions with patient, family, and staff as well as the review of records all occurred today. I also attest that the listed assessment and stated plan reflect my best clinical judgment today based on the combination of historical information, prior notes, and today's exam/ interactions. When time spent is documented, it refers only to time spent today by the signer, or if indicated, combined time spent today by collaborating physician/nurse practitioner. Constanza Saunders July 03, 2017 13:11
--- NOTE | 2017-07-03 17:34 | HHI.PR ---
Subjective Remarks No new complaints. Pt is tolerating PO intake. No n/v/d. Objective Vitals Vital Signs Date Time Temp Pulse Resp B/P (MAP) Pulse Ox O2 Delivery O2 Flow Rate FiO2 07/03/17 16:00 99 07/03/17 16:00 98.1 99 27 143/69 (93) 95 07/03/17 15:00 96 07/03/17 14:00 102 07/03/17 13:00 100 07/03/17 12:00 98 07/03/17 12:00 98.1 98 22 132/64 (86) 98 07/03/17 11:00 97 07/03/17 10:52 99 07/03/17 10:00 101 07/03/17 09:00 97 07/03/17 08:00 98.3 96 27 133/66 (88) 100 07/03/17 08:00 96 07/03/17 07:00 89 07/03/17 06:00 80 07/03/17 04:00 86 07/03/17 04:00 98.2 86 22 163/74 (103) 99 07/03/17 02:00 89 07/03/17 00:00 80 07/03/17 00:00 97.9 80 18 127/61 (83) 96 07/02/17 22:00 92 07/02/17 20:00 94 07/02/17 20:00 98.2 94 25 139/65 (89) 98 07/02/17 19:58 98 21 07/02/17 18:00 100 Result Diagram: 07/03/17 0635 07/03/17 0635 Imaging Last Impressions Chest X-Ray 07/02/17 0000 Signed Impressions: Service Date/Time: Sunday, July 02, 2017 16:05 - CONCLUSION: No pneumothorax is noted. Right perihilar streakiness consistent with atelectasis and/or scarring. Stable small right pleural effusion. Damian Don MD Liver Ultrasound 06/29/17 0000 Signed Impressions: Service Date/Time: June 16:37 - CONCLUSION: 1. Very limited exam due to extensive soft tissue emphysema. 2. Grossly normal sonographic appearance of the liver without evidence for biliary obstruction. Sung Crawford MD Abdomen X-Ray 5/2/18 0000 Signed Impressions: Service Date/Time: Wednesday, June 28, 2017 08:12 - CONCLUSION: 1. Nonspecific bowel gas pattern but no definite evidence of obstruction. 2. NG tube in the stomach. 3. Subcutaneous emphysema throughout the body wall. Cole Hays MD Chest Tube Insertion 06/27/17 0000 Signed Impressions: Service Date/Time: Tuesday, June 27, 2017 16:08 - CONCLUSION: Uncomplicated chest tube placement as above. Sung Crawford MD Chest CT 06/27/17 0000 Signed Impressions: Service Date/Time: Tuesday, June 27, 2017 13:40 - CONCLUSION: 1. There is a subcentimeter left apical pneumothorax and a small amount of extrapleural gas adjacent to the apex of the heart. 2. 1.8 cm spiculated mass in the medial left upper lung without air bronchograms suspicious for a contralateral metastatic recurrence of cancer. 3. Large right pleural effusion. 4. Extensive left-sided subcutaneous emphysema similar to prior chest x-ray and interval development of moderate subcutaneous emphysema about the right lateral chest wall. Mahin Boles MD Renal Ultrasound 06/26/17 0000 Signed Impressions: Service Date/Time: Monday, June 26, 2017 11:51 - CONCLUSION: 1. Slightly increased renal cortical echogenicity which may reflect medical renal disease. 2. No evidence for obstructive uropathy. Sung Crawford MD Head CT 06/26/17 0000 Signed Impressions: Service Date/Time: Monday, June 26, 2017 13:35 - CONCLUSION: 1. No acute intracranial abnormality is identified. 2. Chronic findings include mild generalized atrophy and chronic periventricular white matter ischemic change. Abel Diaz MD Brain MRI 06/26/17 0000 Signed Impressions: Service Date/Time: Monday, June 26, 2017 20:21 - CONCLUSION: 1. No acute findings. Exam degraded by motion artifact. Kemal Luna MD Lung Biopsy CT 06/21/17 0000 Signed Impressions: Service Date/Time: Wednesday, June 21, 2017 09:39 - CONCLUSION: Successful CT guided biopsy with small post-biopsy pneumothorax. Damian Don MD Objective Remarks GENERAL: This is a well-nourished, well-developed patient, in no apparent distress. CARDIOVASCULAR: Regular rate and rhythm without murmurs, gallops, or rubs. RESPIRATORY: Clear to auscultation. Breath sounds equal bilaterally. No wheezes , rales, or rhonchi. GASTROINTESTINAL: Abdomen soft, non-tender, nondistended. Normal active bowel sounds MUSCULOSKELETAL: Extremities without clubbing, cyanosis, or edema. NEURO: Alert & Oriented x4 to person, place, time, situation. 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 - Pt underwent CT guided lung Biopsy - Pt developed Pneumothorax - CT with air leak, pt has pulled out several prior chest tubes - pathology from lung BX --> showed squamous cell CA - Pt now extubated and cognizant - awaiting Oncology consultation - Case d/w Dr. Wilkerson (07/03/17). He will reevaluate in the AM - DVT prophylaxis - supportive care (2) Small cell lung cancer ICD Codes: C34.90 - Malignant neoplasm of unspecified part of unspecified bronchus or lung Status: Chronic Plan: see above (3) COPD (chronic obstructive pulmonary disease) ICD Codes: J44.9 - Chronic obstructive pulmonary disease, unspecified Status: Acute Plan: - solumedrol, singulair - duonebs (4) Atrial fibrillation ICD Codes: I48.91 - Unspecified atrial fibrillation Status: Acute Plan: - change metoprolol back to PO - continue to observe on telemetry Problem Qualifiers (1) Pneumothorax: Qualified Codes: J95.811 - Postprocedural pneumothorax (2) Atrial fibrillation: Qualified Codes: I48.91 - Unspecified atrial fibrillation Elvis Carter DO July 03, 2017 17:34
--- NOTE | 2017-07-03 19:57 | HHI.PR ---
Subjective Remarks Tolerates CPAP68 YOWF with AMS,Resp Failure,SSLC Has Left PTX Weekend events noted Extubated Weaned to RA Tolerates PO Chest tube with small airleak. Objective Vital Signs Vital Signs Date Time Temp Pulse Resp B/P (MAP) Pulse Ox O2 Delivery O2 Flow Rate FiO2 07/03/17 18:00 99 07/03/17 17:00 109 07/03/17 16:00 99 07/03/17 16:00 98.1 99 27 143/69 (93) 95 07/03/17 15:00 96 07/03/17 14:00 102 07/03/17 13:00 100 07/03/17 12:00 98 07/03/17 12:00 98.1 98 22 132/64 (86) 98 07/03/17 11:00 97 07/03/17 10:52 99 07/03/17 10:00 101 07/03/17 09:00 97 07/03/17 08:00 98.3 96 27 133/66 (88) 100 07/03/17 08:00 96 07/03/17 07:00 89 07/03/17 06:00 80 07/03/17 04:00 86 07/03/17 04:00 98.2 86 22 163/74 (103) 99 07/03/17 02:00 89 07/03/17 00:00 80 07/03/17 00:00 97.9 80 18 127/61 (83) 96 07/02/17 22:00 92 07/02/17 20:00 94 07/02/17 20:00 98.2 94 25 139/65 (89) 98 07/02/17 19:58 98 21 I/O 07/02/17 07/02/17 07/02/17 07/03/17 07/03/17 07/03/17 07:00 15:00 23:00 07:00 15:00 23:00 Intake Total 200 ml 150 ml 700 ml 270 ml 100 ml 1250 ml Output Total 500 ml 930 ml 610 ml 1390 ml Balance -300 ml 150 ml -230 ml -340 ml 100 ml -140 ml Intake Oral 600 ml 120 ml 1200 ml IV Total 200 ml 150 ml 100 ml 150 ml 100 ml 50 ml Output Urine Total 500 ml 900 ml 600 ml 1350 ml Chest Tube Drainage Total 0 ml 30 ml 10 ml 40 ml # Bowel Movements 1 6 5 3 Result Diagram: 07/03/17 0635 07/03/1735 Objective Remarks GENERAL: Elderly female, NAD SKIN: Warm and dry. HEAD: Normocephalic. EYES: No scleral icterus. No injection or drainage. NECK: Supple, trachea midline. No JVD or lymphadenopathy. CARDIOVASCULAR: Regular rate and rhythm without murmurs, gallops, or rubs. RESPIRATORY: Breath sounds equal bilaterally. No accessory muscle use. left chest tube to suction GASTROINTESTINAL: Abdomen soft, non-tender, nondistended. MUSCULOSKELETAL: No cyanosis, or edema. BACK: Nontender without obvious deformity. No CVA tenderness. A/P Assessment and Plan IMPRESSION: 1. Left pneumothorax after lung biopsy. She has large-bore chest tube, Small air leak. 2. Worsening left lung infiltrate. 3. Small pleural effusion. 4. H/O small cell carcinoma of the lung, status post chemotherapy and radiation treatment. 5. New cancer in the left lung. 6. History of nicotine. 7. History of chronic obstructive pulmonary disease. 8. VDRF, s/p extubation PLAN: Chest tube to suction Cont Abx Precedex for sedation. [facility]ZZ[facility] RN and RT Lakhwinder Wilkerson MD July 03, 2017 19:57
[2017-07-03] MEDS: ACETAMINOPHEN 325 MG TAB PO PRN (20:45)
[2017-07-03] MEDS: MONTELUKAST SODIUM 10 MG TAB PO SCH (20:46)
[2017-07-03] MEDS: MELATONIN 5 MG TAB PO PRN (20:46)
[2017-07-03] MEDS: METOPROLOL TARTRATE 50 MG TAB PO SCH (20:46)
[2017-07-03] MEDS: POLYETHYLENE GLYCOL 17 GM PKG PO SCH (20:48)
[2017-07-04] VITALS (28 sets, daily range): BP systolic 115–141; BP diastolic 57–69; PULSE 86–100; RESP 18–21; TEMP 97.7–98.7; O2SAT 93–96
--- NOTE | 2017-07-04 00:06 | PD.ONC.PN ---
Subjective Subjective Remarks Patient seen at bedside at approximately 9 pm. She is resting comfortably in bed, answers questions appropriately. Objective Data Date Time Temp Pulse Resp B/P (MAP) Pulse Ox O2 Delivery O2 Flow Rate FiO2 07/03/17 22:00 99 07/03/17 20:00 104 07/03/17 20:00 98.6 104 26 143/71 (95) 97 07/03/17 18:00 99 07/03/17 17:00 109 07/03/17 16:00 99 07/03/17 16:00 98.1 99 27 143/69 (93) 95 07/03/17 15:00 96 07/03/17 14:00 102 07/03/17 13:00 100 07/03/17 12:00 98 07/03/17 12:00 98.1 98 22 132/64 (86) 98 07/03/17 11:00 97 07/03/17 10:52 99 07/03/17 10:00 101 07/03/17 09:00 97 07/03/17 08:00 98.3 96 27 133/66 (88) 100 07/03/17 08:00 96 07/03/17 07:00 89 07/03/17 06:00 80 07/03/17 04:00 86 07/03/17 04:00 98.2 86 22 163/74 (103) 99 07/03/17 02:00 89 07/04/17 07/04/17 07/04/17 07:00 15:00 23:00 Output Total 100 ml Balance -100 ml Result Diagram: 07/03/17 0635 07/03/17 0635 Laboratory Results Laboratory Tests Test 07/03/17 06:35 White Blood Count 16.2 TH/MM3 Red Blood Count 4.19 MIL/MM3 Hemoglobin 12.3 GM/DL Hematocrit 37.2 % Mean Corpuscular Volume 88.7 FL Mean Corpuscular Hemoglobin 29.4 PG Mean Corpuscular Hemoglobin Concent 33.1 % Red Cell Distribution Width 14.5 % Platelet Count 130 TH/MM3 Mean Platelet Volume 11.5 FL Neutrophils (%) (Auto) 89.4 % Lymphocytes (%) (Auto) 2.1 % Monocytes (%) (Auto) 6.4 % Eosinophils (%) (Auto) 1.9 % Basophils (%) (Auto) 0.2 % Neutrophils # (Auto) 14.5 TH/MM3 Lymphocytes # (Auto) 0.3 TH/MM3 Monocytes # (Auto) 1.0 TH/MM3 Eosinophils # (Auto) 0.3 TH/MM3 Basophils # (Auto) 0.0 TH/MM3 CBC Comment DIFF FINAL Differential Comment Blood Urea Nitrogen 30 MG/DL Creatinine 0.85 MG/DL Random Glucose 118 MG/DL Total Protein 5.9 GM/DL Albumin 2.2 GM/DL Calcium Level 8.1 MG/DL Alkaline Phosphatase 71 U/L Aspartate Amino Transf (AST/SGOT) 81 U/L Alanine Aminotransferase (ALT/SGPT) 215 U/L Total Bilirubin 0.6 MG/DL Sodium Level 142 MEQ/L Potassium Level 3.4 MEQ/L Chloride Level 107 MEQ/L Carbon Dioxide Level 27.2 MEQ/L Anion Gap 8 MEQ/L Estimat Glomerular Filtration Rate 67 ML/MIN Administered Medications Medications (Trade) Dose Ordered Sig/Leeann Route PRN Reason Start Time Stop Time Status Last Admin Dose Admin Sodium Chloride (NS Flush) 2 ml BID IV FLUSH 06/21/17 21:00 07/03/17 20:47 Acetaminophen (Tylenol) 650 mg Q4H PRN PO TEMP > 100.4 06/21/17 14:00 07/03/17 20:45 Ondansetron HCl (Zofran Inj) 4 mg Q6H PRN IVP NAUSEA OR VOMITING 06/21/17 14:00 06/22/17 21:07 Atorvastatin Calcium (Lipitor) 40 mg HS PO 06/21/17 21:00 Future Hold 06/29/17 20:52 Montelukast Sodium (Singulair) 10 mg HS PO 06/21/17 21:00 07/03/17 20:46 Polyethylene Glycol (Miralax) 17 gm HS PO 06/21/17 21:00 07/03/17 20:48 Menthol ([place] Melvina) 1 lozenge UNSCH PRN BUCCAL DRY MOUTH/SORE THROAT 06/21/17 18:15 07/03/17 05:17 Guaifenesin (Mucinex Er) 600 mg Q12H PRN PO COUGH 06/22/17 00:15 06/22/17 00:39 Budesonide (Pulmicort Respule Neb) 0.25 mg Q12HR NEB NEB 06/23/17 13:00 5/6/18 19:57 Famotidine (Pepcid) 10 mg BID PO 06/23/17 21:00 07/03/17 20:45 Metoprolol Tartrate (Lopressor) 50 mg Q8HR PO 06/25/17 06:00 Future hold 07/03/17 20:46 Metoprolol Tartrate (Lopressor Inj) 5 mg Q2H PRN IV PUSH FOR HR GREATER THAN 130 06/24/17 21:15 06/26/17 00:06 Melatonin (Melatonin) 5 mg HS PRN PO INSOMNIA 06/25/17 21:00 07/03/17 20:46 Acetaminophen 100 ml @ 400 mls/hr Q6H PRN IV PAIN 3 TO 5 IF NOT KAL PO 06/26/17 02:00 07/03/17 10:09 Insulin Human Regular (NovoLIN R SUPPLEMENTAL SCALE) 1 Q4H SQ 06/26/17 10:00 07/03/17 20:46 Docusate Sodium (Colace Liq) 100 mg Q12HR PO 06/26/17 14:30 07/01/17 10:04 Sennosides (Senna Liq) 8.8 mg DAILY PO 06/26/17 14:30 07/01/17 10:04 Methylprednisolone Sodium Succinate (SoluMEDROL INJ) 40 mg DAILY IV PUSH 07/03/17 09:00 07/03/17 10:08 Albuterol/ Ipratropium (Duoneb Neb) 1 ampule BID NEB NEB 07/02/17 20:00 07/02/17 19:57 Objective Remarks GENERAL: Well-nourished, well-developed patient. SKIN: Warm and dry. HEAD: Normocephalic. EYES: No scleral icterus. No injection or drainage. RESPIRATORY: No accessory muscle use. GASTROINTESTINAL: Abdomen nondistended. MUSCULOSKELETAL: Adequate muscle tone. NEUROLOGICAL: No obvious focal deficit. Awake, alert, and oriented x3. PSYCHIATRIC: Appropriate mood and affect; insight and judgment normal. Assessment/Plan Assessment 1. Newly diagnosed NSCLC, SCC: s/p biopsy. Discussed diagnosis with patient. She will follow up in clinic with her primary oncologist Dr. Damon who has all outpatient scans regarding appropriate evaluation of this newly diagnosed malignancy. 2. History of SCLC s/p chemotherapy and radiation therapy in 2009 under the direction of Dr. Christy. 3. Critical illness with respiratory failure requiring intubation, ptx after lung biopsy, encephalopathy. Continue supportive care. 4. Thrombocytopenia: patient has longstanding baseline thrombocytopenia upon review of platelet counts. B12, folate are replete. No evidence of TMA, DIC. Continue to monitor. 5. Leukocytosis: reacitve, due to critical illness. Inpatient oncology team will sign off at this time. Please call with further questions or concerns. Ida Cao MD July 04, 2017 00:05
[2017-07-04] MEDS: INSULIN NovoLIN REGULAR SUPPLEMENTAL SCALE SQ SCH ×6 (02:00→22:00)
[2017-07-04] MEDS: ACETAMINOPHEN 325 MG TAB PO PRN ×4 (03:07→22:21)
[2017-07-04] MEDS: METOPROLOL TARTRATE 50 MG TAB PO SCH ×3 (05:59→22:21)
[2017-07-04] MEDS: SODIUM CHLORIDE 0.9% FLUSH 10 ML FLUSH IV FLUSH SCH ×2 (08:57→22:22)
[2017-07-04] MEDS: FAMOTIDINE 20 MG TAB PO SCH ×2 (08:57→22:21)
[2017-07-04] MEDS: methylPREDNISolone SOD SUCC 40 MG/1 ML VIAL IV PUSH SCH (08:57)
[2017-07-04] MEDS: SENNOSIDES SYRUP 8.8 MG/5 ML CUP PO SCH (08:59)
[2017-07-04] MEDS: DOCUSATE SODIUM 100 MG/10 ML UDC PO SCH ×2 (08:59→22:21)
[2017-07-04] MEDS: RESP: ALBUTEROL 2.5 MG/IPRATROPIUM 0.5 MG NEB (SCH) NEB ×2 (09:54→20:29)
[2017-07-04] MEDS: RESP: BUDESONIDE 0.25 MG/2 ML NEB NEB SCH ×2 (09:54→21:46)
[2017-07-04] MEDS ORDERED: PHARMACY ORDERED LAB ONE (12:45)
--- NOTE | 2017-07-04 17:21 | HHI.PR ---
Subjective Remarks No new complaints. Objective Vitals Vital Signs Date Time Temp Pulse Resp B/P (MAP) Pulse Ox O2 Delivery O2 Flow Rate FiO2 07/04/17 16:00 88 07/04/17 15:59 98.1 92 18 127/69 (88) 94 07/04/17 15:00 90 07/04/17 14:00 88 07/04/17 13:00 92 07/04/17 12:00 98.1 92 18 132/65 (87) 94 07/04/17 12:00 90 07/04/17 11:00 94 07/04/17 10:00 92 07/04/17 09:00 92 07/04/17 08:00 99 07/04/17 08:00 98.0 88 18 129/60 (83) 93 07/04/17 07:56 94 Room Air 07/04/17 07:00 86 07/04/17 06:12 96 07/04/17 05:04 96 07/04/17 04:11 89 07/04/17 03:32 96 07/04/17 03:29 97.7 88 18 141/63 (89) 93 07/04/17 02:00 86 07/04/17 01:04 90 07/04/17 00:00 91 07/03/17 23:46 98.3 96 18 138/67 (90) 94 07/03/17 23:45 92 07/03/17 22:00 99 07/03/17 20:00 104 07/03/17 20:00 98.6 104 26 143/71 (95) 97 07/03/17 18:00 99 Result Diagram: 07/03/17 0635 07/03/17 0635 Imaging Last Impressions Chest X-Ray 07/02/17 0000 Signed Impressions: Service Date/Time: Sunday, July 02, 2017 16:05 - CONCLUSION: No pneumothorax is noted. Right perihilar streakiness consistent with atelectasis and/or scarring. Stable small right pleural effusion. Damain Don MD Liver Ultrasound 06/29/17 0000 Signed Impressions: Service Date/Time: June 16:37 - CONCLUSION: 1. Very limited exam due to extensive soft tissue emphysema. 2. Grossly normal sonographic appearance of the liver without evidence for biliary obstruction. Sung Crawfodr MD Abdomen X-Ray 06/28/17 0000 Signed Impressions: Service Date/Time: Wednesday, June 28, 2017 08:12 - CONCLUSION: 1. Nonspecific bowel gas pattern but no definite evidence of obstruction. 2. NG tube in the stomach. 3. Subcutaneous emphysema throughout the body wall. Cole Hays MD Chest Tube Insertion 06/27/17 0000 Signed Impressions: Service Date/Time: Tuesday, June 27, 2017 16:08 - CONCLUSION: Uncomplicated chest tube placement as above. Sung Crawford MD Chest CT 06/27/17 0000 Signed Impressions: Service Date/Time: Tuesday, June 27, 2017 13:40 - CONCLUSION: 1. There is a subcentimeter left apical pneumothorax and a small amount of extrapleural gas adjacent to the apex of the heart. 2. 1.8 cm spiculated mass in the medial left upper lung without air bronchograms suspicious for a contralateral metastatic recurrence of cancer. 3. Large right pleural effusion. 4. Extensive left-sided subcutaneous emphysema similar to prior chest x-ray and interval development of moderate subcutaneous emphysema about the right lateral chest wall. Mahin Boles MD Renal Ultrasound 06/26/17 0000 Signed Impressions: Service Date/Time: Monday, June 26, 2017 11:51 - CONCLUSION: 1. Slightly increased renal cortical echogenicity which may reflect medical renal disease. 2. No evidence for obstructive uropathy. Sung Crawford MD Head CT 06/26/17 0000 Signed Impressions: Service Date/Time: Monday, June 26, 2017 13:35 - CONCLUSION: 1. No acute intracranial abnormality is identified. 2. Chronic findings include mild generalized atrophy and chronic periventricular white matter ischemic change. Abel Diaz MD Brain MRI 06/26/17 0000 Signed Impressions: Service Date/Time: Monday, June 26, 2017 20:21 - CONCLUSION: 1. No acute findings. Exam degraded by motion artifact. Kemal Luna MD Lung Biopsy CT 06/21/17 0000 Signed Impressions: Service Date/Time: Wednesday, June 21, 2017 09:39 - CONCLUSION: Successful CT guided biopsy with small post-biopsy pneumothorax. Damian Don MD Objective Remarks GENERAL: This is a well-nourished, well-developed patient, in no apparent distress. CARDIOVASCULAR: Regular rate and rhythm without murmurs, gallops, or rubs. RESPIRATORY: Clear to auscultation. Breath sounds equal bilaterally. No wheezes , rales, or rhonchi. GASTROINTESTINAL: Abdomen soft, non-tender, nondistended. Normal active bowel sounds MUSCULOSKELETAL: Extremities without clubbing, cyanosis, or edema. NEURO: Alert & Oriented x4 to person, place, time, situation. 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 Pt will f/u with her primary Oncologist after disharge - Pt now extubated and cognizant - Case d/w Dr. Wilkerson (07/04/17). - Can not clamp chest tube yet d/t continued air leak. - Pt on RA - repeat CXR (PA & Lat) in AM - observe - DVT prophylaxis - supportive care (2) Small cell lung cancer ICD Codes: C34.90 - Malignant neoplasm of unspecified part of unspecified bronchus or lung Status: Chronic Plan: see above (3) COPD (chronic obstructive pulmonary disease) ICD Codes: J44.9 - Chronic obstructive pulmonary disease, unspecified Status: Acute Plan: - solumedrol, singulair - duonebs (4) Atrial fibrillation ICD Codes: I48.91 - Unspecified atrial fibrillation Status: Acute Plan: - change metoprolol back to PO - continue to observe on telemetry Problem Qualifiers (1) Pneumothorax: Qualified Codes: J95.811 - Postprocedural pneumothorax (2) Atrial fibrillation: Qualified Codes: I48.91 - Unspecified atrial fibrillation Elvis Carter DO July 04, 2017 17:21
--- NOTE | 2017-07-04 20:07 | HHI.PR ---
Subjective Remarks Tolerates CPAP 67 YOWF with AMS,Resp Failure,SSLC Weaned to RA Tolerates PO Chest tube with small airleak. Objective Vital Signs Vital Signs Date Time Temp Pulse Resp B/P (MAP) Pulse Ox O2 Delivery O2 Flow Rate FiO2 07/04/17 18:00 88 07/04/17 17:00 90 07/04/17 16:00 88 07/04/17 15:59 98.1 92 18 127/69 (88) 94 07/04/17 15:00 90 07/04/17 14:00 88 07/04/17 13:00 92 07/04/17 12:00 98.1 92 18 132/65 (87) 94 07/04/17 12:00 90 07/04/17 11:00 94 07/04/17 10:00 92 07/04/17 09:00 92 07/04/17 08:00 99 07/04/17 08:00 98.0 88 18 129/60 (83) 93 07/04/17 07:56 94 Room Air 07/04/17 07:00 86 07/04/17 06:12 96 07/04/17 05:04 96 07/04/17 04:11 89 07/04/17 03:32 96 07/04/17 03:29 97.7 88 18 141/63 (89) 93 07/04/17 02:00 86 07/04/17 01:04 90 07/04/17 00:00 91 07/03/17 23:46 98.3 96 18 138/67 (90) 94 07/03/17 23:45 92 07/03/17 22:00 99 I/O 07/03/17 07/03/17 07/03/17 07/04/17 07/04/17 07/04/17 07:00 15:00 23:00 07:00 15:00 23:00 Intake Total 270 ml 100 ml 1250 ml 240 ml 975 ml Output Total 610 ml 1390 ml 290 ml 800 ml Balance -340 ml 100 ml -140 ml -50 ml 175 ml Intake Oral 120 ml 1200 ml 240 ml 975 ml IV Total 150 ml 100 ml 50 ml Output Urine Total 600 ml 1350 ml 250 ml 750 ml Stool Total 0 ml Chest Tube Drainage Total 10 ml 40 ml 40 ml 50 ml # Bowel Movements 5 3 1 0 Result Diagram: 07/03/1735 07/03/17634 Objective Remarks GENERAL: Elderly female, NAD SKIN: Warm and dry. HEAD: Normocephalic. EYES: No scleral icterus. No injection or drainage. NECK: Supple, trachea midline. No JVD or lymphadenopathy. CARDIOVASCULAR: Regular rate and rhythm without murmurs, gallops, or rubs. RESPIRATORY: Breath sounds equal bilaterally. No accessory muscle use. left chest tube to suction GASTROINTESTINAL: Abdomen soft, non-tender, nondistended. MUSCULOSKELETAL: No cyanosis, or edema. BACK: Nontender without obvious deformity. No CVA tenderness. A/P Assessment and Plan IMPRESSION: 1. Left pneumothorax after lung biopsy. She has large-bore chest tube, Small air leak. 2. Worsening left lung infiltrate. 3. Small pleural effusion. 4. H/O small cell carcinoma of the lung, status post chemotherapy and radiation treatment. 5. New cancer in the left lung. 6. History of nicotine. 7. History of chronic obstructive pulmonary disease. 8. VDRF, s/p extubation PLAN: Chest tube to suction Cont Abx Stable on RA CXR in AM DW Son at [facility] Lakhwinder Wilkerson MD July 04, 2017 20:07
[2017-07-04] MEDS: POLYETHYLENE GLYCOL 17 GM PKG PO SCH (21:00)
[2017-07-04] MEDS: MONTELUKAST SODIUM 10 MG TAB PO SCH (22:20)
[2017-07-04] MEDS: MELATONIN 5 MG TAB PO PRN (22:21)
[2017-07-05] VITALS (21 sets, daily range): BP systolic 124–149; BP diastolic 62–73; PULSE 64–102; RESP 19–20; TEMP 97.5–98.4; O2SAT 93–97
[2017-07-05] MEDS: INSULIN NovoLIN REGULAR SUPPLEMENTAL SCALE SQ SCH ×6 (02:00→23:04)
[2017-07-05 05:40] LABS: AUTOMATED NEUTROPHIL # 12.1 TH/MM3 (1.8-7.7); BASOPHIL % 0.3 % (0.0-2.0); EOSINOPHIL # 0.1 TH/MM3 (0-0.4); HEMATOCRIT 32.8 % (35.0-46.0); HEMOGLOBIN 10.9 GM/DL (11.6-15.3); LYMPH % 2.4 % (9.0-44.0); LYMPHOCYTE # 0.3 TH/MM3 (1.0-4.8); MEAN CELL VOLUME 88.3 FL (80.0-100.0); MEAN CORPUSCULAR HEMOGLOBIN 29.5 PG (27.0-34.0); MEAN CORPUSCULAR HGB CONC 33.4 % (32.0-36.0); MEAN PLATELET VOLUME 10.5 FL (7.0-11.0); MONO % 6.5 % (0.0-8.0); MONOCYTE # 0.9 TH/MM3 (0-0.9); NEUT % 89.8 % (16.0-70.0); PLATELET COUNT 142 TH/MM3 (150-450); RED BLOOD COUNT 3.71 MIL/MM3 (4.00-5.30); RED CELL DISTRIBUTION WIDTH 14.3 % (11.6-17.2); WHITE BLOOD COUNT 13.4 TH/MM3 (4.0-11.0)
[2017-07-05 06:04] LABS: BICARBONATE 28.2 MEQ/L (21.0-32.0); CALCIUM 7.6 MG/DL (8.5-10.1); CREATININE 0.77 MG/DL (0.50-1.00)
[2017-07-05] MEDS: METOPROLOL TARTRATE 50 MG TAB PO SCH ×3 (06:17→22:59)
[2017-07-05] MEDS: ACETAMINOPHEN 325 MG TAB PO PRN ×3 (07:32→23:07)
[2017-07-05] MEDS: SODIUM CHLORIDE 0.9% FLUSH 10 ML FLUSH IV FLUSH SCH ×2 (07:33→23:01)
[2017-07-05] MEDS: RESP: ALBUTEROL 2.5 MG/IPRATROPIUM 0.5 MG NEB (SCH) NEB ×2 (08:37→19:11)
[2017-07-05] MEDS: RESP: BUDESONIDE 0.25 MG/2 ML NEB NEB SCH ×2 (08:37→19:10)
[2017-07-05] MEDS ORDERED: POTASSIUM CHLORIDE 10 MEQ CONTROLLED RELEASE TAB PO ONE (08:45)
[2017-07-05] MEDS: DOCUSATE SODIUM 100 MG/10 ML UDC PO SCH ×2 (09:00→22:59)
[2017-07-05] MEDS: SENNOSIDES SYRUP 8.8 MG/5 ML CUP PO SCH (09:00)
[2017-07-05] MEDS: methylPREDNISolone SOD SUCC 40 MG/1 ML VIAL IV PUSH SCH (09:01)
[2017-07-05] MEDS: FAMOTIDINE 20 MG TAB PO SCH ×2 (09:02→22:59)
--- NOTE | 2017-07-05 10:31 | RADRPT ---
EXAM DATE/TIME: 07/05/2017 10:03 [facility] COMPARISON: CT NEEDLE BIOPSY LUNG, LEFT, June 21, 2017, 9:39. CHEST SINGLE AP, July 02, 2017, 16:05. INDICATIONS : Evaluate for pneumothorax. MEDICAL HISTORY : Arthritis. Lung cancer. SURGICAL HISTORY : Tubal ligation. Right knee arthroscopic sx. Neck surgery. ENCOUNTER: Subsequent ACUITY: 4 - 6 days PAIN SCORE: 6/10 LOCATION: Left chest FINDINGS: There is a large bore stable left apical chest tube. No pneumothorax. Redemonstration of small right pleural effusion with associated mild airspace disease. There is also airspace consolidation in the r ight upper lobe. Trace residual simultaneous emphysema in the inferior hemithoraces. Cardiomediastina l contours are stable. Remainder of the exam is unchanged. CONCLUSION: 1. Stable left apical chest tube without pneumothorax. Assuming chest tube is off suction given PA an d lateral technique. 2. Persistent airspace consolidation in the right upper lobe and right lower lobe with associated sma ll right pleural effusion. Sung Crawford MD on July 05, 2017 at 10:26 Board Certified Radiologist. This report was verified electronically.
--- NOTE | 2017-07-05 14:08 | HHI.PR ---
Subjective Remarks Feeling well No new complaints/concerns Objective Vitals Vital Signs Date Time Temp Pulse Resp B/P (MAP) Pulse Ox O2 Delivery O2 Flow Rate FiO2 07/05/17 13:00 92 07/05/17 12:00 88 07/05/17 11:59 98.4 85 19 128/64 (85) 93 07/05/17 11:00 64 07/05/17 10:00 92 07/05/17 09:00 88 07/05/17 08:41 97 07/05/17 08:00 96 Room Air 07/05/17 08:00 98.3 85 19 133/65 (87) 93 07/05/17 08:00 92 07/05/17 07:00 91 07/05/17 06:23 92 07/05/17 05:13 87 07/05/17 04:58 82 07/05/17 03:30 98.4 85 19 127/66 (86) 93 07/05/17 03:30 87 07/05/17 02:15 87 07/05/17 01:25 84 07/05/17 00:50 86 07/04/17 23:30 89 07/04/17 23:20 98.6 93 20 121/60 (80) 94 07/04/17 22:30 92 07/04/17 21:30 94 07/04/17 20:30 100 07/04/17 20:29 96 07/04/17 19:20 98.7 94 21 115/57 (76) 93 07/04/17 19:20 Room Air 07/04/17 19:20 94 07/04/17 18:00 88 07/04/17 17:00 90 07/04/17 16:00 88 07/04/17 15:59 98.1 92 18 127/69 (88) 94 07/04/17 15:00 90 Result Diagram: 07/05/17 0514 07/05/17 0514 Imaging Last Impressions Chest X-Ray 07/02/17 0000 Signed Impressions: Service Date/Time: Sunday, July 02, 2017 16:05 - CONCLUSION: No pneumothorax is noted. Right perihilar streakiness consistent with atelectasis and/or scarring. Stable small right pleural effusion. Damian Don MD Liver Ultrasound 06/29/17 0000 Signed Impressions: Service Date/Time: June 16:37 - CONCLUSION: 1. Very limited exam due to extensive soft tissue emphysema. 2. Grossly normal sonographic appearance of the liver without evidence for biliary obstruction. Sugn Crawford MD Abdomen X-Ray 06/28/17 0000 Signed Impressions: Service Date/Time: Wednesday, June 28, 2017 08:12 - CONCLUSION: 1. Nonspecific bowel gas pattern but no definite evidence of obstruction. 2. NG tube in the stomach. 3. Subcutaneous emphysema throughout the body wall. Cole Hays MD Chest Tube Insertion 06/27/17 0000 Signed Impressions: Service Date/Time: Tuesday, June 27, 2017 16:08 - CONCLUSION: Uncomplicated chest tube placement as above. Sung Crawford MD Chest CT 06/27/17 0000 Signed Impressions: Service Date/Time: Tuesday, June 27, 2017 13:40 - CONCLUSION: 1. There is a subcentimeter left apical pneumothorax and a small amount of extrapleural gas adjacent to the apex of the heart. 2. 1.8 cm spiculated mass in the medial left upper lung without air bronchograms suspicious for a contralateral metastatic recurrence of cancer. 3. Large right pleural effusion. 4. Extensive left-sided subcutaneous emphysema similar to prior chest x-ray and interval development of moderate subcutaneous emphysema about the right lateral chest wall. Mahin Boles MD Renal Ultrasound 06/26/17 0000 Signed Impressions: Service Date/Time: Monday, June 26, 2017 11:51 - CONCLUSION: 1. Slightly increased renal cortical echogenicity which may reflect medical renal disease. 2. No evidence for obstructive uropathy. Sung Crawford MD Head CT 06/26/17 0000 Signed Impressions: Service Date/Time: Monday, June 26, 2017 13:35 - CONCLUSION: 1. No acute intracranial abnormality is identified. 2. Chronic findings include mild generalized atrophy and chronic periventricular white matter ischemic change. Abel Diaz MD Brain MRI 06/26/17 0000 Signed Impressions: Service Date/Time: Monday, June 26, 2017 20:21 - CONCLUSION: 1. No acute findings. Exam degraded by motion artifact. Kemal Luna MD Lung Biopsy CT 06/21/17 0000 Signed Impressions: Service Date/Time: Wednesday, June 21, 2017 09:39 - CONCLUSION: Successful CT guided biopsy with small post-biopsy pneumothorax. Damian Don MD Objective Remarks GENERAL: This is a well-nourished, well-developed patient, in no apparent distress. CARDIOVASCULAR: Regular rate and rhythm without murmurs, gallops, or rubs. RESPIRATORY: Clear to auscultation. Breath sounds equal bilaterally. Chest tube present with air leak GASTROINTESTINAL: Abdomen soft, non-tender, nondistended. Normal active bowel sounds MUSCULOSKELETAL: Extremities without clubbing, cyanosis, or edema. NEURO: Alert & Oriented x4 to person, place, time, situation. 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 Pt will f/u with her primary Oncologist after disharge - Pt now extubated and cognizant - Case d/w Dr. Wilkerson (07/04/17). - Can not clamp chest tube yet d/t continued air leak. - Pt on RA - June transfer to Med/surg floor - observe - DVT prophylaxis - supportive care (2) Small cell lung cancer ICD Codes: C34.90 - Malignant neoplasm of unspecified part of unspecified bronchus or lung Status: Chronic Plan: see above (3) COPD (chronic obstructive pulmonary disease) ICD Codes: J44.9 - Chronic obstructive pulmonary disease, unspecified Status: Acute Plan: - solumedrol, singulair - duonebs (4) Atrial fibrillation ICD Codes: I48.91 - Unspecified atrial fibrillation Status: Acute Plan: - change metoprolol back to PO - continue to observe on telemetry (5) Hypokalemia ICD Codes: E87.6 - Hypokalemia Plan: potassium 3.2 (07/05), mag 2.0 replaced potassium recheck BMP and CBC in AM Assessment and Plan Patient examined. Assessment and plan formulated with Goldie Ventura PA-C. I agree with the above. Problem Qualifiers (1) Pneumothorax: Qualified Codes: J95.811 - Postprocedural pneumothorax (2) Atrial fibrillation: Qualified Codes: I48.91 - Unspecified atrial fibrillation Goldie Ventura July 05, 2017 14:08 Elvis Carter DO July 08, 2017 10:37
--- NOTE | 2017-07-05 21:00 | HHI.PR ---
Subjective Remarks Tolerates CPAP 67 YOWF with AMS,Resp Failure,SSLC Weaned to RA Tolerates PO Chest tube with small airleak. CXr no PTX Objective Vital Signs Vital Signs Date Time Temp Pulse Resp B/P (MAP) Pulse Ox O2 Delivery O2 Flow Rate FiO2 07/05/17 19:11 95 21 07/05/17 15:59 98.3 85 19 124/62 (82) 93 07/05/17 15:00 96 07/05/17 14:00 88 07/05/17 13:00 92 07/05/17 12:00 88 07/05/17 11:59 98.4 85 19 128/64 (85) 93 07/05/17 11:00 64 07/05/17 10:00 92 07/05/17 09:00 88 07/05/17 08:41 97 07/05/17 08:00 96 Room Air 07/05/17 08:00 98.3 85 19 133/65 (87) 93 07/05/17 08:00 92 07/05/17 07:00 91 07/05/17 06:23 92 07/05/17 05:13 87 07/05/17 04:58 82 07/05/17 03:30 98.4 85 19 127/66 (86) 93 07/05/17 03:30 87 07/05/17 02:15 87 07/05/17 01:25 84 07/05/17 00:50 86 07/04/17 23:30 89 07/04/17 23:20 98.6 93 20 121/60 (80) 94 07/04/17 22:30 92 07/04/17 21:30 94 I/O 07/04/17 07/04/17 07/04/17 07/05/17 07/05/17 07/05/17 07:00 15:00 23:00 07:00 15:00 23:00 Intake Total 240 ml 975 ml 240 ml 800 ml Output Total 290 ml 800 ml 685 ml 700 ml Balance -50 ml 175 ml -445 ml 100 ml Intake Oral 240 ml 975 ml 240 ml 800 ml Output Urine Total 250 ml 750 ml 675 ml 700 ml Stool Total 0 ml Chest Tube Drainage Total 40 ml 50 ml 10 ml 0 ml # Bowel Movements 1 0 1 0 Result Diagram: 07/05/1751307/05/17513 Objective Remarks GENERAL: Elderly female, NAD SKIN: Warm and dry. HEAD: Normocephalic. EYES: No scleral icterus. No injection or drainage. NECK: Supple, trachea midline. No JVD or lymphadenopathy. CARDIOVASCULAR: Regular rate and rhythm without murmurs, gallops, or rubs. RESPIRATORY: Breath sounds equal bilaterally. No accessory muscle use. left chest tube to suction GASTROINTESTINAL: Abdomen soft, non-tender, nondistended. MUSCULOSKELETAL: No cyanosis, or edema. BACK: Nontender without obvious deformity. No CVA tenderness. A/P Assessment and Plan IMPRESSION: 1. Left pneumothorax after lung biopsy. She has large-bore chest tube, Small air leak. 2. Worsening left lung infiltrate. 3. Small pleural effusion. 4. H/O small cell carcinoma of the lung, status post chemotherapy and radiation treatment. 5. New cancer in the left lung. 6. History of nicotine. 7. History of chronic obstructive pulmonary disease. 8. VDRF, s/p extubation PLAN: Chest tube to suction Cont Abx Stable on RA Will try to put chest tube to water seal Lakhwinder Wilkersno MD July 05, 2017 21:00
[2017-07-05] MEDS: MONTELUKAST SODIUM 10 MG TAB PO SCH (22:59)
[2017-07-05] MEDS: POLYETHYLENE GLYCOL 17 GM PKG PO SCH (22:59)
[2017-07-06] VITALS (8 sets, daily range): BP systolic 105–158; BP diastolic 54–75; PULSE 81–98; RESP 17–20; TEMP 97.1–98.7; O2SAT 92–98
[2017-07-06] MEDS: INSULIN NovoLIN REGULAR SUPPLEMENTAL SCALE SQ SCH ×3 (02:00→10:00)
[2017-07-06] MEDS: ACETAMINOPHEN 325 MG TAB PO PRN ×2 (02:59→14:54)
[2017-07-06] MEDS: METOPROLOL TARTRATE 50 MG TAB PO SCH ×3 (06:11→20:13)
[2017-07-06] MEDS: RESP: ALBUTEROL 2.5 MG/IPRATROPIUM 0.5 MG NEB (SCH) NEB (08:45)
[2017-07-06] MEDS: SENNOSIDES SYRUP 8.8 MG/5 ML CUP PO SCH (09:00)
[2017-07-06] MEDS: DOCUSATE SODIUM 100 MG/10 ML UDC PO SCH (09:00)
[2017-07-06] MEDS: FAMOTIDINE 20 MG TAB PO SCH ×2 (09:10→20:14)
[2017-07-06] MEDS: methylPREDNISolone SOD SUCC 40 MG/1 ML VIAL IV PUSH SCH (09:10)
[2017-07-06] MEDS: SODIUM CHLORIDE 0.9% FLUSH 10 ML FLUSH IV FLUSH SCH ×2 (09:12→20:14)
--- NOTE | 2017-07-06 09:41 | RADRPT ---
EXAM DATE/TIME: 07/06/2017 08:49 [facility] COMPARISON: CHEST PA & LAT, July 05, 2017, 10:03. INDICATIONS : Short of breath, evaluate pneumothorax and left chest tube MEDICAL HISTORY : Carcinoma, lung. SURGICAL HISTORY : chest tube ENCOUNTER: Subsequent ACUITY: 3 days PAIN SCORE: Non-responsive. LOCATION: Left chest FINDINGS: Left thoracostomy tube remains in place. There is no evidence of pneumothorax. Patchy bilateral inter stitial and alveolar opacities are again noted with lesion on the right also unchanged. Cardiac conto ur is grossly stable. CONCLUSION: No significant change. No pneumothorax Abel Johnson MD on July 06, 2017 at 9:38 Board Certified Radiologist. This report was verified electronically.
--- NOTE | 2017-07-06 11:08 | HHI.HCPN ---
Received message from family Mrs. Arzola has questions. Met with Mrs. Arzola in her room. She is currently on bedpan, arriving to room. She inquires about transportation when she is discharged. Inquired about how she should dress when leaving the facility (regular clothes vs hospital clothes). Answered her questions and concerns to the best of my ability. Informed CM she would like a visit from them to further discuss discharge information. Palliative care will continue to follow throughout hospitalization. Rama Hassan, SENIOR SCHEDULER July 06, 2017 11:08
[2017-07-06] MEDS ORDERED: GLUCAGON 1 MG/ML VIAL OTHER PRN (11:45)
[2017-07-06] MEDS ORDERED: DEXTROSE 50% IN WATER 50 ML VIAL(D50) IV PUSH PRN (11:45)
--- NOTE | 2017-07-06 11:45 | HHI.PR ---
Subjective Remarks Patient reports severe pain this AM located left upper chest at chest tube site after washing up and putting teeth in CT to water seal Objective Vitals Vital Signs Date Time Temp Pulse Resp B/P (MAP) Pulse Ox O2 Delivery O2 Flow Rate FiO2 07/06/17 09:38 Room Air 07/06/17 08:47 95 21 07/06/17 08:00 81 07/06/17 08:00 97.8 83 17 150/74 (99) 95 07/06/17 04:00 95 07/06/17 04:00 97.1 89 20 158/75 (102) 98 07/06/17 00:00 97.8 89 20 149/70 (96) 96 07/06/17 00:00 98 07/05/17 20:00 Room Air 07/05/17 20:00 97.5 90 20 149/73 (98) 96 07/05/17 20:00 102 07/05/17 19:11 95 21 07/05/17 15:59 98.3 85 19 124/62 (82) 93 07/05/17 15:00 96 07/05/17 14:00 88 07/05/17 13:00 92 07/05/17 12:00 88 07/05/17 11:59 98.4 85 19 128/64 (85) 93 Result Diagram: 07/05/1714 07/05/17513 Other Results Laboratory Tests Test 07/05/17 05:14 White Blood Count 13.4 TH/MM3 Red Blood Count 3.71 MIL/MM3 Hemoglobin 10.9 GM/DL Hematocrit 32.8 % Mean Corpuscular Volume 88.3 FL Mean Corpuscular Hemoglobin 29.5 PG Mean Corpuscular Hemoglobin Concent 33.4 % Red Cell Distribution Width 14.3 % Platelet Count 142 TH/MM3 Mean Platelet Volume 10.5 FL Neutrophils (%) (Auto) 89.8 % Lymphocytes (%) (Auto) 2.4 % Monocytes (%) (Auto) 6.5 % Eosinophils (%) (Auto) 1.0 % Basophils (%) (Auto) 0.3 % Neutrophils # (Auto) 12.1 TH/MM3 Lymphocytes # (Auto) 0.3 TH/MM3 Monocytes # (Auto) 0.9 TH/MM3 Eosinophils # (Auto) 0.1 TH/MM3 Basophils # (Auto) 0.0 TH/MM3 CBC Comment DIFF FINAL Differential Comment Blood Urea Nitrogen 28 MG/DL Creatinine 0.77 MG/DL Random Glucose 113 MG/DL Calcium Level 7.6 MG/DL Magnesium Level 2.0 MG/DL Sodium Level 143 MEQ/L Potassium Level 3.2 MEQ/L Chloride Level 108 MEQ/L Carbon Dioxide Level 28.2 MEQ/L Anion Gap 7 MEQ/L Estimat Glomerular Filtration Rate 75 ML/MIN Imaging Last Impressions Chest X-Ray 07/02/17 Signed Impressions: Service Date/Time: Sunday, July 02, 2017 16:05 - CONCLUSION: No pneumothorax is noted. Right perihilar streakiness consistent with atelectasis and/or scarring. Stable small right pleural effusion. Damian Don MD Liver Ultrasound 06/29/17 Signed Impressions: Service Date/Time: June 16:37 - CONCLUSION: 1. Very limited exam due to extensive soft tissue emphysema. 2. Grossly normal sonographic appearance of the liver without evidence for biliary obstruction. Sung Crawford MD Abdomen X-Ray 06/28/17 0000 Signed Impressions: Service Date/Time: Wednesday, June 28, 2017 08:12 - CONCLUSION: 1. Nonspecific bowel gas pattern but no definite evidence of obstruction. 2. NG tube in the stomach. 3. Subcutaneous emphysema throughout the body wall. Cole Hays MD Chest Tube Insertion 06/27/17 0000 Signed Impressions: Service Date/Time: Tuesday, June 27, 2017 16:08 - CONCLUSION: Uncomplicated chest tube placement as above. Sung Crawford MD Chest CT 06/27/17 0000 Signed Impressions: Service Date/Time: Tuesday, June 27, 2017 13:40 - CONCLUSION: 1. There is a subcentimeter left apical pneumothorax and a small amount of extrapleural gas adjacent to the apex of the heart. 2. 1.8 cm spiculated mass in the medial left upper lung without air bronchograms suspicious for a contralateral metastatic recurrence of cancer. 3. Large right pleural effusion. 4. Extensive left-sided subcutaneous emphysema similar to prior chest x-ray and interval development of moderate subcutaneous emphysema about the right lateral chest wall. Mahin Boles MD Renal Ultrasound 06/26/17 0000 Signed Impressions: Service Date/Time: Monday, June 26, 2017 11:51 - CONCLUSION: 1. Slightly increased renal cortical echogenicity which may reflect medical renal disease. 2. No evidence for obstructive uropathy. Sung Crawford MD Head CT 06/26/17 0000 Signed Impressions: Service Date/Time: Monday, June 26, 2017 13:35 - CONCLUSION: 1. No acute intracranial abnormality is identified. 2. Chronic findings include mild generalized atrophy and chronic periventricular white matter ischemic change. Abel Diaz MD Brain MRI 06/26/17 0000 Signed Impressions: Service Date/Time: Monday, June 26, 2017 20:21 - CONCLUSION: 1. No acute findings. Exam degraded by motion artifact. Kemal Luna MD Lung Biopsy CT 06/21/17 0000 Signed Impressions: Service Date/Time: Wednesday, June 21, 2017 09:39 - CONCLUSION: Successful CT guided biopsy with small post-biopsy pneumothorax. Damian Don MD Objective Remarks GENERAL: This is a well-nourished, well-developed patient, in no apparent distress. CARDIOVASCULAR: Regular rate and rhythm without murmurs, gallops, or rubs. RESPIRATORY: Clear to auscultation. Breath sounds equal bilaterally. Chest tube present to water seal GASTROINTESTINAL: Abdomen soft, non-tender, nondistended. Normal active bowel sounds MUSCULOSKELETAL: Extremities without clubbing, cyanosis, or edema. NEURO: Alert & Oriented x4 to person, place, time, situation. 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 Pt will f/u with her primary Oncologist after discharge - Pt now extubated and cognizant - Case d/w Dr. Wilkerson (07/04/17). - Dr. Wilkerson ordered CT to water seal 07/05/17 CXR 07/06 revealed no significant change. No pneumothorax - Pt on RA - observe - DVT prophylaxis - supportive care (2) Small cell lung cancer ICD Codes: C34.90 - Malignant neoplasm of unspecified part of unspecified bronchus or lung Status: Chronic Plan: see above (3) COPD (chronic obstructive pulmonary disease) ICD Codes: J44.9 - Chronic obstructive pulmonary disease, unspecified Status: Acute Plan: - solu medrol 40 mg IV daily -> change to PO (07/06) - Steroid induced hyperglycemia - accu check ACHS with SSI coverage - Singulair - duonebs PRN, DC scheduled Duonebs (4) Atrial fibrillation ICD Codes: I48.91 - Unspecified atrial fibrillation Status: Acute Plan: - metoprolol 50 mg PO Q8H - continue to observe on telemetry (5) Hypokalemia ICD Codes: E87.6 - Hypokalemia Plan: potassium 3.2 (07/05), mag 2.0 replaced potassium recheck BMP and CBC in AM Assessment and Plan Patient examined. Assessment and plan formulated with Goldie Ventura PA-C. I agree with the above. Problem Qualifiers (1) Pneumothorax: Qualified Codes: J95.811 - Postprocedural pneumothorax (2) Atrial fibrillation: Qualified Codes: I48.91 - Unspecified atrial fibrillation Goldie Ventura July 06, 2017 11:45 Elvis Carter DO July 08, 2017 10:37
[2017-07-06] MEDS: INSULIN ASPART SUPPLEMENTAL SCALE SQ SCH ×3 (12:00→20:29)
--- NOTE | 2017-07-06 16:00 | HHI.HCPN ---
Reason for visit a. To assist with evaluation and management of symptoms including: dyspnea, agitation b. To assist medical decision maker(s) with: better understanding of current medical conditions; weighing benefits/burdens of medical treatment options; making medical treatment decisions. . Subjective/Interval History Patient seen today to follow-up on dyspnea , as well as review treatment goals with pt/family. palliative SW recieved call from son Prieto with concerns that pt confused, making off statements that were not usual for her today such as : She thought she had killed someone in the ICU. Patient has been transferred out of the ICU. Respiratory status stable on room air. No labs today, yesterday: WBC downtrending, 13. H&H stable. Hypokalemic , 3.2-repletion per medical attending. BUN 28/creatinine 0.77. Chest tube continued to have air leak. CXR with no pneumothorax. CXR= Patchy bilateral interstitial and alveolar opacities are again noted with lesion on the right also unchanged. Chest tube now to waterseal. Discharge planning for rehab in process, case management assisting with. Patient seen in room nursing at bedside. She is being assisted with bedpan initially, I returned again in a few minutes to speak further with patient. She is alert, indicates she remembers my face from the other day though does not necessarily remember who I was. She is oriented , appropriate has reasonable insight generally into current hospital course, treatment options going forward. She does not recall much of her time on the ventilator however indicates she is very glad to have the tube out. She indicates she has spoken with oncology and knows that she will be following up with her own oncologist outpatient to discuss further treatment options. She indicates that after rehab she is looking forward to "losing her hair again ". Upon further exploration she indicates that she would plan to pursue radiation and chemo if they are offered by her oncologist. Gently explore that she may elect those options however if she does not like potential outcomes and she also has the option to forego additional oncology treatment. She indicates that she will be pursuing whatever treatments are available. She tells me they are planning to clamp off her chest tube and monitor her so that they can see if it can be discontinued. She seems to have pretty reasonable insight to current course. She know she is on the fourth floor, she indicates she is appreciative of nursing staff. Inquire about her ICU stay, she tells me that she just remembers it as being terrible. Ask her to further elaborate and tell me what things were terrible. She tells me that the nurses were being, that "they were always on [employer] trying to find dates "and that they were cheating and always trying to set up worker while at work, and that "even the doctors were telling them what kind of places this ". She tells me that one nurse "was eating a big steak and said to her do not you wish you could have the steak, but you cannot " and laughed at her. Gently explore with her that she was on strong medications and experiencing anxiety and respiratory issues while on the ventilator, and that these memories may have been hallucinations that occurred during that time. She adamantly believes that these events actually happened though she affirms that no further events have occurred since her transfer out of the ICU. Explore living will, advance directives left with her by social worker assistant. She indicates that she will be talking further about healthcare surrogate designation. She says that on one hand it could be her because that is what he would expect, but on the other hand she thinks that it should be her son Prieto because her would not be able to honor whatever her preferences would be. "That he always avoids talking about ". Advised we can continue to provide support and assistance with completion of this as she desires. Following this call back to son Prieto provided him an update of my assessment with her today, review current conditions and pending treatments as per medical plan going forward. Review with him my conversation with patient and that I believe this was probably some acute delirium/ICU psychosis that occurred while she was on Precedex and various other medications during her critically ill ventilator course. She is not currently having any of these types of episodes it appears she is recalling these events as if they were real. Advised that I would make medical attending aware, and we will follow her neurologic/ psychiatric status. --Call to Tiesha WATSON with medical attending, review the above. Also discussed with primary nurse, she indicates patient has been alert and oriented and appropriate today no hallucinations or odd behaviors reported. . Advance Directives Living Will: Never completed Health Care Surrogate: Never completed Durable Power of Red [place]: Never completed Advance Directive Specifics Documented care wishes: No documented care wishes have been completed. . Objective Vital Signs Date Time Temp Pulse Resp B/P (MAP) Pulse Ox O2 Delivery O2 Flow Rate FiO2 07/06/17 12:00 98.0 90 19 137/57 (83) 94 07/06/17 12:00 88 07/06/17 09:38 Room Air 07/06/17 08:47 95 21 07/06/17 08:00 81 07/06/17 08:00 97.8 83 17 150/74 (99) 95 07/06/17 04:00 95 07/06/17 04:00 97.1 89 20 158/75 (102) 98 07/06/17 00:00 97.8 89 20 149/70 (96) 96 07/06/17 00:00 98 07/05/17 20:00 Room Air 07/05/17 20:00 97.5 90 20 149/73 (98) 96 07/05/17 20:00 102 07/05/17 19:11 95 21 07/05/17 15:59 98.3 85 19 124/62 (82) 93 Intake & Output 07/06/17 07/06/17 06:59 18:59 Output Total 1030 ml Balance -1030 ml Output Urine Total 1000 ml Chest Tube Drainage Total 30 ml Physical Exam CONSTITUTIONAL/GENERAL: This is an adequately nourished patient, alert, pleasant , oriented. TUBES/LINES/DRAINS: PIV upper extremity, left lateral chest tube, Webb catheter SKIN: No jaundice, rashes, or lesions. Left chest tube dressing clean and dry. No wounds seen anteriorly. Skin warm/dry CARDIOVASCULAR: Regular rate and rhythm without murmur. No JVD. Peripheral pulses symmetric. Trace peripheral edema. RESPIRATORY/CHEST: Respirations even/unlabored. On room air. Breath sounds clear, diminished bilaterally. GASTROINTESTINAL: Abdomen soft, no tenderness, nondistended. No guarding. Bowel sounds normoactive. Eating soft diet during my exam GENITOURINARY: Without palpable bladder distension. Webb catheter in place draining dark yellow urine. MUSCULOSKELETAL: Extremities without clubbing, cyanosis. Trace peripheral edema. No mottling or clubbing. NEUROLOGICAL: Alert and oriented to person, place, hospital, month, room. Limited insight during clinical course while on ventilator. Moving all 4 extremities with generalized weakness. PSYCHIATRIC: No evident anxiety or depression, appears to be recalling hallucinations from ICU, though no active hallucinations . . Diagnostic Tests Laboratory Laboratory Tests Test 07/05/17 05:14 White Blood Count 13.4 TH/MM3 (4.0-11.0) Red Blood Count 3.71 MIL/MM3 (4.00-5.30) Hemoglobin 10.9 GM/DL (11.6-15.3) Hematocrit 32.8 % (35.0-46.0) Mean Corpuscular Volume 88.3 FL (80.0-100.0) Mean Corpuscular Hemoglobin 29.5 PG (27.0-34.0) Mean Corpuscular Hemoglobin Concent 33.4 % (32.0-36.0) Red Cell Distribution Width 14.3 % (11.6-17.2) Platelet Count 142 TH/MM3 (150-450) Mean Platelet Volume 10.5 FL (7.0-11.0) Neutrophils (%) (Auto) 89.8 % (16.0-70.0) Lymphocytes (%) (Auto) 2.4 % (9.0-44.0) Monocytes (%) (Auto) 6.5 % (0.0-8.0) Eosinophils (%) (Auto) 1.0 % (0.0-4.0) Basophils (%) (Auto) 0.3 % (0.0-2.0) Neutrophils # (Auto) 12.1 TH/MM3 (1.8-7.7) Lymphocytes # (Auto) 0.3 TH/MM3 (1.0-4.8) Monocytes # (Auto) 0.9 TH/MM3 (0-0.9) Eosinophils # (Auto) 0.1 TH/MM3 (0-0.4) Basophils # (Auto) 0.0 TH/MM3 (0-0.2) CBC Comment DIFF FINAL Differential Comment Blood Urea Nitrogen 28 MG/DL (7-18) Creatinine 0.77 MG/DL (0.50-1.00) Random Glucose 113 MG/DL (74-106) Calcium Level 7.6 MG/DL (8.5-10.1) Magnesium Level 2.0 MG/DL (1.5-2.5) Sodium Level 143 MEQ/L (136-145) Potassium Level 3.2 MEQ/L (3.5-5.1) Chloride Level 108 MEQ/L (98-107) Carbon Dioxide Level 28.2 MEQ/L (21.0-32.0) Anion Gap 7 MEQ/L (5-15) Estimat Glomerular Filtration Rate 75 ML/MIN (>89) Result Diagram: 07/05/17 0514 07/05/17 0514 Imaging Last Impressions Chest X-Ray 07/06/17 0900 Signed Impressions: Service Date/Time: June 08:49 - CONCLUSION: No significant change. No pneumothorax Abel Johnson MD Liver Ultrasound 06/29/17 0000 Signed Impressions: Service Date/Time: June 16:37 - CONCLUSION: 1. Very limited exam due to extensive soft tissue emphysema. 2. Grossly normal sonographic appearance of the liver without evidence for biliary obstruction. Sung Crawford MD Abdomen X-Ray 06/28/17 0000 Signed Impressions: Service Date/Time: Wednesday, June 28, 2017 08:12 - CONCLUSION: 1. Nonspecific bowel gas pattern but no definite evidence of obstruction. 2. NG tube in the stomach. 3. Subcutaneous emphysema throughout the body wall. Cole Hays MD Chest Tube Insertion 06/27/17 0000 Signed Impressions: Service Date/Time: Tuesday, June 27, 2017 16:08 - CONCLUSION: Uncomplicated chest tube placement as above. Sung Crawford MD Chest CT 06/27/17 0000 Signed Impressions: Service Date/Time: Tuesday, June 27, 2017 13:40 - CONCLUSION: 1. There is a subcentimeter left apical pneumothorax and a small amount of extrapleural gas adjacent to the apex of the heart. 2. 1.8 cm spiculated mass in the medial left upper lung without air bronchograms suspicious for a contralateral metastatic recurrence of cancer. 3. Large right pleural effusion. 4. Extensive left-sided subcutaneous emphysema similar to prior chest x-ray and interval development of moderate subcutaneous emphysema about the right lateral chest wall. Mahin Boles MD Renal Ultrasound 06/26/17 0000 Signed Impressions: Service Date/Time: Monday, June 26, 2017 11:51 - CONCLUSION: 1. Slightly increased renal cortical echogenicity which may reflect medical renal disease. 2. No evidence for obstructive uropathy. Sung Crawford MD Head CT 06/26/17 0000 Signed Impressions: Service Date/Time: Monday, June 26, 2017 13:35 - CONCLUSION: 1. No acute intracranial abnormality is identified. 2. Chronic findings include mild generalized atrophy and chronic periventricular white matter ischemic change. Abel Diaz MD Brain MRI 06/26/17 0000 Signed Impressions: Service Date/Time: Monday, June 26, 2017 20:21 - CONCLUSION: 1. No acute findings. Exam degraded by motion artifact. Kemal Luna MD Lung Biopsy CT 06/21/17 0000 Signed Impressions: Service Date/Time: Wednesday, June 21, 2017 09:39 - CONCLUSION: Successful CT guided biopsy with small post-biopsy pneumothorax. Damian Don MD Procedures 06/21/2017: Left-sided chest tube placement 06/22/2017: Left-sided chest tube replaced 06/27/2017: Left-sided chest tube replaced . Assessment and Plan Disease Oriented Problem List: (1) Pneumothorax (2) Small cell lung cancer (3) COPD (chronic obstructive pulmonary disease) (4) Hypercholesteremia (5) Pneumothorax (6) Acute renal failure Symptom Scale: (1) Dyspnea 0-10 Scale: Unable to quantify (2) Agitation 0-10 Scale: Unable to quantify (3) Weakness Pertinent Non-Medical Issues Psychosocial: Patient is originally from [place]. She stated her when she was 18 years old but later to someone else. She and her first had 2 sons (Prieto and Fernando). Prieto lives in [place]; Fernando is a nurse and lives in [place]. The patient has been to her current , Leoncio, for approximately 12 years. Spiritual: [employer] Legal: Per [place] statutes, in the absence of written advanced directives healthcare proxy decision making would fall to the patient's . However, patient's and 2 children have decided to make decisions together. Ethical issues impacting care: No known ethical issues impacting care at this time. . Important Contacts Leoncio Arzola, spouse: [phone] Fernando, son: [phone] Prieto: son: [phone] . Prognosis Patient is a 67 yo old female with metastatic squamous cell carcinoma of the lung status post lung biopsy with subsequent pneumothorax and chest tube placement; now intubated secondary to worsening respiratory failure and agitation. If the patient survives this hospitalization, she will be high risk for ongoing complications and further decline. . Code Status: Alternative Code Plan * ALTERNATE CODE-intubation only * Decision making: Per [place] statutes, in the absence of written advanced directives healthcare proxy decision making would fall to the patient's . Patient's has appears to have limited insight related to his 's medical conditions, and the patient's and 2 children have decided to make decisions together. 07/03 patient extubated, alert mostly oriented able to participate in decision-making. Palliative will provide with healthcare surrogate, advanced directive documents, she may elect to complete healthcare surrogate designation. * Per initial palliative conversations with family: Family understands patient is critically ill; they support decision to intubate for a short time but they would not consent to tracheostomy if the patient is unable to wean off mechanical ventilation. Hospice was introduced. Family wants to give the patient time to improve but state they are open to transitioning to comfort measures when appropriate. 07/03/17-patient extubated, alert and mostly oriented. Able to participate in decision-making. Patient and family going to discuss further reintubation status as well as goals going forward. Patient has not discussed pathology findings with oncology yet, family has not discussed with her either, may request oncology follow-up; I will notify oncology of patient's ability to participate at this time. 07/06/17 patient continues to indicate that she will discuss her wishes and possible healthcare surrogate designation with the rest of her family. For now patient expresses aggressive goals wishing to complete acute hospital course to get to rehab so she may pursue additional cancer treatment. Family supportive of patient wishes. * Symptom management: == Dyspnea: Patient with a known history of small cell lung cancer status post concurrent chemoradiation therapy with prophylactic whole brain radiation 2008. Patient had a lung biopsy on 06/21/2017 for a suspicious lesion on her chest which was complicated by a pneumothorax and subsequent chest tube placement- pathology significant for invasive poorly differentiated squamous cell carcinoma. CT chest yesterday 06/27/2017 showed subQ emphysema and bilateral airspace disease; chest tube was in major fissure and new left sided CT was placed by IR. Patient intubated 06/28/2017 secondary to worsening respiratory status and agitation. Medically extubated 07/01. Now tolerating room air. Chest tube remains in place , plan for waterseal and possible removal. == Agitation: Multifactoral. Patient having altered mental status and agitation concerning for ICU delirium versus metabolic encephalopathy versus hypoxemia. Received Haldol 1 mg IV 1 dose. Patient was placed on Precedex drip for agitation. This is been discontinued patient now on propofol appears comfortable today. Ammonia level of 37; MRI of the brain and CT of the head showed no acute findings; EEG showed diffuse slowing, no focal abnormalities, no seizure activity. Neurology was following the patient condition has stabilized, improved ; neurology has signed off. Patient today alert, calm, cooperative and oriented. Son's report patient making odd statements. During my visit patient recalls strange events from the ICU, these appear to be hallucinations she is recalling possibly from acute delirium/ICU psychosis. No active hallucinations though she believes these prior events were real. Discussed at length with medical attending, will continue to monitor neurological, psychiatric status == Weakness/deconditioning: Patient now extubated. PT, OT following for assist with strengthening, reconditioning. Discharge planning for SNF placement for rehabilitation, patient has been accepted * Palliative care will continue to follow this patient throughout her hospitalization to build rapport, assist with symptom management and goal clarification. . Time Spent Total Floor Time (mins): 40 (Chart review, PE discussion with patient, discussion with family, discussion with nurse, discussion with medical attending PA) Attestation To help prompt me to consider important information that might be impacting today's encounter and assessment, information from prior notes written by myself or my colleagues may have been "brought forward" into today's note. My signature on this note, however, is an attestation that I personally performed the exam, history, and/or decision-making noted today, and, unless otherwise indicated, the interactions with patient, family, and staff as well as the review of records all occurred today. I also attest that the listed assessment and stated plan reflect my best clinical judgment today based on the combination of historical information, prior notes, and today's exam/ interactions. When time spent is documented, it refers only to time spent today by the signer, or if indicated, combined time spent today by collaborating physician/nurse practitioner. Constanza Saunders July 06, 2017 16:00
--- NOTE | 2017-07-06 17:51 | HHI.PR ---
Subjective Remarks Tolerates CPAP 67 YOWF with AMS,Resp Failure,SSLC Weaned to RA Tolerates PO Chest tube on Water seal CXr no PTX Objective Vital Signs Vital Signs Date Time Temp Pulse Resp B/P (MAP) Pulse Ox O2 Delivery O2 Flow Rate FiO2 07/06/17 17:38 92 21 07/06/17 16:00 98.7 86 18 109/56 (73) 92 07/06/17 16:00 89 07/06/17 12:00 98.0 90 19 137/57 (83) 94 07/06/17 12:00 88 07/06/17 09:38 Room Air 07/06/17 08:47 95 21 07/06/17 08:00 81 07/06/17 08:00 97.8 83 17 150/74 (99) 95 07/06/17 04:00 95 07/06/17 04:00 97.1 89 20 158/75 (102) 98 07/06/17 00:00 97.8 89 20 149/70 (96) 96 07/06/17 00:00 98 07/05/17 20:00 Room Air 07/05/17 20:00 97.5 90 20 149/73 (98) 96 07/05/17 20:00 102 07/05/17 19:11 95 21 I/O 07/05/17 07/05/17 07/05/17 07/06/17 07/06/17 07/06/17 06:59 14:59 22:59 06:59 14:59 22:59 Intake Total 240 ml 800 ml Output Total 685 ml 700 ml 1030 ml Balance -445 ml 100 ml -1030 ml Intake Oral 240 ml 800 ml Output Urine Total 675 ml 700 ml 1000 ml Chest Tube Drainage Total 10 ml 0 ml 30 ml # Bowel Movements 1 0 Result Diagram: 07/05/1751307/05/1714 Objective Remarks GENERAL: Elderly female, NAD SKIN: Warm and dry. HEAD: Normocephalic. EYES: No scleral icterus. No injection or drainage. NECK: Supple, trachea midline. No JVD or lymphadenopathy. CARDIOVASCULAR: Regular rate and rhythm without murmurs, gallops, or rubs. RESPIRATORY: Breath sounds equal bilaterally. No accessory muscle use. left chest tube to suction GASTROINTESTINAL: Abdomen soft, non-tender, nondistended. MUSCULOSKELETAL: No cyanosis, or edema. BACK: Nontender without obvious deformity. No CVA tenderness. A/P Assessment and Plan IMPRESSION: 1. Left pneumothorax after lung biopsy. She has large-bore chest tube, Small air leak. 2. Worsening left lung infiltrate. 3. Small pleural effusion. 4. H/O small cell carcinoma of the lung, status post chemotherapy and radiation treatment. 5. New cancer in the left lung. 6. History of nicotine. 7. History of chronic obstructive pulmonary disease. 8. VDRF, s/p extubation PLAN: Chest tube to water seal. Cont Abx Stable on RA Will try to clamp chest tube in am and rpt CXR Lakhwinder Wilkerson MD July 06, 2017 17:51
[2017-07-06] MEDS ORDERED: RESP: ALBUTEROL 2.5 MG/IPRATROPIUM 0.5 MG NEB (SCH) NEB (20:00)
[2017-07-06] MEDS: MONTELUKAST SODIUM 10 MG TAB PO SCH (20:14)
[2017-07-06] MEDS: POLYETHYLENE GLYCOL 17 GM PKG PO SCH (20:14)
[2017-07-06] MEDS: BUDESONIDE-FORMOTEROL 160/4.5 MCG INHALER INH SCH (20:15)
[2017-07-06] MEDS: MELATONIN 5 MG TAB PO PRN (20:23)
[2017-07-06] MEDS ORDERED: DOCUSATE SODIUM 100 MG CAP PO SCH (21:00)
[2017-07-07] VITALS (7 sets, daily range): BP systolic 115–135; BP diastolic 56–65; PULSE 82–118; RESP 18–20; TEMP 97–98.3; O2SAT 94–98
[2017-07-07] MEDS: METOPROLOL TARTRATE 50 MG TAB PO SCH ×3 (06:02→20:57)
[2017-07-07] MEDS: BUDESONIDE-FORMOTEROL 160/4.5 MCG INHALER INH SCH ×2 (07:59→20:58)
[2017-07-07] MEDS: ACETAMINOPHEN 325 MG TAB PO PRN ×3 (07:59→18:13)
[2017-07-07] MEDS: INSULIN ASPART SUPPLEMENTAL SCALE SQ SCH ×4 (08:00→20:58)
[2017-07-07] MEDS: FAMOTIDINE 20 MG TAB PO SCH ×2 (08:00→20:57)
[2017-07-07] MEDS: predniSONE 20 MG TAB PO SCH (08:00)
[2017-07-07] MEDS: SODIUM CHLORIDE 0.9% FLUSH 10 ML FLUSH IV FLUSH SCH ×2 (08:01→20:58)
--- NOTE | 2017-07-07 09:46 | RADRPT ---
EXAM DATE/TIME: 07/07/2017 08:20 [facility] COMPARISON: No previous studies available for comparison. INDICATIONS : Evaluate for pneumothorax and chest pain on left side. MEDICAL HISTORY : Chronic obstructive pulmonary disease. Hypertension SURGICAL HISTORY : None. ENCOUNTER: Subsequent ACUITY: 4 - 6 days PAIN SCORE: 5/10 LOCATION: Bilateral chest FINDINGS: There is a left chest tube present. A small left apical pneumothorax there has developed over the las t day. Perihilar and basilar airspace disease with small right effusion are relatively stable. CONCLUSION: Left chest tube with development of a small left apical pneumothorax compared with July 06, 2017. Kemal Luna MD on July 07, 2017 at 9:39 Board Certified Radiologist. This report was verified electronically.
--- NOTE | 2017-07-07 14:13 | HHI.PR ---
Subjective Remarks Patient reports feeling tired offers no new complaints/concerns Objective Vitals Vital Signs Date Time Temp Pulse Resp B/P (MAP) Pulse Ox O2 Delivery O2 Flow Rate FiO2 07/07/17 13:02 96 07/07/17 09:09 Room Air 07/07/17 08:00 90 07/07/17 08:00 97.8 82 18 116/57 (76) 96 07/07/17 04:00 86 07/07/17 04:00 97.8 89 20 135/65 (88) 96 07/07/17 04:00 Room Air 07/07/17 00:00 118 07/07/17 00:00 Room Air 07/07/17 00:00 98.3 87 20 128/64 (85) 96 07/06/17 20:00 Room Air 07/06/17 20:00 97.4 92 20 105/54 (71) 93 07/06/17 20:00 87 07/06/17 17:38 92 21 07/06/17 16:00 98.7 86 18 109/56 (73) 92 07/06/17 16:00 89 Result Diagram: 07/05/17 0514 07/05/17 0514 Other Results Laboratory Tests Test 07/05/17 05:14 White Blood Count 13.4 TH/MM3 Red Blood Count 3.71 MIL/MM3 Hemoglobin 10.9 GM/DL Hematocrit 32.8 % Mean Corpuscular Volume 88.3 FL Mean Corpuscular Hemoglobin 29.5 PG Mean Corpuscular Hemoglobin Concent 33.4 % Red Cell Distribution Width 14.3 % Platelet Count 142 TH/MM3 Mean Platelet Volume 10.5 FL Neutrophils (%) (Auto) 89.8 % Lymphocytes (%) (Auto) 2.4 % Monocytes (%) (Auto) 6.5 % Eosinophils (%) (Auto) 1.0 % Basophils (%) (Auto) 0.3 % Neutrophils # (Auto) 12.1 TH/MM3 Lymphocytes # (Auto) 0.3 TH/MM3 Monocytes # (Auto) 0.9 TH/MM3 Eosinophils # (Auto) 0.1 TH/MM3 Basophils # (Auto) 0.0 TH/MM3 CBC Comment DIFF FINAL Differential Comment Blood Urea Nitrogen 28 MG/DL Creatinine 0.77 MG/DL Random Glucose 113 MG/DL Calcium Level 7.6 MG/DL Magnesium Level 2.0 MG/DL Sodium Level 143 MEQ/L Potassium Level 3.2 MEQ/L Chloride Level 108 MEQ/L Carbon Dioxide Level 28.2 MEQ/L Anion Gap 7 MEQ/L Estimat Glomerular Filtration Rate 75 ML/MIN Imaging Last Impressions Chest X-Ray 07/02/17 0000 Signed Impressions: Service Date/Time: Sunday, July 02, 2017 16:05 - CONCLUSION: No pneumothorax is noted. Right perihilar streakiness consistent with atelectasis and/or scarring. Stable small right pleural effusion. Damian Don MD Liver Ultrasound 06/29/17 0000 Signed Impressions: Service Date/Time: June 16:37 - CONCLUSION: 1. Very limited exam due to extensive soft tissue emphysema. 2. Grossly normal sonographic appearance of the liver without evidence for biliary obstruction. Sung Crawford MD Abdomen X-Ray 06/28/17 0000 Signed Impressions: Service Date/Time: Wednesday, June 28, 2017 08:12 - CONCLUSION: 1. Nonspecific bowel gas pattern but no definite evidence of obstruction. 2. NG tube in the stomach. 3. Subcutaneous emphysema throughout the body wall. Cole Hays MD Chest Tube Insertion 06/27/17 0000 Signed Impressions: Service Date/Time: Tuesday, June 27, 2017 16:08 - CONCLUSION: Uncomplicated chest tube placement as above. Sung Crawford MD Chest CT 06/27/17 0000 Signed Impressions: Service Date/Time: Tuesday, June 27, 2017 13:40 - CONCLUSION: 1. There is a subcentimeter left apical pneumothorax and a small amount of extrapleural gas adjacent to the apex of the heart. 2. 1.8 cm spiculated mass in the medial left upper lung without air bronchograms suspicious for a contralateral metastatic recurrence of cancer. 3. Large right pleural effusion. 4. Extensive left-sided subcutaneous emphysema similar to prior chest x-ray and interval development of moderate subcutaneous emphysema about the right lateral chest wall. Mahin Boles MD Renal Ultrasound 06/26/17 0000 Signed Impressions: Service Date/Time: Monday, June 26, 2017 11:51 - CONCLUSION: 1. Slightly increased renal cortical echogenicity which may reflect medical renal disease. 2. No evidence for obstructive uropathy. Sung Crawford MD Head CT 06/26/17 0000 Signed Impressions: Service Date/Time: Monday, June 26, 2017 13:35 - CONCLUSION: 1. No acute intracranial abnormality is identified. 2. Chronic findings include mild generalized atrophy and chronic periventricular white matter ischemic change. Abel Diaz MD Brain MRI 06/26/17 0000 Signed Impressions: Service Date/Time: Monday, June 26, 2017 20:21 - CONCLUSION: 1. No acute findings. Exam degraded by motion artifact. Kemal Luna MD Lung Biopsy CT 06/21/17 0000 Signed Impressions: Service Date/Time: Wednesday, June 21, 2017 09:39 - CONCLUSION: Successful CT guided biopsy with small post-biopsy pneumothorax. Damian Don MD Objective Remarks GENERAL: This is a well-nourished, well-developed patient, in no apparent distress. CARDIOVASCULAR: Regular rate and rhythm without murmurs, gallops, or rubs. RESPIRATORY: Clear to auscultation. Breath sounds equal bilaterally. Chest tube present GASTROINTESTINAL: Abdomen soft, non-tender, nondistended. Normal active bowel sounds MUSCULOSKELETAL: Extremities without clubbing, cyanosis, or edema. NEURO: Alert & Oriented x4 to person, place, time, situation. 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 Pt will f/u with her primary Oncologist after discharge - Case d/w Dr. Wilkerson (07/04/17). - Dr. Wilkerson ordered CT to water seal 07/05/17 CXR 07/06 revealed no significant change. No pneumothorax - Pt on RA - 07/07 CT clamped at 0400 per pulmonology, CXR 0820 revealed Left chest tube with development of a small left apical pneumothorax compared with - CT returned to suction- further management per pulmonology - observe - DVT prophylaxis - supportive care (2) Small cell lung cancer ICD Codes: C34.90 - Malignant neoplasm of unspecified part of unspecified bronchus or lung Status: Chronic Plan: see above (3) COPD (chronic obstructive pulmonary disease) ICD Codes: J44.9 - Chronic obstructive pulmonary disease, unspecified Status: Acute Plan: - solu medrol 40 mg IV daily -> change to PO (07/06) - Steroid induced hyperglycemia - accu check ACHS with SSI coverage - Singulair - duonebs PRN, DC scheduled Duonebs (4) Atrial fibrillation ICD Codes: I48.91 - Unspecified atrial fibrillation Status: Acute Plan: - metoprolol 50 mg PO Q8H - continue to observe on telemetry (5) Hypokalemia ICD Codes: E87.6 - Hypokalemia Plan: potassium 3.2 (07/05), mag 2.0 replaced potassium recheck BMP pending Assessment and Plan Patient examined. Assessment and plan formulated with Goldie Ventura PA-C. I agree with the above. CXR (07/07) --> small left apical pneumothorax chest tube placed to water seal repeat CXR in AM Problem Qualifiers (1) Pneumothorax: Qualified Codes: J95.811 - Postprocedural pneumothorax (2) Atrial fibrillation: Qualified Codes: I48.91 - Unspecified atrial fibrillation Goldie Ventura July 07, 2017 14:13 Elvis Carter DO July 08, 2017 10:40
--- NOTE | 2017-07-07 17:16 | HHI.HCPN ---
Reason for visit a. To assist with evaluation and management of symptoms including: dyspnea, agitation b. To assist medical decision maker(s) with: better understanding of current medical conditions; weighing benefits/burdens of medical treatment options; making medical treatment decisions. . Subjective/Interval History Patient seen today to follow-up on dyspnea , as well as review treatment goals / reintubation status with patient. Patient has remained stable on room air. Chest tube was to waterseal earlier this morning at 4 AM, with follow-up chest x-ray at 8 AM. Repeat chest x-ray indicates small pneumothorax, chest tube was resumed on suction . No new labs. Discussed with primary nurse, as well as medical attending. Patient with no reported hallucinations or confusion. Patient seen in room, she is awake and watching television. She remembers me from yesterday although she tells me she cannot remember exactly what we talked about because she sees so many people. Explore role of assisting with symptoms as well as goals of care. She indicates she is feeling well overall though she understands her chest tube was not able to be discontinued and is now required to be back on suction. She indicates she thinks she has made a decision regarding which rehab facility she wants to be placed up. She has been going over the financial aspects with her family, she asks if it is possible at time of discharge if her family can drive her via private vehicle to avoid the cost of paying for medical transport. Advised that that is a possibility but that would be dependent upon her clinical condition and medical needs at time of discharge. She denies shortness of breath. She says for the most part she is not having very much pain except chest tube site with significant movement or coughing. She endorses sparing prn use today, she feels the pain has not warranted using oxycodone. She tells me her appetite is so-so, she thinks she is hungry and then when the food arrives and she takes a few bites she is not actually hungry. She denies nausea or vomiting. She tells me she has been in discussions with her family about treatment going forward, financial etc, they had been in earlier today to visit. Ask if she has further discuss reintubation status and if she would want to go back on a ventilator. She tells me that is a difficult discussion especially with her , and that she has not discussed that further with them but will plan on it this weekend. Gently explore that that is a possible risks and we would want to intubate if that were her wishes however if she would not want intubation and comfort measures would be an option for her. She indicates she will discuss further with her family. . Advance Directives Living Will: Never completed Health Care Surrogate: Never completed Durable Power of Senior Data Mining Analyst: Never completed Advance Directive Specifics Documented care wishes: No documented care wishes have been completed. . Objective Vital Signs Date Time Temp Pulse Resp B/P (MAP) Pulse Ox O2 Delivery O2 Flow Rate FiO2 07/07/17 13:02 96 07/07/17 12:00 97.8 90 18 135/63 (87) 96 07/07/17 12:00 88 07/07/17 09:09 Room Air 07/07/17 08:00 90 07/07/17 08:00 97.8 82 18 116/57 (76) 96 07/07/17 04:00 86 07/07/17 04:00 97.8 89 20 135/65 (88) 96 07/07/17 04:00 Room Air 07/07/17 00:00 118 07/07/17 00:00 Room Air 07/07/17 00:00 98.3 87 20 128/64 (85) 96 07/06/17 20:00 Room Air 07/06/17 20:00 97.4 92 20 105/54 (71) 93 07/06/17 20:00 87 07/06/17 17:38 92 21 Intake & Output 07/07/17 07/07/17 06:59 18:59 # Voids 2 # Bowel Movements 1 Physical Exam CONSTITUTIONAL/GENERAL: This is an adequately nourished patient, alert, pleasant , oriented. TUBES/LINES/DRAINS: PIV upper extremity, left lateral chest tube, Webb catheter SKIN: No jaundice, rashes, or lesions. Left chest tube dressing clean and dry. No wounds seen anteriorly. Skin warm/dry CARDIOVASCULAR: Regular rate and rhythm without murmur. No JVD. Peripheral pulses symmetric. Trace peripheral edema. RESPIRATORY/CHEST: Respirations even/unlabored. On room air. Breath sounds clear, diminished bilaterally. GASTROINTESTINAL: Abdomen soft, no tenderness, nondistended. No guarding. Bowel sounds normoactive. Eating soft diet during my exam GENITOURINARY: Without palpable bladder distension. Webb catheter in place draining dark yellow urine. MUSCULOSKELETAL: Extremities without clubbing, cyanosis. Trace peripheral edema. No mottling or clubbing. NEUROLOGICAL: Alert and oriented to person, place, hospital, month, room. Reasonable insight to current condition and options going forward. Limited insight/memory of events during intubation. Moving all 4 extremities with generalized weakness. PSYCHIATRIC: No evident anxiety or depression, no hallucinations . . Diagnostic Tests Laboratory Laboratory Tests Test 07/05/17 05:14 White Blood Count 13.4 TH/MM3 (4.0-11.0) Red Blood Count 3.71 MIL/MM3 (4.00-5.30) Hemoglobin 10.9 GM/DL (11.6-15.3) Hematocrit 32.8 % (35.0-46.0) Mean Corpuscular Volume 88.3 FL (80.0-100.0) Mean Corpuscular Hemoglobin 29.5 PG (27.0-34.0) Mean Corpuscular Hemoglobin Concent 33.4 % (32.0-36.0) Red Cell Distribution Width 14.3 % (11.6-17.2) Platelet Count 142 TH/MM3 (150-450) Mean Platelet Volume 10.5 FL (7.0-11.0) Neutrophils (%) (Auto) 89.8 % (16.0-70.0) Lymphocytes (%) (Auto) 2.4 % (9.0-44.0) Monocytes (%) (Auto) 6.5 % (0.0-8.0) Eosinophils (%) (Auto) 1.0 % (0.0-4.0) Basophils (%) (Auto) 0.3 % (0.0-2.0) Neutrophils # (Auto) 12.1 TH/MM3 (1.8-7.7) Lymphocytes # (Auto) 0.3 TH/MM3 (1.0-4.8) Monocytes # (Auto) 0.9 TH/MM3 (0-0.9) Eosinophils # (Auto) 0.1 TH/MM3 (0-0.4) Basophils # (Auto) 0.0 TH/MM3 (0-0.2) CBC Comment DIFF FINAL Differential Comment Blood Urea Nitrogen 28 MG/DL (7-18) Creatinine 0.77 MG/DL (0.50-1.00) Random Glucose 113 MG/DL (74-106) Calcium Level 7.6 MG/DL (8.5-10.1) Magnesium Level 2.0 MG/DL (1.5-2.5) Sodium Level 143 MEQ/L (136-145) Potassium Level 3.2 MEQ/L (3.5-5.1) Chloride Level 108 MEQ/L (98-107) Carbon Dioxide Level 28.2 MEQ/L (21.0-32.0) Anion Gap 7 MEQ/L (5-15) Estimat Glomerular Filtration Rate 75 ML/MIN (>89) Result Diagram: 07/05/17 0514 07/05/17 0514 Imaging Last Impressions Chest X-Ray 07/07/17 0800 Signed Impressions: Service Date/Time: Friday, July 07, 2017 08:20 - CONCLUSION: Left chest tube with development of a small left apical pneumothorax compared with July 06, 2017. Kemal Luna MD Liver Ultrasound 06/29/17 0000 Signed Impressions: Service Date/Time: June 16:37 - CONCLUSION: 1. Very limited exam due to extensive soft tissue emphysema. 2. Grossly normal sonographic appearance of the liver without evidence for biliary obstruction. Sung Crawford MD Abdomen X-Ray 06/28/17 Signed Impressions: Service Date/Time: Wednesday, June 28, 2017 08:12 - CONCLUSION: 1. Nonspecific bowel gas pattern but no definite evidence of obstruction. 2. NG tube in the stomach. 3. Subcutaneous emphysema throughout the body wall. Cole Hays MD Chest Tube Insertion 06/27/17 0000 Signed Impressions: Service Date/Time: Tuesday, June 27, 2017 16:08 - CONCLUSION: Uncomplicated chest tube placement as above. Sung Crawford MD Chest CT 06/27/17 Signed Impressions: Service Date/Time: Tuesday, June 27, 2017 13:40 - CONCLUSION: 1. There is a subcentimeter left apical pneumothorax and a small amount of extrapleural gas adjacent to the apex of the heart. 2. 1.8 cm spiculated mass in the medial left upper lung without air bronchograms suspicious for a contralateral metastatic recurrence of cancer. 3. Large right pleural effusion. 4. Extensive left-sided subcutaneous emphysema similar to prior chest x-ray and interval development of moderate subcutaneous emphysema about the right lateral chest wall. Mahin Boles MD Renal Ultrasound 06/26/17 0000 Signed Impressions: Service Date/Time: Monday, June 26, 2017 11:51 - CONCLUSION: 1. Slightly increased renal cortical echogenicity which may reflect medical renal disease. 2. No evidence for obstructive uropathy. Sung Crawford MD Head CT 06/26/17 0000 Signed Impressions: Service Date/Time: Monday, June 26, 2017 13:35 - CONCLUSION: 1. No acute intracranial abnormality is identified. 2. Chronic findings include mild generalized atrophy and chronic periventricular white matter ischemic change. Abel Diaz MD Brain MRI 06/26/17 0000 Signed Impressions: Service Date/Time: Monday, June 26, 2017 20:21 - CONCLUSION: 1. No acute findings. Exam degraded by motion artifact. Kemal Luna MD Lung Biopsy CT 06/21/17 0000 Signed Impressions: Service Date/Time: Wednesday, June 21, 2017 09:39 - CONCLUSION: Successful CT guided biopsy with small post-biopsy pneumothorax. Damian Don MD Procedures 06/21/2017: Left-sided chest tube placement 06/22/2017: Left-sided chest tube replaced 06/27/2017: Left-sided chest tube replaced . Assessment and Plan Disease Oriented Problem List: (1) Pneumothorax (2) Small cell lung cancer (3) COPD (chronic obstructive pulmonary disease) (4) Hypercholesteremia (5) Pneumothorax (6) Acute renal failure Symptom Scale: (1) Dyspnea 0-10 Scale: Unable to quantify (2) Agitation 0-10 Scale: Unable to quantify (3) Weakness Pertinent Non-Medical Issues Psychosocial: Patient is originally from [place]. She stated her when she was 18 years old but later to someone else. She and her first had 2 sons (Prieto and Fernando). Prieto lives in [place]; Fernando is a nurse and lives in [place]. The patient has been to her current , Leoncio, for approximately 12 years. Spiritual: Latter-Day aidan Legal: Per [place] statutes, in the absence of written advanced directives healthcare proxy decision making would fall to the patient's . However, patient's and 2 children have decided to make decisions together. Ethical issues impacting care: No known ethical issues impacting care at this time. . Important Contacts Leoncio Arzola, spouse: [phone] Fernando, son: [phone] Prieto: son: [phone] . Prognosis Patient is a 67 yo old female with metastatic squamous cell carcinoma of the lung status post lung biopsy with subsequent pneumothorax and chest tube placement; now intubated secondary to worsening respiratory failure and agitation. If the patient survives this hospitalization, she will be high risk for ongoing complications and further decline. . Code Status: Alternative Code Plan * ALTERNATE CODE-intubation only * Decision making: Per [place] statutes, in the absence of written advanced directives healthcare proxy decision making would fall to the patient's . Patient's has appears to have limited insight related to his 's medical conditions, and the patient's and 2 children have decided to make decisions together. 07/03 patient extubated, alert mostly oriented able to participate in decision-making. Palliative will provide with healthcare surrogate, advanced directive documents, she may elect to complete healthcare surrogate designation. * Per initial palliative conversations with family: Family understands patient is critically ill; they support decision to intubate for a short time but they would not consent to tracheostomy if the patient is unable to wean off mechanical ventilation. Hospice was introduced. Family wants to give the patient time to improve but state they are open to transitioning to comfort measures when appropriate. 07/03/17-patient extubated, alert and mostly oriented. Able to participate in decision-making. Patient and family going to discuss further reintubation status as well as goals going forward. Patient has not discussed pathology findings with oncology yet, family has not discussed with her either, may request oncology follow-up; I will notify oncology of patient's ability to participate at this time. 07/06/17 patient continues to indicate that she will discuss her wishes and possible healthcare surrogate designation with the rest of her family. For now patient expresses aggressive goals wishing to complete acute hospital course to get to rehab so she may pursue additional cancer treatment. Family supportive of patient wishes. 07/07 patient expresses goals remain aggressive short of alternate code. She will discuss reintubation status further with family. * Symptom management: == Dyspnea: Patient with a known history of small cell lung cancer status post concurrent chemoradiation therapy with prophylactic whole brain radiation 2008. Patient had a lung biopsy on 06/21/2017 for a suspicious lesion on her chest which was complicated by a pneumothorax and subsequent chest tube placement- pathology significant for invasive poorly differentiated squamous cell carcinoma. CT chest yesterday 06/27/2017 showed subQ emphysema and bilateral airspace disease; chest tube was in major fissure and new left sided CT was placed by IR. Patient intubated 06/28/2017 secondary to worsening respiratory status and agitation. Medically extubated 07/01. Now tolerating room air. Chest tube remains in place , waterseal trial earlier however CXR indicating small pneumothorax, suction has been resumed == Agitation: Multifactoral. Patient having altered mental status and agitation concerning for ICU delirium versus metabolic encephalopathy versus hypoxemia. Received Haldol 1 mg IV 1 dose. Patient was placed on Precedex drip for agitation. This is been discontinued patient now on propofol appears comfortable today. Ammonia level of 37; MRI of the brain and CT of the head showed no acute findings; EEG showed diffuse slowing, no focal abnormalities, no seizure activity. Neurology was following the patient condition has stabilized, improved ; neurology has signed off. Patient today alert, calm, cooperative and oriented. Sons reported patient making odd statements yesterday. During my visit patient recalls strange events from the ICU, these appear to be hallucinations she is recalling possibly from acute delirium/ICU psychosis. No active hallucinations though she believes these prior events were real. Discussed at length with medical attending, will continue to monitor neurological, psychiatric status == Weakness/deconditioning: Patient now extubated. PT, OT following for assist with strengthening, reconditioning. Discharge planning for SNF placement for rehabilitation, patient has been accepted * Palliative care will continue to follow this patient throughout her hospitalization to build rapport, assist with symptom management and goal clarification. . Time Spent Total Floor Time (mins): 25 (Chart review, discussion with nursing, PE, discussion with patient) Attestation To help prompt me to consider important information that might be impacting today's encounter and assessment, information from prior notes written by myself or my colleagues may have been "brought forward" into today's note. My signature on this note, however, is an attestation that I personally performed the exam, history, and/or decision-making noted today, and, unless otherwise indicated, the interactions with patient, family, and staff as well as the review of records all occurred today. I also attest that the listed assessment and stated plan reflect my best clinical judgment today based on the combination of historical information, prior notes, and today's exam/ interactions. When time spent is documented, it refers only to time spent today by the signer, or if indicated, combined time spent today by collaborating physician/nurse practitioner. Constanza Saunders July 07, 2017 17:16
[2017-07-07 18:01] LABS: BICARBONATE 26.8 MEQ/L (21.0-32.0); CALCIUM 8.1 MG/DL (8.5-10.1); CREATININE 0.83 MG/DL (0.50-1.00)
--- NOTE | 2017-07-07 19:37 | HHI.PR ---
Subjective Remarks Tolerates CPAP 67 YOWF with AMS,Resp Failure,SSLC Weaned to RA Tolerates PO Chest tube was clamped CXR small apical ptx Now chest tube to water seal Feels weak, tired Objective Vital Signs Vital Signs Date Time Temp Pulse Resp B/P (MAP) Pulse Ox O2 Delivery O2 Flow Rate FiO2 07/07/17 16:00 98.2 87 18 115/56 (75) 94 07/07/17 16:00 83 07/07/17 13:02 96 07/07/17 12:00 97.8 90 18 135/63 (87) 96 07/07/17 12:00 88 07/07/17 09:09 Room Air 07/07/17 08:00 90 07/07/17 08:00 97.8 82 18 116/57 (76) 96 07/07/17 04:00 86 07/07/17 04:00 97.8 89 20 135/65 (88) 96 07/07/17 04:00 Room Air 07/07/17 00:00 118 07/07/17 00:00 Room Air 07/07/17 00:00 98.3 87 20 128/64 (85) 96 07/06/17 20:00 Room Air 07/06/17 20:00 97.4 92 20 105/54 (71) 93 07/06/17 20:00 87 I/O 07/06/17 07/06/17 07/06/17 07/07/17 07/07/17 07/07/17 07:00 15:00 23:00 07:00 15:00 23:00 Intake Total 1440 ml Output Total 1030 ml 700 ml Balance -1030 ml 740 ml Intake Oral 1440 ml Output Urine Total 1000 ml 700 ml Chest Tube Drainage Total 30 ml # Voids 2 # Bowel Movements 1 0 Result Diagram: 07/05/17 0514 07/07/17 0000 Objective Remarks GENERAL: Elderly female, NAD SKIN: Warm and dry. HEAD: Normocephalic. EYES: No scleral icterus. No injection or drainage. NECK: Supple, trachea midline. No JVD or lymphadenopathy. CARDIOVASCULAR: Regular rate and rhythm without murmurs, gallops, or rubs. RESPIRATORY: Breath sounds equal bilaterally. No accessory muscle use. left chest tube to suction GASTROINTESTINAL: Abdomen soft, non-tender, nondistended. MUSCULOSKELETAL: No cyanosis, or edema. BACK: Nontender without obvious deformity. No CVA tenderness. A/P Assessment and Plan IMPRESSION: 1. Left pneumothorax after lung biopsy. She has large-bore chest tube, Small air leak. 2. Worsening left lung infiltrate. 3. Small pleural effusion. 4. H/O small cell carcinoma of the lung, status post chemotherapy and radiation treatment. 5. New cancer in the left lung. 6. History of nicotine. 7. History of chronic obstructive pulmonary disease. 8. VDRF, s/p extubation PLAN: Chest tube to water seal. Cont Abx Stable on RA Radiology managing chest tube DW Dr. Stephanie Wilkerson,Lakhwinder Kimble MD July 07, 2017 19:37
[2017-07-07] MEDS: POLYETHYLENE GLYCOL 17 GM PKG PO SCH (20:57)
[2017-07-07] MEDS: MELATONIN 5 MG TAB PO PRN (20:57)
[2017-07-07] MEDS: MONTELUKAST SODIUM 10 MG TAB PO SCH (20:57)
[2017-07-08] VITALS (10 sets, daily range): BP systolic 110–136; BP diastolic 57–79; PULSE 78–92; RESP 16–20; TEMP 97.6–98.2; O2SAT 95–100
--- NOTE | 2017-07-08 04:12 | RADRPT ---
EXAM DATE/TIME: 07/08/2017 03:36 [facility] COMPARISON: CHEST SINGLE AP, July 07, 2017, 8:20CHEST EXPIRATION ONLY, June 28, 2017, 2:44. INDICATIONS : Followup small left apical pneumothorax. MEDICAL HISTORY : Chronic obstructive pulmonary disease. Hypertension SURGICAL HISTORY : Cervical. ENCOUNTER: Subsequent ACUITY: 4 - 6 days PAIN SCORE: 0/10 LOCATION: Bilateral chest FINDINGS: A single AP semierect portable view of the chest was obtained. The left-sided chest tube remains in p lace with no visualized pneumothorax. Abnormal opacity remains in the right lung greatest at the lung base with blunting of the costophrenic angle. Heart size is within normal limits. Multiple overlying retrocardiac leads are present. CONCLUSION: 1. Interval resolution of previously noted small left apical pneumothorax. 2. Consolidation remains at the right lung base with blunting of the costophrenic angle. Matty Atkinson MD on July 08, 2017 at 4:08 Board Certified Radiologist. This report was verified electronically.
[2017-07-08 04:54] LABS: WHITE BLOOD COUNT 8.4 TH/MM3 (4.0-11.0)
[2017-07-08 04:55] LABS: AUTOMATED NEUTROPHIL # 7.1 TH/MM3 (1.8-7.7); BASOPHIL % 0.4 % (0.0-2.0); EOSINOPHIL # 0.2 TH/MM3 (0-0.4); HEMATOCRIT 31.7 % (35.0-46.0); HEMOGLOBIN 10.5 GM/DL (11.6-15.3); LYMPH % 5.9 % (9.0-44.0); LYMPHOCYTE # 0.5 TH/MM3 (1.0-4.8); MEAN CELL VOLUME 88.9 FL (80.0-100.0); MEAN CORPUSCULAR HEMOGLOBIN 29.4 PG (27.0-34.0); MEAN CORPUSCULAR HGB CONC 33.1 % (32.0-36.0); MEAN PLATELET VOLUME 10.1 FL (7.0-11.0); MONO % 7.1 % (0.0-8.0); MONOCYTE # 0.6 TH/MM3 (0-0.9); NEUT % 84.6 % (16.0-70.0); PLATELET COUNT 177 TH/MM3 (150-450); RED BLOOD COUNT 3.57 MIL/MM3 (4.00-5.30); RED CELL DISTRIBUTION WIDTH 14.5 % (11.6-17.2)
[2017-07-08 05:10] LABS: BICARBONATE 25.8 MEQ/L (21.0-32.0); CREATININE 0.87 MG/DL (0.50-1.00)
[2017-07-08] MEDS: ACETAMINOPHEN 325 MG TAB PO PRN ×3 (05:40→20:50)
[2017-07-08] MEDS: METOPROLOL TARTRATE 50 MG TAB PO SCH ×3 (06:00→20:49)
[2017-07-08] MEDS: INSULIN ASPART SUPPLEMENTAL SCALE SQ SCH ×4 (07:54→20:58)
[2017-07-08] MEDS: BUDESONIDE-FORMOTEROL 160/4.5 MCG INHALER INH SCH ×2 (09:08→20:49)
[2017-07-08] MEDS: SODIUM CHLORIDE 0.9% FLUSH 10 ML FLUSH IV FLUSH SCH ×2 (09:09→20:51)
[2017-07-08] MEDS: FAMOTIDINE 20 MG TAB PO SCH ×2 (09:09→20:49)
[2017-07-08] MEDS: predniSONE 20 MG TAB PO SCH (09:09)
--- NOTE | 2017-07-08 17:40 | HHI.PR ---
Objective Vitals Vital Signs Date Time Temp Pulse Resp B/P (MAP) Pulse Ox O2 Delivery O2 Flow Rate FiO2 07/08/17 16:05 97.6 89 20 110/57 (74) 95 07/08/17 16:00 87 07/08/17 13:36 21 07/08/17 12:20 97.9 78 18 133/70 (91) 98 07/08/17 12:00 92 07/08/17 09:52 97.8 86 18 136/62 (86) 98 07/08/17 08:00 Room Air 07/08/17 08:00 89 07/08/17 04:00 97.7 87 16 111/59 (76) 97 07/08/17 00:00 97.9 82 18 119/61 (80) 97 07/07/17 20:00 97.0 90 18 122/61 (81) 98 Result Diagram: 07/08/17 0422 07/08/17 0422 Imaging Last Impressions Chest X-Ray 07/02/17 0000 Signed Impressions: Service Date/Time: Sunday, July 02, 2017 16:05 - CONCLUSION: No pneumothorax is noted. Right perihilar streakiness consistent with atelectasis and/or scarring. Stable small right pleural effusion. Damian Don MD Liver Ultrasound 06/29/17 0000 Signed Impressions: Service Date/Time: June 16:37 - CONCLUSION: 1. Very limited exam due to extensive soft tissue emphysema. 2. Grossly normal sonographic appearance of the liver without evidence for biliary obstruction. Sung Crawford MD Abdomen X-Ray 06/28/17 0000 Signed Impressions: Service Date/Time: Wednesday, June 28, 2017 08:12 - CONCLUSION: 1. Nonspecific bowel gas pattern but no definite evidence of obstruction. 2. NG tube in the stomach. 3. Subcutaneous emphysema throughout the body wall. Cole Hays MD Chest Tube Insertion 06/27/17 0000 Signed Impressions: Service Date/Time: Tuesday, June 27, 2017 16:08 - CONCLUSION: Uncomplicated chest tube placement as above. Sung Crawford MD Chest CT 06/27/17 0000 Signed Impressions: Service Date/Time: Tuesday, June 27, 2017 13:40 - CONCLUSION: 1. There is a subcentimeter left apical pneumothorax and a small amount of extrapleural gas adjacent to the apex of the heart. 2. 1.8 cm spiculated mass in the medial left upper lung without air bronchograms suspicious for a contralateral metastatic recurrence of cancer. 3. Large right pleural effusion. 4. Extensive left-sided subcutaneous emphysema similar to prior chest x-ray and interval development of moderate subcutaneous emphysema about the right lateral chest wall. Mahin Boles MD Renal Ultrasound 06/26/17 0000 Signed Impressions: Service Date/Time: Monday, June 26, 2017 11:51 - CONCLUSION: 1. Slightly increased renal cortical echogenicity which may reflect medical renal disease. 2. No evidence for obstructive uropathy. Sung Crawford MD Head CT 06/26/17 0000 Signed Impressions: Service Date/Time: Monday, June 26, 2017 13:35 - CONCLUSION: 1. No acute intracranial abnormality is identified. 2. Chronic findings include mild generalized atrophy and chronic periventricular white matter ischemic change. Abel Diaz MD Brain MRI 06/26/17 0000 Signed Impressions: Service Date/Time: Monday, June 26, 2017 20:21 - CONCLUSION: 1. No acute findings. Exam degraded by motion artifact. Kemal Luna MD Lung Biopsy CT 06/21/17 0000 Signed Impressions: Service Date/Time: Wednesday, June 21, 2017 09:39 - CONCLUSION: Successful CT guided biopsy with small post-biopsy pneumothorax. Damian Don MD Objective Remarks GENERAL: This is a well-nourished, well-developed patient, in no apparent distress. CARDIOVASCULAR: Regular rate and rhythm without murmurs, gallops, or rubs. RESPIRATORY: Clear to auscultation. Breath sounds equal bilaterally. Chest tube present GASTROINTESTINAL: Abdomen soft, non-tender, nondistended. Normal active bowel sounds MUSCULOSKELETAL: Extremities without clubbing, cyanosis, or edema. NEURO: Alert & Oriented x4 to person, place, time, situation. 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 Pt will f/u with her primary Oncologist after discharge - Case d/w Dr. Wilkerson (07/04/17). - Dr. Wilkerson ordered CT to water seal 07/05/17 CXR 07/06 revealed no significant change. No pneumothorax - Pt on RA - 07/07 CT clamped at 0400 per pulmonology, CXR 0820 revealed Left chest tube with development of a small left apical pneumothorax compared with - CT returned to suction- further management per pulmonology - observe - DVT prophylaxis - supportive care (2) Small cell lung cancer ICD Codes: C34.90 - Malignant neoplasm of unspecified part of unspecified bronchus or lung Status: Chronic Plan: see above (3) COPD (chronic obstructive pulmonary disease) ICD Codes: J44.9 - Chronic obstructive pulmonary disease, unspecified Status: Acute Plan: - solu medrol 40 mg IV daily -> change to PO (07/06) - Steroid induced hyperglycemia - accu check ACHS with SSI coverage - Singulair - duonebs PRN, DC scheduled Duonebs (4) Atrial fibrillation ICD Codes: I48.91 - Unspecified atrial fibrillation Status: Acute Plan: - metoprolol 50 mg PO Q8H - continue to observe on telemetry (5) Hypokalemia ICD Codes: E87.6 - Hypokalemia Plan: potassium 3.2 (07/05), mag 2.0 replaced potassium recheck BMP pending Assessment and Plan Patient examined. Assessment and plan formulated with Goldie Ventura PA-C. I agree with the above. CXR (07/07) --> small left apical pneumothorax chest tube placed to water seal repeat CXR in AM Problem Qualifiers (1) Pneumothorax: Qualified Codes: J95.811 - Postprocedural pneumothorax (2) Atrial fibrillation: Qualified Codes: I48.91 - Unspecified atrial fibrillation Goldie Ventura July 08, 2017 17:40
[2017-07-08] MEDS: MONTELUKAST SODIUM 10 MG TAB PO SCH (20:49)
[2017-07-08] MEDS: POLYETHYLENE GLYCOL 17 GM PKG PO SCH (20:51)
[2017-07-08] MEDS: MELATONIN 5 MG TAB PO PRN (20:55)
[2017-07-09] VITALS (8 sets, daily range): BP systolic 102–139; BP diastolic 57–76; PULSE 79–93; RESP 16–20; TEMP 97.1–98.7; O2SAT 94–97
[2017-07-09] MEDS: METOPROLOL TARTRATE 50 MG TAB PO SCH ×3 (05:08→20:38)
--- NOTE | 2017-07-09 05:16 | RADRPT ---
EXAM DATE/TIME: 07/09/2017 04:37 [facility] COMPARISON: CHEST EXPIRATION ONLY, July 08, 2017, 3:36. CHEST SINGLE AP, July 07, 2017, 8:20. INDICATIONS : Followup recent left pneumothorax.. MEDICAL HISTORY : Chronic obstructive pulmonary disease. Hypertension SURGICAL HISTORY : Cervical. ENCOUNTER: Subsequent ACUITY: 1 day PAIN SCORE: 0/10 LOCATION: Bilateral chest FINDINGS: A single AP erect portable view of the chest was obtained and again demonstrates a left-sided chest t ube in place. There is no visualized pneumothorax. Consolidative opacity remains at the right lung ba se with blunting of the costophrenic angle. There is hazy right perihilar opacity as well. The heart size remains mildly enlarged. CONCLUSION: No significant change. Left-sided chest tube remains in place and there is no pneumot horax. The consolidative opacity in the right lung base is stable as well. Matty Atkinson MD on July 09, 2017 at 5:12 Board Certified Radiologist. This report was verified electronically.
[2017-07-09] MEDS: INSULIN ASPART SUPPLEMENTAL SCALE SQ SCH ×4 (08:00→20:39)
[2017-07-09] MEDS: ACETAMINOPHEN 325 MG TAB PO PRN ×3 (08:07→23:49)
[2017-07-09] MEDS: FAMOTIDINE 20 MG TAB PO SCH ×2 (08:08→20:38)
[2017-07-09] MEDS: predniSONE 20 MG TAB PO SCH (08:08)
[2017-07-09] MEDS: SODIUM CHLORIDE 0.9% FLUSH 10 ML FLUSH IV FLUSH SCH ×2 (08:11→20:37)
[2017-07-09] MEDS: BUDESONIDE-FORMOTEROL 160/4.5 MCG INHALER INH SCH ×2 (08:11→20:36)
--- NOTE | 2017-07-09 14:21 | HHI.PR ---
Subjective Remarks Patient offers no new complaints/concerns CT still in place with air leak Objective Vitals Vital Signs Date Time Temp Pulse Resp B/P (MAP) Pulse Ox O2 Delivery O2 Flow Rate FiO2 07/09/17 11:25 97.7 90 18 102/57 (72) 96 07/09/17 08:11 Room Air 07/09/17 08:10 97.4 83 18 139/62 (87) 97 07/09/17 04:01 Room Air 07/09/17 04:00 98.2 79 16 124/59 (80) 95 07/09/17 00:00 98.2 79 18 125/61 (82) 97 07/09/17 00:00 Room Air 07/08/17 20:45 96 21 07/08/17 20:00 98.2 90 18 128/59 (82) 98 07/08/17 20:00 Room Air 07/08/17 16:05 97.6 89 20 110/57 (74) 95 07/08/17 16:00 87 Result Diagram: 07/08/17 0422 07/08/17 0422 Other Results Laboratory Tests Test 07/07/17 00:00 07/08/17 04:22 Blood Urea Nitrogen 23 MG/DL 21 MG/DL Creatinine 0.83 MG/DL 0.87 MG/DL Random Glucose 122 MG/DL 113 MG/DL Calcium Level 8.1 MG/DL 8.0 MG/DL Sodium Level 143 MEQ/L 144 MEQ/L Potassium Level 4.0 MEQ/L 3.6 MEQ/L Chloride Level 107 MEQ/L 108 MEQ/L Carbon Dioxide Level 26.8 MEQ/L 25.8 MEQ/L Anion Gap 9 MEQ/L 10 MEQ/L Estimat Glomerular Filtration Rate 68 ML/MIN 65 ML/MIN White Blood Count 8.4 TH/MM3 Red Blood Count 3.57 MIL/MM3 Hemoglobin 10.5 GM/DL Hematocrit 31.7 % Mean Corpuscular Volume 88.9 FL Mean Corpuscular Hemoglobin 29.4 PG Mean Corpuscular Hemoglobin Concent 33.1 % Red Cell Distribution Width 14.5 % Platelet Count 177 TH/MM3 Mean Platelet Volume 10.1 FL Neutrophils (%) (Auto) 84.6 % Lymphocytes (%) (Auto) 5.9 % Monocytes (%) (Auto) 7.1 % Eosinophils (%) (Auto) 2.0 % Basophils (%) (Auto) 0.4 % Neutrophils # (Auto) 7.1 TH/MM3 Lymphocytes # (Auto) 0.5 TH/MM3 Monocytes # (Auto) 0.6 TH/MM3 Eosinophils # (Auto) 0.2 TH/MM3 Basophils # (Auto) 0.0 TH/MM3 CBC Comment DIFF FINAL Differential Comment Imaging Last Impressions Chest X-Ray 07/02/17 0000 Signed Impressions: Service Date/Time: Sunday, July 02, 2017 16:05 - CONCLUSION: No pneumothorax is noted. Right perihilar streakiness consistent with atelectasis and/or scarring. Stable small right pleural effusion. Damian Don MD Liver Ultrasound 06/29/17 Signed Impressions: Service Date/Time: June 16:37 - CONCLUSION: 1. Very limited exam due to extensive soft tissue emphysema. 2. Grossly normal sonographic appearance of the liver without evidence for biliary obstruction. Sung Crawford MD Abdomen X-Ray 06/28/17 0000 Signed Impressions: Service Date/Time: Wednesday, June 28, 2017 08:12 - CONCLUSION: 1. Nonspecific bowel gas pattern but no definite evidence of obstruction. 2. NG tube in the stomach. 3. Subcutaneous emphysema throughout the body wall. Cole Hays MD Chest Tube Insertion 06/27/17 0000 Signed Impressions: Service Date/Time: Tuesday, June 27, 2017 16:08 - CONCLUSION: Uncomplicated chest tube placement as above. Sung Crawford MD Chest CT 06/27/17 0000 Signed Impressions: Service Date/Time: Tuesday, June 27, 2017 13:40 - CONCLUSION: 1. There is a subcentimeter left apical pneumothorax and a small amount of extrapleural gas adjacent to the apex of the heart. 2. 1.8 cm spiculated mass in the medial left upper lung without air bronchograms suspicious for a contralateral metastatic recurrence of cancer. 3. Large right pleural effusion. 4. Extensive left-sided subcutaneous emphysema similar to prior chest x-ray and interval development of moderate subcutaneous emphysema about the right lateral chest wall. Mahin Boles MD Renal Ultrasound 06/26/17 0000 Signed Impressions: Service Date/Time: Monday, June 26, 2017 11:51 - CONCLUSION: 1. Slightly increased renal cortical echogenicity which may reflect medical renal disease. 2. No evidence for obstructive uropathy. Sung Crawford MD Head CT 06/26/17 0000 Signed Impressions: Service Date/Time: Monday, June 26, 2017 13:35 - CONCLUSION: 1. No acute intracranial abnormality is identified. 2. Chronic findings include mild generalized atrophy and chronic periventricular white matter ischemic change. Abel Diaz MD Brain MRI 06/26/17 0000 Signed Impressions: Service Date/Time: Monday, June 26, 2017 20:21 - CONCLUSION: 1. No acute findings. Exam degraded by motion artifact. Kemal Luna MD Lung Biopsy CT 06/21/17 0000 Signed Impressions: Service Date/Time: Wednesday, June 21, 2017 09:39 - CONCLUSION: Successful CT guided biopsy with small post-biopsy pneumothorax. Damian Dno MD Objective Remarks GENERAL: This is a well-nourished, well-developed patient, in no apparent distress. CARDIOVASCULAR: Regular rate and rhythm without murmurs, gallops, or rubs. RESPIRATORY: Clear to auscultation. Breath sounds equal bilaterally. Chest tube present with small air leak GASTROINTESTINAL: Abdomen soft, non-tender, nondistended. Normal active bowel sounds MUSCULOSKELETAL: Extremities without clubbing, cyanosis, or edema. NEURO: Alert & Oriented x4 to person, place, time, situation. 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 Pt will f/u with her primary Oncologist after discharge - Case d/w Dr. Wilkerson (07/04/17). - Dr. Wilkerson ordered CT to water seal 07/05/17 CXR 07/06 revealed no significant change. No pneumothorax - Pt on RA - 07/07 CT clamped at 0400 per pulmonology, CXR 0820 revealed Left chest tube with development of a small left apical pneumothorax compared with - CT returned to suction- further management per pulmonology - 07/09 discussed the case with Dr. Encinas covering Pulmonology agrees there is still an air leak present. Recommends CT chest without contrast to further evaluate. Patient may require CT surgery - CT chest/thorax without contrast ordered - observe - DVT prophylaxis - supportive care (2) Small cell lung cancer ICD Codes: C34.90 - Malignant neoplasm of unspecified part of unspecified bronchus or lung Status: Chronic Plan: see above (3) COPD (chronic obstructive pulmonary disease) ICD Codes: J44.9 - Chronic obstructive pulmonary disease, unspecified Status: Acute Plan: - solu medrol 40 mg IV daily -> change to PO (07/06) continue to wean - Steroid induced hyperglycemia - accu check ACHS with SSI coverage - Singulair - duonebs PRN, DC scheduled Duonebs (4) Atrial fibrillation ICD Codes: I48.91 - Unspecified atrial fibrillation Status: Acute Plan: - metoprolol 50 mg PO Q8H - continue to observe on telemetry - echocardiogram 06/28/17: Normal left ventricular size. EF=35-40%, severe hk ant -ap Mild concentric left ventricular hypertrophy. The left atrial size is mildly dilated. The right atrial size is mildly dilated. Aortic valve sclerosis is present. Mild aortic valve regurgitation. There is trace tricuspid valve regurgitation. The estimated pulmonary arterial pressure is 31 mmHg. A right sided pleural effusion is present. (5) Hypokalemia ICD Codes: E87.6 - Hypokalemia Status: Resolved Plan: potassium 3.2 (07/05), mag 2.0 replaced potassium recheck BMP pending Assessment and Plan Patient examined. Assessment and plan formulated with Goldie Ventura PA-C. I agree with the above. Problem Qualifiers (1) Pneumothorax: Qualified Codes: J95.811 - Postprocedural pneumothorax (2) Atrial fibrillation: Qualified Codes: I48.91 - Unspecified atrial fibrillation Goldie Ventura July 09, 2017 14:20 Elvis Carter DO July 11, 2017 10:59
--- NOTE | 2017-07-09 15:43 | RADRPT ---
EXAM DATE/TIME: 07/09/2017 15:22 [facility] COMPARISON: CHEST SINGLE AP, July 06, 2017, 8:49. CT THORAX W/O CONTRAST, June 27, 2017, 13:40. INDICATIONS : Evaluate for pneumothorax, left side chest tube. RADIATION DOSE: 6.64 CTDIvol (mGy) MEDICAL HISTORY : Carcinoma, lung. SURGICAL HISTORY : Chest tube. ENCOUNTER: Initial ACUITY: 1 day PAIN SCALE: 0/10 LOCATION: chest TECHNIQUE: Volumetric scanning of the chest was performed. Using automated exposure control and adjustment of t he mA and/or kV according to patient size, radiation dose was kept as low as reasonably achievable to obtain optimal diagnostic quality images. DICOM format image data is available electronically for r eview and comparison. Follow-up recommendations for detected pulmonary nodules are based at a minimum on nodule size and pa tient risk factors according to Fleischner Society Guidelines. FINDINGS: Large bore chest tube in place on the left the trace pneumothorax anteriorly left lung. Moderate sub cutaneous emphysema is present. Pleural-parenchymal changes on the right with small to moderate size right pleural effusion right pleural effusion. Marked coronary calcifications. There is no axillary or mediastinal adenopathy. Review of bone windows reveals degenerative changes in the thoracic spine with sclerosis right sixth rib posteriorly described previously. CONCLUSION: Left chest tube in place Trace small left pneumothorax New subcutaneous emphysema left chest wall Martin Galdamez MD FACR on July 09, 2017 at 15:37 Board Certified Radiologist. This report was verified electronically.
[2017-07-09] MEDS: ONDANSETRON HCL 4 MG/2 ML VIAL IVP PRN (16:45)
[2017-07-09] MEDS: POLYETHYLENE GLYCOL 17 GM PKG PO SCH (20:37)
[2017-07-09] MEDS: MONTELUKAST SODIUM 10 MG TAB PO SCH (20:38)
[2017-07-09] MEDS: MELATONIN 5 MG TAB PO PRN (20:38)
[2017-07-10] VITALS: BP 136/69; PULSE 87; RESP 16; TEMP 98.1; O2SAT 96
[2017-07-10 04:31] VITALS: BP 135/73; PULSE 78; RESP 16; TEMP 98; O2SAT 96
[2017-07-10] MEDS: METOPROLOL TARTRATE 50 MG TAB PO SCH ×3 (05:21→21:35)
[2017-07-10] MEDS: ACETAMINOPHEN 325 MG TAB PO PRN ×3 (05:25→21:44)
[2017-07-10] MEDS: INSULIN ASPART SUPPLEMENTAL SCALE SQ SCH ×4 (08:00→21:44)
[2017-07-10 08:08] VITALS: BP 134/73; PULSE 84; RESP 17; TEMP 97.4; O2SAT 95
[2017-07-10] MEDS: BUDESONIDE-FORMOTEROL 160/4.5 MCG INHALER INH SCH ×2 (09:00→21:00)
[2017-07-10] MEDS: SODIUM CHLORIDE 0.9% FLUSH 10 ML FLUSH IV FLUSH SCH ×2 (09:00→21:39)
[2017-07-10] MEDS: FAMOTIDINE 20 MG TAB PO SCH ×2 (09:23→21:34)
[2017-07-10] MEDS: predniSONE 10 MG TAB PO SCH (09:23)
--- NOTE | 2017-07-10 10:59 | HHI.PR ---
Subjective Remarks pt w/out new complaints Objective Vitals heart reg lung good air entry gary left large bore chest tube to suction abd s/nt ext no edema Vital Signs Date Time Temp Pulse Resp B/P (MAP) Pulse Ox O2 Delivery O2 Flow Rate FiO2 07/10/17 08:08 97.4 84 17 134/73 (93) 95 07/10/17 07:47 Room Air 07/10/17 04:31 Room Air 07/10/17 04:31 98.0 78 16 135/73 (93) 96 07/10/17 00:00 98.1 87 16 136/69 (91) 96 07/10/17 00:00 Room Air 07/09/17 20:00 Room Air 07/09/17 19:42 98.7 93 18 125/76 (92) 94 07/09/17 17:19 96 21 07/09/17 16:15 97.1 85 20 129/66 (87) 95 07/09/17 14:08 96 07/09/17 11:25 97.7 90 18 102/57 (72) 96 07/10/17 07/10/17 07/11/17 15:00 23:00 07:00 Intake Total 0 ml Balance 0 ml IV Total 0 ml Result Diagram: 07/08/17 04207/08/17 0422 Imaging Last Impressions Chest X-Ray 07/02/17 0000 Signed Impressions: Service Date/Time: Sunday, July 02, 2017 16:05 - CONCLUSION: No pneumothorax is noted. Right perihilar streakiness consistent with atelectasis and/or scarring. Stable small right pleural effusion. Damian Don MD Liver Ultrasound 06/29/17 0000 Signed Impressions: Service Date/Time: June 16:37 - CONCLUSION: 1. Very limited exam due to extensive soft tissue emphysema. 2. Grossly normal sonographic appearance of the liver without evidence for biliary obstruction. Sung Crawford MD Abdomen X-Ray 06/28/17 0000 Signed Impressions: Service Date/Time: Wednesday, June 28, 2017 08:12 - CONCLUSION: 1. Nonspecific bowel gas pattern but no definite evidence of obstruction. 2. NG tube in the stomach. 3. Subcutaneous emphysema throughout the body wall. Cole Hays MD Chest Tube Insertion 06/27/17 0000 Signed Impressions: Service Date/Time: Tuesday, June 27, 2017 16:08 - CONCLUSION: Uncomplicated chest tube placement as above. Sung Crawford MD Chest CT 06/27/17 0000 Signed Impressions: Service Date/Time: Tuesday, June 27, 2017 13:40 - CONCLUSION: 1. There is a subcentimeter left apical pneumothorax and a small amount of extrapleural gas adjacent to the apex of the heart. 2. 1.8 cm spiculated mass in the medial left upper lung without air bronchograms suspicious for a contralateral metastatic recurrence of cancer. 3. Large right pleural effusion. 4. Extensive left-sided subcutaneous emphysema similar to prior chest x-ray and interval development of moderate subcutaneous emphysema about the right lateral chest wall. Mahin Boles MD Renal Ultrasound 06/26/17 0000 Signed Impressions: Service Date/Time: Monday, June 26, 2017 11:51 - CONCLUSION: 1. Slightly increased renal cortical echogenicity which may reflect medical renal disease. 2. No evidence for obstructive uropathy. Sung Crawford MD Head CT 06/26/17 0000 Signed Impressions: Service Date/Time: Monday, June 26, 2017 13:35 - CONCLUSION: 1. No acute intracranial abnormality is identified. 2. Chronic findings include mild generalized atrophy and chronic periventricular white matter ischemic change. Abel Diaz MD Brain MRI 06/26/17 0000 Signed Impressions: Service Date/Time: Monday, June 26, 2017 20:21 - CONCLUSION: 1. No acute findings. Exam degraded by motion artifact. Kemal Luna MD Lung Biopsy CT 06/21/17 0000 Signed Impressions: Service Date/Time: Wednesday, June 21, 2017 09:39 - CONCLUSION: Successful CT guided biopsy with small post-biopsy pneumothorax. Damian Don MD Date of Insertion: Jun 22, 2017 A/P Problem List: (1) Pneumothorax ICD Codes: J93.9 - Pneumothorax, unspecified Status: Acute Plan: - comgmt with Pulm Med and Oncology history of small cell lung CA status post prophylactic whole brain radiation 2008. 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 Pt will f/u with her primary Oncologist after discharge - Case d/w Dr. Wilkerson (07/04/17). - Dr. Wilkerson ordered CT to water seal 07/05/17 CXR 07/06 revealed no significant change. No pneumothorax - Pt on RA - 07/07 CT clamped at 0400 per pulmonology, CXR 0820 revealed Left chest tube with development of a small left apical pneumothorax compared with - CT returned to suction- further management per pulmonology - 07/09 discussed the case with Dr. Encinas covering Pulmonology agrees there is still an air leak present. Recommends CT chest without contrast to further evaluate. Patient may require CT surgery - CT chest/thorax without contrast. persistent pneumothorax - discussed with Dr Wilkerson...consult CTS to eval the ptx and ?resectable lung ca - (2) Small cell lung cancer ICD Codes: C34.90 - Malignant neoplasm of unspecified part of unspecified bronchus or lung Status: Chronic Plan: see above (3) COPD (chronic obstructive pulmonary disease) ICD Codes: J44.9 - Chronic obstructive pulmonary disease, unspecified Status: Acute Plan: - solu medrol 40 mg IV daily -> change to PO (07/06) continue to wean - Steroid induced hyperglycemia - accu check ACHS with SSI coverage - Singulair - duonebs PRN, DC scheduled Duonebs (4) Atrial fibrillation ICD Codes: I48.91 - Unspecified atrial fibrillation Status: Acute Plan: - metoprolol 50 mg PO Q8H - continue to observe on telemetry - echocardiogram 06/28/17: Normal left ventricular size. EF=35-40%, severe hk ant -ap Mild concentric left ventricular hypertrophy. The left atrial size is mildly dilated. The right atrial size is mildly dilated. Aortic valve sclerosis is present. Mild aortic valve regurgitation. There is trace tricuspid valve regurgitation. The estimated pulmonary arterial pressure is 31 mmHg. A right sided pleural effusion is present. (5) Hypokalemia ICD Codes: E87.6 - Hypokalemia Status: Resolved Plan: potassium 3.2 (07/05), mag 2.0 replaced potassium Problem Qualifiers (1) Pneumothorax: Qualified Codes: J95.811 - Postprocedural pneumothorax (2) Atrial fibrillation: Qualified Codes: I48.91 - Unspecified atrial fibrillation Forest Sanders MD July 10, 2017 10:59
[2017-07-10 12:19] VITALS: BP 96/56; PULSE 86; RESP 17; TEMP 97.2; O2SAT 96
[2017-07-10 16:08] VITALS: BP 107/68; PULSE 80; RESP 17; TEMP 97.6; O2SAT 95
--- NOTE | 2017-07-10 16:52 | HHI.HCPN ---
Reason for visit a. To assist with evaluation and management of symptoms including: dyspnea, agitation b. To assist medical decision maker(s) with: better understanding of current medical conditions; weighing benefits/burdens of medical treatment options; making medical treatment decisions. . Subjective/Interval History Patient seen today to follow-up on dyspnea , as well as review treatment goals with pt/family. She remained stable out of the ICU. Continues to require chest tube to left chest, attempts at waterseal follow-up imaging indicative of persistent pneumothorax. Status post CT chest. Cardiovascular surgery consulted today to evaluate further. CTS dictation not available at time of my exam but patient indicates they spoke with her regarding obtaining additional diagnostics including PFTs and may consider surgical intervention. Pt seen in room, son at bedside. She is alert, oriented, appropriate. She indicates she had terrible pain at chest tube site earlier today w PT activity, but improved after PRN oxycodone use. We discussed using prns prior to physical therapy evaluation to assist with pain control. We also explored sedation versus pain relief with possible up titration. She indicates current dosing is effective when she uses it. She endorses fair appetite, no n/v. she does c/o constipation (last BM 07/07) but that she discussed w nurse possible enema tomorrow, used prn miralax yesterday wants to see if that helps first. She reports passing flatus. Denies dyspnea. Patient and son tell me that cardiovascular surgery was just in and discussed with her obtaining PFTs and additional diagnostics before proceeding with possible surgical interventions. Patient indicates possible lung surgery sounds painful and difficult for such a small spot, but that she will do what she needs to do to get better and get to rehab so that she can continue to treat her cancer. All questions answered, palliative contact information provided. . Advance Directives Living Will: Never completed Health Care Surrogate: Never completed Durable Power of Still Operator Brandy: Never completed Advance Directive Specifics Documented care wishes: No documented care wishes have been completed. . Objective Vital Signs Date Time Temp Pulse Resp B/P (MAP) Pulse Ox O2 Delivery O2 Flow Rate FiO2 07/10/17 15:32 07/10/17 12:19 97.2 86 17 96/56 (69) 96 07/10/17 08:08 97.4 84 17 134/73 (93) 95 07/10/17 07:47 Room Air 07/10/17 04:31 Room Air 07/10/17 04:31 98.0 78 16 135/73 (93) 96 07/10/17 00:00 98.1 87 16 136/69 (91) 96 07/10/17 00:00 Room Air 07/09/17 20:00 Room Air 07/09/17 19:42 98.7 93 18 125/76 (92) 94 07/09/17 17:19 96 21 Intake & Output 07/10/17 07/10/17 07:00 19:00 Intake Total 620 ml 0 ml Output Total 1210 ml Balance -590 ml 0 ml Intake Oral 620 ml IV Total 0 ml Output Urine Total 1200 ml Chest Tube Drainage Total 10 ml Physical Exam CONSTITUTIONAL/GENERAL: This is an adequately nourished patient, alert, pleasant , oriented. TUBES/LINES/DRAINS: PIV upper extremity, left lateral chest tube, Webb catheter SKIN: No jaundice, rashes, or lesions. Left chest tube dressing clean and dry. No wounds seen anteriorly. Skin warm/dry CARDIOVASCULAR: Regular rate and rhythm without murmur. No JVD. Peripheral pulses symmetric. Trace peripheral edema. RESPIRATORY/CHEST: Respirations even/unlabored. On room air. Breath sounds clear, diminished bilaterally. GASTROINTESTINAL: Abdomen soft, no tenderness, slightly distended. No guarding. Bowel sounds hyperactive. GENITOURINARY: Without palpable bladder distension. Webb catheter in place draining dark yellow urine. MUSCULOSKELETAL: Extremities without clubbing, cyanosis. Trace peripheral edema. No mottling or clubbing. NEUROLOGICAL: Alert and oriented x3. Reasonable insight to current condition and options going forward. Moving all 4 extremities with generalized weakness. PSYCHIATRIC: No evident anxiety or depression, no hallucinations . . Diagnostic Tests Laboratory Laboratory Tests Test 07/08/17 04:22 White Blood Count 8.4 TH/MM3 (4.0-11.0) Red Blood Count 3.57 MIL/MM3 (4.00-5.30) Hemoglobin 10.5 GM/DL (11.6-15.3) Hematocrit 31.7 % (35.0-46.0) Mean Corpuscular Volume 88.9 FL (80.0-100.0) Mean Corpuscular Hemoglobin 29.4 PG (27.0-34.0) Mean Corpuscular Hemoglobin Concent 33.1 % (32.0-36.0) Red Cell Distribution Width 14.5 % (11.6-17.2) Platelet Count 177 TH/MM3 (150-450) Mean Platelet Volume 10.1 FL (7.0-11.0) Neutrophils (%) (Auto) 84.6 % (16.0-70.0) Lymphocytes (%) (Auto) 5.9 % (9.0-44.0) Monocytes (%) (Auto) 7.1 % (0.0-8.0) Eosinophils (%) (Auto) 2.0 % (0.0-4.0) Basophils (%) (Auto) 0.4 % (0.0-2.0) Neutrophils # (Auto) 7.1 TH/MM3 (1.8-7.7) Lymphocytes # (Auto) 0.5 TH/MM3 (1.0-4.8) Monocytes # (Auto) 0.6 TH/MM3 (0-0.9) Eosinophils # (Auto) 0.2 TH/MM3 (0-0.4) Basophils # (Auto) 0.0 TH/MM3 (0-0.2) CBC Comment DIFF FINAL Differential Comment Blood Urea Nitrogen 21 MG/DL (7-18) Creatinine 0.87 MG/DL (0.50-1.00) Random Glucose 113 MG/DL (74-106) Calcium Level 8.0 MG/DL (8.5-10.1) Sodium Level 144 MEQ/L (136-145) Potassium Level 3.6 MEQ/L (3.5-5.1) Chloride Level 108 MEQ/L (98-107) Carbon Dioxide Level 25.8 MEQ/L (21.0-32.0) Anion Gap 10 MEQ/L (5-15) Estimat Glomerular Filtration Rate 65 ML/MIN (>89) Result Diagram: 07/08/17 0422 07/08/17 0422 Imaging Last Impressions Chest X-Ray 07/09/17 0800 Signed Impressions: Service Date/Time: Sunday, July 09, 2017 04:37 - CONCLUSION: No significant change. Left-sided chest tube remains in place and there is no pneumothorax. The consolidative opacity in the right lung base is stable as well. Matty Atkinson MD Chest CT 07/09/17 0000 Signed Impressions: Service Date/Time: Sunday, July 09, 2017 15:22 - CONCLUSION: Left chest tube in place Trace small left pneumothorax New subcutaneous emphysema left chest wall Martin Galdamez MD FACR Liver Ultrasound 06/29/17 0000 Signed Impressions: Service Date/Time: June 16:37 - CONCLUSION: 1. Very limited exam due to extensive soft tissue emphysema. 2. Grossly normal sonographic appearance of the liver without evidence for biliary obstruction. Sung Crawford MD Abdomen X-Ray 06/28/17 0000 Signed Impressions: Service Date/Time: Wednesday, June 28, 2017 08:12 - CONCLUSION: 1. Nonspecific bowel gas pattern but no definite evidence of obstruction. 2. NG tube in the stomach. 3. Subcutaneous emphysema throughout the body wall. Cole Hays MD Chest Tube Insertion 06/27/17 0000 Signed Impressions: Service Date/Time: Tuesday, June 27, 2017 16:08 - CONCLUSION: Uncomplicated chest tube placement as above. Sung Crawford MD Renal Ultrasound 06/26/17 0000 Signed Impressions: Service Date/Time: Monday, June 26, 2017 11:51 - CONCLUSION: 1. Slightly increased renal cortical echogenicity which may reflect medical renal disease. 2. No evidence for obstructive uropathy. Sung Crawford MD Head CT 06/26/17 0000 Signed Impressions: Service Date/Time: Monday, June 26, 2017 13:35 - CONCLUSION: 1. No acute intracranial abnormality is identified. 2. Chronic findings include mild generalized atrophy and chronic periventricular white matter ischemic change. Abel Diaz MD Brain MRI 06/26/17 0000 Signed Impressions: Service Date/Time: Monday, June 26, 2017 20:21 - CONCLUSION: 1. No acute findings. Exam degraded by motion artifact. Kemal Luna MD Lung Biopsy CT 06/21/17 0000 Signed Impressions: Service Date/Time: Wednesday, June 21, 2017 09:39 - CONCLUSION: Successful CT guided biopsy with small post-biopsy pneumothorax. Damian Don MD Procedures 06/21/2017: Left-sided chest tube placement 06/22/2017: Left-sided chest tube replaced 06/27/2017: Left-sided chest tube replaced . Assessment and Plan Disease Oriented Problem List: (1) Pneumothorax (2) Small cell lung cancer (3) COPD (chronic obstructive pulmonary disease) (4) Hypercholesteremia (5) Pneumothorax (6) Acute renal failure Symptom Scale: (1) Dyspnea 0-10 Scale: Unable to quantify (2) Agitation 0-10 Scale: Unable to quantify (3) Weakness Pertinent Non-Medical Issues Psychosocial: Patient is originally from [place]. She stated her when she was 18 years old but later to someone else. She and her first had 2 sons (Prieto and Fernando). Prieto lives in [place]; Fernando is a nurse and lives in [place]. The patient has been to her current , Leoncio, for approximately 12 years. Spiritual: Hoahaoism aidan Legal: Per [place] statutes, in the absence of written advanced directives healthcare proxy decision making would fall to the patient's . However, patient's and 2 children have decided to make decisions together. Ethical issues impacting care: No known ethical issues impacting care at this time. . Important Contacts Leoncio Arzola, spouse: [phone] Fernando, son: [phone] Prieto: son: [phone] . Prognosis Patient is a 67 yo old female with metastatic squamous cell carcinoma of the lung status post lung biopsy with subsequent pneumothorax and chest tube placement; now intubated secondary to worsening respiratory failure and agitation. If the patient survives this hospitalization, she will be high risk for ongoing complications and further decline. . Code Status: Alternative Code Plan * ALTERNATE CODE-intubation only * Decision making: Per [place] statutes, in the absence of written advanced directives healthcare proxy decision making would fall to the patient's . Patient's has appears to have limited insight related to his 's medical conditions, and the patient's and 2 children have decided to make decisions together. 5/7 patient extubated, alert mostly oriented able to participate in decision-making. Palliative will provide with healthcare surrogate, advanced directive documents, she may elect to complete healthcare surrogate designation. * Per initial palliative conversations with family: Family understands patient is critically ill; they support decision to intubate for a short time but they would not consent to tracheostomy if the patient is unable to wean off mechanical ventilation. Hospice was introduced. Family wants to give the patient time to improve but state they are open to transitioning to comfort measures when appropriate. 07/03/17-patient extubated, alert and mostly oriented. Able to participate in decision-making. Patient and family going to discuss further reintubation status as well as goals going forward. Patient has not discussed pathology findings with oncology yet, family has not discussed with her either, may request oncology follow-up; I will notify oncology of patient's ability to participate at this time. 07/06/17 patient continues to indicate that she will discuss her wishes and possible healthcare surrogate designation with the rest of her family. For now patient expresses aggressive goals wishing to complete acute hospital course to get to rehab so she may pursue additional cancer treatment. Family supportive of patient wishes. 07/07 patient expresses goals remain aggressive short of alternate code. She will discuss reintubation status further with family. 07/10- goals remain aggressive. * Symptom management: == Dyspnea: Patient with a known history of small cell lung cancer status post concurrent chemoradiation therapy with prophylactic whole brain radiation 2008. Patient had a lung biopsy on 06/21/2017 for a suspicious lesion on her chest which was complicated by a pneumothorax and subsequent chest tube placement- pathology significant for invasive poorly differentiated squamous cell carcinoma. CT chest yesterday 06/27/2017 showed subQ emphysema and bilateral airspace disease; chest tube was in major fissure and new left sided CT was placed by IR. Patient intubated 06/28/2017 secondary to worsening respiratory status and agitation. Medically extubated 07/01. Now tolerating room air. Chest tube remains in place, s/p waterseal trials however CXR indicating recurrent small pneumothorax, suction has been resumed/ CTS surgery evaluating == Agitation: Multifactoral. Patient having altered mental status and agitation concerning for ICU delirium versus metabolic encephalopathy versus hypoxemia. Received Haldol 1 mg IV 1 dose. Patient was placed on Precedex drip for agitation. This is been discontinued patient now on propofol appears comfortable today. Ammonia level of 37; MRI of the brain and CT of the head showed no acute findings; EEG showed diffuse slowing, no focal abnormalities, no seizure activity. Neurology was following the patient condition has stabilized, improved ; neurology has signed off. Patient today alert, calm, cooperative and oriented. Sons reported patient making odd statements yesterday. During prior visit last week t patient recalls strange events from the ICU, these appear to be hallucinations she is recalling possibly from acute delirium/ICU psychosis. No active hallucinations though she believes these prior events were real. Discussed at length with medical attending, will continue to monitor neurological, psychiatric status. 07/10 no further hallucinations reported. == Weakness/deconditioning: Patient now extubated. PT, OT following for assist with strengthening, reconditioning. Discharge planning for SNF placement for rehabilitation, patient has been accepted * Palliative care will continue to follow this patient throughout her hospitalization to build rapport, assist with symptom management and goal clarification. . Time Spent Total Floor Time (mins): 25 (Chart review, PE, discussion with patient and family) Attestation To help prompt me to consider important information that might be impacting today's encounter and assessment, information from prior notes written by myself or my colleagues may have been "brought forward" into today's note. My signature on this note, however, is an attestation that I personally performed the exam, history, and/or decision-making noted today, and, unless otherwise indicated, the interactions with patient, family, and staff as well as the review of records all occurred today. I also attest that the listed assessment and stated plan reflect my best clinical judgment today based on the combination of historical information, prior notes, and today's exam/ interactions. When time spent is documented, it refers only to time spent today by the signer, or if indicated, combined time spent today by collaborating physician/nurse practitioner. Constanza Saunders July 10, 2017 16:52
--- NOTE | 2017-07-10 17:35 | MB ---
cc: Sánchez Aguirre MD, Jacqueline R ARNP DATE: 07/10/2017 DATE OF : 1950 HISTORY OF PRESENT ILLNESS: A 67-year-old female, patient of Dr. Vidya Ventura, Dr. Wilkerson, Dr. Damon. History of small cell lung CA treated with chemo and radiation, also whole brain radiation in 2008. She was initially followed by Dr. Christy and now follows with Dr. Damon. There was a suspicious lesion found on the left lung and underwent lung biopsy, subsequently had a pneumothorax with a chest tube placement. The patient continues to have a small pneumothorax and a small air leak. We were consulted to evaluate for possible left VATS procedure, possible thoracotomy. PAST MEDICAL HISTORY: Significant for arthritis, COPD, epilepsy as a child, esophageal strictures, hyperlipidemia, Lambert-Eaton syndrome, opioid dependency, history of tobacco abuse in 2008, recurrent bronchitis, small cell lung CA with status post prophylactic whole brain radiation in 2008. The patient was also just recently extubated. She had been intubated for over a week. She is extremely weak since the respiratory failure, the overall intensive care stay with significant myopathy. PAST SURGICAL HISTORY: Carpal tunnel surgery, cervical spine fusion, Infusaport placement, elbow repair 1979, colonoscopy, CT-guided mediastinal mass 2008, right knee surgery, tubal ligation. ALLERGIES: LATEX. HOME MEDICATIONS: 1. [place] 3. 2. Gabapentin. 3. Desonide cream. 4. Albuterol nebs. 5. Singulair. 6. Ibuprofen. 7. Ventolin inhaler 8. Atorvastatin. 9. Oxycodone. FAMILY HISTORY: Noncontributory. SOCIAL HISTORY: The patient is , a former smoker, quit in 2008. REVIEW OF SYSTEMS: As above in HPI, otherwise 12 systems unremarkable. PHYSICAL EXAMINATION: VITAL SIGNS: Blood pressure 110/60, heart rate of 80, temperature max 97.6. GENERAL: A 67-year-old female, alert and oriented. HEENT: Head is normocephalic, atraumatic. Pupils equal and reactive. Oral mucosa pink, moist. NECK: Supple. No JVD. HEART: Sounds S1, S2. Regular rate and rhythm. No audible rub or gallop. LUNGS: Diminished in the bases, more on the left versus the right. ABDOMEN: She has a left chest tube to wall suction. She has got a continuous small air leak. She drained 35 mL in a 24-hour period. EXTREMITIES: No cyanosis, clubbing or edema. MUSCULOSKELETAL: She requires 2 person assist to stand at the side of the bed. She is very weak. : She also has an indwelling Webb catheter. LABORATORY DATA: Shows hemoglobin 10.5, hematocrit of 31. White cell count 8.4, platelet count of 177. Sodium 144, potassium 3.6, BUN of 21, creatinine 0.87. INR 1.1. Urinalysis unremarkable on the , negative for a heparin-induced antibodies, MRSA nondetected. Hepatitis A, B, C negative. Micro: The blood cultures from the 06/28/2017 are negative. Sputum was negative. Negative Legionella, Streptococcus. Lung biopsy on the : Invasive, poorly differentiated squamous cell carcinoma. This is of the CT guided biopsy of the lung mass. Chest x-ray on the : left-sided chest tube. No evidence of pneumo, however, the CT showed a small trace left pneumothorax. IMPRESSION: This is a 67-year-old female with history of small cell lung CA, on the right with prior chemoradiation, now with a left lung mass, positive pathology for invasive poorly differentiated squamous cell carcinoma. At this time, the patient is extremely weak from her recent Intensive Care Unit stay with an intubation. RECOMMENDATIONS: Recommend evaluation with pulmonary function testing despite the small air leak and her overall condition to evaluate for potential possible thoracotomy and further procedure as per Dr. Sánchez Aguirre. Dictated by [facility] Pt examined and chart reviewed. Will await the PFT results to ascertain if she can tolerate a formal anatomic resection. She appears to be quite weak and frail from her hospitalization and likely needs to recover before proceeding with surgical resection. MD JC Dominguez/ADÁN , 05:08 PM , 05:34 PM JERRELL
--- NOTE | 2017-07-10 19:44 | HHI.PR ---
Subjective Remarks Tolerates CPAP 67 YOWF with AMS,Resp Failure,SSLC Weaned to RA Tolerates PO Chest tube to suction Feels weak, tired Thoracic surgery consulted Objective Vital Signs Vital Signs Date Time Temp Pulse Resp B/P (MAP) Pulse Ox O2 Delivery O2 Flow Rate FiO2 07/10/17 16:08 97.6 80 17 107/68 (81) 95 07/10/17 15:32 07/10/17 12:19 97.2 86 17 96/56 (69) 96 07/10/17 08:08 97.4 84 17 134/73 (93) 95 07/10/17 07:47 Room Air 07/10/17 04:31 Room Air 07/10/17 04:31 98.0 78 16 135/73 (93) 96 07/10/17 00:00 98.1 87 16 136/69 (91) 96 07/10/17 00:00 Room Air 07/09/17 20:00 Room Air I/O 07/09/17 07/09/17 07/09/17 07/10/17 07/10/17 07/10/17 07:00 15:00 23:00 07:00 15:00 23:00 Intake Total 240 ml 980 ml 620 ml 0 ml 960 ml Output Total 465 ml 925 ml 1210 ml 900 ml Balance -225 ml 55 ml -590 ml 0 ml 60 ml Intake Oral 240 ml 980 ml 620 ml 960 ml IV Total 0 ml 0 ml Output Urine Total 450 ml 900 ml 1200 ml 900 ml Chest Tube Drainage Total 15 ml 25 ml 10 ml # Bowel Movements 0 Result Diagram: 07/08/17 0422 07/08/17 042 Objective Remarks GENERAL: Elderly female, NAD SKIN: Warm and dry. HEAD: Normocephalic. EYES: No scleral icterus. No injection or drainage. NECK: Supple, trachea midline. No JVD or lymphadenopathy. CARDIOVASCULAR: Regular rate and rhythm without murmurs, gallops, or rubs. RESPIRATORY: Breath sounds equal bilaterally. No accessory muscle use. left chest tube to suction GASTROINTESTINAL: Abdomen soft, non-tender, nondistended. MUSCULOSKELETAL: No cyanosis, or edema. BACK: Nontender without obvious deformity. No CVA tenderness. A/P Assessment and Plan IMPRESSION: 1. Left pneumothorax after lung biopsy. She has large-bore chest tube, Small air leak. 2. Worsening left lung infiltrate. 3. Small pleural effusion. 4. H/O small cell carcinoma of the lung, status post chemotherapy and radiation treatment. 5. New cancer in the left lung. 6. History of nicotine. 7. History of chronic obstructive pulmonary disease. 8. VDRF, s/p extubation PLAN: Chest tube to water suction Cont Abx Stable on RA Thoracic surgery consulted for possible resection of lung mass Check PFT Lakhwinder Wilkerson MD July 10, 2017 19:44
[2017-07-10 20:00] VITALS: BP 124/58; PULSE 81; RESP 18; TEMP 97.7; O2SAT 95
[2017-07-10] MEDS: POLYETHYLENE GLYCOL 17 GM PKG PO SCH (21:33)
[2017-07-10] MEDS: MELATONIN 5 MG TAB PO PRN (21:35)
[2017-07-10] MEDS: MONTELUKAST SODIUM 10 MG TAB PO SCH (21:39)
[2017-07-11] VITALS: BP 119/66; PULSE 77; RESP 16; TEMP 97.9; O2SAT 97
[2017-07-11 04:00] VITALS: BP 134/66; PULSE 80; RESP 18; TEMP 97.6; O2SAT 97
[2017-07-11] MEDS: METOPROLOL TARTRATE 50 MG TAB PO SCH ×3 (06:12→20:49)
[2017-07-11] MEDS: INSULIN ASPART SUPPLEMENTAL SCALE SQ SCH ×4 (08:00→20:50)
[2017-07-11 08:10] VITALS: BP 120/59; PULSE 81; RESP 18; TEMP 97.8; O2SAT 94
[2017-07-11] MEDS: BUDESONIDE-FORMOTEROL 160/4.5 MCG INHALER INH SCH ×2 (09:00→20:50)
[2017-07-11] MEDS: FAMOTIDINE 20 MG TAB PO SCH ×2 (09:17→20:49)
[2017-07-11] MEDS: predniSONE 10 MG TAB PO SCH (09:17)
[2017-07-11] MEDS: SODIUM CHLORIDE 0.9% FLUSH 10 ML FLUSH IV FLUSH SCH ×2 (09:17→20:49)
--- NOTE | 2017-07-11 11:44 | HHI.PR ---
Subjective Remarks no new complaints Objective Vitals heart reg lung lft chest tube abd s/nt ext no edema Vital Signs Date Time Temp Pulse Resp B/P (MAP) Pulse Ox O2 Delivery O2 Flow Rate FiO2 07/11/17 08:10 97.8 81 18 120/59 (79) 94 07/11/17 07:34 Room Air 07/11/17 04:00 97.6 80 18 134/66 (88) 97 07/11/17 00:40 19 07/11/17 00:00 97.9 77 16 119/66 (83) 97 07/10/17 22:44 19 07/10/17 20:00 97.7 81 18 124/58 (80) 95 07/10/17 19:00 95 Room Air 07/10/17 16:08 97.6 80 17 107/68 (81) 95 07/10/17 15:32 07/10/17 12:19 97.2 86 17 96/56 (69) 96 Result Diagram: 07/08/17 0422 07/08/17 0422 Imaging Last Impressions Chest X-Ray 07/02/17 0000 Signed Impressions: Service Date/Time: Sunday, July 02, 2017 16:05 - CONCLUSION: No pneumothorax is noted. Right perihilar streakiness consistent with atelectasis and/or scarring. Stable small right pleural effusion. Damian Don MD Liver Ultrasound 06/29/17 0000 Signed Impressions: Service Date/Time: June 16:37 - CONCLUSION: 1. Very limited exam due to extensive soft tissue emphysema. 2. Grossly normal sonographic appearance of the liver without evidence for biliary obstruction. Sung Crawford MD Abdomen X-Ray 06/28/17 0000 Signed Impressions: Service Date/Time: Wednesday, June 28, 2017 08:12 - CONCLUSION: 1. Nonspecific bowel gas pattern but no definite evidence of obstruction. 2. NG tube in the stomach. 3. Subcutaneous emphysema throughout the body wall. Cole Hays MD Chest Tube Insertion 06/27/17 0000 Signed Impressions: Service Date/Time: Tuesday, June 27, 2017 16:08 - CONCLUSION: Uncomplicated chest tube placement as above. Sung Crawford MD Chest CT 06/27/17 0000 Signed Impressions: Service Date/Time: Tuesday, June 27, 2017 13:40 - CONCLUSION: 1. There is a subcentimeter left apical pneumothorax and a small amount of extrapleural gas adjacent to the apex of the heart. 2. 1.8 cm spiculated mass in the medial left upper lung without air bronchograms suspicious for a contralateral metastatic recurrence of cancer. 3. Large right pleural effusion. 4. Extensive left-sided subcutaneous emphysema similar to prior chest x-ray and interval development of moderate subcutaneous emphysema about the right lateral chest wall. Mahin Boles MD Renal Ultrasound 06/26/17 0000 Signed Impressions: Service Date/Time: Monday, June 26, 2017 11:51 - CONCLUSION: 1. Slightly increased renal cortical echogenicity which may reflect medical renal disease. 2. No evidence for obstructive uropathy. Sung Crawford MD Head CT 06/26/17 0000 Signed Impressions: Service Date/Time: Monday, June 26, 2017 13:35 - CONCLUSION: 1. No acute intracranial abnormality is identified. 2. Chronic findings include mild generalized atrophy and chronic periventricular white matter ischemic change. Abel Diaz MD Brain MRI 06/26/17 0000 Signed Impressions: Service Date/Time: Monday, June 26, 2017 20:21 - CONCLUSION: 1. No acute findings. Exam degraded by motion artifact. Kemal Luna MD Lung Biopsy CT 06/21/17 0000 Signed Impressions: Service Date/Time: Wednesday, June 21, 2017 09:39 - CONCLUSION: Successful CT guided biopsy with small post-biopsy pneumothorax. Damian Don MD Date of Insertion: Jun 22, 2017 A/P Problem List: (1) Pneumothorax ICD Codes: J93.9 - Pneumothorax, unspecified Status: Acute Plan: - comgmt with Pulm Med and Oncology history of small cell lung CA status post prophylactic whole brain radiation 2008. 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 Pt will f/u with her primary Oncologist after discharge - Case d/w Dr. Wilkerson (07/04/17). - Dr. Wilkerson ordered CT to water seal 07/05/17 CXR 07/06 revealed no significant change. No pneumothorax - Pt on RA - 07/07 CT clamped at 0400 per pulmonology, CXR 0820 revealed Left chest tube with development of a small left apical pneumothorax compared with - CT returned to suction- further management per pulmonology - 07/09 discussed the case with Dr. Encinas covering Pulmonology agrees there is still an air leak present. Recommends CT chest without contrast to further evaluate. Patient may require CT surgery - CT chest/thorax without contrast. persistent pneumothorax - discussed with Dr Wilkerson... consulted CTS for ?resection and/or repair of ptx..discussed with dr Aguirre. await decision.pft pending. (2) Small cell lung cancer ICD Codes: C34.90 - Malignant neoplasm of unspecified part of unspecified bronchus or lung Status: Chronic Plan: see above (3) COPD (chronic obstructive pulmonary disease) ICD Codes: J44.9 - Chronic obstructive pulmonary disease, unspecified Status: Acute Plan: - solu medrol 40 mg IV daily -> change to PO (07/06) continue to wean - Steroid induced hyperglycemia - accu check ACHS with SSI coverage - Singulair - duonebs PRN, DC scheduled Duonebs (4) Atrial fibrillation ICD Codes: I48.91 - Unspecified atrial fibrillation Status: Acute Plan: - metoprolol 50 mg PO Q8H - continue to observe on telemetry - echocardiogram 06/28/17: Normal left ventricular size. EF=35-40%, severe hk ant -ap Mild concentric left ventricular hypertrophy. The left atrial size is mildly dilated. The right atrial size is mildly dilated. Aortic valve sclerosis is present. Mild aortic valve regurgitation. There is trace tricuspid valve regurgitation. The estimated pulmonary arterial pressure is 31 mmHg. A right sided pleural effusion is present. (5) Hypokalemia ICD Codes: E87.6 - Hypokalemia Status: Resolved Plan: potassium 3.2 (07/05), mag 2.0 replaced potassium Assessment and Plan Patient examined. Assessment and plan formulated with Goldie Ventura PA-C. I agree with the above. Problem Qualifiers (1) Pneumothorax: Qualified Codes: J95.811 - Postprocedural pneumothorax (2) Atrial fibrillation: Qualified Codes: I48.91 - Unspecified atrial fibrillation Forest Sanders MD July 11, 2017 11:44
[2017-07-11 12:08] VITALS: BP 131/60; PULSE 86; RESP 20; TEMP 98.5; O2SAT 95
--- NOTE | 2017-07-11 13:12 | RADRPT ---
EXAM DATE/TIME: 07/11/2017 12:48 [facility] COMPARISON: No previous studies available for comparison. INDICATIONS : Evaluate pneumothorax. MEDICAL HISTORY : Carcinoma, lung. SURGICAL HISTORY : Chest tube. ENCOUNTER: Subsequent ACUITY: 1 week PAIN SCORE: 0/10 LOCATION: Bilateral chest FINDINGS: There is patchy consolidation at both lung bases. A right effusion is noted. A left-sided chest tube is present. The tube appears withdrawn somewhat compared to the previous study projecting between the left sixth and seventh posterior rib at the midclavicular line. A right sided rib fractures are pres ent. I do not see a definite pneumothorax. Patient is rotated to the right. CONCLUSION: No discrete pneumothorax. Augusto Guthrie MD on July 11, 2017 at 13:08 Board Certified Radiologist. This report was verified electronically.
[2017-07-11] MEDS: ACETAMINOPHEN 325 MG TAB PO PRN ×2 (14:34→19:00)
[2017-07-11 16:30] VITALS: BP 117/60; PULSE 81; RESP 20; TEMP 97.9; O2SAT 97
--- NOTE | 2017-07-11 18:53 | HHI.PR ---
Subjective Remarks Tolerates CPAP 67 YOWF with AMS,Resp Failure,SSLC Weaned to RA Tolerates PO Chest tube to suction Feels weak, tired Chest tube still has airleak. Objective Vital Signs Vital Signs Date Time Temp Pulse Resp B/P (MAP) Pulse Ox O2 Delivery O2 Flow Rate FiO2 07/11/17 16:30 97.9 81 20 117/60 (79) 97 07/11/17 12:08 98.5 86 20 131/60 (83) 95 07/11/17 08:10 97.8 81 18 120/59 (79) 94 07/11/17 07:34 Room Air 07/11/17 04:00 97.6 80 18 134/66 (88) 97 07/11/17 00:40 19 07/11/17 00:00 97.9 77 16 119/66 (83) 97 07/10/17 22:44 19 07/10/17 20:00 97.7 81 18 124/58 (80) 95 07/10/17 19:00 95 Room Air I/O 07/10/17 07/10/17 07/10/17 07/11/17 07/11/17 07/11/17 07:00 15:00 23:00 07:00 15:00 23:00 Intake Total 620 ml 0 ml 960 ml 120 ml 720 ml Output Total 1210 ml 900 ml 1250 ml 900 ml Balance -590 ml 0 ml 60 ml -1130 ml -180 ml Intake Oral 620 ml 960 ml 120 ml 720 ml IV Total 0 ml 0 ml 0 ml Output Urine Total 1200 ml 900 ml 1250 ml 900 ml Chest Tube Drainage Total 10 ml # Bowel Movements 0 0 Result Diagram: 07/08/17 0422 07/08/17 042 Objective Remarks GENERAL: Elderly female, NAD SKIN: Warm and dry. HEAD: Normocephalic. EYES: No scleral icterus. No injection or drainage. NECK: Supple, trachea midline. No JVD or lymphadenopathy. CARDIOVASCULAR: Regular rate and rhythm without murmurs, gallops, or rubs. RESPIRATORY: Breath sounds equal bilaterally. No accessory muscle use. left chest tube to suction GASTROINTESTINAL: Abdomen soft, non-tender, nondistended. MUSCULOSKELETAL: No cyanosis, or edema. BACK: Nontender without obvious deformity. No CVA tenderness. A/P Assessment and Plan IMPRESSION: 1. Left pneumothorax after lung biopsy. She has large-bore chest tube, Small air leak. 2. Worsening left lung infiltrate. 3. Small pleural effusion. 4. H/O small cell carcinoma of the lung, status post chemotherapy and radiation treatment. 5. New cancer in the left lung. 6. History of nicotine. 7. History of chronic obstructive pulmonary disease. 8. VDRF, s/p extubation PLAN: Chest tube to water suction Cont Abx Stable on RA Thoracic surgery consulted for possible resection of lung mass Lakhwinder Wilkerson MD July 11, 2017 18:53
[2017-07-11 20:00] VITALS: BP 118/56; PULSE 77; RESP 16; TEMP 98; O2SAT 97
[2017-07-11] MEDS: MONTELUKAST SODIUM 10 MG TAB PO SCH (20:49)
[2017-07-11] MEDS: POLYETHYLENE GLYCOL 17 GM PKG PO SCH (20:49)
[2017-07-11] MEDS: MELATONIN 5 MG TAB PO PRN (20:55)
[2017-07-12] VITALS (8 sets, daily range): BP systolic 112–136; BP diastolic 58–65; PULSE 68–84; RESP 16–18; TEMP 97.3–98.3; O2SAT 95–98
[2017-07-12] MEDS: ACETAMINOPHEN 325 MG TAB PO PRN (04:33)
[2017-07-12] MEDS: METOPROLOL TARTRATE 50 MG TAB PO SCH ×3 (05:26→20:14)
[2017-07-12] MEDS: INSULIN ASPART SUPPLEMENTAL SCALE SQ SCH ×4 (08:00→20:14)
--- NOTE | 2017-07-12 08:59 | HHI.PR ---
Subjective Remarks pt confused about the plan she heard the ct will be pulled today she is frustrated Objective Vitals nad heart reg lung left chest tube to suction ext no edema Vital Signs Date Time Temp Pulse Resp B/P (MAP) Pulse Ox O2 Delivery O2 Flow Rate FiO2 07/12/17 08:11 97.6 68 17 132/63 (86) 96 07/12/17 04:00 97.7 75 16 124/58 (80) 96 07/12/17 00:00 97.8 71 16 112/58 (76) 95 07/11/17 20:00 98.0 77 16 118/56 (76) 97 07/11/17 16:30 97.9 81 20 117/60 (79) 97 07/11/17 12:08 98.5 86 20 131/60 (83) 95 Result Diagram: 07/08/1742107/08/17421 Imaging Last Impressions Chest X-Ray 07/02/17 0000 Signed Impressions: Service Date/Time: Sunday, July 02, 2017 16:05 - CONCLUSION: No pneumothorax is noted. Right perihilar streakiness consistent with atelectasis and/or scarring. Stable small right pleural effusion. Damian Don MD Liver Ultrasound 06/29/17 0000 Signed Impressions: Service Date/Time: June 16:37 - CONCLUSION: 1. Very limited exam due to extensive soft tissue emphysema. 2. Grossly normal sonographic appearance of the liver without evidence for biliary obstruction. Sung Crawford MD Abdomen X-Ray 06/28/17 0000 Signed Impressions: Service Date/Time: Wednesday, June 28, 2017 08:12 - CONCLUSION: 1. Nonspecific bowel gas pattern but no definite evidence of obstruction. 2. NG tube in the stomach. 3. Subcutaneous emphysema throughout the body wall. Cole Hays MD Chest Tube Insertion 06/27/17 0000 Signed Impressions: Service Date/Time: Tuesday, June 27, 2017 16:08 - CONCLUSION: Uncomplicated chest tube placement as above. Sung Crawford MD Chest CT 06/27/17 0000 Signed Impressions: Service Date/Time: Tuesday, June 27, 2017 13:40 - CONCLUSION: 1. There is a subcentimeter left apical pneumothorax and a small amount of extrapleural gas adjacent to the apex of the heart. 2. 1.8 cm spiculated mass in the medial left upper lung without air bronchograms suspicious for a contralateral metastatic recurrence of cancer. 3. Large right pleural effusion. 4. Extensive left-sided subcutaneous emphysema similar to prior chest x-ray and interval development of moderate subcutaneous emphysema about the right lateral chest wall. Mahin Boles MD Renal Ultrasound 06/26/17 0000 Signed Impressions: Service Date/Time: Monday, June 26, 2017 11:51 - CONCLUSION: 1. Slightly increased renal cortical echogenicity which may reflect medical renal disease. 2. No evidence for obstructive uropathy. uSng Crawford MD Head CT 06/26/17 0000 Signed Impressions: Service Date/Time: Monday, June 26, 2017 13:35 - CONCLUSION: 1. No acute intracranial abnormality is identified. 2. Chronic findings include mild generalized atrophy and chronic periventricular white matter ischemic change. Abel Diaz MD Brain MRI 06/26/17 0000 Signed Impressions: Service Date/Time: Monday, June 26, 2017 20:21 - CONCLUSION: 1. No acute findings. Exam degraded by motion artifact. Kemal Luna MD Lung Biopsy CT 06/21/17 0000 Signed Impressions: Service Date/Time: Wednesday, June 21, 2017 09:39 - CONCLUSION: Successful CT guided biopsy with small post-biopsy pneumothorax. Damian Don MD Date of Insertion: Jun 22, 2017 A/P Problem List: (1) Pneumothorax ICD Codes: J93.9 - Pneumothorax, unspecified Status: Acute Plan: - comgmt with Pulm Med and Oncology history of small cell lung CA status post prophylactic whole brain radiation 2008. 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 Pt will f/u with her primary Oncologist after discharge - Case d/w Dr. Wilkerson (07/04/17). - Dr. Wilkerson ordered CT to water seal 07/05/17 CXR 07/06 revealed no significant change. No pneumothorax - Pt on - 07/07 CT clamped at 0400 per pulmonology, CXR 0820 revealed Left chest tube with development of a small left apical pneumothorax compared with - CT returned to suction- further management per pulmonology - 07/09 discussed the case with Dr. Encinas covering Pulmonology agrees there is still an air leak present. Recommends CT chest without contrast to further evaluate. Patient may require CT surgery - CT chest/thorax without contrast. persistent pneumothorax - discussed with Dr Wilkerson... consulted CTS for ?resection and/or repair of ptx..discussed with dr Aguirre. await decision. called radiology who is reviewing the situation and deciding if the chest tube can be safely removed today.. (2) Small cell lung cancer ICD Codes: C34.90 - Malignant neoplasm of unspecified part of unspecified bronchus or lung Status: Chronic Plan: see above (3) COPD (chronic obstructive pulmonary disease) ICD Codes: J44.9 - Chronic obstructive pulmonary disease, unspecified Status: Acute Plan: - solu medrol 40 mg IV daily -> change to PO (07/06) continue to wean - Steroid induced hyperglycemia - accu check ACHS with SSI coverage - Singulair - duonebs PRN, DC scheduled Duonebs (4) Atrial fibrillation ICD Codes: I48.91 - Unspecified atrial fibrillation Status: Acute Plan: - metoprolol 50 mg PO Q8H - continue to observe on telemetry - echocardiogram 06/28/17: Normal left ventricular size. EF=35-40%, severe hk ant -ap Mild concentric left ventricular hypertrophy. The left atrial size is mildly dilated. The right atrial size is mildly dilated. Aortic valve sclerosis is present. Mild aortic valve regurgitation. There is trace tricuspid valve regurgitation. The estimated pulmonary arterial pressure is 31 mmHg. A right sided pleural effusion is present. (5) Hypokalemia ICD Codes: E87.6 - Hypokalemia Status: Resolved Plan: potassium 3.2 (07/05), mag 2.0 replaced potassium Assessment and Plan Patient examined. Assessment and plan formulated with Goldie Ventura PA-C. I agree with the above. Problem Qualifiers (1) Pneumothorax: Qualified Codes: J95.811 - Postprocedural pneumothorax (2) Atrial fibrillation: Qualified Codes: I48.91 - Unspecified atrial fibrillation Forest Sanders MD July 12, 2017 08:59
[2017-07-12] MEDS: FAMOTIDINE 20 MG TAB PO SCH ×2 (09:11→20:03)
[2017-07-12] MEDS: SODIUM CHLORIDE 0.9% FLUSH 10 ML FLUSH IV FLUSH SCH ×2 (09:11→20:04)
[2017-07-12] MEDS: predniSONE 10 MG TAB PO SCH (09:11)
[2017-07-12] MEDS: BUDESONIDE-FORMOTEROL 160/4.5 MCG INHALER INH SCH ×2 (09:12→20:04)
--- NOTE | 2017-07-12 11:21 | RADRPT ---
EXAM DATE/TIME: 07/12/2017 10:03 [facility] COMPARISON: CT THORAX W/O CONTRAST, July 09, 2017, 15:22. CHEST SINGLE AP, July 11, 2017, 12:48. INDICATIONS : Evaluate for chest tube placement. MEDICAL HISTORY : Carcinoma, lung. SURGICAL HISTORY : Chest tube. ENCOUNTER: Subsequent ACUITY: 1 week PAIN SCORE: 0/10 LOCATION: Bilateral chest FINDINGS: The exam demonstrates a large bore chest tube on the left. The tube is pulled nearly out of the thora cic cavity. At least one of the side holes is outside of the thorax. There is questionable minimal ap ical pneumothorax on the left. This measures only approximately 5 mm in thickness. The patient's know n left-sided lung masses not identified. There is moderate pleural effusion on the right. There is atelectasis and scarring in the right upper lobe. There is a right hilar mass identified. Graft the heart is normal in size. The osseous structu res are intact. CONCLUSION: 1. The patient's left-sided chest tube is pulled back considerably. There is a least one of the sideh oles which is likely just outside the thorax. There is questionable minimal left apical pneumothorax. 2. Right-sided effusion and mass as above. Lester Galdamez MD on July 12, 2017 at 11:15 Board Certified Radiologist. This report was verified electronically.
--- NOTE | 2017-07-12 16:05 | PD.CAR.PN ---
CVT Progress Note Subjective/Hospital Course: 67-year-old female, patient of Dr. Vidya Ventura, Dr. Wilkerson, Dr. Damon. History of small cell lung CA treated with chemo and radiation, also whole brain radiation in 2008. There was a suspicious lesion found on the left lung and underwent lung biopsy, subsequently had a pneumothorax with a chest tube placement. The patient continues to have a small pneumothorax and a small air leak. We were consulted to evaluate for possible left VATS procedure, possible thoracotomy. 07/12 pt now to water seal ? per IR no air leak noted CXR noted, will leave to IR for removal FEV1 1.07 / pt would be very high risk for surgical procedure hopefully remove current chest tube per IR not a surgical candidate / pt also very deconditioned Objective: GENERAL: A&O x 3 SKIN: Warm and dry. dressing left chest / HEAD: Normocephalic. EYES: No scleral icterus. No injection or drainage. NECK: Supple, trachea midline. No JVD or lymphadenopathy. CARDIOVASCULAR: Regular rate and rhythm without murmurs, gallops, or rubs. RESPIRATORY: Breath sounds equal bilaterally. No accessory muscle use. few coarse breath sounds on left chest tube to water seal, minimal drainage , no air leak GASTROINTESTINAL: Abdomen soft, non-tender, nondistended. MUSCULOSKELETAL: No cyanosis, or edema. BACK: Nontender without obvious deformity. No CVA tenderness. Vital Signs Date Time Temp Pulse Resp B/P (MAP) Pulse Ox O2 Delivery O2 Flow Rate FiO2 07/12/17 12:11 97.8 84 17 136/65 (88) 96 07/12/17 12:06 96 07/12/17 12:00 Room Air 07/12/17 09:47 Room Air 07/12/17 08:11 97.6 68 17 132/63 (86) 96 07/12/17 04:00 97.7 75 16 124/58 (80) 96 07/12/17 00:00 97.8 71 16 112/58 (76) 95 07/11/17 20:00 98.0 77 16 118/56 (76) 97 07/11/17 16:30 97.9 81 20 117/60 (79) 97 Result Diagram: 07/08/17 0422 07/08/17 042 (1) Pneumothorax Plan: chest tube to water seal hopefully dc chest tube soon per IR not a surgical candidate (2) COPD (chronic obstructive pulmonary disease) (3) Small cell lung cancer Problem Qualifiers (1) Pneumothorax: Qualified Codes: J95.811 - Postprocedural pneumothorax Tari Reyes July 12, 2017 16:05
--- NOTE | 2017-07-12 16:34 | HHI.HCPN ---
Reason for visit a. To assist with evaluation and management of symptoms including: dyspnea, agitation b. To assist medical decision maker(s) with: better understanding of current medical conditions; weighing benefits/burdens of medical treatment options; making medical treatment decisions. . Subjective/Interval History Patient seen today to follow-up on dyspnea , as well as f/up on 5 wishes/ advanced directive. Notified by son pt had completed adv directive, also requested assistance w [employer] paperwork. Palliative SW, FUR[employer] ROOM SUPERVISOR assisted w completion. . Continues to require chest tube to left chest, attempts at waterseal follow- up imaging indicative of persistent pneumothorax. Cardiovascular surgery following, pending PFTs may consider thoracotomy. Pt seen in room, at bedside. She is alert, oriented, appropriate. She indicates chest tube pain much better today when working w PT. She has been using oxycodone 2-3x per day, feels is effective. She is hopeful to get CT out in the coming days. Denies shortness of breath. She endorses fair appetite, no n /v. Still no BM--has cont to use PRNs, she feels that if she could use a "real toilet" she would be able to have BM. May need enema. She tells me she has completed her 5 wishes with her family, and provides me with copies- I faxed to medical records. All questions answered, they have palliative contact information. . Advance Directives Living Will: Never completed Health Care Surrogate: Never completed Durable Power of Bindery Assistant: Never completed Advance Directive Specifics Documented care wishes: No documented care wishes have been completed. . Objective Vital Signs Date Time Temp Pulse Resp B/P (MAP) Pulse Ox O2 Delivery O2 Flow Rate FiO2 07/12/17 12:11 97.8 84 17 136/65 (88) 96 07/12/17 12:06 96 07/12/17 12:00 Room Air 07/12/17 09:47 Room Air 07/12/17 08:11 97.6 68 17 132/63 (86) 96 07/12/17 04:00 97.7 75 16 124/58 (80) 96 07/12/17 00:00 97.8 71 16 112/58 (76) 95 07/11/17 20:00 98.0 77 16 118/56 (76) 97 07/11/17 16:30 97.9 81 20 117/60 (79) 97 Intake & Output 07/12/17 07/12/17 07:00 19:00 Intake Total 500 ml Output Total 1000 ml Balance -500 ml Intake Oral 500 ml Output Urine Total 1000 ml Physical Exam CONSTITUTIONAL/GENERAL: This is an adequately nourished patient, alert, pleasant , oriented. TUBES/LINES/DRAINS: PIV upper extremity, left lateral chest tube, Webb catheter SKIN: No jaundice, rashes, or lesions. Left chest tube dressing clean and dry. No wounds seen anteriorly. Skin warm/dry CARDIOVASCULAR: Regular rate and rhythm without murmur. No JVD. Peripheral pulses symmetric. Trace peripheral edema. RESPIRATORY/CHEST: Respirations even/unlabored. On room air. Breath sounds clear, diminished bilaterally. GASTROINTESTINAL: Abdomen soft, no tenderness, slightly distended. No guarding. Bowel sounds hyperactive. GENITOURINARY: Without palpable bladder distension. Webb catheter in place draining dark yellow urine. MUSCULOSKELETAL: Extremities without clubbing, cyanosis. Trace peripheral edema. No mottling or clubbing. NEUROLOGICAL: Alert and oriented x3. Reasonable insight to current condition and options going forward. Moving all 4 extremities with generalized weakness. PSYCHIATRIC: No evident anxiety or depression, no hallucinations . . Diagnostic Tests Result Diagram: 07/08/17 0422 07/08/17 0422 Procedures 06/21/2017: Left-sided chest tube placement 06/22/2017: Left-sided chest tube replaced 06/27/2017: Left-sided chest tube replaced . Assessment and Plan Disease Oriented Problem List: (1) Pneumothorax (2) Small cell lung cancer (3) COPD (chronic obstructive pulmonary disease) (4) Hypercholesteremia (5) Pneumothorax (6) Acute renal failure Symptom Scale: (1) Dyspnea 0-10 Scale: Unable to quantify (2) Agitation 0-10 Scale: Unable to quantify (3) Weakness Pertinent Non-Medical Issues Psychosocial: Patient is originally from [place]. She stated her when she was 18 years old but later to someone else. She and her first had 2 sons (Prieto and Fernando). Prieto lives in [place]; Fernando is a nurse and lives in [place]. The patient has been to her current , Leoncio, for approximately 12 years. Spiritual: Orthodoxy aidan Legal: Per [place] statutes, in the absence of written advanced directives healthcare proxy decision making would fall to the patient's . However, patient's and 2 children have decided to make decisions together. Ethical issues impacting care: No known ethical issues impacting care at this time. . Important Contacts Leoncio Arzola, spouse: [phone] Fernando, son: [phone] Prieto: son: [phone] . Prognosis Patient is a 67 yo old female with metastatic squamous cell carcinoma of the lung status post lung biopsy with subsequent pneumothorax and chest tube placement; now intubated secondary to worsening respiratory failure and agitation. If the patient survives this hospitalization, she will be high risk for ongoing complications and further decline. . Code Status: Alternative Code Plan * ALTERNATE CODE-intubation only * Decision making: Per [place] statutes, in the absence of written advanced directives healthcare proxy decision making would fall to the patient's . Patient's has appears to have limited insight related to his 's medical conditions, and the patient's and 2 children have decided to make decisions together. 07/03 patient extubated, alert mostly oriented able to participate in decision-making. Palliative will provide with healthcare surrogate, advanced directive documents, she may elect to complete healthcare surrogate designation. * Per initial palliative conversations with family: Family understands patient is critically ill; they support decision to intubate for a short time but they would not consent to tracheostomy if the patient is unable to wean off mechanical ventilation. Hospice was introduced. Family wants to give the patient time to improve but state they are open to transitioning to comfort measures when appropriate. 07/03/17-patient extubated, alert and mostly oriented. Able to participate in decision-making. Patient and family going to discuss further reintubation status as well as goals going forward. Patient has not discussed pathology findings with oncology yet, family has not discussed with her either, may request oncology follow-up; I will notify oncology of patient's ability to participate at this time. 07/06/17 patient continues to indicate that she will discuss her wishes and possible healthcare surrogate designation with the rest of her family. For now patient expresses aggressive goals wishing to complete acute hospital course to get to rehab so she may pursue additional cancer treatment. Family supportive of patient wishes. 07/07 patient expresses goals remain aggressive short of alternate code. She will discuss reintubation status further with family. 07/10- goals remain aggressive. 07/12 goals remain aggressive. Pt has completed advanced directive/HCS designation * Symptom management: == Dyspnea: Patient with a known history of small cell lung cancer status post concurrent chemoradiation therapy with prophylactic whole brain radiation 2008. Patient had a lung biopsy on 06/21/2017 for a suspicious lesion on her chest which was complicated by a pneumothorax and subsequent chest tube placement- pathology significant for invasive poorly differentiated squamous cell carcinoma. CT chest yesterday 06/27/2017 showed subQ emphysema and bilateral airspace disease; chest tube was in major fissure and new left sided CT was placed by IR. Patient intubated 06/28/2017 secondary to worsening respiratory status and agitation. Medically extubated 07/01. Now tolerating room air. Chest tube remains in place, s/p waterseal trials however CXR indicating recurrent small pneumothorax, suction has been resumed/ CTS surgery evaluating == Agitation: Multifactoral. Patient having altered mental status and agitation concerning for ICU delirium versus metabolic encephalopathy versus hypoxemia. Received Haldol 1 mg IV 1 dose. Patient was placed on Precedex drip for agitation. This is been discontinued patient now on propofol appears comfortable today. Ammonia level of 37; MRI of the brain and CT of the head showed no acute findings; EEG showed diffuse slowing, no focal abnormalities, no seizure activity. Neurology was following the patient condition has stabilized, improved ; neurology has signed off. Patient today alert, calm, cooperative and oriented. Sons reported patient making odd statements yesterday. During prior visit last week t patient recalls strange events from the ICU, these appear to be hallucinations she is recalling possibly from acute delirium/ICU psychosis. No active hallucinations though she believes these prior events were real. Discussed at length with medical attending, will continue to monitor neurological, psychiatric status. 07/10 no further hallucinations reported. == Weakness/deconditioning: Patient now extubated. PT, OT following for assist with strengthening, reconditioning. Discharge planning for SNF placement for rehabilitation, patient has been accepted == constipation- has used multiple prns. minimally mobile, + opiates. Last BM 07/07. Recommend dulcolax, prn enema. * Palliative care will continue to follow this patient throughout her hospitalization to build rapport, assist with symptom management and goal clarification. . Time Spent Total Floor Time (mins): 20 (chart review, PE) Attestation To help prompt me to consider important information that might be impacting today's encounter and assessment, information from prior notes written by myself or my colleagues may have been "brought forward" into today's note. My signature on this note, however, is an attestation that I personally performed the exam, history, and/or decision-making noted today, and, unless otherwise indicated, the interactions with patient, family, and staff as well as the review of records all occurred today. I also attest that the listed assessment and stated plan reflect my best clinical judgment today based on the combination of historical information, prior notes, and today's exam/ interactions. When time spent is documented, it refers only to time spent today by the signer, or if indicated, combined time spent today by collaborating physician/nurse practitioner. Constanza Saunders July 12, 2017 16:34
[2017-07-12] MEDS: MONTELUKAST SODIUM 10 MG TAB PO SCH (20:04)
[2017-07-12] MEDS: POLYETHYLENE GLYCOL 17 GM PKG PO SCH (20:04)
--- NOTE | 2017-07-12 20:40 | HHI.PR ---
Subjective Remarks Tolerates CPAP 67 YOWF with AMS,Resp Failure,SSLC Weaned to RA Tolerates PO Chest tube to suction Feels weak, tired Chest tube to water seal CTS high risk for surgery Objective Vital Signs Vital Signs Date Time Temp Pulse Resp B/P (MAP) Pulse Ox O2 Delivery O2 Flow Rate FiO2 07/12/17 17:41 96 21 07/12/17 16:11 98.3 81 17 129/59 (82) 96 07/12/17 12:11 97.8 84 17 136/65 (88) 96 07/12/17 12:06 96 07/12/17 12:00 Room Air 07/12/17 09:47 Room Air 07/12/17 08:11 97.6 68 17 132/63 (86) 96 07/12/17 04:00 97.7 75 16 124/58 (80) 96 07/12/17 00:00 97.8 71 16 112/58 (76) 95 I/O 07/11/17 07/11/17 07/11/17 07/12/17 07/12/17 07/12/17 07:00 15:00 23:00 07:00 15:00 23:00 Intake Total 120 ml 720 ml 500 ml 600 ml Output Total 1250 ml 900 ml 1000 ml 900 ml Balance -1130 ml -180 ml -500 ml -300 ml Intake Oral 120 ml 720 ml 500 ml 600 ml IV Total 0 ml Output Urine Total 1250 ml 900 ml 1000 ml 900 ml # Bowel Movements 0 0 Result Diagram: 07/08/1742107/08/17421 Objective Remarks GENERAL: Elderly female, NAD SKIN: Warm and dry. HEAD: Normocephalic. EYES: No scleral icterus. No injection or drainage. NECK: Supple, trachea midline. No JVD or lymphadenopathy. CARDIOVASCULAR: Regular rate and rhythm without murmurs, gallops, or rubs. RESPIRATORY: Breath sounds equal bilaterally. No accessory muscle use. left chest tube to suction GASTROINTESTINAL: Abdomen soft, non-tender, nondistended. MUSCULOSKELETAL: No cyanosis, or edema. BACK: Nontender without obvious deformity. No CVA tenderness. A/P Assessment and Plan IMPRESSION: 1. Left pneumothorax after lung biopsy. She has large-bore chest tube, Small air leak. 2. Worsening left lung infiltrate. 3. Small pleural effusion. 4. H/O small cell carcinoma of the lung, status post chemotherapy and radiation treatment. 5. New cancer in the left lung. 6. History of nicotine. 7. History of chronic obstructive pulmonary disease. 8. VDRF, s/p extubation PLAN: Chest tube to water seal Cont Abx Stable on RA No surgery per CTS Lakhwinder Wilkerson MD July 12, 2017 20:40
[2017-07-12] MEDS: MELATONIN 5 MG TAB PO PRN (22:40)
[2017-07-13] VITALS: BP 131/61; PULSE 73; RESP 18; TEMP 97; O2SAT 96
[2017-07-13 04:00] VITALS: BP 143/69; PULSE 75; RESP 18; TEMP 97.6; O2SAT 97
[2017-07-13] MEDS: METOPROLOL TARTRATE 50 MG TAB PO SCH ×3 (06:08→20:21)
--- NOTE | 2017-07-13 07:05 | RADRPT ---
EXAM DATE/TIME: 07/13/2017 06:23 [facility] COMPARISON: No previous studies available for comparison. INDICATIONS : Evaluate chest tube left side, pain left chest, short of breath MEDICAL HISTORY : Carcinoma, lung. SURGICAL HISTORY : chest tube, cervical spine fusion ENCOUNTER: Subsequent ACUITY: 1 week PAIN SCORE: 3/10 LOCATION: Left chest FINDINGS: Left sided chest tube is identified. Left apical pneumothorax again seen. There is a right effusion a gain noted. Cardiomegaly. ACDF hardware overlies the cervical spine. Vague density in the right midlu ng is unchanged. CONCLUSION: Right effusion suspected. Small left apical pneumothorax. Augusto Guthrie MD on July 13, 2017 at 7:02 Board Certified Radiologist. This report was verified electronically.
[2017-07-13] MEDS: INSULIN ASPART SUPPLEMENTAL SCALE SQ SCH ×4 (07:52→20:21)
[2017-07-13] MEDS: SODIUM CHLORIDE 0.9% FLUSH 10 ML FLUSH IV FLUSH SCH ×2 (07:57→20:19)
[2017-07-13] MEDS: FAMOTIDINE 20 MG TAB PO SCH ×2 (07:58→20:19)
[2017-07-13] MEDS: BUDESONIDE-FORMOTEROL 160/4.5 MCG INHALER INH SCH ×2 (07:59→20:20)
[2017-07-13 08:08] VITALS: BP 115/56; PULSE 77; RESP 17; TEMP 97.8; O2SAT 96
--- NOTE | 2017-07-13 09:23 | HHI.PR ---
Subjective Remarks more pain around chest tube site Objective Vitals heart reg lung left chest tube abd s/nt ext no edema lung good air entry Vital Signs Date Time Temp Pulse Resp B/P (MAP) Pulse Ox O2 Delivery O2 Flow Rate FiO2 07/13/17 08:08 97.8 77 17 115/56 (75) 96 07/13/17 04:00 97.6 75 18 143/69 (93) 97 07/13/17 00:00 97.0 73 18 131/61 (84) 96 07/12/17 21:04 16 07/12/17 20:45 97 Room Air 07/12/17 20:00 97.3 79 18 124/61 (82) 98 07/12/17 17:41 96 21 07/12/17 16:11 98.3 81 17 129/59 (82) 96 07/12/17 12:11 97.8 84 17 136/65 (88) 96 07/12/17 12:06 96 07/12/17 12:00 Room Air 07/12/17 09:47 Room Air Imaging Last Impressions Chest X-Ray 07/02/17 0000 Signed Impressions: Service Date/Time: Sunday, July 02, 2017 16:05 - CONCLUSION: No pneumothorax is noted. Right perihilar streakiness consistent with atelectasis and/or scarring. Stable small right pleural effusion. Damian Dno MD Liver Ultrasound 06/29/17 0000 Signed Impressions: Service Date/Time: June 16:37 - CONCLUSION: 1. Very limited exam due to extensive soft tissue emphysema. 2. Grossly normal sonographic appearance of the liver without evidence for biliary obstruction. Sung Crawford MD Abdomen X-Ray 06/28/17 0000 Signed Impressions: Service Date/Time: Wednesday, June 28, 2017 08:12 - CONCLUSION: 1. Nonspecific bowel gas pattern but no definite evidence of obstruction. 2. NG tube in the stomach. 3. Subcutaneous emphysema throughout the body wall. Cole Hays MD Chest Tube Insertion 06/27/17 0000 Signed Impressions: Service Date/Time: Tuesday, June 27, 2017 16:08 - CONCLUSION: Uncomplicated chest tube placement as above. Sung Crawford MD Chest CT 06/27/17 0000 Signed Impressions: Service Date/Time: Tuesday, June 27, 2017 13:40 - CONCLUSION: 1. There is a subcentimeter left apical pneumothorax and a small amount of extrapleural gas adjacent to the apex of the heart. 2. 1.8 cm spiculated mass in the medial left upper lung without air bronchograms suspicious for a contralateral metastatic recurrence of cancer. 3. Large right pleural effusion. 4. Extensive left-sided subcutaneous emphysema similar to prior chest x-ray and interval development of moderate subcutaneous emphysema about the right lateral chest wall. Mahin Boles MD Renal Ultrasound 06/26/17 0000 Signed Impressions: Service Date/Time: Monday, June 26, 2017 11:51 - CONCLUSION: 1. Slightly increased renal cortical echogenicity which may reflect medical renal disease. 2. No evidence for obstructive uropathy. Sung Crawford MD Head CT 06/26/17 0000 Signed Impressions: Service Date/Time: Monday, June 26, 2017 13:35 - CONCLUSION: 1. No acute intracranial abnormality is identified. 2. Chronic findings include mild generalized atrophy and chronic periventricular white matter ischemic change. Abel Diaz MD Brain MRI 06/26/17 0000 Signed Impressions: Service Date/Time: Monday, June 26, 2017 20:21 - CONCLUSION: 1. No acute findings. Exam degraded by motion artifact. Kemal Luna MD Lung Biopsy CT 06/21/17 0000 Signed Impressions: Service Date/Time: Wednesday, June 21, 2017 09:39 - CONCLUSION: Successful CT guided biopsy with small post-biopsy pneumothorax. Damian Don MD Date of Insertion: Jun 22, 2017 A/P Problem List: (1) Pneumothorax ICD Codes: J93.9 - Pneumothorax, unspecified Status: Acute Plan: - comgmt with Pulm Med and Oncology history of small cell lung CA status post prophylactic whole brain radiation 2008. 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 Pt will f/u with her primary Oncologist after discharge - Case d/w Dr. Wilkerson (07/04/17). - Dr. Wilkerson ordered CT to water seal 07/05/17 CXR 07/06 revealed no significant change. No pneumothorax - Pt on RA - 07/07 CT clamped at 0400 per pulmonology, CXR 0820 revealed Left chest tube with development of a small left apical pneumothorax compared with - CT returned to suction- further management per pulmonology - 07/09 discussed the case with Dr. Encinas covering Pulmonology agrees there is still an air leak present. Recommends CT chest without contrast to further evaluate. Patient may require CT surgery - CT chest/thorax without contrast. persistent pneumothorax - discussed with Dr Wilkerson... consulted CTS awaiting final reccs for chest tube...will d/c to snf once chest tube issues resolved. (2) Small cell lung cancer ICD Codes: C34.90 - Malignant neoplasm of unspecified part of unspecified bronchus or lung Status: Chronic Plan: see above (3) COPD (chronic obstructive pulmonary disease) ICD Codes: J44.9 - Chronic obstructive pulmonary disease, unspecified Status: Acute Plan: - solu medrol 40 mg IV daily -> change to PO (07/06) continue to wean - Steroid induced hyperglycemia - accu check ACHS with SSI coverage - Singulair - duonebs PRN, DC scheduled Duonebs (4) Atrial fibrillation ICD Codes: I48.91 - Unspecified atrial fibrillation Status: Acute Plan: - metoprolol 50 mg PO Q8H - continue to observe on telemetry - echocardiogram 06/28/17: Normal left ventricular size. EF=35-40%, severe hk ant -ap Mild concentric left ventricular hypertrophy. The left atrial size is mildly dilated. The right atrial size is mildly dilated. Aortic valve sclerosis is present. Mild aortic valve regurgitation. There is trace tricuspid valve regurgitation. The estimated pulmonary arterial pressure is 31 mmHg. A right sided pleural effusion is present. (5) Hypokalemia ICD Codes: E87.6 - Hypokalemia Status: Resolved Plan: potassium 3.2 (07/05), mag 2.0 replaced potassium Problem Qualifiers (1) Pneumothorax: Qualified Codes: J95.811 - Postprocedural pneumothorax (2) Atrial fibrillation: Qualified Codes: I48.91 - Unspecified atrial fibrillation Forest Sanders MD July 13, 2017 09:23
--- NOTE | 2017-07-13 09:23 | RSPPFT ---
DATE OF PROCEDURE: 07/11/17 COMMENTS: Spirometry shows FVC of 1.6 at 53% of predicted, FEV1 of 1.0 at 44%, FEV1/FVC ratio is decreased. Flow is decreased at FEF 25, FEF 50, FEF 75 and FEF 25-75. Flow volume loop indicates an obstructive pattern. IMPRESSION: 1. Moderately severe obstructive lung disease. 2. Post-bronchodilator study was not done.
[2017-07-13 12:08] VITALS: BP 104/53; PULSE 82; RESP 17; TEMP 97.9; O2SAT 95
--- NOTE | 2017-07-13 12:22 | RADRPT ---
EXAM DATE/TIME: 07/13/2017 11:59 [facility] COMPARISON: CHEST SINGLE AP, July 13, 2017, 6:23. INDICATIONS : Post Chest tube removal. MEDICAL HISTORY : Carcinoma, lung. SURGICAL HISTORY : Fusion, cervical. Chest tube. ENCOUNTER: Subsequent ACUITY: 4 - 6 days PAIN SCORE: 0/10 LOCATION: Bilateral chest FINDINGS: Multiple rib fractures are again seen on the right. Small right pleural effusion is suspected and the re is focal infiltrate right upper lobe are not significantly changed. There is a tiny left apical pn eumothorax and unchanged. Approximate 1 cm right apical pneumothorax is also suspected not clearly se en previously. The rest of the examination has not changed. CONCLUSION: The tiny apical pneumothorax has not changed, however there is small approximately 1 cm right apical pneumothorax not identified previously. Otherwise not significantly changed except fo r removal of left chest tube. Tiesha Vela MD on July 13, 2017 at 12:18 Board Certified Radiologist. This report was verified electronically.
--- NOTE | 2017-07-13 14:45 | RADRPT ---
EXAM DATE/TIME: 07/13/2017 00:00 [facility] COMPARISON: No previous studies available for comparison. INDICATIONS : Left Chest Tube Removal DEVICE(S): 1.) Vaseline occlusive dressing PROCEDURE : Chest tube removal. Using aseptic technique the previously placed chest tube was easily removed in one piece and Vaseline gauze and sterile dressing was applied. Chest radiograph is to be obtained. CONCLUSION: Uncomplicated chest tube removal. Gerard Brown MD on July 13, 2017 at 14:43 Board Certified Radiologist. This report was verified electronically.
[2017-07-13 16:15] VITALS: BP 106/65; PULSE 77; RESP 18; TEMP 97.8; O2SAT 97
--- NOTE | 2017-07-13 19:14 | HHI.PR ---
Subjective Remarks Tolerates CPAP 67 YOWF with AMS,Resp Failure,SSLC Weaned to RA Tolerates PO Chest tube removed CXr small apical ptx Objective Vital Signs Vital Signs Date Time Temp Pulse Resp B/P (MAP) Pulse Ox O2 Delivery O2 Flow Rate FiO2 07/13/17 18:03 21 07/13/17 16:15 97.8 77 18 106/65 (79) 97 07/13/17 16:00 Room Air 07/13/17 12:08 97.9 82 17 104/53 (70) 95 07/13/17 12:00 Room Air 07/13/17 08:08 97.8 77 17 115/56 (75) 96 07/13/17 08:00 Room Air 07/13/17 04:00 97.6 75 18 143/69 (93) 97 07/13/17 00:00 97.0 73 18 131/61 (84) 96 07/12/17 21:04 16 07/12/17 20:45 97 Room Air 07/12/17 20:00 97.3 79 18 124/61 (82) 98 I/O 07/12/17 07/12/17 07/12/17 07/13/17 07/13/17 07/13/17 07:00 15:00 23:00 07:00 15:00 23:00 Intake Total 500 ml 600 ml 240 ml 720 ml Output Total 1000 ml 900 ml 800 ml 900 ml Balance -500 ml -300 ml -560 ml -180 ml Intake Oral 500 ml 600 ml 240 ml 720 ml Output Urine Total 1000 ml 900 ml 800 ml 900 ml # Bowel Movements 0 0 Objective Remarks GENERAL: Elderly female, NAD SKIN: Warm and dry. HEAD: Normocephalic. EYES: No scleral icterus. No injection or drainage. NECK: Supple, trachea midline. No JVD or lymphadenopathy. CARDIOVASCULAR: Regular rate and rhythm without murmurs, gallops, or rubs. RESPIRATORY: Breath sounds equal bilaterally. No accessory muscle use. GASTROINTESTINAL: Abdomen soft, non-tender, nondistended. MUSCULOSKELETAL: No cyanosis, or edema. BACK: Nontender without obvious deformity. No CVA tenderness. A/P Assessment and Plan IMPRESSION: 1. Left pneumothorax after lung biopsy. -Resolved 2. Worsening left lung infiltrate. 3. Small pleural effusion. 4. H/O small cell carcinoma of the lung, status post chemotherapy and radiation treatment. 5. New cancer in the left lung. 6. History of nicotine. 7. History of chronic obstructive pulmonary disease. 8. VDRF, s/p extubation PLAN: Cont Abx Stable on RA DC Plans underway Lakhwinder Wilkerson MD July 13, 2017 19:13
[2017-07-13] MEDS: MELATONIN 5 MG TAB PO PRN (20:19)
[2017-07-13] MEDS: POLYETHYLENE GLYCOL 17 GM PKG PO SCH (20:20)
[2017-07-13] MEDS: ACETAMINOPHEN 325 MG TAB PO PRN (20:20)
[2017-07-13] MEDS: MONTELUKAST SODIUM 10 MG TAB PO SCH (20:20)
[2017-07-13 20:59] VITALS: BP 104/52; PULSE 78; RESP 20; TEMP 98.5; O2SAT 96
[2017-07-14 00:59] VITALS: BP 109/54; PULSE 73; RESP 20; TEMP 97.8; O2SAT 96
[2017-07-14 04:59] VITALS: BP 109/56; PULSE 86; RESP 20; TEMP 97.8; O2SAT 95
[2017-07-14] MEDS: METOPROLOL TARTRATE 50 MG TAB PO SCH ×2 (05:51→13:00)
[2017-07-14 08:00] VITALS: BP 90/51; PULSE 80; RESP 18; TEMP 97.8; O2SAT 97
[2017-07-14] MEDS: INSULIN ASPART SUPPLEMENTAL SCALE SQ SCH ×2 (08:25→12:25)
[2017-07-14] MEDS: SODIUM CHLORIDE 0.9% FLUSH 10 ML FLUSH IV FLUSH SCH (08:25)
[2017-07-14] MEDS: FAMOTIDINE 20 MG TAB PO SCH (08:26)
[2017-07-14] MEDS: BUDESONIDE-FORMOTEROL 160/4.5 MCG INHALER INH SCH (08:26)
--- NOTE | 2017-07-14 09:41 | HHI.PR ---
Subjective Remarks pt has no cp. denies sob no pleurisy smiling and happy and eager for d/c to snf. Objective Vitals heart reg lung cta abd s/nt ext no edema Vital Signs Date Time Temp Pulse Resp B/P (MAP) Pulse Ox O2 Delivery O2 Flow Rate FiO2 07/14/17 08:00 97.8 80 18 90/51 (64) 97 07/14/17 08:00 Room Air 07/14/17 04:59 97.8 86 20 109/56 (73) 95 07/14/17 00:59 97.8 73 20 109/54 (72) 96 07/13/17 21:20 16 07/13/17 20:59 98.5 78 20 104/52 (69) 96 07/13/17 20:30 96 Room Air 07/13/17 18:03 21 07/13/17 16:15 97.8 77 18 106/65 (79) 97 07/13/17 16:00 Room Air 07/13/17 12:08 97.9 82 17 104/53 (70) 95 07/13/17 12:00 Room Air Imaging Last Impressions Chest X-Ray 07/02/17 0000 Signed Impressions: Service Date/Time: Sunday, July 02, 2017 16:05 - CONCLUSION: No pneumothorax is noted. Right perihilar streakiness consistent with atelectasis and/or scarring. Stable small right pleural effusion. Damian Don MD Liver Ultrasound 06/29/17 0000 Signed Impressions: Service Date/Time: June 16:37 - CONCLUSION: 1. Very limited exam due to extensive soft tissue emphysema. 2. Grossly normal sonographic appearance of the liver without evidence for biliary obstruction. Sung Crawford MD Abdomen X-Ray 06/28/17 0000 Signed Impressions: Service Date/Time: Wednesday, June 28, 2017 08:12 - CONCLUSION: 1. Nonspecific bowel gas pattern but no definite evidence of obstruction. 2. NG tube in the stomach. 3. Subcutaneous emphysema throughout the body wall. Cole Hays MD Chest Tube Insertion 06/27/17 0000 Signed Impressions: Service Date/Time: Tuesday, June 27, 2017 16:08 - CONCLUSION: Uncomplicated chest tube placement as above. Sung Crawford MD Chest CT 06/27/17 0000 Signed Impressions: Service Date/Time: Tuesday, June 27, 2017 13:40 - CONCLUSION: 1. There is a subcentimeter left apical pneumothorax and a small amount of extrapleural gas adjacent to the apex of the heart. 2. 1.8 cm spiculated mass in the medial left upper lung without air bronchograms suspicious for a contralateral metastatic recurrence of cancer. 3. Large right pleural effusion. 4. Extensive left-sided subcutaneous emphysema similar to prior chest x-ray and interval development of moderate subcutaneous emphysema about the right lateral chest wall. Mahin Boles MD Renal Ultrasound 06/26/17 0000 Signed Impressions: Service Date/Time: Monday, June 26, 2017 11:51 - CONCLUSION: 1. Slightly increased renal cortical echogenicity which may reflect medical renal disease. 2. No evidence for obstructive uropathy. Sung Crawford MD Head CT 06/26/17 0000 Signed Impressions: Service Date/Time: Monday, June 26, 2017 13:35 - CONCLUSION: 1. No acute intracranial abnormality is identified. 2. Chronic findings include mild generalized atrophy and chronic periventricular white matter ischemic change. Abel Diaz MD Brain MRI 06/26/17 0000 Signed Impressions: Service Date/Time: Monday, June 26, 2017 20:21 - CONCLUSION: 1. No acute findings. Exam degraded by motion artifact. Kemal Luna MD Lung Biopsy CT 06/21/17 0000 Signed Impressions: Service Date/Time: Wednesday, June 21, 2017 09:39 - CONCLUSION: Successful CT guided biopsy with small post-biopsy pneumothorax. Damian Don MD Date of Insertion: Jun 22, 2017 A/P Problem List: (1) Pneumothorax ICD Codes: J93.9 - Pneumothorax, unspecified Status: Acute Plan: - comgmt with Pulm Med and Oncology history of small cell lung CA status post prophylactic whole brain radiation 2008. 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 Pt will f/u with her primary Oncologist after discharge - Case d/w Dr. Wilkerson (07/04/17). - Dr. Wilkerson ordered CT to water seal 07/05/17 CXR 07/06 revealed no significant change. No pneumothorax - Pt on RA - 07/07 CT clamped at 0400 per pulmonology, CXR 0820 revealed Left chest tube with development of a small left apical pneumothorax compared with - CT returned to suction- further management per pulmonology - 07/09 discussed the case with Dr. Encinas covering Pulmonology agrees there is still an air leak present. Recommends CT chest without contrast to further evaluate. Patient may require CT surgery - CT chest/thorax without contrast. persistent pneumothorax - discussed with Dr Wilkerson... consulted CTS Chest tube removed on 07/13....persistent small ptx noted on left and small on right. pt seems to deny any sx's she wants dc to snf and f/u with her oncologist Dr Damon. will prepare for d/c (2) Small cell lung cancer ICD Codes: C34.90 - Malignant neoplasm of unspecified part of unspecified bronchus or lung Status: Chronic Plan: see above (3) COPD (chronic obstructive pulmonary disease) ICD Codes: J44.9 - Chronic obstructive pulmonary disease, unspecified Status: Acute Plan: - solu medrol 40 mg IV daily -> change to PO (07/06) continue to wean - Steroid induced hyperglycemia - accu check ACHS with SSI coverage - Singulair - duonebs PRN, DC scheduled Duonebs (4) Atrial fibrillation ICD Codes: I48.91 - Unspecified atrial fibrillation Status: Acute Plan: - metoprolol 50 mg PO Q8H - continue to observe on telemetry - echocardiogram 06/28/17: Normal left ventricular size. EF=35-40%, severe hk ant -ap Mild concentric left ventricular hypertrophy. The left atrial size is mildly dilated. The right atrial size is mildly dilated. Aortic valve sclerosis is present. Mild aortic valve regurgitation. There is trace tricuspid valve regurgitation. The estimated pulmonary arterial pressure is 31 mmHg. A right sided pleural effusion is present. (5) Hypokalemia ICD Codes: E87.6 - Hypokalemia Status: Resolved Plan: potassium 3.2 (07/05), mag 2.0 replaced potassium Problem Qualifiers (1) Pneumothorax: Qualified Codes: J95.811 - Postprocedural pneumothorax (2) Atrial fibrillation: Qualified Codes: I48.91 - Unspecified atrial fibrillation Forest Sanders MD July 14, 2017 09:41
--- NOTE | 2017-07-14 09:43 | HHI.DCPOC ---
Discharge Care Plan Diagnosis: (1) Pneumothorax (2) COPD (chronic obstructive pulmonary disease) (3) Squamous cell lung cancer Goals to Promote Your Health * To prevent worsening of your condition and complications * To maintain your health at the optimal level Directions to Meet Your Goals Take your medications as prescribed Follow your dietary instruction Follow activity as directed Keep your appointments as scheduled Take your immunizations and boosters as scheduled If your symptoms worsen call your PCP, if no PCP go to Urgent Care Center or Emergency Room Smoking is Dangerous to Your Health. Avoid second hand smoke Call the 24-hour hour crisis hotline for domestic abuse at Forest Sanders MD July 14, 2017 09:42
[2017-07-14] MEDS ORDERED: OXYC1CAP PO (09:47)
[2017-07-14] MEDS ORDERED: Budeson-Formot 160-4.5 Mcg Inh INH (09:47)
--- NOTE | 2017-07-14 10:21 | RADRPT ---
EXAM DATE/TIME: 07/14/2017 09:53 [facility] COMPARISON: CHEST SINGLE AP, July 13, 2017, 6:23. INDICATIONS : Short of breath, evaluate pneumothorax MEDICAL HISTORY : Carcinoma, lung. SURGICAL HISTORY : chest tube, cervical spine fusion ENCOUNTER: Subsequent ACUITY: 1 week PAIN SCORE: 0/10 LOCATION: Left chest FINDINGS: A single view of the chest demonstrates the removal of the large bore left thoracostomy tube. There m ay be a negligible left apical pneumothorax. Minimal atelectasis or scarring above the left hemidiaph ragm. On the right, stable pleural-parenchymal changes with possible right sided effusion and volume loss i n the right hemithorax. Displaced fracture involving the posterior fifth rib. Emphysematous changes i n the right apex but no obvious pneumothorax. Anterior fixation of lower cervical spine CONCLUSION: 1. Interval removal of the left-sided thoracostomy tube. There may be a tiny, subcentimeter left apic al pneumothorax. 2. Stable volume loss in the right hemithorax with pleural-parenchymal thickening and possible right sided effusion. 3. Displaced fracture through the posterior medial aspect of the right fifth rib. Stable emphysematou s changes in the right hemithorax. Gerard Brown MD on July 14, 2017 at 10:15 Board Certified Radiologist. This report was verified electronically.
[2017-07-14 12:00] VITALS: BP 106/58; PULSE 85; RESP 18; TEMP 98.5; O2SAT 95
[2017-07-14] MEDS ORDERED: METO25TA3 PO (13:04)
--- NOTE | 2017-07-14 16:24 | HHI.PR ---
Subjective Remarks Tolerates CPAP 67 YOWF with AMS,Resp Failure,SSLC Weaned to RA Tolerates PO Chest tube removed CXr tiny stable ptx Objective Vital Signs Vital Signs Date Time Temp Pulse Resp B/P (MAP) Pulse Ox O2 Delivery O2 Flow Rate FiO2 07/14/17 12:00 21 07/14/17 12:00 98.5 85 18 106/58 (74) 95 07/14/17 08:00 97.8 80 18 90/51 (64) 97 07/14/17 08:00 Room Air 07/14/17 04:59 97.8 86 20 109/56 (73) 95 07/14/17 00:59 97.8 73 20 109/54 (72) 96 07/13/17 21:20 16 07/13/17 20:59 98.5 78 20 104/52 (69) 96 07/13/17 20:30 96 Room Air 07/13/17 18:03 21 I/O 07/13/17 07/13/17 07/13/17 07/14/17 07/14/17 07/14/17 07:00 15:00 23:00 07:00 15:00 23:00 Intake Total 240 ml 720 ml 571 ml Output Total 800 ml 900 ml 300 ml Balance -560 ml -180 ml 571 ml -300 ml Intake Oral 240 ml 720 ml 571 ml Output Urine Total 800 ml 900 ml 300 ml # Voids 1 # Bowel Movements 0 Objective Remarks GENERAL: Elderly female, NAD SKIN: Warm and dry. HEAD: Normocephalic. EYES: No scleral icterus. No injection or drainage. NECK: Supple, trachea midline. No JVD or lymphadenopathy. CARDIOVASCULAR: Regular rate and rhythm without murmurs, gallops, or rubs. RESPIRATORY: Breath sounds equal bilaterally. No accessory muscle use. GASTROINTESTINAL: Abdomen soft, non-tender, nondistended. MUSCULOSKELETAL: No cyanosis, or edema. BACK: Nontender without obvious deformity. No CVA tenderness. A/P Assessment and Plan IMPRESSION: 1. Left pneumothorax after lung biopsy. -Resolved 2. Worsening left lung infiltrate. 3. Small pleural effusion. 4. H/O small cell carcinoma of the lung, status post chemotherapy and radiation treatment. 5. New cancer in the left lung. 6. History of nicotine. 7. History of chronic obstructive pulmonary disease. 8. VDRF, s/p extubation PLAN: Stable on RA DC [facility] will FU with dr.Bigman Wilkerson,Lakhwinder Kimble MD July 14, 2017 16:24
== END 2017-07-14 16:41 | DRG 208 ==
LOC: HRAD 08:05 → HRIP 08:08 → N07A 13:30 → HRAD 15:04 → OBSVTOIN 19:25 → HIME 19:45 → HCPC 07-03 23:05 → N04A 07-05 16:56
PROVIDERS: ADMIT Hospitalist; ATTEND Hospitalist
PROC: 0BBL3ZX Excision of Left Lung, Percutaneous Approach, Diagnostic (ICD-10-PCS; principal; 2017-06-21)
PROC: 0W9B30Z Drainage of Left Pleural Cavity with Drainage Device, Percutaneous Approach (ICD-10-PCS; 2017-06-21)
PROC: 0W9B30Z Drainage of Left Pleural Cavity with Drainage Device, Percutaneous Approach (ICD-10-PCS; 2017-06-21)
PROC: 0W9B30Z Drainage of Left Pleural Cavity with Drainage Device, Percutaneous Approach (ICD-10-PCS; 2017-06-22)
PROC: 5A09357 Assistance with Respiratory Ventilation, Less than 24 Consecutive Hours, Continuous Positive Airway Pressure (ICD-10-PCS; 2017-06-23)
PROC: 5A1945Z Respiratory Ventilation, 24-96 Consecutive Hours (ICD-10-PCS; 2017-06-28)
PROC: 0BH17EZ Insertion of Endotracheal Airway into Trachea, Via Natural or Artificial Opening (ICD-10-PCS; 2017-06-28)
DX: J95.811 Postprocedural pneumothorax (principal); J96.91 Respiratory failure, unspecified with hypoxia; N17.0 Acute kidney failure with tubular necrosis; G93.40 Encephalopathy, unspecified; J44.1 Chronic obstructive pulmonary disease with (acute) exacerbation; E87.0 Hyperosmolality and hypernatremia; J90 Pleural effusion, not elsewhere classified; C34.92 Malignant neoplasm of unspecified part of left bronchus or lung; F11.20 Opioid dependence, uncomplicated; G70.80 Lambert-Eaton syndrome, unspecified; D69.6 Thrombocytopenia, unspecified; Z85.118 Personal history of other malignant neoplasm of bronchus and lung; Z98.1 Arthrodesis status; Z87.891 Personal history of nicotine dependence; E78.5 Hyperlipidemia, unspecified; Z92.3 Personal history of irradiation; Z92.21 Personal history of antineoplastic chemotherapy; R59.0 Localized enlarged lymph nodes; M19.90 Unspecified osteoarthritis, unspecified site; Z91.040 Latex allergy status; E87.6 Hypokalemia; Z51.5 Encounter for palliative care; J93.82 Other air leak; D64.9 Anemia, unspecified; K59.00 Constipation, unspecified; I48.91 Unspecified atrial fibrillation; I08.3 Combined rheumatic disorders of mitral, aortic and tricuspid valves
CPT/HCPCS: 31500; 32405; 32551; 32557; 36600; 70450; 70551; 71045; 71046; 71250; 74018; 76705; 76775; 76937; 77012; 80048; 80053; 80074; 80202; 81001; 82140; 82607; 82805; 82948; 83010; 83605; 83615; 83735; 84100; 84132; 84425; 84443; 85007; 85025; 85027; 85384; 85610; 85730; 86022; 87040; 87070; 87205; 87449; 87641; 88305; 88341; 88342; 93005; 93306; 94002; 94003; 94010; 94150; 94640; 94664; 95819; 99152; 99153; C1729; C1769; C1887; J0131; J0282; J1170; J1630; J1650; J1815; J1940; J2060; J2250; J2270; J2370; J2405; J2543; J2765; J2920; J3010; J3370; J3480; J7030; J7040; J7050; J7512; J7626